=== PATIENT | female | born 1970 | race African-American/Black ===

== ENCOUNTER 2016-06-23 17:47 | Inpatient (IN) | payer OTHER, MEDICAID ==
[~2016-06-23] VITALS: Ht 160 cm; Wt 64.0 kg
[~2016-06-23 17:47] MED LIST: BUSP10TA PO; GABA-585 PO; GABA-586 PO; HYDR-2762 PO; LEVO500T38 PO; OXCA150T PO; OXCA300T PO; PANCRELIPASE; PANT40TA5 PO; SERT100T8 PO; SERT50TA8 PO; TRAM50TA PO
[2016-06-23 18:49] LABS: BASO % 1 % (0-3); EOS % 1 % (0-3); HEMATOCRIT 32.3 % (36.0-47.0); HEMOGLOBIN 10.3 g/dL (12.0-15.5); LYMPH # 1.8 x10^3/uL (1.0-4.8); LYMPH % 39 % (24-48); MEAN CORPUSCULAR HEMOGLOBIN 33 pg (25-35); MEAN CORPUSCULAR HGB CONC 32 g/dL (31-37); MEAN CORPUSCULAR VOLUME 103 fL (79-100); MONO % 8 % (0-9); NEUT % 51 % (31-73); PLATELET COUNT 196 x10^3/uL (140-400); RED BLOOD COUNT 3.14 x10^6/uL (3.50-5.40); RED CELL DISTRIBUTION WIDTH 15.6 % (11.5-14.5); WHITE BLOOD COUNT 4.6 x10^3/uL (4.0-11.0)
[2016-06-23 19:37] LABS: CALCIUM 7.6 mg/dL (8.5-10.1); GFR 72.5
[2016-06-23 19:44] LABS: ALBUMIN 1.3 g/dL (3.4-5.0); DIRECT BILIRUBIN 0.2 mg/dL (0.0-0.2); TOTAL BILIRUBIN 0.7 mg/dL (0.2-1.0); TOTAL PROTEIN 4.8 g/dL (6.4-8.2)
[2016-06-23 19:49] LABS: BILIRUBIN,URINE SMALL (NEG); GLUCOSE,URINE NEGATIVE (NEG); NITRITE,URINE NEGATIVE (NEG); PROTEIN,URINE NEGATIVE (NEG-TRACE)
[2016-06-23 19:58] LABS: BACTERIA,URINE 0 /HPF (0-FEW); RBC,URINE 0 /HPF (0-2); SQUAMOUS EPITHELIAL CELL,UR OCC /LPF; WBC,URINE OCC /HPF (0-4)
[2016-06-23] MEDS ORDERED: ONDA4TAB10 SL (20:33)
--- NOTE | 2016-06-23 20:33 | PHYS DOC ---
Past Medical History Past Medical History: Anxiety, Depression, Other Additional Past Medical Histor: NEUROPATHY, VITAMIN DEFICIENCY Past Surgical History: Gastric Bypass, Tubal ligation Alcohol Use: Occasionally Drug Use: None Adult General Chief Complaint Chief Complaint: FATIGUE HPI HPI 46-year-old female presenting to the emergency department today with generalized weakness nausea vomiting and watery diarrhea. No blood in stool. She has been having weight loss as well which is unintentional. Onset greater than a month. No alleviating factors present. No specific timing. She denies fever or headache. Review of systems is negative for shortness of breath fever or headache. Positive for intermittent sharp chest pain with nausea vomiting watery stools. All other review of systems is negative unless otherwise noted in history of present illness. Review of Systems Review of Systems SEE ABOVE. Allergies Allergies Allergies Coded Allergies Type Severity Reaction Last Updated Verified haloperidol Allergy Intermediate Anxiety 03/25/16 Yes strawberry Allergy Intermediate Rash 03/25/16 Yes Physical Exam Physical Exam Constitutional: Well developed, well nourished, no acute distress, non-toxic appearance. HENT: Normocephalic, atraumatic, bilateral external ears normal, oropharynx moist, no oral exudates, nose normal. [] Eyes: PERRLA, EOMI, conjunctiva normal, no discharge. Neck: Normal range of motion, no tenderness, supple, no stridor. Negative Kernig sign negative Brudzinski sign. Cardiovascular:Heart rate regular rhythm, no murmur [] Lungs & Thorax: Bilateral breath sounds clear to auscultation [] Abdomen: Soft nontender abdomen without rebound tenderness or guarding present. Negative McBurneys point. Negative Bowen sign. No ecchymosis present. Skin: Warm, dry, no erythema, no rash. Back: No tenderness, no CVA tenderness. [] Extremities: No tenderness, no cyanosis, no clubbing, ROM intact, no edema. [] Neurologic: Alert and oriented X 3, normal motor function, normal sensory function, no focal deficits noted. Psychologic: Affect normal, judgement normal, mood normal. [] Current Patient Data Vital Signs Vital Signs Date Time Temp Pulse Resp B/P Pulse Ox O2 Delivery O2 Flow Rate FiO2 06/23/16 18:15 98.0 86 14 110/59 95 Room Air 98.0 Lab Values Laboratory Tests Test 06/23/16 18:30 06/23/16 19:30 White Blood Count 4.6x10^3/uL (4.0-11.0) Red Blood Count 3.14x10^6/uL (3.50-5.40) L Hemoglobin 10.3g/dL (12.0-15.5) L Hematocrit 32.3% (36.0-47.0) L Mean Corpuscular Volume 103fL (79-100) H Mean Corpuscular Hemoglobin 33pg (25-35) Mean Corpuscular Hemoglobin Concent 32g/dL (31-37) Red Cell Distribution Width 15.6% (11.5-14.5) H Platelet Count 196x10^3/uL (140-400) Neutrophils (%) (Auto) 51% (31-73) Lymphocytes (%) (Auto) 39% (24-48) Monocytes (%) (Auto) 8% (0-9) Eosinophils (%) (Auto) 1% (0-3) Basophils (%) (Auto) 1% (0-3) Neutrophils # (Auto) 2.3x10^3uL (1.8-7.7) Lymphocytes # (Auto) 1.8x10^3/uL (1.0-4.8) Monocytes # (Auto) 0.4x10^3/uL (0.0-1.1) Eosinophils # (Auto) 0.0x10^3/uL (0.0-0.7) Basophils # (Auto) 0.0x10^3/uL (0.0-0.2) Sodium Level 148mmol/L (136-145) H Potassium Level 4.0mmol/L (3.5-5.1) Chloride Level 114mmol/L (98-107) H Carbon Dioxide Level 27mmol/L (21-32) Anion Gap 7 (6-14) Blood Urea Nitrogen 12mg/dL (7-20) Creatinine 1.0mg/dL (0.6-1.0) Estimated GFR (Cockcroft-Gault) 72.5 Glucose Level 73mg/dL (70-99) Lactic Acid Level 1.2mmol/L (0.4-2.0) Calcium Level 7.6mg/dL (8.5-10.1) L Total Bilirubin 0.7mg/dL (0.2-1.0) Direct Bilirubin 0.2mg/dL (0.0-0.2) Aspartate Amino Transferase (AST) 65U/L (15-37) H Alanine Aminotransferase (ALT) 55U/L (14-59) Alkaline Phosphatase 148U/L (46-116) H TM-Nse-R-Type Natriuretic Peptide 364pg/mL (0-124) H Total Protein 4.8g/dL (6.4-8.2) L Albumin 1.3g/dL (3.4-5.0) L Lipase 46U/L (73-393) L Urine Color [place] Urine Clarity Clear Urine pH 6.0 Urine Specific [place] 1.025 Urine Protein Negativemg/dL (NEG-TRACE) Urine Glucose (UA) Negativemg/dL (NEG) Urine Ketones (Stick) Tracemg/dL (NEG) Urine Blood Negative (NEG) Urine Nitrite Negative (NEG) Urine Bilirubin Small (NEG) Urine Urobilinogen Dipstick 1.0mg/dL (0.2 mg/dL) Urine Leukocyte Esterase Trace (NEG) Urine RBC 0/HPF (0-2) Urine WBC Occ/HPF (0-4) Urine Squamous Epithelial Cells Occ/LPF Urine Bacteria 0/HPF (0-FEW) Urine Hyaline Casts Occasional/HPF Urine Mucus Mod/LPF Laboratory Tests 06/23/16 18:30 Laboratory Tests 06/23/16 18:30 EKG EKG []EKG shows sinus rhythm with regular rate. Normal intervals. Normal axis. ST segments are congruent. Not suggestive of ACS. Reviewed by myself. Radiology/Procedures Radiology/Procedures [] Chest x-rays shows new pleural effusion on the left. Otherwise no obvious infiltrate or pneumothorax present. Poor lung volumes. Course & Med Decision Making Course & Med Decision Making Pertinent Labs and Imaging studies reviewed. (See chart for details) [] 36-year-old female presenting to the emergency department today with generalized weakness decreased appetite weight loss nausea vomiting. Afebrile with a normal heart rate. Saturating 95% on room air. Breathing comfortably in the exam room. Physical exam showed a nontender abdomen. Otherwise unremarkable. EKG unremarkable. Chest x-ray shows new pleural effusion on the left. Otherwise blood work showed mild anemia. UA not suggestive of infection. Chemistry panel showed malnutrition given the low albumin otherwise grossly unremarkable. On reevaluation the patient was breathing comfortably. The patient was then discharged home to follow up with her primary care physician in 1-2 days for referral for an outpatient workup evaluation and care of the left pleural effusion. Danny Disclaimer Danny Disclaimer This electronic medical record was generated, in whole or in part, using a voice recognition dictation system. Departure Departure Impression: Primary Impression: Unintentional weight loss Additional Impressions: Vomiting Weakness Disposition: 01 HOME, SELF-CARE Condition: STABLE Referrals: SIMBA JACK APRN (PCP) Patient Instructions: Malnutrition, Nausea and Vomiting, Pleural Effusion Additional Instructions: Thank you for allowing us to participate in your care today. Followup with your primary care physician in 3 days if your symptoms do not improve. If you do not have a primary care provider you can ask for a list of our primary care providers. Return to the emergency department you have any new or concerning findings. This should be evaluated by the primary care physician and any necessary consulting services for continued management within a few days after discharge. Return to emergency room if you have any new or concerning symptoms including but not limited to fever, chills, nausea, vomiting, intractable pain, any new rashes, chest pain, shortness of air, uncontrolled bleeding, difficulty breathing, and/or vision loss. Scripts Ondansetron (Zofran Odt)4 Mg Tab.rapdis1 Tab SL PRN Q8HRS PRN NAUSEA #6 TAB Prov:KULWANT CHAND MD 06/23/16 Problem Qualifiers KULWANT CHAND MD Jun 23, 2016 20:33
[2016-06-23] MEDS ORDERED: MORPHINE SULFATE 2 MG/ML DISP.SYRIN. IV PRN (21:00)
[2016-06-23] MEDS ORDERED: ONDANSETRON PF 4 MG/2 ML VIAL. IV PRN (21:00)
[2016-06-23] MEDS ORDERED: ASPIRIN 81 MG TAB.CHEW PO ONE (21:15)
[2016-06-23] MEDS ORDERED: CONTRAST GIVEN MC PRN (21:15)
[2016-06-23] MEDS ORDERED: IOHEXOL 300 MG/ML 75 ML VIAL IV ONE (21:45)
--- NOTE | 2016-06-23 21:53 | RAD ---
CT CHEST PQRS STATEMENT One or more of the following individualized dose reduction techniques were utilized for this study:1.Automated exposure control. 2.Adjustment of the mA and/or kV according to patient size. 3.Use of iterative reconstruction technique Indication: EFFUSION EVAL FOR CARCINOMA, HX GASTRIC BYPASS ,NO PRIORS Reason: effusion eval for carcinoma / Spl. Instructions: / History: Technique: Multiple contiguous axial images were obtained through the chest after administration of iodinated contrast. Coronal and sagittal reformations were created. Findings: There is no thoracic adenopathy. The heart size is normal. No pericardial effusion. The thoracic aorta is normal in caliber. There is a moderate left and small right pleural effusion. No pneumothorax. There is some non consolidating injured Fischel opacities in the left upper lobe peripherally. A calcified granuloma is noted in the right upper lobe peripherally. No destructive osseous lesions are identified. Limited subdiaphragmatic evaluation demonstrates at least moderate amount of ascites. Impression: - Moderate left and small right pleural effusion. - Negative for thoracic adenopathy. - Abdominal ascites. - Non consolidating peripheral left upper lobe interstitial opacities. This could represent atelectasis but follow-up is recommended. Electronically signed by: Randy Caruso (Jun 23, 2016 21:52:06)
[2016-06-23 22:40] VITALS: BP 109/62
[2016-06-23] MEDS ORDERED: TRAZ50TA15 PO (23:17)
[2016-06-23] MEDS ORDERED: GABA-586 PO (23:17)
[2016-06-23] MEDS ORDERED: TRAM50TA PO (23:42)
[2016-06-24] MEDS: IV NORMAL SALINE 1000ML BAG 1,000 ML IV SCH ×2 (00:38→05:00)
[2016-06-24] MEDS: HYDROCODONE/APAP 5/325MG TABLET. PO PRN ×3 (00:39→15:24)
[2016-06-24 01:00] VITALS: BP 107/60
[2016-06-24 03:35] VITALS: BP 107/53
--- NOTE | 2016-06-24 06:34 | EKG ---
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
[2016-06-24 06:59] LABS: BASO % 1 % (0-3); EOS % 1 % (0-3); HEMATOCRIT 31.8 % (36.0-47.0); HEMOGLOBIN 10.2 g/dL (12.0-15.5); LYMPH # 1.6 x10^3/uL (1.0-4.8); LYMPH % 41 % (24-48); MEAN CORPUSCULAR HEMOGLOBIN 33 pg (25-35); MEAN CORPUSCULAR HGB CONC 32 g/dL (31-37); MEAN CORPUSCULAR VOLUME 104 fL (79-100); MONO % 8 % (0-9); NEUT % 50 % (31-73); PLATELET COUNT 168 x10^3/uL (140-400); RED BLOOD COUNT 3.07 x10^6/uL (3.50-5.40); RED CELL DISTRIBUTION WIDTH 15.2 % (11.5-14.5); WHITE BLOOD COUNT 3.9 x10^3/uL (4.0-11.0)
[2016-06-24 07:22] LABS: CALCIUM 7.5 mg/dL (8.5-10.1); CREATININE 0.9 mg/dL (0.6-1.0); GFR 81.9; POTASSIUM 3.5 mmol/L (3.5-5.1)
[2016-06-24 07:49] VITALS: BP 110/62
--- NOTE | 2016-06-24 07:51 | RAD ---
Indication weakness. Fatigue. Shortness of breath. A single view of the chest was obtained and is compared to an exam 01/19/2016. There is a left pleural effusion. There is some volume loss at the left lung base likely reflecting passive atelectasis associated with the pleural fluid. The heart and pulmonary vessels are within normal limits. A focal consolidated pneumonia is not seen. There is no pneumothorax. IMPRESSION: Moderate left pleural effusion
[2016-06-24] MEDS ORDERED: TRAMADOL 50 MG TABLET. PO PRN (09:00)
--- NOTE | 2016-06-24 09:39 | PDOC2 ---
JACEK ROMERO RESIDENT PHYSICIAN 06/24/16 0939: CARDIAC CONSULT DATE OF CONSULT Date of Consult DATE: 06/24/16 TIME: 09:31 REASON FOR CONSULT Reason for Consult: Positive troponin REFERRING PHYSICIAN Referring Physician: Dr. Ball SOURCE Source: Chart review, Patient HISTORY OF PRESENT ILLNESS HISTORY OF PRESENT ILLNESS This is a 46 yo female, with a history of severe mitral regurgitation and obesity s/p remote gastric bypass, who presented with complaints of generalized weakness and dizziness, along with nausea, vomiting, and diarrhea. Patient reports onset of symptoms 2 weeks ago. Have progressively worsened. Associated with decrease intake. Recently had difficulty walking and has been having outpatient PT/OT. Reports daily diarrhea, nausea and vomiting. Seems to be worsened by stress. Additionally reports intermittent chest pain. Located in left chest. Describes as sharp in nature. Non-radiating. Worsened by pressing on left chest and laying on right side. Ongoing SOA since February which has slightly worsened since Katie time. Echocardiogram this past February noted severe mitral regurgitation. Patient subsequently underwent JAYY that revealed moderately severe mitral regurgitation along with moderate tricuspid regurgitation and moderately dilated left atrium. Patient schedule for cardiothoracic evaluation, but failed to make appointment. PAST MEDICAL HISTORY Cardiovascular: Valve insufficiency (severe mitral reg.) Pulmonary: No pertinent hx CENTRAL NERVOUS SYSTEM: Periperal neuropathy GI: Other (esophageal erosions ) Heme/Onc: Anemia NOS Hepatobiliary: No pertinent hx Psych: Anxiety, Depression Infectious disease: No pertinent hx ENT: No pertinent hx Renal/: No pertinent hx Endocrine: Hypothyroidism Dermatology: No pertinent hx PAST SURGICAL HISTORY Past Surgical History: Cholecystectomy, Other (gastric bypass 2011 ) FAMILY HISTORY Family History: Diabetes, Hypertension SOCIAL HISTORY Smoke: <1 pack per day ALCOHOL: occassional Drugs: None Lives: with Family Domestic Violence: Neg CURRENT MEDICATIONS CURRENT MEDICATIONS Current Medications Medications (Trade) Dose Ordered Sig/Grecia Route PRN Reason Start Time Stop Time Status Last Admin Dose Admin Aspirin (Children'S Aspirin) 324 mg 1X ONCE PO 06/23/16 21:15 06/23/16 21:16 DC 06/23/16 21:53 Morphine Sulfate 2 mg 2 mg PRN Q2HR PRN IV SEVERE PAIN 06/23/16 21:00 06/24/16 20:59 06/23/16 21:57 Sodium Chloride (Iv Sodium Chloride 0.9% 1000ml Bag) 1,000 ml @ 125 mls/hr Q8H IV 06/23/16 21:00 06/24/16 20:59 06/24/16 00:38 Iohexol (Omnipaque 300 Mg/ml) 75 ml 1X ONCE IV 06/23/16 21:45 06/23/16 21:46 DC 06/23/16 21:20 Acetaminophen/ Hydrocodone Bitart (Lortab 5/325) 1 tab PRN Q4HRS PRN PO SEVERE PAIN 06/23/16 23:45 06/24/16 06:00 ALLERGIES ALLERGIES: Coded Allergies: haloperidol (Verified Allergy, Intermediate, Anxiety, 03/25/16) strawberry (Verified Allergy, Intermediate, Rash, 03/25/16) ROS Review of System 14 point ROS conducted with pertinent positives noted above in HPI PHYSICAL EXAM General: Alert, Oriented X3, Cooperative, No acute distress HEENT: Atraumatic, Mucous membr. moist/pink Lungs: Clear to auscultation, Other (left chest tender upon palpitaiton) Heart: Regular rate, Normal S1, Normal S2, Other (3/6 systolic murmur ) Abdomen: Soft, No tenderness, Other (ascites) Extremities: Other (trace bilateral LE edema ) Skin: No breakdown, No significant lesion Neuro: Normal speech, Sensation intact Psych/Mental Status: Mental status NL, Mood NL MUSCULOSKELETAL: Full range of motion without pain VITALS VITALS Vital Signs Date Time Temp Pulse Resp B/P Pulse Ox O2 Delivery O2 Flow Rate FiO2 06/24/16 08:00 Room Air 06/24/16 07:49 97.7 83 17 110/62 98 97.7 LABS Lab: Laboratory Tests Test 06/23/16 18:30 06/23/16 19:30 06/24/16 06:26 White Blood Count 4.6x10^3/uL (4.0-11.0) 3.9x10^3/uL (4.0-11.0) Red Blood Count 3.14x10^6/uL (3.50-5.40) 3.07x10^6/uL (3.50-5.40) Hemoglobin 10.3g/dL (12.0-15.5) 10.2g/dL (12.0-15.5) Hematocrit 32.3% (36.0-47.0) 31.8% (36.0-47.0) Mean Corpuscular Volume 103fL (79-100) 104fL (79-100) Mean Corpuscular Hemoglobin 33pg (25-35) 33pg (25-35) Mean Corpuscular Hemoglobin Concent 32g/dL (31-37) 32g/dL (31-37) Red Cell Distribution Width 15.6% (11.5-14.5) 15.2% (11.5-14.5) Platelet Count 196x10^3/uL (140-400) 168x10^3/uL (140-400) Neutrophils (%) (Auto) 51% (31-73) 50% (31-73) Lymphocytes (%) (Auto) 39% (24-48) 41% (24-48) Monocytes (%) (Auto) 8% (0-9) 8% (0-9) Eosinophils (%) (Auto) 1% (0-3) 1% (0-3) Basophils (%) (Auto) 1% (0-3) 1% (0-3) Neutrophils # (Auto) 2.3x10^3uL (1.8-7.7) 1.9x10^3uL (1.8-7.7) Lymphocytes # (Auto) 1.8x10^3/uL (1.0-4.8) 1.6x10^3/uL (1.0-4.8) Monocytes # (Auto) 0.4x10^3/uL (0.0-1.1) 0.3x10^3/uL (0.0-1.1) Eosinophils # (Auto) 0.0x10^3/uL (0.0-0.7) 0.0x10^3/uL (0.0-0.7) Basophils # (Auto) 0.0x10^3/uL (0.0-0.2) 0.0x10^3/uL (0.0-0.2) Sodium Level 148mmol/L (136-145) 144mmol/L (136-145) Potassium Level 4.0mmol/L (3.5-5.1) 3.5mmol/L (3.5-5.1) Chloride Level 114mmol/L (98-107) 113mmol/L (98-107) Carbon Dioxide Level 27mmol/L (21-32) 23mmol/L (21-32) Anion Gap 7 (6-14) 8 (6-14) Blood Urea Nitrogen 12mg/dL (7-20) 13mg/dL (7-20) Creatinine 1.0mg/dL (0.6-1.0) 0.9mg/dL (0.6-1.0) Estimated GFR (Cockcroft-Gault) 72.5 81.9 Glucose Level 73mg/dL (70-99) 69mg/dL (70-99) Lactic Acid Level 1.2mmol/L (0.4-2.0) Calcium Level 7.6mg/dL (8.5-10.1) 7.5mg/dL (8.5-10.1) Total Bilirubin 0.7mg/dL (0.2-1.0) Direct Bilirubin 0.2mg/dL (0.0-0.2) Aspartate Amino Transf (AST/SGOT) 65U/L (15-37) Alanine Aminotransferase (ALT/SGPT) 55U/L (14-59) Alkaline Phosphatase 148U/L (46-116) Troponin I Quantitative 0.088ng/mL (0.000-0.055) 0.111ng/mL (0.000-0.055) KC-Aba-K-Type Natriuretic Peptide 364pg/mL (0-124) Total Protein 4.8g/dL (6.4-8.2) Albumin 1.3g/dL (3.4-5.0) Lipase 46U/L (73-393) Urine Color [place] Urine Clarity Clear Urine pH 6.0 Urine Specific [place] 1.025 Urine Protein Negativemg/dL (NEG-TRACE) Urine Glucose (UA) Negativemg/dL (NEG) Urine Ketones (Stick) Tracemg/dL (NEG) Urine Blood Negative (NEG) Urine Nitrite Negative (NEG) Urine Bilirubin Small (NEG) Urine Urobilinogen Dipstick 1.0mg/dL (0.2 mg/dL) Urine Leukocyte Esterase Trace (NEG) Urine RBC 0/HPF (0-2) Urine WBC Occ/HPF (0-4) Urine Squamous Epithelial Cells Occ/LPF Urine Bacteria 0/HPF (0-FEW) Urine Hyaline Casts Occasional/HPF Urine Mucus Mod/LPF ECHOCARDIOGRAM ECHOCARDIOGRAM DATE: 03/11/161806 Echocardiogram: <Conclusion> The left ventricular systolic function is normal and the ejection fraction is within normal range. The Ejection Fraction is 68% The left atrium is severely dilated. The right atrium size is normal. Doppler and Color Flow revealed trace aortic regurgitation. The mitral valve is normal in structure and function. Thickening of the Anterior leaflet is seen. Doppler and Color Flow revealed severe mitral regurgitation. Doppler and Color Flow revealed mild tricuspid regurgitation. The PA pressure was estimated at 34 mmHg. The pulmonary valve is normal in structure Doppler and Color Flow revealed mild pulmonic valvular regurgitation. There is a trivial pericardial effusion seen. DATE: 04/01/16 121 Transesophageal Echocardiogram : <Conclusion> The left ventricle is normal size. The left ventricular systolic function is normal and the ejection fraction is within normal range. The left atrium is moderately dilated. There is no significant aortic valvular stenosis. Doppler and Color Flow revealed trace aortic regurgitation. The mitral valve leaflets are thickened. Doppler and Color Flow revealed moderately severe mitral regurgitation. Doppler and Color Flow revealed mild to moderate tricuspid regurgitation. ASSESSMENT/PLAN ASSESSMENT/PLAN 1. Mildly elevated troponin 2. Severe mitral regurgitation 3. Dyspnea 4. Weakness/fatigue 5. Nausea/vomiting/diarrhea 6. Moderate left pleural effusion 7. Ascites Recommendations Trop peak 0.111. Slight troponin level elevation probably secondary to subendocardial ischemia from severe mitral regurgitation. Echo with normal LV function. Cardiothoracic surgery evaluation ? need for thoracentesis. per pulmonary Stop IV fluids. Mild diuresis as able. Supportive care Problems: GLEN APPIAH MD 06/24/161814: CARDIAC CONSULT ALLERGIES ALLERGIES: Coded Allergies: haloperidol (Verified Allergy, Intermediate, Anxiety, 03/25/16) strawberry (Verified Allergy, Intermediate, Rash, 03/25/16) ASSESSMENT/PLAN ASSESSMENT/PLAN Patient seen and examined. Agree with above nurse practitioner note. 46-year-old woman known to us presenting with debility, fatigue and malnutrition. From a purely cardio vascular perspective she does not appear to be in acute heart failure related to her mitral regurgitation. She has ascites and pleural effusions bilaterally on examination and by objective testing. Possible that this may be related to malabsorption syndromes or from poor nutrition. At this present time would treat her mitral regurgitation symptomatically. Gentle diuresis as tolerated. Will follow along. Thank you for this consultation. Problems: NICK,JACEK RESIDENT PHYSICIAN Jun 24, 2016 09:39 GLEN APPIAH MD Jun 24, 2016 18:15
--- NOTE | 2016-06-24 10:04 | PDOC1 ---
History and Physical Past Medical History Cardiovascular: Valve insufficiency (severe mitral reg.) CENTRAL NERVOUS SYSTEM: Periperal neuropathy GI: Other (esophageal erosions ) Psych: Depression Endocrine: Hypothyroidism Past Surgical History Past Surgical History: Cholecystectomy, Other (gastric bypass ) Family History Family History: Diabetes, Hypertension Social History ALCOHOL: none Drugs: None Current Problem List Problem List Problems Medical Problems: (1) Elevated troponin Status: Acute (2) Unintentional weight loss Status: Acute (3) Vomiting Status: Acute (4) Weakness Status: Acute Current Medications Current Medications Current Medications Medications (Trade) Dose Ordered Sig/Grecia Start Time Stop Time Status Last Admin Dose Admin Acetaminophen/ Hydrocodone Bitart (Lortab 5/325) 1 tab PRN Q4HRS PRN 06/23/16 23:45 06/24/16 06:00 1 TAB Aspirin (Children'S Aspirin) 324 mg 1X ONCE 06/23/16 21:15 06/23/16 21:16 DC 06/23/16 21:53 324 MG Gabapentin (Neurontin) 300 mg PRN TID PRN 06/23/16 23:45 Info (Do NOT chart on this entry -- for MONITORING) 1 each PRN DAILY PRN 06/23/16 21:15 06/25/16 21:14 Iohexol (Omnipaque 300 Mg/ml) 75 ml 1X ONCE 06/23/16 21:45 06/23/16 21:46 DC 06/23/16 21:20 75 ML Morphine Sulfate 2 mg 2 mg PRN Q2HR PRN 06/23/16 21:00 06/24/16 20:59 06/23/16 21:57 2 MG Ondansetron HCl (Zofran Odt) 4 mg PRN Q8HRS PRN 06/24/16 09:00 Ondansetron HCl (Zofran) 4 mg PRN Q8HRS PRN 06/23/16 21:00 06/24/16 20:59 Oxcarbazepine (Trileptal) 1,200 mg HS 06/24/16 21:00 Pantoprazole Sodium (Protonix) 40 mg DAILYAC 06/24/16 07:30 Sertraline HCl (Zoloft) 100 mg BID 06/24/16 09:00 Sodium Chloride (Iv Sodium Chloride 0.9% 1000ml Bag) 1,000 ml @ 125 mls/hr Q8H 06/23/16 21:00 06/24/16 20:59 06/24/16 00:38 125 MLS/HR Tramadol HCl (Ultram) 50 mg PRN Q6HRS PRN 06/24/16 09:00 Trazodone HCl (Desyrel) 50 mg QHS 06/24/16 21:00 Allergies Allergies Allergies Coded Allergies Type Severity Reaction Last Updated Verified haloperidol Allergy Intermediate Anxiety 03/25/16 Yes strawberry Allergy Intermediate Rash 03/25/16 Yes ROS Review of System CONSTITUTIONAL: No fever or chills, fatigue weakness EYES: No recent changes SKIN: No rash or itching CARDIOVASCULAR: No chest pain, syncope, palpitations, or edema RESPIRATORY: No SOB or cough GASTROINTESTINAL: nausea, diarrhea, NEUROLOGICAL: No headaches or weakness ENDOCRINE: No cold or heat intolerance GENITOURINARY: No urgency or frequency of urination MUSCULOSKELETAL: chronic pain, leg pains LYMPHATICS: No enlarged lymph nodes PSYCHIATRIC: No anxiety or depression Physical Exam Physical Exam GEN.: apparent distress. Alert and oriented. HEENT: Head is normocephalic, atraumatic NECK: Supple. no jvd LUNGS: Clear to auscultation. decreased BS at bases HEART: RRR, S1, S2 present. Peripheral pulses intact ABDOMEN: Soft, nontender. Positive bowel sounds. EXTREMITIES: Without any cyanosis. +1 edema with discoloration NEUROLOGIC: Normal speech, normal tone PSYCHIATRIC: Normal affect, normal mood. SKIN: No visible ulcerations Vitals Vitals Vital Signs Date Time Temp Pulse Resp B/P Pulse Ox O2 Delivery O2 Flow Rate FiO2 06/24/16 08:00 Room Air 06/24/16 07:49 97.7 83 17 110/62 98 97.7 Labs Labs Laboratory Tests Test 06/23/16 18:30 06/23/16 19:30 06/24/16 06:26 White Blood Count 4.6x10^3/uL (4.0-11.0) 3.9x10^3/uL (4.0-11.0) Red Blood Count 3.14x10^6/uL (3.50-5.40) 3.07x10^6/uL (3.50-5.40) Hemoglobin 10.3g/dL (12.0-15.5) 10.2g/dL (12.0-15.5) Hematocrit 32.3% (36.0-47.0) 31.8% (36.0-47.0) Mean Corpuscular Volume 103fL (79-100) 104fL (79-100) Mean Corpuscular Hemoglobin 33pg (25-35) 33pg (25-35) Mean Corpuscular Hemoglobin Concent 32g/dL (31-37) 32g/dL (31-37) Red Cell Distribution Width 15.6% (11.5-14.5) 15.2% (11.5-14.5) Platelet Count 196x10^3/uL (140-400) 168x10^3/uL (140-400) Neutrophils (%) (Auto) 51% (31-73) 50% (31-73) Lymphocytes (%) (Auto) 39% (24-48) 41% (24-48) Monocytes (%) (Auto) 8% (0-9) 8% (0-9) Eosinophils (%) (Auto) 1% (0-3) 1% (0-3) Basophils (%) (Auto) 1% (0-3) 1% (0-3) Neutrophils # (Auto) 2.3x10^3uL (1.8-7.7) 1.9x10^3uL (1.8-7.7) Lymphocytes # (Auto) 1.8x10^3/uL (1.0-4.8) 1.6x10^3/uL (1.0-4.8) Monocytes # (Auto) 0.4x10^3/uL (0.0-1.1) 0.3x10^3/uL (0.0-1.1) Eosinophils # (Auto) 0.0x10^3/uL (0.0-0.7) 0.0x10^3/uL (0.0-0.7) Basophils # (Auto) 0.0x10^3/uL (0.0-0.2) 0.0x10^3/uL (0.0-0.2) Sodium Level 148mmol/L (136-145) 144mmol/L (136-145) Potassium Level 4.0mmol/L (3.5-5.1) 3.5mmol/L (3.5-5.1) Chloride Level 114mmol/L (98-107) 113mmol/L (98-107) Carbon Dioxide Level 27mmol/L (21-32) 23mmol/L (21-32) Anion Gap 7 (6-14) 8 (6-14) Blood Urea Nitrogen 12mg/dL (7-20) 13mg/dL (7-20) Creatinine 1.0mg/dL (0.6-1.0) 0.9mg/dL (0.6-1.0) Estimated GFR (Cockcroft-Gault) 72.5 81.9 Glucose Level 73mg/dL (70-99) 69mg/dL (70-99) Lactic Acid Level 1.2mmol/L (0.4-2.0) Calcium Level 7.6mg/dL (8.5-10.1) 7.5mg/dL (8.5-10.1) Total Bilirubin 0.7mg/dL (0.2-1.0) Direct Bilirubin 0.2mg/dL (0.0-0.2) Aspartate Amino Transf (AST/SGOT) 65U/L (15-37) Alanine Aminotransferase (ALT/SGPT) 55U/L (14-59) Alkaline Phosphatase 148U/L (46-116) Troponin I Quantitative 0.088ng/mL (0.000-0.055) 0.111ng/mL (0.000-0.055) VE-Jqo-O-Type Natriuretic Peptide 364pg/mL (0-124) Total Protein 4.8g/dL (6.4-8.2) Albumin 1.3g/dL (3.4-5.0) Lipase 46U/L (73-393) Urine Color [place] Urine Clarity Clear Urine pH 6.0 Urine Specific [place] 1.025 Urine Protein Negativemg/dL (NEG-TRACE) Urine Glucose (UA) Negativemg/dL (NEG) Urine Ketones (Stick) Tracemg/dL (NEG) Urine Blood Negative (NEG) Urine Nitrite Negative (NEG) Urine Bilirubin Small (NEG) Urine Urobilinogen Dipstick 1.0mg/dL (0.2 mg/dL) Urine Leukocyte Esterase Trace (NEG) Urine RBC 0/HPF (0-2) Urine WBC Occ/HPF (0-4) Urine Squamous Epithelial Cells Occ/LPF Urine Bacteria 0/HPF (0-FEW) Urine Hyaline Casts Occasional/HPF Urine Mucus Mod/LPF Laboratory Tests Test 06/23/16 18:30 06/23/16 19:30 06/24/16 06:26 White Blood Count 4.6x10^3/uL (4.0-11.0) 3.9x10^3/uL (4.0-11.0) Red Blood Count 3.14x10^6/uL (3.50-5.40) 3.07x10^6/uL (3.50-5.40) Hemoglobin 10.3g/dL (12.0-15.5) 10.2g/dL (12.0-15.5) Hematocrit 32.3% (36.0-47.0) 31.8% (36.0-47.0) Mean Corpuscular Volume 103fL (79-100) 104fL (79-100) Mean Corpuscular Hemoglobin 33pg (25-35) 33pg (25-35) Mean Corpuscular Hemoglobin Concent 32g/dL (31-37) 32g/dL (31-37) Red Cell Distribution Width 15.6% (11.5-14.5) 15.2% (11.5-14.5) Platelet Count 196x10^3/uL (140-400) 168x10^3/uL (140-400) Neutrophils (%) (Auto) 51% (31-73) 50% (31-73) Lymphocytes (%) (Auto) 39% (24-48) 41% (24-48) Monocytes (%) (Auto) 8% (0-9) 8% (0-9) Eosinophils (%) (Auto) 1% (0-3) 1% (0-3) Basophils (%) (Auto) 1% (0-3) 1% (0-3) Neutrophils # (Auto) 2.3x10^3uL (1.8-7.7) 1.9x10^3uL (1.8-7.7) Lymphocytes # (Auto) 1.8x10^3/uL (1.0-4.8) 1.6x10^3/uL (1.0-4.8) Monocytes # (Auto) 0.4x10^3/uL (0.0-1.1) 0.3x10^3/uL (0.0-1.1) Eosinophils # (Auto) 0.0x10^3/uL (0.0-0.7) 0.0x10^3/uL (0.0-0.7) Basophils # (Auto) 0.0x10^3/uL (0.0-0.2) 0.0x10^3/uL (0.0-0.2) Sodium Level 148mmol/L (136-145) 144mmol/L (136-145) Potassium Level 4.0mmol/L (3.5-5.1) 3.5mmol/L (3.5-5.1) Chloride Level 114mmol/L (98-107) 113mmol/L (98-107) Carbon Dioxide Level 27mmol/L (21-32) 23mmol/L (21-32) Anion Gap 7 (6-14) 8 (6-14) Blood Urea Nitrogen 12mg/dL (7-20) 13mg/dL (7-20) Creatinine 1.0mg/dL (0.6-1.0) 0.9mg/dL (0.6-1.0) Estimated GFR (Cockcroft-Gault) 72.5 81.9 Glucose Level 73mg/dL (70-99) 69mg/dL (70-99) Lactic Acid Level 1.2mmol/L (0.4-2.0) Calcium Level 7.6mg/dL (8.5-10.1) 7.5mg/dL (8.5-10.1) Total Bilirubin 0.7mg/dL (0.2-1.0) Direct Bilirubin 0.2mg/dL (0.0-0.2) Aspartate Amino Transf (AST/SGOT) 65U/L (15-37) Alanine Aminotransferase (ALT/SGPT) 55U/L (14-59) Alkaline Phosphatase 148U/L (46-116) Troponin I Quantitative 0.088ng/mL (0.000-0.055) 0.111ng/mL (0.000-0.055) DM-Gfx-D-Type Natriuretic Peptide 364pg/mL (0-124) Total Protein 4.8g/dL (6.4-8.2) Albumin 1.3g/dL (3.4-5.0) Lipase 46U/L (73-393) Urine Color [place] Urine Clarity Clear Urine pH 6.0 Urine Specific [place] 1.025 Urine Protein Negativemg/dL (NEG-TRACE) Urine Glucose (UA) Negativemg/dL (NEG) Urine Ketones (Stick) Tracemg/dL (NEG) Urine Blood Negative (NEG) Urine Nitrite Negative (NEG) Urine Bilirubin Small (NEG) Urine Urobilinogen Dipstick 1.0mg/dL (0.2 mg/dL) Urine Leukocyte Esterase Trace (NEG) Urine RBC 0/HPF (0-2) Urine WBC Occ/HPF (0-4) Urine Squamous Epithelial Cells Occ/LPF Urine Bacteria 0/HPF (0-FEW) Urine Hyaline Casts Occasional/HPF Urine Mucus Mod/LPF VTE Prophylaxis Ordered VTE Prophylaxis Devices: Yes VTE Pharmacological Prophylaxi: Yes TRAN THOMPSON MD Jun 24, 2016 10:04
[2016-06-24] MEDS: SERTRALINE 50 MG TABLET. PO SCH ×2 (10:23→21:40)
[2016-06-24] MEDS: PANTOPRAZOLE 40 MG TABLET. PO SCH (10:23)
[2016-06-24] MEDS: GABAPENTIN 300 MG CAPSULE. PO PRN (10:31)
[2016-06-24 11:12] VITALS: BP 111/65
[2016-06-24] MEDS ORDERED: IV NORMAL SALINE 1000ML BAG 1,000 ML IV SCH (11:30)
--- NOTE | 2016-06-24 11:45 | PDOC2 ---
GI CONSULT Reason For Consult: Abdominal pain, diarrhea HPI: HPI: 46 y/o AA female known to GI/Dr. Lemus from previous admission. GI history significant for biliopancreatic diversion, malnutrition, n/v, abdominal pain, and diarrhea. EGD in 01/2016 for same showed 2 mucosal abrasions above GEJ, distal gastrectomy with end-to-side gastroenterostomy, gastric pouch normal but larger than for typical R-en-Y bypass, and normal franca limb to limits of scope. GES was normal at that time. She had a nutritional consult at that time and soft, low-refined carbohydrate, low-fat diet w/ nutritional supplements and vitamins were recommended. On this occasion, she reports she came to the ER for chest pain and heart palpitations. Labs show low Hgb 10.2 (8-9 last admission), low albumin, and some elevation in troponin. Chest CT showed moderate left and small right pleural effusions and abdominal ascites. She has seen cardiology; CTS consult is considered w/ h/o severe mitral regurg. Currently she denies abdominal pain and says her last BM was 2 days ago. She has gained 4 pounds. She is hungry and eating breakfast. She does report some n/v over the past few days (which she feels is worse w/ stress) w/ abdominal bloating (now resolved). At home, she takes PPI, pancreatic enzymes, vitamins, and occasionally requires anti-emetics. PMH: PMH: mitral regurg, anxiety/depression, neuropathy, biliopancreatic diversion, cholecystectomy, tubal ligation Social History: Smoke: <1 pack per day ALCOHOL: occassional Drugs: None ROS: GEN: Denies fevers, chills, sweats HEENT: Denies blurred vision, sore throat CV: +chest pain +palpitations RESP: +SOA GI: Per HPI : Denies hematuria, dysuria ENDO: +gained 4 pounds NEURO: Denies confusion, dizziness MSK: +weakness SKIN: Denies jaundice, pruritus VItals: Vitals: Vital Signs Date Time Temp Pulse Resp B/P Pulse Ox O2 Delivery O2 Flow Rate FiO2 06/24/16 11:12 97.7 82 17 111/65 99 Room Air 97.7 Labs: Labs: Laboratory Tests Test 06/23/16 18:30 06/23/16 19:30 06/24/16 06:26 White Blood Count 4.6x10^3/uL (4.0-11.0) 3.9x10^3/uL (4.0-11.0) Red Blood Count 3.14x10^6/uL (3.50-5.40) 3.07x10^6/uL (3.50-5.40) Hemoglobin 10.3g/dL (12.0-15.5) 10.2g/dL (12.0-15.5) Hematocrit 32.3% (36.0-47.0) 31.8% (36.0-47.0) Mean Corpuscular Volume 103fL (79-100) 104fL (79-100) Mean Corpuscular Hemoglobin 33pg (25-35) 33pg (25-35) Mean Corpuscular Hemoglobin Concent 32g/dL (31-37) 32g/dL (31-37) Red Cell Distribution Width 15.6% (11.5-14.5) 15.2% (11.5-14.5) Platelet Count 196x10^3/uL (140-400) 168x10^3/uL (140-400) Neutrophils (%) (Auto) 51% (31-73) 50% (31-73) Lymphocytes (%) (Auto) 39% (24-48) 41% (24-48) Monocytes (%) (Auto) 8% (0-9) 8% (0-9) Eosinophils (%) (Auto) 1% (0-3) 1% (0-3) Basophils (%) (Auto) 1% (0-3) 1% (0-3) Neutrophils # (Auto) 2.3x10^3uL (1.8-7.7) 1.9x10^3uL (1.8-7.7) Lymphocytes # (Auto) 1.8x10^3/uL (1.0-4.8) 1.6x10^3/uL (1.0-4.8) Monocytes # (Auto) 0.4x10^3/uL (0.0-1.1) 0.3x10^3/uL (0.0-1.1) Eosinophils # (Auto) 0.0x10^3/uL (0.0-0.7) 0.0x10^3/uL (0.0-0.7) Basophils # (Auto) 0.0x10^3/uL (0.0-0.2) 0.0x10^3/uL (0.0-0.2) Sodium Level 148mmol/L (136-145) 144mmol/L (136-145) Potassium Level 4.0mmol/L (3.5-5.1) 3.5mmol/L (3.5-5.1) Chloride Level 114mmol/L (98-107) 113mmol/L (98-107) Carbon Dioxide Level 27mmol/L (21-32) 23mmol/L (21-32) Anion Gap 7 (6-14) 8 (6-14) Blood Urea Nitrogen 12mg/dL (7-20) 13mg/dL (7-20) Creatinine 1.0mg/dL (0.6-1.0) 0.9mg/dL (0.6-1.0) Estimated GFR (Cockcroft-Gault) 72.5 81.9 Glucose Level 73mg/dL (70-99) 69mg/dL (70-99) Lactic Acid Level 1.2mmol/L (0.4-2.0) Calcium Level 7.6mg/dL (8.5-10.1) 7.5mg/dL (8.5-10.1) Total Bilirubin 0.7mg/dL (0.2-1.0) Direct Bilirubin 0.2mg/dL (0.0-0.2) Aspartate Amino Transf (AST/SGOT) 65U/L (15-37) Alanine Aminotransferase (ALT/SGPT) 55U/L (14-59) Alkaline Phosphatase 148U/L (46-116) Troponin I Quantitative 0.088ng/mL (0.000-0.055) 0.111ng/mL (0.000-0.055) BO-Rjp-P-Type Natriuretic Peptide 364pg/mL (0-124) Total Protein 4.8g/dL (6.4-8.2) Albumin 1.3g/dL (3.4-5.0) Lipase 46U/L (73-393) Urine Color [place] Urine Clarity Clear Urine pH 6.0 Urine Specific [place] 1.025 Urine Protein Negativemg/dL (NEG-TRACE) Urine Glucose (UA) Negativemg/dL (NEG) Urine Ketones (Stick) Tracemg/dL (NEG) Urine Blood Negative (NEG) Urine Nitrite Negative (NEG) Urine Bilirubin Small (NEG) Urine Urobilinogen Dipstick 1.0mg/dL (0.2 mg/dL) Urine Leukocyte Esterase Trace (NEG) Urine RBC 0/HPF (0-2) Urine WBC Occ/HPF (0-4) Urine Squamous Epithelial Cells Occ/LPF Urine Bacteria 0/HPF (0-FEW) Urine Hyaline Casts Occasional/HPF Urine Mucus Mod/LPF Allergies: Coded Allergies: haloperidol (Verified Allergy, Intermediate, Anxiety, 03/25/16) strawberry (Verified Allergy, Intermediate, Rash, 03/25/16) Medications: Current Medications Medications (Trade) Dose Ordered Sig/[place] Route PRN Reason Start Time Stop Time Status Last Admin Dose Admin Aspirin (Children'S Aspirin) 324 mg 1X ONCE PO 06/23/16 21:15 06/23/16 21:16 DC 06/23/16 21:53 Morphine Sulfate 2 mg 2 mg PRN Q2HR PRN IV SEVERE PAIN 06/23/16 21:00 06/24/16 20:59 06/23/16 21:57 Sodium Chloride (Iv Sodium Chloride 0.9% 1000ml Bag) 1,000 ml @ 125 mls/hr Q8H IV 06/23/16 21:00 06/24/16 11:15 DC 06/24/16 00:38 Iohexol (Omnipaque 300 Mg/ml) 75 ml 1X ONCE IV 06/23/16 21:45 06/23/16 21:46 DC 06/23/16 21:20 Gabapentin (Neurontin) 300 mg PRN TID PRN PO NEUROPATHIC PAIN 06/23/16 23:45 06/24/16 10:31 Pantoprazole Sodium (Protonix) 40 mg DAILYAC PO 06/24/16 07:30 06/24/16 10:23 Sertraline HCl (Zoloft) 100 mg BID PO 06/24/16 09:00 06/24/16 10:23 Acetaminophen/ Hydrocodone Bitart 1 tab 1 tab PRN Q4HRS PRN PO SEVERE PAIN 06/23/16 23:45 06/24/16 06:00 Sodium Chloride (Iv Sodium Chloride 0.9% 1000ml Bag) 1,000 ml @ 50 mls/hr Q20H IV 06/24/16 11:30 06/24/16 11:31 06/24/16 11:20 Imaging: Imaging: CXR 06/23/16 IMPRESSION: Moderate left pleural effusion. Chest CT 06/23/16 Impression: - Moderate left and small right pleural effusion. - Negative for thoracic adenopathy. - Abdominal ascites. - Non consolidating peripheral left upper lobe interstitial opacities. This could represent atelectasis but follow-up is recommended. PE: GEN: NAD, sitting up in bed w/ breakfast tray HEENT: Atraumatic, PERRL LUNGS: clear anteriorly HEART: RRR +murm, left chest wall tenderness ABD: NABS, S/ND/NT EXTREMITY: trace BLE edema SKIN: No rashes, no jaundice NEURO/PSYCH: A & O 3 A/P: A/P: Ascites -noted on chest CT -low albumin S/p BPD -has n/v, abd pain, diarrhea - these issues are stable/not currently bothersome -on PPI, panc enzymes, PRN anti-emetics, supplements Chest pain, elevated troponin, mitral regurg, pleural effusion -per cardiology, pulm, ?CTS -- With new ascites, will check abd US (confirm ascites), doppler (r/o portal hypertension), and ask for paracentesis. LESLEY GOULD Jun 24, 2016 11:45
--- NOTE | 2016-06-24 12:01 | PDOC ---
Provider Note Provider Note dictated Left effusion/ 30 Lb wt loss need left thoracentesis MARÍA BEASLEY MD Jun 24, 2016 12:01
[2016-06-24 12:46] LABS: INR 1.3 (0.8-1.1); PROTHROMBIN TIME PATIENT 15.8 SEC (11.7-14.0)
--- NOTE | 2016-06-24 13:59 | CONS ---
DATE OF CONSULTATION: ATTENDING PHYSICIAN: Jj Mccoy MD REASON FOR CONSULTATION: Pleural effusion. HISTORY OF PRESENT ILLNESS: The patient is a 46-year-old female who has a history of tobacco use for about 10 years. She has history of severe mitral regurgitation and history of gastric bypass in the past. The patient came into the hospital with generalized weakness, which has been going on for last 3 months and ongoing weight loss, which is unintentional. She has lost about 30 pounds since February. She also developed some nausea, vomiting or diarrhea recently. She said she had an EGD done in the past, which did not show any significant medical problems. She does have some difficulty in swallowing. No cough, no hemoptysis. I have reviewed patient's CT chest. There was a left lower lobe pleural effusion and mild ground glass infiltrates suggesting CHF. Chest x-ray and CT chest findings were new since her previous x-ray from 01/2016. She has been seen by Cardiology as well as GI and I have been asked to see her for further evaluation of pleural effusion. PAST MEDICAL HISTORY: History of severe mitral regurgitation, history of anxiety, depression, neuropathy, biliopancreatic diversion, cholecystectomy, and tubal ligation. History of EGD in 01/2016 showed 2 mucosal abrasions above the GE junction and distal gastrectomy with end-to-end gastroenterostomy, gastric pouch normal. SOCIAL HISTORY: Minimal history of tobacco use. Smoker for 10 years up to 1 pack per day. Occasional use of alcohol. ALLERGIES: HALDOL AND STRAWBERRY. REVIEW OF SYSTEMS: Twelve-point systems obtained. Pertinent positives discussed in history of present illness, otherwise noncontributory. All systems that were negative were reviewed as well. FAMILY HISTORY: Noncontributory to lungs. PHYSICAL EXAMINATION: VITAL SIGNS: Stable. Pulse ox 99% on room air, afebrile. HEENT: Sclerae nonicteric. NECK: Supple. LUNGS: Diminished breath sounds. CARDIOVASCULAR: Regular rate and rhythm. ABDOMEN: Soft and nontender. EXTREMITIES: With 1+ pitting edema. LABORATORY DATA: Reviewed. White cell count 3.9, hemoglobin 10.2, platelets are 168. BUN is 13, creatinine 0.9. Albumin level is 1.3. IMPRESSION: 1. Left lower lobe pleural effusion and the patient was ongoing weight loss of 30 pounds in the last three months. It could be related to gastric bypass surgery; however, the possibility of occult malignancy cannot be ruled out. No obvious mass is seen on the CT chest. We will also do abdomen and pelvis CT. We will also do a tumor marker for breast cancer. She has not had mammogram in a long time period. She would benefit from diagnostic thoracentesis. 2. Minimal history of tobacco use. 3. Severe mitral regurgitation seen on previous echo and transesophageal echo. Recent echo showing moderate mitral regurgitation. Cardiology is following. RECOMMENDATIONS: 1. Diagnostic thoracentesis on the left side. Risk and benefits explained. She agreed to proceed with it. 2. CT abdomen and pelvis. 3. Tumor marker for breast cancer. 4. Follow GI recommendation. 5. Follow Cardiology recommendation. 6. Diuresis if tolerates. 7. Further recommendations to follow. 8. Discussed with RN. MARÍA BEASLEY MD DR: EMILEE/teto JOB#: [id number] / [id number] CORRINE
[2016-06-24] MEDS ORDERED: FUROSEMIDE 40 MG/4 ML VIAL IVP ONE (14:15)
[2016-06-24 14:24] LABS: NEG OBC UR NEG; POS OBC UR POS
--- NOTE | 2016-06-24 14:29 | RAD ---
Indication assess for potential ascites. Grayscale images were obtained. A pocket of ascitic fluid is seen in the right upper quadrant measuring maximally 12 cm in greatest dimension. In the left lower quadrant there is a 7 cm pocket of fluid. Small amount of fluid is seen in the midline. Fluid is additionally noted in the right lower quadrant. IMPRESSION: Moderate amount of abdominal ascites
[2016-06-24 15:18] VITALS: BP 103/65
--- NOTE | 2016-06-24 15:50 | PDOC2 ---
CONSULT Date of Consult Date of Consult DATE: 06/24/16 TIME: 15:37 Reason for Consult Reason for Consult: Mitral regurgitation Referring Physician Referring Physician: Chava Riley MD Identification/Chief Complaint Chief Complaint Weight loss, fatigue, weakness, shortness of breath Source Source: Chart review, Patient History of Present Illness Reason for Visit: The patient is a 46-year-old female who presented to [facility] with a 3 to 4 month history of fatigue, weakness, shortness of breath, anorexia and 30-40 pound weight loss. She has a history of gastric bypass approximately 12 years ago. She has been followed by Dr. Stauffer for mitral regurgitation. She had a JAYY done in March 2016 which showed moderate to severe mitral regurgitation. The mitral valve structurally appeared normal, and the MR was due to leaflet restriction. The leaflets also appeared slightly thickened. The left atrium was slightly dilated and the ejection fraction was normal. During this admission the patient was found to have severe malnutrition with severe hypoalbuminemia. Imaging demonstrated a left-sided pleural effusion and significant amount of ascites. A repeat echo during this admission shows that the MR is moderate. I was consulted for evaluation and further treatment recommendations for her mitral regurgitation. Past Medical History Cardiovascular: Valve insufficiency (severe mitral reg.) Pulmonary: No pertinent hx CENTRAL NERVOUS SYSTEM: Periperal neuropathy GI: Other (esophageal erosions ) Heme/Onc: Anemia NOS Hepatobiliary: No pertinent hx Psych: Anxiety, Depression Infectious disease: No pertinent hx ENT: No pertinent hx Renal/: No pertinent hx Endocrine: Hypothyroidism Dermatology: No pertinent hx Past Surgical History Past Surgical History: Cholecystectomy, Other (gastric bypass 2011 ) Family History Family History: Diabetes, Hypertension Social History <1 pack per day ALCOHOL: occassional Drugs: None Lives: with Family Domestic Violence: Neg Current Problem List Problem List Problems Medical Problems: (1) Elevated troponin Status: Acute (2) Unintentional weight loss Status: Acute (3) Vomiting Status: Acute (4) Weakness Status: Acute Current Medications Current Medications Current Medications Aspirin (Children'S Aspirin) 324 mg 1X ONCE PO Last administered on 06/23/16t 21:53; Start 06/23/16 at 21:15; Stop 06/23/16 at 21:16; Status DC Ondansetron HCl (Zofran) 4 mg PRN Q8HRS PRN IV NAUSEA/VOMITING; Start 06/23/16 at 21:00; Stop 06/24/16 at 20:59 Morphine Sulfate 2 mg 2 mg PRN Q2HR PRN IV SEVERE PAIN Last administered on 06/23 21:57; Start 06/23/16 at 21:00; Stop 06/24/16 at 20:59 Sodium Chloride (Iv Sodium Chloride 0.9% 1000ml Bag) 1,000 ml @ 125 mls/hr Q8H IV Last administered on 06/24/16 00:38; Start 06/23/16 at 21:00; Stop 06/24/16 at 11:15; Status DC Iohexol (Omnipaque 300 Mg/ml) 75 ml 1X ONCE IV Last administered on 06/23/16 21:20; Start 06/23/16 at 21:45; Stop 06/23/16 at 21:46; Status DC Info (Do NOT chart on this entry -- for MONITORING) 1 each PRN DAILY PRN MC SEE COMMENTS; Start 06/23/16 at 21:15; Stop 06/25/16 at 21:14 Gabapentin (Neurontin) 300 mg PRN TID PRN PO NEUROPATHIC PAIN Last administered on 06/24/16 10:31; Start 06/23/16 at 23:45 Ondansetron HCl (Zofran Odt) 4 mg PRN Q8HRS PRN PO NAUSEA; Start 06/24/16 at 09: 00 Oxcarbazepine (Trileptal) 1,200 mg HS PO ; Start 06/24/16 at 21:00 Pantoprazole Sodium (Protonix) 40 mg DAILYAC PO Last administered on 06/24/16 10:23; Start 06/24/16 at 07:30 Tramadol HCl (Ultram) 50 mg PRN Q6HRS PRN PO MODERATE PAIN; Start 06/24/16 at 09 :00 Trazodone HCl (Desyrel) 50 mg QHS PO ; Start 06/24/16 at 21:00 Sertraline HCl (Zoloft) 100 mg BID PO Last administered on 06/24/16 10:23; Start 06/24/16 at 09:00 Acetaminophen/ Hydrocodone Bitart (Lortab 5/325) 1 tab PRN Q4HRS PRN PO SEVERE PAIN Last administered on 06/24/16 15:24; Start 06/23/16 at 23:45 Enoxaparin Sodium 40 mg 40 mg DAILY SQ ; Start 06/25/16 at 09:00 Sodium Chloride (Iv Sodium Chloride 0.9% 1000ml Bag) 1,000 ml @ 50 mls/hr Q20H IV Last administered on 06/24/16 11:20; Start 06/24/16 at 11:30; Stop 06/24/16 at 11:31; Status DC Furosemide (Lasix) 40 mg 1X ONCE IVP Last administered on 06/24/16 15:25; Start 06/24/16 at 14:15; Stop 06/24/16 at 14:27; Status DC Active Scripts Active Zofran Odt (Ondansetron) 4 Mg Tab.rapdis 1 Tab SL PRN Q8HRS PRN Oxcarbazepine 300 Mg Tablet 1,200 Mg PO HS Pantoprazole Sodium 40 Mg Tablet.dr 40 Mg PO DAILYAC Reported Tramadol Hcl 50 Mg Tablet 1 Tab PO PRN Q6HRS PRN Trazodone Hcl 50 Mg Tablet 1 Tab PO QHS Gabapentin 300 Mg Capsule 300 Mg PO TID PRN Sertraline Hcl 100 Mg Tablet 100 Mg PO BID Hydrocodone-Apap 7.5-325 (Hydrocodone Bit/Acetaminophen) 1 Each Tablet Unknown Dose PO PRN Q6HRS PRN [Creon Lipase Tid] Allergies Allergies: Coded Allergies: haloperidol (Verified Allergy, Intermediate, Anxiety, 03/25/16) strawberry (Verified Allergy, Intermediate, Rash, 03/25/16) ROS General: YES: Appetite, Fatigue, Malaise, No: Chills, Night Sweats, Other PSYCHOLOGICAL ROS: No: Anxiety, Behavioral Disorder, Concentration difficultie , Decreased libido, Depression, Disorientation, Hallucinations, Hostility, Irritablity, Memory difficulties, Mood Swings, Obsessive thoughts, Physical abuse, Sexual abuse, Sleep disturbances, Suicidal ideation Eyes: No Blurry vision, No Decreased vision, No Double vision, No Dry eyes, No Excessive tearing, No Eye Pain, No Itchy Eyes, No Loss of vision, No Photophobia , No Scotomata, No Uses contacts, No Uses glasses HEENT: No: Epistaxis, Heacaches, Hearing change, Nasal congestion, Nasal discharge, Oral lesions, Sinus pain, Sneezing, Snoring, Sore Throat, Tinnitus, Vertigo, Visual Changes, Vocal changes ALLERGY AND IMMUNOLOGY: No: Hives, Insect Bite Sensitivity, Itchy/Watery Eyes, Nasal Congestion, Post Nasal Drip, Seasonal Allergies Hematological and Lymphatic: No: Bleeding Problems, Blood Clots, Blood Transfusions, Brusing, Night Sweats, Pallor, Swollen Lymph Nodes ENDOCRINE: YES: Malaise/lethargy, Unexpected Weight Changes, No: Breast Changes, Galactorrhea, Hair Pattern Changes, Hot Flashes, Mood Swings, Palpitations, Polydipsia/polyuria, Skin Changes, Temperature Intolerance Breast: No New/Changing Breast Lumps, No Nipple changes, No Nipple discharge Respiratory: YES: Pleuritic Pain, SOB with excertion, Shortness of breath, No: Cough, Hemoptysis, Orthopnea, Sputum Changes, Stridor, Tachypnea, Wheezing Cardiovascular: yes Chest Pain, yes Edema, No Lt Headedness, No Orthopnea, No Other, No Palpitations, No Paroxysmal Noc. Dyspnea Gastrointestinal: Yes Abdominal Pain, Yes Nausea, No Constipation, No Diarrhea, No Hematochezia, No Melena, No Vomiting Genitourinary: No Discharge, No Dysuria, No Flank Pain, No Frequency, No Hematuria, No Incontinence, No Pain, No Retention, No Urgency Musculoskeletal: No Gait Disturbance, No Joint Pain, No Joint Stiffness, No Joint Swelling, No Muscle Pain, No Muscular Weakness, No Pain In:, No Swelling In: Neurological: No Behavorial Changes, No Bowel/Bladder ControlChng, No Confusion , No Dizziness, No Gait Disturbance, No Headaches, No Impaired Coord/balance, No Memory Loss, No Numbness/Tingling, No Seizures, No Speech Problems, No Tremors, No Visual Changes, No Weakness Skin: No Acne, No Dry Skin, No Eczema, No Hair Changes, No Lumps, No Mole Changes, No Mottling, No Nail Changes, No Pruritus, No Rash, No Skin Lesion Changes Physical Exam General: Alert, Oriented X3, Other (cachexia) HEENT: Atraumatic, PERRLA Lungs: Other (reduced air entry on the left) Heart: Regular rate, Normal S1, Normal S2, Other (3/6 systolic murmur) Abdomen: Soft, No tenderness, Other (ascites) Extremities: No edema Skin: No significant lesion Neuro: Normal gait, Normal speech, Strength at 5/5 X4 ext, Normal tone, Sensation intact, Cranial nerves 3-12 NL Psych/Mental Status: Mental status NL MUSCULOSKELETAL: No deformity Vitals VITALS Vital Signs Date Time Temp Pulse Resp B/P Pulse Ox O2 Delivery O2 Flow Rate FiO2 06/24/16 15:24 18 Room Air 06/24/16 15:18 97.5 81 103/65 100 97.5 Labs Labs Laboratory Tests Test 06/23/16 18:30 06/23/16 19:30 06/24/16 06:26 06/24/16 12:13 White Blood Count 4.6x10^3/uL (4.0-11.0) 3.9x10^3/uL (4.0-11.0) Red Blood Count 3.14x10^6/uL (3.50-5.40) 3.07x10^6/uL (3.50-5.40) Hemoglobin 10.3g/dL (12.0-15.5) 10.2g/dL (12.0-15.5) Hematocrit 32.3% (36.0-47.0) 31.8% (36.0-47.0) Mean Corpuscular Volume 103fL (79-100) 104fL (79-100) Mean Corpuscular Hemoglobin 33pg (25-35) 33pg (25-35) Mean Corpuscular Hemoglobin Concent 32g/dL (31-37) 32g/dL (31-37) Red Cell Distribution Width 15.6% (11.5-14.5) 15.2% (11.5-14.5) Platelet Count 196x10^3/uL (140-400) 168x10^3/uL (140-400) Neutrophils (%) (Auto) 51% (31-73) 50% (31-73) Lymphocytes (%) (Auto) 39% (24-48) 41% (24-48) Monocytes (%) (Auto) 8% (0-9) 8% (0-9) Eosinophils (%) (Auto) 1% (0-3) 1% (0-3) Basophils (%) (Auto) 1% (0-3) 1% (0-3) Neutrophils # (Auto) 2.3x10^3uL (1.8-7.7) 1.9x10^3uL (1.8-7.7) Lymphocytes # (Auto) 1.8x10^3/uL (1.0-4.8) 1.6x10^3/uL (1.0-4.8) Monocytes # (Auto) 0.4x10^3/uL (0.0-1.1) 0.3x10^3/uL (0.0-1.1) Eosinophils # (Auto) 0.0x10^3/uL (0.0-0.7) 0.0x10^3/uL (0.0-0.7) Basophils # (Auto) 0.0x10^3/uL (0.0-0.2) 0.0x10^3/uL (0.0-0.2) Sodium Level 148mmol/L (136-145) 144mmol/L (136-145) Potassium Level 4.0mmol/L (3.5-5.1) 3.5mmol/L (3.5-5.1) Chloride Level 114mmol/L (98-107) 113mmol/L (98-107) Carbon Dioxide Level 27mmol/L (21-32) 23mmol/L (21-32) Anion Gap 7 (6-14) 8 (6-14) Blood Urea Nitrogen 12mg/dL (7-20) 13mg/dL (7-20) Creatinine 1.0mg/dL (0.6-1.0) 0.9mg/dL (0.6-1.0) Estimated GFR (Cockcroft-Gault) 72.5 81.9 Glucose Level 73mg/dL (70-99) 69mg/dL (70-99) Lactic Acid Level 1.2mmol/L (0.4-2.0) Calcium Level 7.6mg/dL (8.5-10.1) 7.5mg/dL (8.5-10.1) Total Bilirubin 0.7mg/dL (0.2-1.0) Direct Bilirubin 0.2mg/dL (0.0-0.2) Aspartate Amino Transf (AST/SGOT) 65U/L (15-37) Alanine Aminotransferase (ALT/SGPT) 55U/L (14-59) Alkaline Phosphatase 148U/L (46-116) Troponin I Quantitative 0.088ng/mL (0.000-0.055) 0.111ng/mL (0.000-0.055) 0.068ng/mL (0.000-0.055) RT-Zzv-P-Type Natriuretic Peptide 364pg/mL (0-124) Total Protein 4.8g/dL (6.4-8.2) Albumin 1.3g/dL (3.4-5.0) Lipase 46U/L (73-393) Urine Color [place] Urine Clarity Clear Urine pH 6.0 Urine Specific [place] 1.025 Urine Protein Negativemg/dL (NEG-TRACE) Urine Glucose (UA) Negativemg/dL (NEG) Urine Ketones (Stick) Tracemg/dL (NEG) Urine Blood Negative (NEG) Urine Nitrite Negative (NEG) Urine Bilirubin Small (NEG) Urine Urobilinogen Dipstick 1.0mg/dL (0.2 mg/dL) Urine Leukocyte Esterase Trace (NEG) Urine RBC 0/HPF (0-2) Urine WBC Occ/HPF (0-4) Urine Squamous Epithelial Cells Occ/LPF Urine Bacteria 0/HPF (0-FEW) Urine Hyaline Casts Occasional/HPF Urine Mucus Mod/LPF Prothrombin Time 15.8SEC (11.7-14.0) Prothromb Time International Ratio 1.3 (0.8-1.1) Test 06/24/16 13:50 Urine Test Negative (NEG) Laboratory Tests Test 06/23/16 18:30 06/23/16 19:30 06/24/16 06:26 06/24/16 12:13 White Blood Count 4.6x10^3/uL (4.0-11.0) 3.9x10^3/uL (4.0-11.0) Red Blood Count 3.14x10^6/uL (3.50-5.40) 3.07x10^6/uL (3.50-5.40) Hemoglobin 10.3g/dL (12.0-15.5) 10.2g/dL (12.0-15.5) Hematocrit 32.3% (36.0-47.0) 31.8% (36.0-47.0) Mean Corpuscular Volume 103fL (79-100) 104fL (79-100) Mean Corpuscular Hemoglobin 33pg (25-35) 33pg (25-35) Mean Corpuscular Hemoglobin Concent 32g/dL (31-37) 32g/dL (31-37) Red Cell Distribution Width 15.6% (11.5-14.5) 15.2% (11.5-14.5) Platelet Count 196x10^3/uL (140-400) 168x10^3/uL (140-400) Neutrophils (%) (Auto) 51% (31-73) 50% (31-73) Lymphocytes (%) (Auto) 39% (24-48) 41% (24-48) Monocytes (%) (Auto) 8% (0-9) 8% (0-9) Eosinophils (%) (Auto) 1% (0-3) 1% (0-3) Basophils (%) (Auto) 1% (0-3) 1% (0-3) Neutrophils # (Auto) 2.3x10^3uL (1.8-7.7) 1.9x10^3uL (1.8-7.7) Lymphocytes # (Auto) 1.8x10^3/uL (1.0-4.8) 1.6x10^3/uL (1.0-4.8) Monocytes # (Auto) 0.4x10^3/uL (0.0-1.1) 0.3x10^3/uL (0.0-1.1) Eosinophils # (Auto) 0.0x10^3/uL (0.0-0.7) 0.0x10^3/uL (0.0-0.7) Basophils # (Auto) 0.0x10^3/uL (0.0-0.2) 0.0x10^3/uL (0.0-0.2) Sodium Level 148mmol/L (136-145) 144mmol/L (136-145) Potassium Level 4.0mmol/L (3.5-5.1) 3.5mmol/L (3.5-5.1) Chloride Level 114mmol/L (98-107) 113mmol/L (98-107) Carbon Dioxide Level 27mmol/L (21-32) 23mmol/L (21-32) Anion Gap 7 (6-14) 8 (6-14) Blood Urea Nitrogen 12mg/dL (7-20) 13mg/dL (7-20) Creatinine 1.0mg/dL (0.6-1.0) 0.9mg/dL (0.6-1.0) Estimated GFR (Cockcroft-Gault) 72.5 81.9 Glucose Level 73mg/dL (70-99) 69mg/dL (70-99) Lactic Acid Level 1.2mmol/L (0.4-2.0) Calcium Level 7.6mg/dL (8.5-10.1) 7.5mg/dL (8.5-10.1) Total Bilirubin 0.7mg/dL (0.2-1.0) Direct Bilirubin 0.2mg/dL (0.0-0.2) Aspartate Amino Transf (AST/SGOT) 65U/L (15-37) Alanine Aminotransferase (ALT/SGPT) 55U/L (14-59) Alkaline Phosphatase 148U/L (46-116) Troponin I Quantitative 0.088ng/mL (0.000-0.055) 0.111ng/mL (0.000-0.055) 0.068ng/mL (0.000-0.055) HD-Huo-I-Type Natriuretic Peptide 364pg/mL (0-124) Total Protein 4.8g/dL (6.4-8.2) Albumin 1.3g/dL (3.4-5.0) Lipase 46U/L (73-393) Urine Color [place] Urine Clarity Clear Urine pH 6.0 Urine Specific [place] 1.025 Urine Protein Negativemg/dL (NEG-TRACE) Urine Glucose (UA) Negativemg/dL (NEG) Urine Ketones (Stick) Tracemg/dL (NEG) Urine Blood Negative (NEG) Urine Nitrite Negative (NEG) Urine Bilirubin Small (NEG) Urine Urobilinogen Dipstick 1.0mg/dL (0.2 mg/dL) Urine Leukocyte Esterase Trace (NEG) Urine RBC 0/HPF (0-2) Urine WBC Occ/HPF (0-4) Urine Squamous Epithelial Cells Occ/LPF Urine Bacteria 0/HPF (0-FEW) Urine Hyaline Casts Occasional/HPF Urine Mucus Mod/LPF Prothrombin Time 15.8SEC (11.7-14.0) Prothromb Time International Ratio 1.3 (0.8-1.1) Test 06/24/16 13:50 Urine Test Negative (NEG) Assessment/Plan Assessment/Plan 46-year-old female with a 3 to 4 month history of fatigue, weakness, anorexia, 30-40 pound weight loss and shortness of breath. She is known to have mitral regurgitation with preserved LV function. The mitral valve is structurally normal apart from some leaflet thickening, and the mitral regurgitation is caused by leaflet restriction. During this admission she was found to have severe hypoalbuminemia, ascites and a left pleural effusion. The current symptoms are not caused by the MR, which on her last echo during this admission is moderate. The patient has some other significant underlying pathology. Malignancy, liver cirrhosis, portal hypertension need to be excluded. I also think that her underlying pathology is worsening her MR which can certainly be managed medically. We'll recommend continued long-term follow-up with cardiology. Certainly no indication for surgical intervention on her mitral valve at this stage. AMADOR POWERS MD Jun 24, 2016 15:50
[2016-06-24] MEDS ORDERED: IOHEXOL 300 MG/ML 75 ML VIAL IV ONE (16:15)
[2016-06-24] MEDS ORDERED: IOHEXOL 240 MG/ML 50ML VIAL. PO ONE (16:15)
[2016-06-24] MEDS ORDERED: CONTRAST GIVEN MC PRN (16:15)
--- NOTE | 2016-06-24 16:51 | RAD ---
CT study of the abdomen and pelvis with contrast Clinical indications: Nausea and vomiting and diarrhea for 2 weeks. Left-sided pleural effusion. Comparison: No previous abdomen or pelvis CT. Technique: After IV infusion of 75 mL of Omnipaque 300, helical CT scanning of the abdomen and pelvis was performed. GI contrast was administered per mouth. PQRS Compliance Statement: One or more of the following individualized dose reduction techniques were utilized for this examination: 1. Automated exposure control 2. Adjustment of the mA and/or kV according to patient size 3. Use of iterative reconstruction technique Findings: The liver is homogeneous. Spleen is not enlarged. There is mild dilatation of the extra hepatic biliary tree which may be secondary to previous cholecystectomy. There is mild dilatation of the main pancreatic duct. This may be due to to mild pancreatic atrophy. No pancreatic mass is seen otherwise. No adrenal mass is evident. No renal mass or hydronephrosis or hydroureter is seen. Urinary bladder wall is smooth. No uterine mass is seen. No dominant ovarian cyst or mass is evident. No focal aneurysmal dilatation of the abdominal aorta is seen. No enlarged abdominal or pelvic lymphadenopathy is evident. Moderate amount of ascites is seen. Gastric bypass is evident. No obstructive bowel pattern is seen. Wall thickening of the small bowel is seen which may be secondary to enteritis. No free air is seen. Bilateral pleural effusions left greater than right with associated compressive atelectasis is seen. See chest CT report from yesterday. Generalized anasarca is seen. IMPRESSION: Moderate amount of ascites. Wall thickening of the small bowel which may be secondary to enteritis. Mild dilatation of the extra hepatic biliary tree most likely related to the previous cholecystectomy. Mild dilatation of the main pancreatic duct most likely due to mild pancreatic atrophy. No pancreatic mass is seen. Correlation with liver function tests is recommended. Bilateral pleural effusions and associated compressive atelectasis left greater than right. Generalized anasarca.
[2016-06-24] MEDS ORDERED: MORPHINE IR 15 MG TABLET PO PRN (17:45)
[2016-06-24] MEDS ORDERED: DIPHENHYDRAMINE HCL 25 MG CAPSULE PO PRN (17:45)
[2016-06-24 19:50] VITALS: BP 109/70
[2016-06-24] MEDS: traZODone 50 MG TABLET. PO SCH (21:39)
[2016-06-24] MEDS: OXCARBAZEPINE 300 MG TABLET. PO SCH (21:40)
[2016-06-24] MEDS: HYDROCODONE/APAP 7.5/325MG TABLET. PO PRN (21:40)
[2016-06-25] VITALS (13 sets, daily range): BP systolic 97–114; BP diastolic 44–80
--- NOTE | 2016-06-25 01:01 | HP ---
ADMIT DATE: 06/24/2016 CHIEF COMPLAINT: Fatigue and diarrhea. HISTORY OF PRESENT ILLNESS: A 46-year-old female patient who presented to the ER with complaints of diarrhea, nausea. Symptoms are there for more than 2 to 3 weeks. She was presented to the hospital in the past here in February. At that time, she presented for weight loss and generalized weakness therapy and she was evaluated at [facility]; however, her symptoms did not get better with any medications except for loperamide. She was also complaining of some uneasiness, fatigue and chest discomfort. She thinks she has low hemoglobin and hemoglobin transfusion will improve her condition. The patient says the diarrhea is watery in nature, more than 3-4 bowel movements per day. Denies any fever, chills, sick contacts or travel history. PAST MEDICAL HISTORY: Please see my electronic H and P. REVIEW OF SYSTEMS: Please see my electronic H and P. LABORATORY FINDINGS: Hemoglobin is 10.3, MCV is 100.3, WBC 4.6, platelets 196. Chemistry: Sodium 148, potassium 4.0, chloride is 114, anion gap is 7, creatinine is 1.0. Lactic acid is not seen. Calcium is 7.6, proBNP at 364. Urine pH is 6, protein negative, ketones trace, nitrites negative, leukocyte esterase trace. test negative. Coagulation: INR is 1.3. IMAGING STUDIES: CT of the chest, moderate left and small right pleural effusion, negative for thoracic adenopathy, abdominal ascites, ____ peripheral left upper lobe interstitial opacities. Chest x-ray, moderate left pleural effusion. ASSESSMENT: 1. Fatigue, weakness, dehydration due to diarrhea. 2. Unintentional weight loss. 3. Pleural effusion, bilateral. 4. Ascites, new. 5. Fibromyalgia. 6. Chronic pain. 7. Malnutrition. 8. History of gastric bypass surgery. 9. Mild elevation of troponins. 9. Hypernatremia. 10. Physical debility. PLAN: 1. She has been admitted to cardiac floor and consult cardiology and monitor troponins. 2. CT of the chest ordered by pulmonology. 3. The patient's symptoms improved this morning, I will let her eat and see how she is going to do. 4. Gastroenterology has been consulted for further recommendations. The patient did have workup such as EGD in the past. I did review her old records. Her echocardiogram showed some MR and also she had workup such as JAYY in the past. 5. Lovenox for DVT prophylaxis. 6. Resume home medications, morphine 2 mg q. 2 hours for pain control. 7. Mild IV hydration. 8. The patient did not have any acute diarrhea symptoms, not suggestive of any infectious process. No further workup needed at this time. I did review her old records from earlier admission, no infectious process seen in the past. 9. Physical therapy and occupational therapy. 10. Overall prognosis is guarded. TRAN THOMPSON MD DR: RICHARD/teto JOB#: [id number] / [id number] CORRINE
[2016-06-25] MEDS: HYDROCODONE/APAP 7.5/325MG TABLET. PO PRN ×2 (06:12→15:45)
[2016-06-25] MEDS: SERTRALINE 50 MG TABLET. PO SCH ×2 (08:43→20:53)
[2016-06-25] MEDS: PANTOPRAZOLE 40 MG TABLET. PO SCH (08:43)
[2016-06-25] MEDS: ONDANSETRON ODT 4 MG TAB.RAPDIS PO PRN ×2 (08:47→19:20)
[2016-06-25] MEDS: ENOXAPARIN 40 MG/0.4 ML DISP.SYRIN. SQ SCH (09:00)
--- NOTE | 2016-06-25 09:04 | CARD ---
APPROVED REPORT EXAM: Two-dimensional and M-mode echocardiogram with Doppler and color Doppler. Other Information Quality : Average Rhythm : NSR INDICATION Congestive Heart Failure 2D DIMENSIONS Left Atrium(2D)3.8 (1.6-4.0cm)IVSd0.8 (0.7-1.1cm) Aortic Root(2D)2.6 (2.0-3.7cm)LVDd4.6 (3.9-5.9cm) LVOT Diameter1.9 (1.8-2.4cm)PWd0.8 (0.7-1.1cm) LVDs3.3 (2.5-4.0cm)FS (%) 28.4 % SV54.1 mlLVEF(%)54.9 (>50%) Aortic Valve AoV Peak Scooter.138.6cm/sAoV VTI27.4cm AO Peak GR.7.7mmHgLVOT Peak Scooter.126.6cm/s AO Mean GR.4mmHgAVA (VMAX)2.54cm2 ROGELIO (VTI)2.13qj9OT P 1/2 [id number] Mitral Valve MV E Glsbnwnx87.5cm/sMV E Peak Gr.5mmHg MV DECEL [id number] A Bhmfzrat19.8cm/s MV E Mean Gr.2mmHgMV [id number] E/A Ratio0.8MV A [id number] MVA (PHT)3.67cm2 Tricuspid Valve TR P. Mmnzkkvk384pp/sRAP KCKFZJGL7skOv TR Peak Gr.25prKhYZQV43myLp Pulmonary Vein S1 Jbjqrydl68.8cm/sD2 Thlnfgoj77.8cm/s PVa ykvmddhe19xipr LEFT VENTRICLE The left ventricle is normal size. There is normal left ventricular wall thickness. Left ventricle sy stolic function is normal. The Ejection Fraction is 50-55%. There is normal LV segmental wall motion. The left ventricular diastolic function and filling is normal for age. RIGHT VENTRICLE The right ventricle is normal size. The right ventricular systolic function is normal. ATRIA The left atrium size is normal. The right atrium size is normal. The interatrial septum is intact wit h no evidence for an atrial septal defect or patent foramen ovale as noted on 2-D or Doppler imaging. AORTIC VALVE The aortic valve is normal in structure and function. The aortic valve is trileaflet. Doppler and Col or Flow revealed mild aortic regurgitation. There is no significant aortic valvular stenosis. MITRAL VALVE The mitral valve leaflets are thickened. There is no mitral valve stenosis. Doppler and Color Flow re vealed moderate to severe mitral regurgitation. TRICUSPID VALVE The tricuspid valve is normal in structure and function. Doppler and Color Flow revealed mild tricusp id regurgitation. The PA pressure was estimated at 29 mmHg. There is no tricuspid valve stenosis. PULMONIC VALVE The pulmonic valve is not well visualized. Doppler and Color Flow revealed trace to mild pulmonic edy vular regurgitation. There is no pulmonic valvular stenosis. GREAT VESSELS The aortic root is normal in size. Normal pulmonary venous flow (Doppler). The IVC is normal in size and collapses >50% with inspiration. PERICARDIAL EFFUSION There is large left pleural effusion. Fibronous strands are noted. There is no evidence of significan t pericardial effusion. Critical Notification Critical Value: No <Conclusion> Left ventricle systolic function is normal. The Ejection Fraction is 50-55%. Doppler and Color Flow revealed moderate to severe mitral regurgitation. There is large left pleural effusion. Fibronous strands are noted.
--- NOTE | 2016-06-25 10:12 | PDOC ---
PROGRESS NOTES Chief Complaint Chief Complaint 1. Fatigue, weakness, dehydration due to diarrhea. 2. Unintentional weight loss. 3. Pleural effusion, bilateral. 4. Ascites, new. 5. Fibromyalgia. 6. Chronic pain. 7. Malnutrition. 8. History of gastric bypass surgery. 9. Mild elevation of troponins. 9. Hypernatremia. 10. Physical debility. Plan multivitamins GI consult monitor tortonis ECHO Paracentesis and thoracentesis iv Lasix monitor electrolyte,s History of Present Illness History of Present Illness no diarrhea no fever no chills. Vitals Vitals Vital Signs Date Time Temp Pulse Resp B/P Pulse Ox O2 Delivery O2 Flow Rate FiO2 06/25/16 08:08 Room Air 06/25/16 07:30 98.5 99 12 106/56 97 98.5 Physical Exam General: Alert, Oriented X3, Other (cachexia) Heart: Regular rate, Normal S1, Normal S2, Other (3/6 systolic murmur) Lungs: Clear, Wheezing Abdomen: Soft, No tenderness, Other (ascites) Extremities: No edema Skin: No significant lesion Labs LABS Laboratory Tests Test 06/24/16 12:13 06/24/16 13:50 Prothrombin Time 15.8SEC (11.7-14.0) Prothromb Time International Ratio 1.3 (0.8-1.1) Troponin I Quantitative 0.068ng/mL (0.000-0.055) CA 27.29 44.9U/mL (0.0-38.6) Urine Test Negative (NEG) Assessment and Plan Assessmemt and Plan Problems Medical Problems: (1) Elevated troponin Status: Acute (2) Unintentional weight loss Status: Acute (3) Vomiting Status: Acute (4) Weakness Status: Acute Problems: Comment Review of Relevant I have reviewed the following items anais (where applicable) has been applied. Labs Laboratory Tests Test 06/23/16 18:30 06/23/16 19:30 06/24/16 06:26 06/24/16 12:13 White Blood Count 4.6x10^3/uL (4.0-11.0) 3.9x10^3/uL (4.0-11.0) Red Blood Count 3.14x10^6/uL (3.50-5.40) 3.07x10^6/uL (3.50-5.40) Hemoglobin 10.3g/dL (12.0-15.5) 10.2g/dL (12.0-15.5) Hematocrit 32.3% (36.0-47.0) 31.8% (36.0-47.0) Mean Corpuscular Volume 103fL (79-100) 104fL (79-100) Mean Corpuscular Hemoglobin 33pg (25-35) 33pg (25-35) Mean Corpuscular Hemoglobin Concent 32g/dL (31-37) 32g/dL (31-37) Red Cell Distribution Width 15.6% (11.5-14.5) 15.2% (11.5-14.5) Platelet Count 196x10^3/uL (140-400) 168x10^3/uL (140-400) Neutrophils (%) (Auto) 51% (31-73) 50% (31-73) Lymphocytes (%) (Auto) 39% (24-48) 41% (24-48) Monocytes (%) (Auto) 8% (0-9) 8% (0-9) Eosinophils (%) (Auto) 1% (0-3) 1% (0-3) Basophils (%) (Auto) 1% (0-3) 1% (0-3) Neutrophils # (Auto) 2.3x10^3uL (1.8-7.7) 1.9x10^3uL (1.8-7.7) Lymphocytes # (Auto) 1.8x10^3/uL (1.0-4.8) 1.6x10^3/uL (1.0-4.8) Monocytes # (Auto) 0.4x10^3/uL (0.0-1.1) 0.3x10^3/uL (0.0-1.1) Eosinophils # (Auto) 0.0x10^3/uL (0.0-0.7) 0.0x10^3/uL (0.0-0.7) Basophils # (Auto) 0.0x10^3/uL (0.0-0.2) 0.0x10^3/uL (0.0-0.2) Sodium Level 148mmol/L (136-145) 144mmol/L (136-145) Potassium Level 4.0mmol/L (3.5-5.1) 3.5mmol/L (3.5-5.1) Chloride Level 114mmol/L (98-107) 113mmol/L (98-107) Carbon Dioxide Level 27mmol/L (21-32) 23mmol/L (21-32) Anion Gap 7 (6-14) 8 (6-14) Blood Urea Nitrogen 12mg/dL (7-20) 13mg/dL (7-20) Creatinine 1.0mg/dL (0.6-1.0) 0.9mg/dL (0.6-1.0) Estimated GFR (Cockcroft-Gault) 72.5 81.9 Glucose Level 73mg/dL (70-99) 69mg/dL (70-99) Lactic Acid Level 1.2mmol/L (0.4-2.0) Calcium Level 7.6mg/dL (8.5-10.1) 7.5mg/dL (8.5-10.1) Total Bilirubin 0.7mg/dL (0.2-1.0) Direct Bilirubin 0.2mg/dL (0.0-0.2) Aspartate Amino Transf (AST/SGOT) 65U/L (15-37) Alanine Aminotransferase (ALT/SGPT) 55U/L (14-59) Alkaline Phosphatase 148U/L (46-116) Troponin I Quantitative 0.088ng/mL (0.000-0.055) 0.111ng/mL (0.000-0.055) 0.068ng/mL (0.000-0.055) PG-Gcv-G-Type Natriuretic Peptide 364pg/mL (0-124) Total Protein 4.8g/dL (6.4-8.2) Albumin 1.3g/dL (3.4-5.0) Lipase 46U/L (73-393) Urine Color [place] Urine Clarity Clear Urine pH 6.0 Urine Specific [place] 1.025 Urine Protein Negativemg/dL (NEG-TRACE) Urine Glucose (UA) Negativemg/dL (NEG) Urine Ketones (Stick) Tracemg/dL (NEG) Urine Blood Negative (NEG) Urine Nitrite Negative (NEG) Urine Bilirubin Small (NEG) Urine Urobilinogen Dipstick 1.0mg/dL (0.2 mg/dL) Urine Leukocyte Esterase Trace (NEG) Urine RBC 0/HPF (0-2) Urine WBC Occ/HPF (0-4) Urine Squamous Epithelial Cells Occ/LPF Urine Bacteria 0/HPF (0-FEW) Urine Hyaline Casts Occasional/HPF Urine Mucus Mod/LPF Prothrombin Time 15.8SEC (11.7-14.0) Prothromb Time International Ratio 1.3 (0.8-1.1) CA 27.29 44.9U/mL (0.0-38.6) Test 06/24/16 13:50 Urine Test Negative (NEG) Laboratory Tests Test 06/24/16 12:13 06/24/16 13:50 Prothrombin Time 15.8SEC (11.7-14.0) Prothromb Time International Ratio 1.3 (0.8-1.1) Troponin I Quantitative 0.068ng/mL (0.000-0.055) CA 27.29 44.9U/mL (0.0-38.6) Urine Test Negative (NEG) Microbiology 06/23/16 Urine Culture - Preliminary, Resulted 06/23/16 Urine Culture Result 1 (JESUSITA) - Preliminary, Resulted Medications Current Medications Aspirin (Children'S Aspirin) 324 mg 1X ONCE PO Last administered on 06/23/16 21:53; Start 06/23/16 at 21:15; Stop 06/23/16 at 21:16; Status DC Ondansetron HCl (Zofran) 4 mg PRN Q8HRS PRN IV NAUSEA/VOMITING Last administered on 06/24/16 20:16; Start 06/23/16 at 21:00; Stop 06/24/16 at 20:59; Status DC Morphine Sulfate 2 mg 2 mg PRN Q2HR PRN IV SEVERE PAIN Last administered on 06/23 21:57; Start 06/23/16 at 21:00; Stop 06/24/16 at 20:59; Status DC Sodium Chloride (Iv Sodium Chloride 0.9% 1000ml Bag) 1,000 ml @ 125 mls/hr Q8H IV Last administered on 06/24/16 00:38; Start 06/23/16 at 21:00; Stop 06/24/16 at 11:15; Status DC Iohexol (Omnipaque 300 Mg/ml) 75 ml 1X ONCE IV Last administered on 06/23/16 21:20; Start 06/23/16 at 21:45; Stop 06/23/16 at 21:46; Status DC Info (Do NOT chart on this entry -- for MONITORING) 1 each PRN DAILY PRN MC SEE COMMENTS; Start 06/23/16 at 21:15; Stop 06/25/16 at 08:54; Status DC Gabapentin (Neurontin) 300 mg PRN TID PRN PO NEUROPATHIC PAIN Last administered on 06/24/16 10:31; Start 06/23/16 at 23:45 Ondansetron HCl (Zofran Odt) 4 mg PRN Q8HRS PRN PO NAUSEA Last administered on 06/25/16 08:47; Start 06/24/16 at 09:00 Oxcarbazepine (Trileptal) 1,200 mg HS PO Last administered on 06/24/16 21:40; Start 06/24/16 at 21:00 Pantoprazole Sodium (Protonix) 40 mg DAILYAC PO Last administered on 06/25/16 08:43; Start 06/24/16 at 07:30 Tramadol HCl (Ultram) 50 mg PRN Q6HRS PRN PO MILD PAIN; Start 06/24/16 at 09:00 Trazodone HCl (Desyrel) 50 mg QHS PO Last administered on 06/24/16 21:39; Start 06/24/16 at 21:00 Sertraline HCl (Zoloft) 100 mg BID PO Last administered on 06/25/16 08:43; Start 06/24/16 at 09:00 Acetaminophen/ Hydrocodone Bitart (Lortab 5/325) 1 tab PRN Q4HRS PRN PO SEVERE PAIN Last administered on 06/24/16 15:24; Start 06/23/16 at 23:45; Stop 06/24/16 at 17:34; Status DC Enoxaparin Sodium 40 mg 40 mg DAILY SQ ; Start 06/25/16 at 09:00 Sodium Chloride (Iv Sodium Chloride 0.9% 1000ml Bag) 1,000 ml @ 50 mls/hr Q20H IV Last administered on 06/24/16 11:20; Start 06/24/16 at 11:30; Stop 06/24/16 at 11:31; Status DC Furosemide (Lasix) 40 mg 1X ONCE IVP Last administered on 06/24/16 15:25; Start 06/24/16 at 14:15; Stop 06/24/16 at 14:27; Status DC Iohexol (Omnipaque 300 Mg/ml) 75 ml 1X ONCE IV Last administered on 06/24/16 16:32; Start 06/24/16 at 16:15; Stop 06/24/16 at 16:16; Status DC Iohexol (Omnipaque 240 Mg/ml) 30 ml 1X ONCE PO Last administered on 06/24/16 16:33; Start 06/24/16 at 16:15; Stop 06/24/16 at 16:16; Status DC Info (Do NOT chart on this entry -- for MONITORING) 1 each PRN DAILY PRN MC SEE COMMENTS; Start 06/24/16 at 16:15; Stop 06/26/16 at 16:14 Acetaminophen/ Hydrocodone Bitart (Lortab 7.5/325) 1 tab PRN Q4HRS PRN PO MODERATE PAIN Last administered on 06/25/16 06:12; Start 06/24/16 at 17:45 Zolpidem Tartrate (Ambien) 5 mg PRN QHS PRN PO INSOMNIA; Start 06/24/16 at 17:45 Diphenhydramine HCl (Benadryl) 25 mg PRN Q6HRS PRN PO ITCHING; Start 06/24/16 at 17:45 Morphine Sulfate (Morphine Ir) 15 mg Q6HRS PRN PO SEVERE PAIN; Start 06/24/16 at 17:45 Active Scripts Active Zofran Odt (Ondansetron) 4 Mg Tab.rapdis 1 Tab SL PRN Q8HRS PRN Oxcarbazepine 300 Mg Tablet 1,200 Mg PO HS Pantoprazole Sodium 40 Mg Tablet.dr 40 Mg PO DAILYAC Reported Tramadol Hcl 50 Mg Tablet 1 Tab PO PRN Q6HRS PRN Trazodone Hcl 50 Mg Tablet 1 Tab PO QHS Gabapentin 300 Mg Capsule 300 Mg PO TID PRN Sertraline Hcl 100 Mg Tablet 100 Mg PO BID Hydrocodone-Apap 7.5-325 (Hydrocodone Bit/Acetaminophen) 1 Each Tablet Unknown Dose PO PRN Q6HRS PRN [Creon Lipase Tid] Vitals/I & O Vital Sign - Last 24 Hours 06/24/16 06/24/16 06/24/16 06/24/16 11:12 15:18 15:24 16:24 Temp 97.7 97.5 97.7 97.5 Pulse 82 81 Resp 16 B/P 111/65 103/65 Pulse Ox 99 100 O2 Delivery Room Air Room Air Room Air Room Air 06/24/16 06/24/16 06/24/16 06/25/16 19:50 21:40 22:40 02:43 Temp 97.7 98.5 97.7 98.5 Pulse 79 88 Resp 18 B/P 109/70 100/61 Pulse Ox 99 97 O2 Delivery Room Air Room Air Room Air Room Air 06/25/16 06/25/16 06/25/16 06:12 07:30 08:08 Temp 98.5 98.5 Pulse 99 Resp 22 12 B/P 106/56 Pulse Ox 97 O2 Delivery Room Air Room Air Room Air Intake and Output 06/24/16 06/24/16 06/25/16 15:00 23:00 07:00 Intake Total 100 ml Output Total 500 ml 1100 ml 600 ml Balance -500 ml -1000 ml -600 ml TRAN THOMPSON MD Jun 25, 2016 10:12
[2016-06-25] MEDS ORDERED: LIDOCAINE 1% / SOD BICARB 8.4% 20 ML VIAL. IJ ONE ×2 (10:45→11:45)
[2016-06-25] MEDS ORDERED: FENTANYL PF 100 MCG/2 ML VIAL. ONE (10:56)
[2016-06-25] MEDS ORDERED: FENTANYL PF 100 MCG/2 ML VIAL. IV ONE ×2 (11:00→11:45)
--- NOTE | 2016-06-25 11:41 | PDOC ---
BRIEF OPERATIVE NOTE Pre-Op Diagnosis Ascites and pleural effusion Post-Op Diagnosis same Procedure Performed paracentesis and left thoracentesis Surgeon Val Anesthesia Type: Local Specimens Obtained 2400 cc thin yellow ascites and 240cc thin yellow pleural fluid Complications no immediate MAGALYS CABA MD Jun 25, 2016 11:41
--- NOTE | 2016-06-25 12:10 | RAD ---
Indication post thoracentesis. Assess for potential complication. A single view of the chest was obtained and is compared to a study 2 days earlier. There is no significant residual left pleural fluid seen. There is a small right pleural effusion. There is no evidence of complication seen associated with the thoracentesis procedure and specifically no pneumothorax is seen. No consolidated pneumonia is seen IMPRESSION: Status post left-sided thoracentesis. No complication seen.
--- NOTE | 2016-06-25 12:14 | PDOC ---
Subjective: Subjective: Vomiting this morning after pain meds (was NPO). Currently feeling weak but hungry. No pain, BM. Objective: Objective: Paracentesis 06/25/16: 2400 cc thin yellow ascites and 240cc thin yellow pleural fluid Vital Signs: Vital Signs Date Time Temp Pulse Resp B/P Pulse Ox O2 Delivery O2 Flow Rate FiO2 06/25/16 11:54 98.7 96 12 108/57 97 Room Air 98.7 Labs: Laboratory Tests Test 06/24/16 12:13 06/24/16 13:50 Prothrombin Time 15.8SEC Prothromb Time International Ratio 1.3 Troponin I Quantitative 0.068ng/mL CA 27.29 44.9U/mL Urine Test Negative Imaging: Abd US 06/24/16 IMPRESSION: Moderate amount of abdominal ascites. CT A/P 06/24/16 IMPRESSION: Moderate amount of ascites. Wall thickening of the small bowel which may be secondary to enteritis. Mild dilatation of the extra hepatic biliary tree most likely related to the previous cholecystectomy. Mild dilatation of the main pancreatic duct most likely due to mild pancreatic atrophy. No pancreatic mass is seen. Correlation with liver function tests is recommended. Bilateral pleural effusions and associated compressive atelectasis left greater than right. Generalized anasarca. PE: GEN: NAD, sitting up in bed ordering lunch LUNGS: CTAB HEART: RRR ABD: S/ND/NT EXTREMITY: No edema NEURO/PSYCH: A & O 3 A/P: Ascites, pleural effusion -s/p paracentesis, thoracentesis 06/25 -liver unremarkable on CT S/p BPD -has n/v, abd pain, diarrhea - stable although vomited this a.m. Elevated CA 27-29 -- Will review w/ Dr. Lemus. LESLEY GOULD Jun 25, 2016 12:14
--- NOTE | 2016-06-25 17:20 | PDOC ---
CARDIO Progress Notes Date and Time Date of Service 06/25/16 Time of Evaluation 1545 Subjective Subjective: No Chest Pain, No shortness of breath, No Palpitations, Other ( feels very weak) Vitals Vitals Vital Signs Date Time Temp Pulse Resp B/P Pulse Ox O2 Delivery O2 Flow Rate FiO2 06/25/16 15:45 12 99 Room Air 06/25/16 15:11 98.1 98 102/59 98.1 Weight Weight [ ] Input and Output Intake and Output Intake and Output 06/25/16 07:00 Intake Total 100 ml Output Total 2200 ml Balance -2100 ml Intake Oral 100 ml Output Urine Total 2200 ml Microbiology Micro Microbiology 06/25/16 Gram Stain - Final, Complete 06/23/16 Urine Culture - Final, Complete 06/23/16 Urine Culture Result 1 (JESUSITA) - Final, Complete Physical Exam HEENT: Neck Supple W Full Motion Chest: Symmetric LUNGS: Clear to Auscultation Heart: S1S2, RRR, other (3/6 systolic murmur ) Abdomen: Soft N/T Extremities: No Calf Tenderness, Other (trace LE edema ) Neurology: alert, oriented, follow commands Assessment Assessment 1. Mildly elevated troponin 2. Severe mitral regurgitation 3. Dyspnea 4. Weakness/fatigue 5. Nausea/vomiting/diarrhea 6. Moderate left pleural effusion s/p thoracentesis 7. Ascites s/p paracentesis Recommendations portal HTN and ? malignancy workup ongoing gentle diuresis as able. Add low-does BB continue supportive care JACEK ROMERO APRN Jun 25, 2016 17:20
[2016-06-25] MEDS: FUROSEMIDE 20 MG TABLET PO SCH (17:37)
[2016-06-25] MEDS ORDERED: FUROSEMIDE 20 MG TABLET PO SCH (18:00)
[2016-06-25] MEDS: traZODone 50 MG TABLET. PO SCH (20:53)
[2016-06-25] MEDS: METOPROLOL TART IMMED RELEASE 25 MG TABLET PO SCH (20:58)
[2016-06-25] MEDS: OXCARBAZEPINE 300 MG TABLET. PO SCH (20:59)
[2016-06-26 03:00] VITALS: BP 96/54
[2016-06-26 07:00] VITALS: BP 111/52
[2016-06-26] MEDS: ONDANSETRON ODT 4 MG TAB.RAPDIS PO PRN (08:44)
[2016-06-26] MEDS: METOPROLOL TART IMMED RELEASE 25 MG TABLET PO SCH (09:00)
--- NOTE | 2016-06-26 09:56 | RAD ---
Limited abdominal Doppler evaluation Clinical indications: Ascites. Findings: Duplex sonography of the hepatic venous vasculature was performed including escobar scale evaluation and color flow and waveform spectral analysis. Liver is homogeneous and measures 14.2 cm in length. Hepatopedal flow is seen within the main portal vein and within the left portal vein and the right portal vein. Hepatofugal flow is seen within the 3 hepatic veins. IMPRESSION: Normal Doppler evaluation of the portal and hepatic veins.
[2016-06-26] MEDS: PANTOPRAZOLE 40 MG TABLET. PO SCH (10:03)
[2016-06-26] MEDS: SERTRALINE 50 MG TABLET. PO SCH ×2 (10:03→21:07)
[2016-06-26] MEDS: ENOXAPARIN 40 MG/0.4 ML DISP.SYRIN. SQ SCH (10:05)
[2016-06-26] MEDS: FUROSEMIDE 20 MG TABLET PO SCH (10:05)
[2016-06-26 11:00] VITALS: BP 95/57
--- NOTE | 2016-06-26 11:00 | RAD ---
Procedure: Ultrasound guided paracentesis and ultrasound-guided left thoracentesis Clinical Indication: 46-year-old male with abdominal ascites and recurrent left pleural effusion Sedation: Local anesthesia only Antibiotics: None Fluoro Time: None Contrast: Not applicable Sterility: The procedure was performed in its entirety using appropriate elements of sterile technique. Consent: The procedure was explained in its entirety to the patient or the patients designated direct customer service representative by a member of the treatment team, including a discussion of the risks, benefits and commonly accepted alternatives to the procedure, as well as the expected consequences of no therapy whatsoever. Discussion of the risks included, but was not limited to, those that are most frequent and those that are rare but possibly severe or life-threatening, as well as the possibility of unforeseen complications. Technique and Findings: Following informed consent, the patient was prepped and draped in the usual sterile fashion. Ultrasound interrogation of the abdomen revealed abdominal ascites. A hard copy ultrasound image was recorded. 1% Lidocaine was used to achieve local anesthesia over the area of interest, and a 6 [place] [id number]-[id number] catheter was advanced into the peritoneal cavity under ultrasound guidance. 2400 cc of thin yellow ascites was then withdrawn. The catheter was removed and hemostasis was achieved with manual compression. The left chest was then prepped and draped in usual sterile fashion. Ultrasound interrogation revealed a moderate left pleural effusion. 1% lidocaine was used to achieve local anesthesia. A Hardcopy ultrasound image was recorded. As a 5 [place] zSoupeh catheter was advanced into the pleural space and used to withdraw 240 cc of thin yellow fluid which was sent for analysis. The catheter was then removed and hemostasis was achieved with manual compression. Complications: No immediate Impression: 1. Ultrasound-guided paracentesis as described 2. Ultrasound guided left thoracentesis as described
--- NOTE | 2016-06-26 12:53 | PDOC ---
Objective: Objective: Per RN - pt reporting confusion. Diarrhea x 1 this morning, not interested in eating. Vital Signs: Vital Signs Date Time Temp Pulse Resp B/P Pulse Ox O2 Delivery O2 Flow Rate FiO2 06/26/16 11:00 98.4 85 16 95/57 99 Room Air 98.4 Imaging: Abd doppler 06/25/16 IMPRESSION: Normal Doppler evaluation of the portal and hepatic veins. PE: GEN: NAD, up to chair LUNGS: CTAB HEART: RRR ABD: soft, non-tender, BS+, increased distention NEURO/PSYCH: A & O x 3, slower to respond A/P: Ascites, pleural effusion -s/p paracentesis, thoracentesis 06/25 - gram stain w/ mod WBCs, RBCs S/p BPD, malabsorption -chronic issues w/ n/v, abd pain, diarrhea ?AMS -- Will review w/ Dr. Lemus. LESLEY GOULD Jun 26, 2016 12:53
--- NOTE | 2016-06-26 14:44 | PATHOLOGY ---
CYTOPATHOLOGY REPORT CLINICAL HISTORY: Left pleural effusion. SPECIMEN(S) RECEIVED: A.Pleural fluid, Left FINAL DIAGNOSIS: Left pleural fluid, ThinPrep and cell block: NO MALIGNANT CELLS IDENTIFIED. Reactive mesothelial cells and inflammatory cells identified. (JPM:csd; d/t: 06/26/2016) PATHOLOGIST: Fernie Gamez M.D. REPORT ELECTRONICALLY SIGNED BY: Fernie Gamez M.D. DATE/TIME: 06/26/2016 14:44 GROSS PATHOLOGY: A. Pleural fluid, Left: The specimen is submitted unfixed, labeled "Jennifer Miller". Received by the Cytology Department is 30 mL of clear yellow fluid. One ThinPrep slide and a cell block were prepared. (clt 06.25.2016) STREET [employer] SERVICER SUPERVISOR(S): AVANI Carlos(ASCP) INITIAL CPT CODE(S): A; 30904, 67061 Professional services performed by [facility] [place] [address] Technical services performed by [facility] at [address] [place] [address], [address] [address]. PATIENT: JENNIFER MILLER /AGE: 9 1970 (Age: 46) SEX: F PATIENT #: [id number] ALT CASE #: SPECIMEN COLLECTION DATE: 06/25/2016 SPECIMEN RECEIVED DATE: 06/25/[address] [facility] [address] [place] [address], [address] [place] [address] PHONE: [phone] DIRECTOR: Mario Swanson M.D. * * * END OF REPORT * * *
[2016-06-26 15:00] VITALS: BP 108/43
--- NOTE | 2016-06-26 15:50 | PDOC ---
PULMONARY PROGRESS NOTES Subjective NO SOA Vitals Vital Signs Date Time Temp Pulse Resp B/P Pulse Ox O2 Delivery O2 Flow Rate FiO2 06/26/16 15:00 98.2 72 18 108/43 100 Room Air 98.2 General: Alert, No acute distress Lungs: Clear Cardiovascular: S1 Abdomen: Soft Neuro Exam: Alert Extremities: No Edema Skin: Warm Labs Laboratory Tests Test 06/25/16 11:30 Body Fluid Total Protein 0.5g/dL (.) Body Fluid Lactate Dehydrogenase 75IU/L (.) Medications Active Scripts Medications Dose Route/Sig Days Date Category Tramadol Hcl 50 Mg Tablet 1 Tab PO PRN Q6HRS PRN 06/23/16 Reported Trazodone Hcl 50 Mg Tablet 1 Tab PO QHS 06/23/16 Reported Gabapentin 300 Mg Capsule 300 Mg PO TID PRN 06/23/16 Reported Zofran Odt (Ondansetron) 4 Mg Tab.rapdis 1 Tab SL PRN Q8HRS PRN 06/23/16 Rx Oxcarbazepine 300 Mg Tablet 1,200 Mg PO HS 01/23/16 Rx Pantoprazole Sodium 40 Mg Tablet.dr 40 Mg PO DAILYAC 01/23/16 Rx Sertraline Hcl 100 Mg Tablet 100 Mg PO BID 01/19/16 Reported Hydrocodone-Apap 7.5-325 (Hydrocodone Bit/Acetaminophen) 1 Each Tablet Unknown Dose PO PRN Q6HRS PRN 01/19/16 Reported [Creon Lipase Tid] 01/19/16 Reported Impression . 1. Left lower lobe pleural effusion in a patient with ongoing weight loss of 30 pounds in the last three months. It could be related to gastric bypass surgery; however, the possibility of occult malignancy cannot be ruled out. No obvious mass is seen on the CT chest/ abdomen / pelvis CT. We will also do a tumor marker for breast cancer. She has not had mammogram in a long time period. s/p diagnostic thoracentesis. 2. Minimal history of tobacco use. 3. Severe mitral regurgitation seen on previous echo and transesophageal echo. Recent echo showing moderate mitral regurgitation. Cardiology is following. Plan . 1. s/p Diagnostic thoracentesis on the left side. follow results 2. s/p paracentesis for ascites, follow GI recommendations 3. Tumor marker for breast cancer. 5. Follow Cardiology recommendation. 6. Diuresis if tolerates. 7. Further recommendations to follow. 8. Discussed with RN. MARÍA BEASLEY MD Jun 26, 2016 15:49
[2016-06-26] MEDS: MULTIVITAMINS,THERAPEUTIC 5 ML ORAL LIQUID. PO SCH (16:39)
[2016-06-26] MEDS: THIAMINE 100 MG in IV NORMAL SALINE 50ML 50 ML IV SCH ×2 (16:40→21:08)
[2016-06-26 19:30] VITALS: BP 96/55
[2016-06-26] MEDS: traZODone 50 MG TABLET. PO SCH (21:07)
[2016-06-26] MEDS: OXCARBAZEPINE 300 MG TABLET. PO SCH (21:08)
[2016-06-26 23:27] VITALS: BP 104/55
[2016-06-27 03:32] VITALS: BP 101/58
[2016-06-27] MEDS: THIAMINE 100 MG in IV NORMAL SALINE 50ML 50 ML IV SCH ×3 (06:25→22:21)
[2016-06-27 07:00] VITALS: BP 98/53
--- NOTE | 2016-06-27 08:03 | PDOC ---
PULMONARY PROGRESS NOTES Subjective NO SOA, has occ cough, no pain, is tired. Vitals Vital Signs Date Time Temp Pulse Resp B/P Pulse Ox O2 Delivery O2 Flow Rate FiO2 06/27/16 07:00 98.6 70 16 98/53 Room Air 98.6 06/27/16 03:32 95 Comments ros as mentioned as above, other sys otherwise neg General: Alert, No acute distress HEENT: Other (nc at perrl.) Lungs: Crackles Cardiovascular: S1, S2 Abdomen: Soft, Non-tender Neuro Exam: Alert Extremities: No Edema Skin: Warm Labs Laboratory Tests Test 06/25/16 11:30 06/26/16 15:00 Body Fluid Total Protein 0.5g/dL (.) Body Fluid Lactate Dehydrogenase 75IU/L (.) Clostridium difficile Toxin (PCR) Negative (Negative) Laboratory Tests Test 06/26/16 15:00 Clostridium difficile Toxin (PCR) Negative (Negative) Medications Active Scripts Medications Dose Route/Sig Days Date Category Tramadol Hcl 50 Mg Tablet 1 Tab PO PRN Q6HRS PRN 06/23/16 Reported Trazodone Hcl 50 Mg Tablet 1 Tab PO QHS 06/23/16 Reported Gabapentin 300 Mg Capsule 300 Mg PO TID PRN 06/23/16 Reported Zofran Odt (Ondansetron) 4 Mg Tab.rapdis 1 Tab SL PRN Q8HRS PRN 06/23/16 Rx Oxcarbazepine 300 Mg Tablet 1,200 Mg PO HS 01/23/16 Rx Pantoprazole Sodium 40 Mg Tablet.dr 40 Mg PO DAILYAC 01/23/16 Rx Sertraline Hcl 100 Mg Tablet 100 Mg PO BID 01/19/16 Reported Hydrocodone-Apap 7.5-325 (Hydrocodone Bit/Acetaminophen) 1 Each Tablet Unknown Dose PO PRN Q6HRS PRN 01/19/16 Reported [Creon Lipase Tid] 01/19/[address] reviewed, Impression: - Moderate left and small right pleural effusion. - Negative for thoracic adenopathy. - Abdominal ascites. - Non consolidating peripheral left upper lobe interstitial opacities. Impression . 1. Left lower lobe pleural effusion in a patient with ongoing weight loss of 30 pounds in the last three months. It could be related to gastric bypass surgery; however, the possibility of occult malignancy cannot be ruled out. No obvious mass is seen on the CT chest/ abdomen / pelvis CT. We will also do a tumor marker for breast cancer. She has not had mammogram in a long time period. s/p diagnostic thoracentesis. 2. Minimal history of tobacco use. 3. Severe mitral regurgitation seen on previous echo and transesophageal echo. Recent echo showing moderate mitral regurgitation. Cardiology is following. Plan . 1. s/p Diagnostic thoracentesis on the left side. follow results 2. s/p paracentesis for ascites, follow GI recommendations 3. Tumor marker for breast cancer. 5. Follow Cardiology recommendation. 6. Diuresis if tolerates. 7. Further recommendations to follow. 8. pt/ot Discussed with RN. ANGEL GÓMEZ MD Jun 27, 2016 08:03
[2016-06-27] MEDS: ONDANSETRON ODT 4 MG TAB.RAPDIS PO PRN (08:43)
[2016-06-27] MEDS: PANTOPRAZOLE 40 MG TABLET. PO SCH (08:43)
[2016-06-27 11:00] VITALS: BP 100/45
[2016-06-27] MEDS: SERTRALINE 50 MG TABLET. PO SCH ×2 (11:33→20:42)
[2016-06-27] MEDS: FUROSEMIDE 20 MG TABLET PO SCH (11:33)
[2016-06-27] MEDS: ENOXAPARIN 40 MG/0.4 ML DISP.SYRIN. SQ SCH (11:34)
--- NOTE | 2016-06-27 11:49 | PDOC ---
PROGRESS NOTES Chief Complaint Chief Complaint A.P 1. Fatigue, weakness, dehydration due to diarrhea. 2. Unintentional weight loss. 3. Pleural effusion, bilateral. 4. Ascites, new. 5. Fibromyalgia. 6. Chronic pain. 7. Malnutrition. 8. History of gastric bypass surgery. 9. Mild elevation of troponins. 9. Hypernatremia. 10. Physical debility. Plan s/p diagnostic thoracentesis and paracentesis , looks like transudate Follow cytology Lasix LDH/Protein body fluids transudate. elevated CA 27 multi vitamins GI following C Diff negative increase oral intake supportive PT/OT prognosis guarded. History of Present Illness History of Present Illness no diarrhea no fever no chills. Vitals Vitals Vital Signs Date Time Temp Pulse Resp B/P Pulse Ox O2 Delivery O2 Flow Rate FiO2 06/27/16 11:00 98.9 64 16 100/45 Room Air 98.9 06/27/16 03:32 95 Physical Exam General: Alert, Oriented X3, Other (cachexia) Heart: Regular rate, Normal S1, Normal S2, Other (3/6 systolic murmur) Lungs: Clear Abdomen: Soft, No tenderness, Other (ascites) Extremities: No edema, Other Skin: No significant lesion, Other (ansasarca) Labs LABS Laboratory Tests Test 06/26/16 15:00 06/27/16 09:35 Clostridium difficile Toxin (PCR) Negative (Negative) Lactate Dehydrogenase 348U/L (81-234) Assessment and Plan Assessmemt and Plan Problems Medical Problems: (1) Elevated troponin Status: Acute (2) Unintentional weight loss Status: Acute (3) Vomiting Status: Acute (4) Weakness Status: Acute Problems: Comment Review of Relevant I have reviewed the following items anais (where applicable) has been applied. Labs Laboratory Tests Test 06/26/16 15:00 06/27/16 09:35 Clostridium difficile Toxin (PCR) Negative (Negative) Lactate Dehydrogenase 348U/L (81-234) Laboratory Tests Test 06/26/16 15:00 06/27/16 09:35 Clostridium difficile Toxin (PCR) Negative (Negative) Lactate Dehydrogenase 348U/L (81-234) Microbiology 06/25/16 Gram Stain - Final, Complete 06/23/16 Urine Culture - Final, Complete 06/23/16 Urine Culture Result 1 (JESUSITA) - Final, Complete Medications Current Medications Aspirin (Children'S Aspirin) 324 mg 1X ONCE PO Last administered on 06/23/16 21:53; Start 06/23/16 at 21:15; Stop 06/23/16 at 21:16; Status DC Ondansetron HCl (Zofran) 4 mg PRN Q8HRS PRN IV NAUSEA/VOMITING Last administered on 06/24/16 20:16; Start 06/23/16 at 21:00; Stop 06/24/16 at 20:59; Status DC Morphine Sulfate 2 mg 2 mg PRN Q2HR PRN IV SEVERE PAIN Last administered on 06/23 21:57; Start 06/23/16 at 21:00; Stop 06/24/16 at 20:59; Status DC Sodium Chloride (Iv Sodium Chloride 0.9% 1000ml Bag) 1,000 ml @ 125 mls/hr Q8H IV Last administered on 06/24/16 00:38; Start 06/23/16 at 21:00; Stop 06/24/16 at 11:15; Status DC Iohexol (Omnipaque 300 Mg/ml) 75 ml 1X ONCE IV Last administered on 06/23/16 21:20; Start 06/23/16 at 21:45; Stop 06/23/16 at 21:46; Status DC Info (Do NOT chart on this entry -- for MONITORING) 1 each PRN DAILY PRN MC SEE COMMENTS; Start 06/23/16 at 21:15; Stop 06/25/16 at 08:54; Status DC Gabapentin (Neurontin) 300 mg PRN TID PRN PO NEUROPATHIC PAIN Last administered on 06/24/16 10:31; Start 06/23/16 at 23:45 Ondansetron HCl (Zofran Odt) 4 mg PRN Q8HRS PRN PO NAUSEA Last administered on 06/27/16 08:43; Start 06/24/16 at 09:00 Oxcarbazepine (Trileptal) 1,200 mg HS PO Last administered on 06/26/16 21:08; Start 06/24/16 at 21:00 Pantoprazole Sodium (Protonix) 40 mg DAILYAC PO Last administered on 06/27/16 08:43; Start 06/24/16 at 07:30 Tramadol HCl (Ultram) 50 mg PRN Q6HRS PRN PO MILD PAIN; Start 06/24/16 at 09:00 Trazodone HCl (Desyrel) 50 mg QHS PO Last administered on 06/26/16 21:07; Start 06/24/16 at 21:00 Sertraline HCl (Zoloft) 100 mg BID PO Last administered on 06/27/16 11:33; Start 06/24/16 at 09:00 Acetaminophen/ Hydrocodone Bitart (Lortab 5/325) 1 tab PRN Q4HRS PRN PO SEVERE PAIN Last administered on 06/24/16 15:24; Start 06/23/16 at 23:45; Stop 06/24/16 at 17:34; Status DC Enoxaparin Sodium 40 mg 40 mg DAILY SQ Last administered on 06/27/16 11:34; Start 06/25/16 at 09:00 Sodium Chloride (Iv Sodium Chloride 0.9% 1000ml Bag) 1,000 ml @ 50 mls/hr Q20H IV Last administered on 06/24/16 11:20; Start 06/24/16 at 11:30; Stop 06/24/16 at 11:31; Status DC Furosemide (Lasix) 40 mg 1X ONCE IVP Last administered on 06/24/16 15:25; Start 06/24/16 at 14:15; Stop 06/24/16 at 14:27; Status DC Iohexol (Omnipaque 300 Mg/ml) 75 ml 1X ONCE IV Last administered on 06/24/16 16:32; Start 06/24/16 at 16:15; Stop 06/24/16 at 16:16; Status DC Iohexol (Omnipaque 240 Mg/ml) 30 ml 1X ONCE PO Last administered on 06/24/16 16:33; Start 06/24/16 at 16:15; Stop 06/24/16 at 16:16; Status DC Info (Do NOT chart on this entry -- for MONITORING) 1 each PRN DAILY PRN MC SEE COMMENTS; Start 06/24/16 at 16:15; Stop 06/26/16 at 16:14; Status DC Acetaminophen/ Hydrocodone Bitart (Lortab 7.5/325) 1 tab PRN Q4HRS PRN PO MODERATE PAIN Last administered on 06/25/16 15:45; Start 06/24/16 at 17:45 Zolpidem Tartrate (Ambien) 5 mg PRN QHS PRN PO INSOMNIA; Start 06/24/16 at 17:45 Diphenhydramine HCl (Benadryl) 25 mg PRN Q6HRS PRN PO ITCHING; Start 06/24/16 at 17:45 Morphine Sulfate (Morphine Ir) 15 mg Q6HRS PRN PO SEVERE PAIN; Start 06/24/16 at 17:45 Lidocaine/Sodium Bicarbonate (Buffered Lidocaine 1%) 12 ml 1X ONCE IJ Last administered on 06/25/16 11:39; Start 06/25/16 at 10:45; Stop 06/25/16 at 10:46; Status DC Fentanyl Citrate (Fentanyl 2ml Vial) 100 mcg STK-MED ONCE .ROUTE ; Start at 10:56; Stop 06/25/16 at 10:57; Status DC Fentanyl Citrate (Fentanyl 2ml Vial) 50 mcg 1X ONCE IV Last administered on 11:39; Start 06/25/16 at 11:00; Stop 06/25/16 at 11:01; Status DC Lidocaine/Sodium Bicarbonate (Buffered Lidocaine 1%) 12 ml 1X ONCE IJ ; Start 06/25/16 at 11:45; Stop 06/25/16 at 11:46; Status DC Fentanyl Citrate (Fentanyl 2ml Vial) 50 mcg 1X ONCE IV ; Start 06/25/16 at 11:45 ; Stop 06/25/16 at 11:46; Status DC Metoprolol Tartrate (Lopressor) 12.5 mg BID PO Last administered on 06/25/16 20 :58; Start 06/25/16 at 21:00; Stop 06/26/16 at 18:31; Status DC Furosemide (Lasix) 20 mg DAILY PO ; Start 06/25/16 at 18:00; Stop 06/25/16 at 18: 00; Status DC Furosemide (Lasix) 20 mg DAILY PO Last administered on 06/27/16 11:33; Start 06/25/16 at 17:30 Multivitamins 5 ml 5 ml DAILY PO Last administered on 06/26/16 16:39; Start at 14:00 Thiamine HCl/ Sodium Chloride (Iv Sodium Chloride 0.9% 50ml) 51 ml @ 102 mls/ hr Q8HRS IV Last administered on 06/27/16t 06:25; Start 06/26/16 at 16:00 Active Scripts Active Zofran Odt (Ondansetron) 4 Mg Tab.rapdis 1 Tab SL PRN Q8HRS PRN Oxcarbazepine 300 Mg Tablet 1,200 Mg PO HS Pantoprazole Sodium 40 Mg Tablet.dr 40 Mg PO DAILYAC Reported Tramadol Hcl 50 Mg Tablet 1 Tab PO PRN Q6HRS PRN Trazodone Hcl 50 Mg Tablet 1 Tab PO QHS Gabapentin 300 Mg Capsule 300 Mg PO TID PRN Sertraline Hcl 100 Mg Tablet 100 Mg PO BID Hydrocodone-Apap 7.5-325 (Hydrocodone Bit/Acetaminophen) 1 Each Tablet Unknown Dose PO PRN Q6HRS PRN [Creon Lipase Tid] Vitals/I & O Vital Sign - Last 24 Hours 06/26/16 06/26/16 06/26/16 06/26/16 15:00 19:30 20:06 23:27 Temp 98.2 98.8 98.8 98.2 98.8 98.8 Pulse 72 94 89 Resp 16 B/P 108/43 96/55 104/55 Pulse Ox 100 95 94 O2 Delivery Room Air Room Air Room Air Room Air 06/27/16 06/27/16 06/27/16 03:32 07:00 11:00 Temp 98.5 98.6 98.9 98.5 98.6 98.9 Pulse 90 70 64 Resp 16 B/P 101/58 98/53 100/45 Pulse Ox 95 O2 Delivery Room Air Room Air Room Air Intake and Output 06/26/16 06/26/16 06/27/16 15:00 23:00 07:00 Intake Total 50 ml Output Total 0 ml Balance 50 ml TRAN THOMPSON MD Jun 27, 2016 11:49
--- NOTE | 2016-06-27 12:43 | PDOC ---
G I PROGRESS NOTE Reason for Follow-up Confusion/diarrhea Subjective Patient without new complaints Physical Exam Lungs clear CV S1 S2 Abd +BS, soft, mild tender Review of Relevant I have reviewed the following items anais (where applicable) has been applied. Labs Laboratory Tests Test 06/26/16 15:00 06/27/16 09:35 Clostridium difficile Toxin (PCR) Negative (Negative) Lactate Dehydrogenase 348U/L (81-234) Laboratory Tests Test 06/26/16 15:00 06/27/16 09:35 Clostridium difficile Toxin (PCR) Negative (Negative) Lactate Dehydrogenase 348U/L (81-234) Microbiology 06/25/16 Gram Stain - Final, Complete 06/23/16 Urine Culture - Final, Complete 06/23/16 Urine Culture Result 1 (JESUSITA) - Final, Complete Medications Current Medications Aspirin (Children'S Aspirin) 324 mg 1X ONCE PO Last administered on 06/23/16 21:53; Start 06/23/16 at 21:15; Stop 06/23/16 at 21:16; Status DC Ondansetron HCl (Zofran) 4 mg PRN Q8HRS PRN IV NAUSEA/VOMITING Last administered on 06/24/16 20:16; Start 06/23/16 at 21:00; Stop 06/24/16 at 20:59; Status DC Morphine Sulfate 2 mg 2 mg PRN Q2HR PRN IV SEVERE PAIN Last administered on 06/23 21:57; Start 06/23/16 at 21:00; Stop 06/24/16 at 20:59; Status DC Sodium Chloride (Iv Sodium Chloride 0.9% 1000ml Bag) 1,000 ml @ 125 mls/hr Q8H IV Last administered on 06/24/16 00:38; Start 06/23/16 at 21:00; Stop 06/24/16 at 11:15; Status DC Iohexol (Omnipaque 300 Mg/ml) 75 ml 1X ONCE IV Last administered on 06/23/16 21:20; Start 06/23/16 at 21:45; Stop 06/23/16 at 21:46; Status DC Info (Do NOT chart on this entry -- for MONITORING) 1 each PRN DAILY PRN MC SEE COMMENTS; Start 06/23/16 at 21:15; Stop 06/25/16 at 08:54; Status DC Gabapentin (Neurontin) 300 mg PRN TID PRN PO NEUROPATHIC PAIN Last administered on 06/24/16 10:31; Start 06/23/16 at 23:45 Ondansetron HCl (Zofran Odt) 4 mg PRN Q8HRS PRN PO NAUSEA Last administered on 06/27/16 08:43; Start 06/24/16 at 09:00 Oxcarbazepine (Trileptal) 1,200 mg HS PO Last administered on 06/26/16 21:08; Start 06/24/16 at 21:00 Pantoprazole Sodium (Protonix) 40 mg DAILYAC PO Last administered on 06/27/16 08:43; Start 06/24/16 at 07:30 Tramadol HCl (Ultram) 50 mg PRN Q6HRS PRN PO MILD PAIN; Start 06/24/16 at 09:00 Trazodone HCl (Desyrel) 50 mg QHS PO Last administered on 06/26/16 21:07; Start 06/24/16 at 21:00 Sertraline HCl (Zoloft) 100 mg BID PO Last administered on 06/27/16 11:33; Start 06/24/16 at 09:00 Acetaminophen/ Hydrocodone Bitart (Lortab 5/325) 1 tab PRN Q4HRS PRN PO SEVERE PAIN Last administered on 06/24/16 15:24; Start 06/23/16 at 23:45; Stop 06/24/16 at 17:34; Status DC Enoxaparin Sodium 40 mg 40 mg DAILY SQ Last administered on 06/27/16 11:34; Start 06/25/16 at 09:00 Sodium Chloride (Iv Sodium Chloride 0.9% 1000ml Bag) 1,000 ml @ 50 mls/hr Q20H IV Last administered on 06/24/16 11:20; Start 06/24/16 at 11:30; Stop 06/24/16 at 11:31; Status DC Furosemide (Lasix) 40 mg 1X ONCE IVP Last administered on 06/24/16 15:25; Start 06/24/16 at 14:15; Stop 06/24/16 at 14:27; Status DC Iohexol (Omnipaque 300 Mg/ml) 75 ml 1X ONCE IV Last administered on 06/24/16 16:32; Start 06/24/16 at 16:15; Stop 06/24/16 at 16:16; Status DC Iohexol (Omnipaque 240 Mg/ml) 30 ml 1X ONCE PO Last administered on 06/24/16 16:33; Start 06/24/16 at 16:15; Stop 06/24/16 at 16:16; Status DC Info (Do NOT chart on this entry -- for MONITORING) 1 each PRN DAILY PRN MC SEE COMMENTS; Start 06/24/16 at 16:15; Stop 06/26/16 at 16:14; Status DC Acetaminophen/ Hydrocodone Bitart (Lortab 7.5/325) 1 tab PRN Q4HRS PRN PO MODERATE PAIN Last administered on 06/25/16 15:45; Start 06/24/16 at 17:45 Zolpidem Tartrate (Ambien) 5 mg PRN QHS PRN PO INSOMNIA; Start 06/24/16 at 17:45 Diphenhydramine HCl (Benadryl) 25 mg PRN Q6HRS PRN PO ITCHING; Start 06/24/16 at 17:45 Morphine Sulfate (Morphine Ir) 15 mg Q6HRS PRN PO SEVERE PAIN; Start 06/24/16 at 17:45 Lidocaine/Sodium Bicarbonate (Buffered Lidocaine 1%) 12 ml 1X ONCE IJ Last administered on 06/25/16 11:39; Start 06/25/16 at 10:45; Stop 06/25/16 at 10:46; Status DC Fentanyl Citrate (Fentanyl 2ml Vial) 100 mcg STK-MED ONCE .ROUTE ; Start at 10:56; Stop 06/25/16 at 10:57; Status DC Fentanyl Citrate (Fentanyl 2ml Vial) 50 mcg 1X ONCE IV Last administered on 11:39; Start 06/25/16 at 11:00; Stop 06/25/16 at 11:01; Status DC Lidocaine/Sodium Bicarbonate (Buffered Lidocaine 1%) 12 ml 1X ONCE IJ ; Start 06/25/16 at 11:45; Stop 06/25/16 at 11:46; Status DC Fentanyl Citrate (Fentanyl 2ml Vial) 50 mcg 1X ONCE IV ; Start 06/25/16 at 11:45 ; Stop 06/25/16 at 11:46; Status DC Metoprolol Tartrate (Lopressor) 12.5 mg BID PO Last administered on 06/25/16 20 :58; Start 06/25/16 at 21:00; Stop 06/26/16 at 18:31; Status DC Furosemide (Lasix) 20 mg DAILY PO ; Start 06/25/16 at 18:00; Stop 06/25/16 at 18: 00; Status DC Furosemide (Lasix) 20 mg DAILY PO Last administered on 06/27/16 11:33; Start 06/25/16 at 17:30 Multivitamins 5 ml 5 ml DAILY PO Last administered on 06/26/16 16:39; Start at 14:00 Thiamine HCl/ Sodium Chloride (Iv Sodium Chloride 0.9% 50ml) 51 ml @ 102 mls/ hr Q8HRS IV Last administered on 06/27/16 06:25; Start 06/26/16 at 16:00 Active Scripts Active Zofran Odt (Ondansetron) 4 Mg Tab.rapdis 1 Tab SL PRN Q8HRS PRN Oxcarbazepine 300 Mg Tablet 1,200 Mg PO HS Pantoprazole Sodium 40 Mg Tablet.dr 40 Mg PO DAILYAC Reported Tramadol Hcl 50 Mg Tablet 1 Tab PO PRN Q6HRS PRN Trazodone Hcl 50 Mg Tablet 1 Tab PO QHS Gabapentin 300 Mg Capsule 300 Mg PO TID PRN Sertraline Hcl 100 Mg Tablet 100 Mg PO BID Hydrocodone-Apap 7.5-325 (Hydrocodone Bit/Acetaminophen) 1 Each Tablet Unknown Dose PO PRN Q6HRS PRN [Creon Lipase Tid] Vitals/I & O Vital Sign - Last 24 Hours 06/26/16 06/26/16 06/26/16 06/26/16 15:00 19:30 20:06 23:27 Temp 98.2 98.8 98.8 98.2 98.8 98.8 Pulse 72 94 89 Resp 16 B/P 108/43 96/55 104/55 Pulse Ox 100 95 94 O2 Delivery Room Air Room Air Room Air Room Air 06/27/16 06/27/16 06/27/16 03:32 07:00 11:00 Temp 98.5 98.6 98.9 98.5 98.6 98.9 Pulse 90 70 64 Resp 18 16 16 B/P 101/58 98/53 100/45 Pulse Ox 95 O2 Delivery Room Air Room Air Room Air Intake and Output 06/26/16 06/26/16 06/27/16 15:00 23:00 07:00 Intake Total 50 ml Output Total 0 ml Balance 50 ml Problem List Problems Medical Problems: (1) Elevated troponin Status: Acute (2) Unintentional weight loss Status: Acute (3) Vomiting Status: Acute (4) Weakness Status: Acute Assessment Diarrhea- S/p gastric bypass, on thiamine , long-term prognosis guarded, cpm LAZARO CORNEJO MD Jun 27, 2016 12:43
[2016-06-27] MEDS: MULTIVITAMINS,THERAPEUTIC 5 ML ORAL LIQUID. PO SCH (14:15)
[2016-06-27 15:55] VITALS: BP 104/48
[2016-06-27 19:00] VITALS: BP 100/61
[2016-06-27] MEDS: HYDROCODONE/APAP 7.5/325MG TABLET. PO PRN (20:42)
[2016-06-27] MEDS: traZODone 50 MG TABLET. PO SCH ×2 (20:42→20:53)
[2016-06-27] MEDS: ZOLPIDEM 5 MG TABLET. PO PRN (20:42)
[2016-06-27] MEDS: OXCARBAZEPINE 300 MG TABLET. PO SCH (20:45)
[2016-06-27 23:00] VITALS: BP 111/56
[2016-06-28 03:00] VITALS: BP 114/58
[2016-06-28] MEDS: THIAMINE 100 MG in IV NORMAL SALINE 50ML 50 ML IV SCH ×3 (05:45→21:55)
[2016-06-28 07:00] VITALS: BP 111/53
--- NOTE | 2016-06-28 08:35 | PDOC ---
PULMONARY PROGRESS NOTES Subjective NO SOA, has occ cough, no pain, is tired. Vitals Vital Signs Date Time Temp Pulse Resp B/P Pulse Ox O2 Delivery O2 Flow Rate FiO2 06/28/16 03:00 97.7 95 18 114/58 99 Room Air 97.7 Comments ros as mentioned as above, other sys otherwise neg ROS: No Nausea General: Alert, No acute distress HEENT: Other (nc at perrl.) Lungs: Crackles Cardiovascular: S1, S2 Abdomen: Soft, Non-tender Neuro Exam: Alert Extremities: No Edema Skin: Warm Labs Laboratory Tests Test 06/26/16 15:00 06/27/16 09:35 Clostridium difficile Toxin (PCR) Negative (Negative) Lactate Dehydrogenase 348U/L (81-234) Laboratory Tests Test 06/27/16 09:35 Lactate Dehydrogenase 348U/L (81-234) Medications Active Scripts Medications Dose Route/Sig Days Date Category Tramadol Hcl 50 Mg Tablet 1 Tab PO PRN Q6HRS PRN 06/23/16 Reported Trazodone Hcl 50 Mg Tablet 1 Tab PO QHS 06/23/16 Reported Gabapentin 300 Mg Capsule 300 Mg PO TID PRN 06/23/16 Reported Zofran Odt (Ondansetron) 4 Mg Tab.rapdis 1 Tab SL PRN Q8HRS PRN 06/23/16 Rx Oxcarbazepine 300 Mg Tablet 1,200 Mg PO HS 01/23/16 Rx Pantoprazole Sodium 40 Mg Tablet.dr 40 Mg PO DAILYAC 01/23/16 Rx Sertraline Hcl 100 Mg Tablet 100 Mg PO BID 01/19/16 Reported Hydrocodone-Apap 7.5-325 (Hydrocodone Bit/Acetaminophen) 1 Each Tablet Unknown Dose PO PRN Q6HRS PRN 01/19/16 Reported [Creon Lipase Tid] 01/19/[address] reviewed, Impression: - Moderate left and small right pleural effusion. - Negative for thoracic adenopathy. - Abdominal ascites. - Non consolidating peripheral left upper lobe interstitial opacities. Impression . 1. Left lower lobe pleural effusion in a patient with ongoing weight loss of 30 pounds in the last three months. It could be related to gastric bypass surgery; however, the possibility of occult malignancy cannot be ruled out. No obvious mass is seen on the CT chest/ abdomen / pelvis CT. We will also do a tumor marker for breast cancer. She has not had mammogram in a long time period. s/p diagnostic thoracentesis. 2. Minimal history of tobacco use. 3. Severe mitral regurgitation seen on previous echo and transesophageal echo. Recent echo showing moderate mitral regurgitation. Cardiology is following. Plan . 1. s/p Diagnostic thoracentesis on the left side. transudate, cx neg, follow cytology 2. s/p paracentesis for ascites, follow GI recommendations 3. Tumor marker for breast cancer. 5. Follow Cardiology recommendation. 6. Diuresis if tolerates. 7. Further recommendations to follow. 8. pt/ot Discussed with ROHINI. ANGEL GÓMEZ MD Jun 28, 2016 08:35
--- NOTE | 2016-06-28 08:38 | PDOC ---
G I PROGRESS NOTE Reason for Follow-up Confusion /hx gastric bypass Subjective Flat affect persists Physical Exam Lungs clear CV S1 S2 ABD +BS, soft, mild diffuse tenderness Review of Relevant I have reviewed the following items anais (where applicable) has been applied. Labs Laboratory Tests Test 06/26/16 15:00 06/27/16 09:35 Clostridium difficile Toxin (PCR) Negative (Negative) Lactate Dehydrogenase 348U/L (81-234) Laboratory Tests Test 06/27/16 09:35 Lactate Dehydrogenase 348U/L (81-234) Microbiology 06/25/16 Gram Stain - Final, Complete 06/23/16 Urine Culture - Final, Complete 06/23/16 Urine Culture Result 1 (JESUSITA) - Final, Complete Medications Current Medications Aspirin (Children'S Aspirin) 324 mg 1X ONCE PO Last administered on 06/23/16 21:53; Start 06/23/16 at 21:15; Stop 06/23/16 at 21:16; Status DC Ondansetron HCl (Zofran) 4 mg PRN Q8HRS PRN IV NAUSEA/VOMITING Last administered on 06/24/16 20:16; Start 06/23/16 at 21:00; Stop 06/24/16 at 20:59; Status DC Morphine Sulfate 2 mg 2 mg PRN Q2HR PRN IV SEVERE PAIN Last administered on 06/23 21:57; Start 06/23/16 at 21:00; Stop 06/24/16 at 20:59; Status DC Sodium Chloride (Iv Sodium Chloride 0.9% 1000ml Bag) 1,000 ml @ 125 mls/hr Q8H IV Last administered on 06/24/16 00:38; Start 06/23/16 at 21:00; Stop 06/24/16 at 11:15; Status DC Iohexol (Omnipaque 300 Mg/ml) 75 ml 1X ONCE IV Last administered on 06/23/16 21:20; Start 06/23/16 at 21:45; Stop 06/23/16 at 21:46; Status DC Info (Do NOT chart on this entry -- for MONITORING) 1 each PRN DAILY PRN MC SEE COMMENTS; Start 06/23/16 at 21:15; Stop 06/25/16 at 08:54; Status DC Gabapentin (Neurontin) 300 mg PRN TID PRN PO NEUROPATHIC PAIN Last administered on 06/24/16 10:31; Start 06/23/16 at 23:45 Ondansetron HCl (Zofran Odt) 4 mg PRN Q8HRS PRN PO NAUSEA Last administered on 06/27/16 08:43; Start 06/24/16 at 09:00 Oxcarbazepine (Trileptal) 1,200 mg HS PO Last administered on 06/27/16 20:45; Start 06/24/16 at 21:00 Pantoprazole Sodium (Protonix) 40 mg DAILYAC PO Last administered on 06/27/16 08:43; Start 06/24/16 at 07:30 Tramadol HCl (Ultram) 50 mg PRN Q6HRS PRN PO MILD PAIN; Start 06/24/16 at 09:00 Trazodone HCl (Desyrel) 50 mg QHS PO Last administered on 06/26/16 21:07; Start 06/24/16 at 21:00 Sertraline HCl (Zoloft) 100 mg BID PO Last administered on 06/27/16 20:42; Start 06/24/16 at 09:00 Acetaminophen/ Hydrocodone Bitart (Lortab 5/325) 1 tab PRN Q4HRS PRN PO SEVERE PAIN Last administered on 06/24/16 15:24; Start 06/23/16 at 23:45; Stop 06/24/16 at 17:34; Status DC Enoxaparin Sodium 40 mg 40 mg DAILY SQ Last administered on 06/27/16 11:34; Start 06/25/16 at 09:00 Sodium Chloride (Iv Sodium Chloride 0.9% 1000ml Bag) 1,000 ml @ 50 mls/hr Q20H IV Last administered on 06/24/16 11:20; Start 06/24/16 at 11:30; Stop 06/24/16 at 11:31; Status DC Furosemide (Lasix) 40 mg 1X ONCE IVP Last administered on 06/24/16 15:25; Start 06/24/16 at 14:15; Stop 06/24/16 at 14:27; Status DC Iohexol (Omnipaque 300 Mg/ml) 75 ml 1X ONCE IV Last administered on 06/24/16 16:32; Start 06/24/16 at 16:15; Stop 06/24/16 at 16:16; Status DC Iohexol (Omnipaque 240 Mg/ml) 30 ml 1X ONCE PO Last administered on 06/24/16 16:33; Start 06/24/16 at 16:15; Stop 06/24/16 at 16:16; Status DC Info (Do NOT chart on this entry -- for MONITORING) 1 each PRN DAILY PRN MC SEE COMMENTS; Start 06/24/16 at 16:15; Stop 06/26/16 at 16:14; Status DC Acetaminophen/ Hydrocodone Bitart (Lortab 7.5/325) 1 tab PRN Q4HRS PRN PO MODERATE PAIN Last administered on 06/27/16 20:42; Start 06/24/16 at 17:45 Zolpidem Tartrate (Ambien) 5 mg PRN QHS PRN PO INSOMNIA Last administered on 20:42; Start 06/24/16 at 17:45 Diphenhydramine HCl (Benadryl) 25 mg PRN Q6HRS PRN PO ITCHING; Start 06/24/16 at 17:45 Morphine Sulfate (Morphine Ir) 15 mg Q6HRS PRN PO SEVERE PAIN; Start 06/24/16 at 17:45 Lidocaine/Sodium Bicarbonate (Buffered Lidocaine 1%) 12 ml 1X ONCE IJ Last administered on 06/25/16 11:39; Start 06/25/16 at 10:45; Stop 06/25/16 at 10:46; Status DC Fentanyl Citrate (Fentanyl 2ml Vial) 100 mcg STK-MED ONCE .ROUTE ; Start at 10:56; Stop 06/25/16 at 10:57; Status DC Fentanyl Citrate (Fentanyl 2ml Vial) 50 mcg 1X ONCE IV Last administered on 11:39; Start 06/25/16 at 11:00; Stop 06/25/16 at 11:01; Status DC Lidocaine/Sodium Bicarbonate (Buffered Lidocaine 1%) 12 ml 1X ONCE IJ ; Start 06/25/16 at 11:45; Stop 06/25/16 at 11:46; Status DC Fentanyl Citrate (Fentanyl 2ml Vial) 50 mcg 1X ONCE IV ; Start 06/25/16 at 11:45 ; Stop 06/25/16 at 11:46; Status DC Metoprolol Tartrate (Lopressor) 12.5 mg BID PO Last administered on 06/25/16 20 :58; Start 06/25/16 at 21:00; Stop 06/26/16 at 18:31; Status DC Furosemide (Lasix) 20 mg DAILY PO ; Start 06/25/16 at 18:00; Stop 06/25/16 at 18: 00; Status DC Furosemide (Lasix) 20 mg DAILY PO Last administered on 06/27/16 11:33; Start 06/25/16 at 17:30 Multivitamins 5 ml 5 ml DAILY PO Last administered on 06/27/16 14:15; Start at 14:00 Thiamine HCl/ Sodium Chloride (Iv Sodium Chloride 0.9% 50ml) 51 ml @ 102 mls/ hr Q8HRS IV Last administered on 06/28/16 05:45; Start 06/26/16 at 16:00 Active Scripts Active Zofran Odt (Ondansetron) 4 Mg Tab.rapdis 1 Tab SL PRN Q8HRS PRN Oxcarbazepine 300 Mg Tablet 1,200 Mg PO HS Pantoprazole Sodium 40 Mg Tablet.dr 40 Mg PO DAILYAC Reported Tramadol Hcl 50 Mg Tablet 1 Tab PO PRN Q6HRS PRN Trazodone Hcl 50 Mg Tablet 1 Tab PO QHS Gabapentin 300 Mg Capsule 300 Mg PO TID PRN Sertraline Hcl 100 Mg Tablet 100 Mg PO BID Hydrocodone-Apap 7.5-325 (Hydrocodone Bit/Acetaminophen) 1 Each Tablet Unknown Dose PO PRN Q6HRS PRN [Creon Lipase Tid] Vitals/I & O Vital Sign - Last 24 Hours 06/27/16 06/27/16 06/27/16 06/27/16 11:00 15:55 19:00 20:00 Temp 98.9 96.7 98.8 98.9 96.7 98.8 Pulse 64 94 96 Resp 16 19 18 B/P 100/45 104/48 100/61 Pulse Ox 98 98 O2 Delivery Room Air Room Air Room Air Room Air 06/27/16 06/27/16 06/27/16 06/28/16 20:42 21:42 23:00 03:00 Temp 100.8 97.7 100.8 97.7 Pulse 95 95 Resp 18 18 B/P 111/56 114/58 Pulse Ox 98 98 97 99 O2 Delivery Room Air Room Air Room Air Room Air Intake and Output 06/27/16 06/27/16 06/28/16 15:00 23:00 07:00 Intake Total 51 ml Balance 51 ml Problem List Problems Medical Problems: (1) Elevated troponin Status: Acute (2) Unintentional weight loss Status: Acute (3) Vomiting Status: Acute (4) Weakness Status: Acute Assessment S/P gastric bypass- with confusion, thiamine started, no additional complaints, CPM LAZARO CORNEJO MD Jun 28, 2016 08:38
[2016-06-28] MEDS: MULTIVITAMINS,THERAPEUTIC 5 ML ORAL LIQUID. PO SCH (09:27)
[2016-06-28] MEDS: FUROSEMIDE 20 MG TABLET PO SCH (09:27)
[2016-06-28] MEDS: PANTOPRAZOLE 40 MG TABLET. PO SCH (09:27)
[2016-06-28] MEDS: SERTRALINE 50 MG TABLET. PO SCH ×2 (09:28→21:55)
[2016-06-28] MEDS: ENOXAPARIN 40 MG/0.4 ML DISP.SYRIN. SQ SCH (09:29)
[2016-06-28 11:00] VITALS: BP 106/49
--- NOTE | 2016-06-28 14:36 | PDOC ---
PROGRESS NOTES Chief Complaint Chief Complaint 1. Fatigue, weakness, dehydration due to diarrhea. 2. Unintentional weight loss. 3. Pleural effusion, bilateral. 4. Ascites, new. 5. Fibromyalgia. 6. Chronic pain. 7. Malnutrition. 8. History of gastric bypass surgery. 9. Mild elevation of troponin. 9. Hypernatremia. 10. Physical debility. History of Present Illness History of Present Illness Patient awake, alert, and oriented when seen this AM. Pt denies any current CP or SOB. Pt denies any diarrhea, fever, or chills. Pt does have complaint of she feels like her right arm is a little swollen. All questions and concerns addressed and answered. Vitals Vitals Vital Signs Date Time Temp Pulse Resp B/P Pulse Ox O2 Delivery O2 Flow Rate FiO2 06/28/16 11:00 98.6 101 18 106/49 Room Air 98.6 06/28/16 03:00 99 Physical Exam General: Alert, Oriented X3, Other (cachexia) Heart: Regular rate, Normal S1, Normal S2, Other (3/6 systolic murmur) Lungs: Crackles Abdomen: Soft, No tenderness, Other (ascites) Extremities: No clubbing, No cyanosis, No edema, Other Skin: No rashes, No breakdown, No significant lesion Review of Systems Review of Systems Patient complaint of fatigue Patient complaint of hunger Assessment and Plan Assessmemt and Plan Problems Medical Problems: (1) Elevated troponin Status: Acute (2) Unintentional weight loss Status: Acute (3) Vomiting Status: Acute (4) Weakness Status: Acute Assessment: 1. Fatigue, weakness, dehydration due to diarrhea. 2. Unintentional weight loss. 3. Pleural effusion, bilateral. 4. Ascites, new. 5. Fibromyalgia. 6. Chronic pain. 7. Malnutrition. 8. History of gastric bypass surgery. 9. Mild elevation of troponins. 9. Hypernatremia. 10. Physical debility. Plan: Continue to monitor the patient per floor protocol Daily labs- CBC, BMP, BUN, Cr Add PPN at 50 cc/hr Elevated CA 27- Consult H/O Dr Maldonado Continue multi vitamins Appreciate GI, Cards, and Pulmonary input and recommendations Continue to increase PO intake Daily PT/OT DW RN Problems: Comment Review of Relevant I have reviewed the following items anais (where applicable) has been applied. Labs Laboratory Tests Test 06/26/16 15:00 06/27/16 09:35 Clostridium difficile Toxin (PCR) Negative (Negative) Lactate Dehydrogenase 348U/L (81-234) Microbiology 06/25/16 Gram Stain - Final, Complete 06/23/16 Urine Culture - Final, Complete 06/23/16 Urine Culture Result 1 (JESUSITA) - Final, Complete Medications Current Medications Aspirin (Children'S Aspirin) 324 mg 1X ONCE PO Last administered on 06/23/16 21:53; Start 06/23/16 at 21:15; Stop 06/23/16 at 21:16; Status DC Ondansetron HCl (Zofran) 4 mg PRN Q8HRS PRN IV NAUSEA/VOMITING Last administered on 06/24/16 20:16; Start 06/23/16 at 21:00; Stop 06/24/16 at 20:59; Status DC Morphine Sulfate 2 mg 2 mg PRN Q2HR PRN IV SEVERE PAIN Last administered on 06/23 21:57; Start 06/23/16 at 21:00; Stop 06/24/16 at 20:59; Status DC Sodium Chloride (Iv Sodium Chloride 0.9% 1000ml Bag) 1,000 ml @ 125 mls/hr Q8H IV Last administered on 06/24/16 00:38; Start 06/23/16 at 21:00; Stop 06/24/16 at 11:15; Status DC Iohexol (Omnipaque 300 Mg/ml) 75 ml 1X ONCE IV Last administered on 06/23/16 21:20; Start 06/23/16 at 21:45; Stop 06/23/16 at 21:46; Status DC Info (Do NOT chart on this entry -- for MONITORING) 1 each PRN DAILY PRN MC SEE COMMENTS; Start 06/23/16 at 21:15; Stop 06/25/16 at 08:54; Status DC Gabapentin (Neurontin) 300 mg PRN TID PRN PO NEUROPATHIC PAIN Last administered on 06/24/16 10:31; Start 06/23/16 at 23:45 Ondansetron HCl (Zofran Odt) 4 mg PRN Q8HRS PRN PO NAUSEA Last administered on 06/27/16 08:43; Start 06/24/16 at 09:00 Oxcarbazepine (Trileptal) 1,200 mg HS PO Last administered on 06/27/16 20:45; Start 06/24/16 at 21:00 Pantoprazole Sodium (Protonix) 40 mg DAILYAC PO Last administered on 06/28/16 09:27; Start 06/24/16 at 07:30 Tramadol HCl (Ultram) 50 mg PRN Q6HRS PRN PO MILD PAIN; Start 06/24/16 at 09:00 Trazodone HCl (Desyrel) 50 mg QHS PO Last administered on 06/26/16 21:07; Start 06/24/16 at 21:00 Sertraline HCl (Zoloft) 100 mg BID PO Last administered on 06/28/16 09:28; Start 06/24/16 at 09:00 Acetaminophen/ Hydrocodone Bitart (Lortab 5/325) 1 tab PRN Q4HRS PRN PO SEVERE PAIN Last administered on 06/24/16 15:24; Start 06/23/16 at 23:45; Stop 06/24/16 at 17:34; Status DC Enoxaparin Sodium 40 mg 40 mg DAILY SQ Last administered on 06/28/16 09:29; Start 06/25/16 at 09:00 Sodium Chloride (Iv Sodium Chloride 0.9% 1000ml Bag) 1,000 ml @ 50 mls/hr Q20H IV Last administered on 06/24/16 11:20; Start 06/24/16 at 11:30; Stop 06/24/16 at 11:31; Status DC Furosemide (Lasix) 40 mg 1X ONCE IVP Last administered on 06/24/16 15:25; Start 06/24/16 at 14:15; Stop 06/24/16 at 14:27; Status DC Iohexol (Omnipaque 300 Mg/ml) 75 ml 1X ONCE IV Last administered on 06/24/16 16:32; Start 06/24/16 at 16:15; Stop 06/24/16 at 16:16; Status DC Iohexol (Omnipaque 240 Mg/ml) 30 ml 1X ONCE PO Last administered on 06/24/16 16:33; Start 06/24/16 at 16:15; Stop 06/24/16 at 16:16; Status DC Info (Do NOT chart on this entry -- for MONITORING) 1 each PRN DAILY PRN MC SEE COMMENTS; Start 06/24/16 at 16:15; Stop 06/26/16 at 16:14; Status DC Acetaminophen/ Hydrocodone Bitart (Lortab 7.5/325) 1 tab PRN Q4HRS PRN PO MODERATE PAIN Last administered on 06/27/16 20:42; Start 06/24/16 at 17:45 Zolpidem Tartrate (Ambien) 5 mg PRN QHS PRN PO INSOMNIA Last administered on 20:42; Start 06/24/16 at 17:45 Diphenhydramine HCl (Benadryl) 25 mg PRN Q6HRS PRN PO ITCHING; Start 06/24/16 at 17:45 Morphine Sulfate (Morphine Ir) 15 mg Q6HRS PRN PO SEVERE PAIN; Start 06/24/16 at 17:45 Lidocaine/Sodium Bicarbonate (Buffered Lidocaine 1%) 12 ml 1X ONCE IJ Last administered on 06/25/16 11:39; Start 06/25/16 at 10:45; Stop 06/25/16 at 10:46; Status DC Fentanyl Citrate (Fentanyl 2ml Vial) 100 mcg STK-MED ONCE .ROUTE ; Start at 10:56; Stop 06/25/16 at 10:57; Status DC Fentanyl Citrate (Fentanyl 2ml Vial) 50 mcg 1X ONCE IV Last administered on 11:39; Start 06/25/16 at 11:00; Stop 06/25/16 at 11:01; Status DC Lidocaine/Sodium Bicarbonate (Buffered Lidocaine 1%) 12 ml 1X ONCE IJ ; Start 06/25/16 at 11:45; Stop 06/25/16 at 11:46; Status DC Fentanyl Citrate (Fentanyl 2ml Vial) 50 mcg 1X ONCE IV ; Start 06/25/16 at 11:45 ; Stop 06/25/16 at 11:46; Status DC Metoprolol Tartrate (Lopressor) 12.5 mg BID PO Last administered on 06/25/16 20 :58; Start 06/25/16 at 21:00; Stop 06/26/16 at 18:31; Status DC Furosemide (Lasix) 20 mg DAILY PO ; Start 06/25/16 at 18:00; Stop 06/25/16 at 18: 00; Status DC Furosemide (Lasix) 20 mg DAILY PO Last administered on 06/28/16 09:27; Start 06/25/16 at 17:30 Multivitamins 5 ml 5 ml DAILY PO Last administered on 06/28/16 09:27; Start at 14:00 Thiamine HCl/ Sodium Chloride (Iv Sodium Chloride 0.9% 50ml) 51 ml @ 102 mls/ hr Q8HRS IV Last administered on 06/28/16 05:45; Start 06/26/16 at 16:00 Active Scripts Active Zofran Odt (Ondansetron) 4 Mg Tab.rapdis 1 Tab SL PRN Q8HRS PRN Oxcarbazepine 300 Mg Tablet 1,200 Mg PO HS Pantoprazole Sodium 40 Mg Tablet.dr 40 Mg PO DAILYAC Reported Tramadol Hcl 50 Mg Tablet 1 Tab PO PRN Q6HRS PRN Trazodone Hcl 50 Mg Tablet 1 Tab PO QHS Gabapentin 300 Mg Capsule 300 Mg PO TID PRN Sertraline Hcl 100 Mg Tablet 100 Mg PO BID Hydrocodone-Apap 7.5-325 (Hydrocodone Bit/Acetaminophen) 1 Each Tablet Unknown Dose PO PRN Q6HRS PRN [Creon Lipase Tid] Vitals/I & O Vital Sign - Last 24 Hours 06/27/16 06/27/16 06/27/16 06/27/16 15:55 19:00 20:00 20:42 Temp 96.7 98.8 96.7 98.8 Pulse 94 96 Resp 19 18 B/P 104/48 100/61 Pulse Ox 98 98 98 O2 Delivery Room Air Room Air Room Air Room Air 06/27/16 06/27/16 06/28/16 06/28/16 21:42 23:00 03:00 07:00 Temp 100.8 97.7 98.1 100.8 97.7 98.1 Pulse 95 95 92 Resp 18 18 18 B/P 111/56 114/58 111/53 Pulse Ox 98 97 99 O2 Delivery Room Air Room Air Room Air Room Air 06/28/16 11:00 Temp 98.6 98.6 Pulse 101 Resp 18 B/P 106/49 O2 Delivery Room Air Intake and Output 06/27/16 06/27/16 06/28/16 15:00 23:00 07:00 Intake Total 51 ml Balance 51 ml LATHA LACY III DO Jun 28, 2016 14:36
[2016-06-28] MEDS: HYDROCODONE/APAP 7.5/325MG TABLET. PO PRN ×2 (14:39→22:13)
--- NOTE | 2016-06-28 14:49 | PDOC ---
Provider Note Provider Note Onc consult [id number]- [id number] Mildly elevated CA 27-29- Likely related to peritoneal inflammation with ascites , no obvious masses on scans. Cytology from pleural effusion neg. S/p gastric bypass with resulting malnutrition, hypoalbuminemia likely leading to systemic swelling, effusions, etc. Needs aggressive nutritional support. B12 , folate, iron labs ordered. NATACHA MCCLOUD DO Jun 28, 2016 14:49
[2016-06-28 15:00] VITALS: BP 100/48
[2016-06-28 15:31] LABS: IRON,SERUM 50 ug/dL (50-170)
[2016-06-28 15:35] LABS: % SAT IRON 135 % (15-34)
[2016-06-28] MEDS: AA 3%/ELECTROLYTE-TPN SOLN/GLY 1,000 ML IV SCH (15:35)
[2016-06-28 19:00] VITALS: BP 109/50
[2016-06-28] MEDS: OXCARBAZEPINE 300 MG TABLET. PO SCH (21:00)
[2016-06-28] MEDS: traZODone 50 MG TABLET. PO SCH (21:56)
[2016-06-28 23:00] VITALS: BP 100/54
[2016-06-29 03:00] VITALS: BP 97/47
[2016-06-29 05:54] LABS: BASO % 1 % (0-3); EOS % 1 % (0-3); HEMATOCRIT 22.4 % (36.0-47.0); HEMOGLOBIN 7.2 g/dL (12.0-15.5); LYMPH # 1.3 x10^3/uL (1.0-4.8); LYMPH % 33 % (24-48); MEAN CORPUSCULAR HEMOGLOBIN 33 pg (25-35); MEAN CORPUSCULAR HGB CONC 32 g/dL (31-37); MEAN CORPUSCULAR VOLUME 103 fL (79-100); MONO % 11 % (0-9); NEUT % 54 % (31-73); PLATELET COUNT 141 x10^3/uL (140-400); RED BLOOD COUNT 2.19 x10^6/uL (3.50-5.40); RED CELL DISTRIBUTION WIDTH 15.5 % (11.5-14.5); WHITE BLOOD COUNT 3.9 x10^3/uL (4.0-11.0)
[2016-06-29 06:18] LABS: CALCIUM 7.3 mg/dL (8.5-10.1); CREATININE 0.9 mg/dL (0.6-1.0); GFR 81.9; POTASSIUM 3.4 mmol/L (3.5-5.1)
[2016-06-29] MEDS: THIAMINE 100 MG in IV NORMAL SALINE 50ML 50 ML IV SCH ×3 (06:46→22:09)
[2016-06-29 07:00] VITALS: BP 111/62
[2016-06-29] MEDS: MULTIVITAMINS,THERAPEUTIC 5 ML ORAL LIQUID. PO SCH (08:18)
[2016-06-29] MEDS: PANTOPRAZOLE 40 MG TABLET. PO SCH (08:19)
[2016-06-29] MEDS: SERTRALINE 50 MG TABLET. PO SCH ×2 (08:19→20:50)
[2016-06-29] MEDS: FUROSEMIDE 20 MG TABLET PO SCH (08:19)
[2016-06-29] MEDS: ENOXAPARIN 40 MG/0.4 ML DISP.SYRIN. SQ SCH (09:00)
--- NOTE | 2016-06-29 09:14 | PDOC ---
Subjective: Subjective: Onc f/u Pt reports chronic SOB unchanged. No new complaints. Fatigued. Objective: Vital Signs: Vital Signs Date Time Temp Pulse Resp B/P Pulse Ox O2 Delivery O2 Flow Rate FiO2 06/29/16 08:19 Room Air 06/29/16 03:00 98.1 77 18 97/47 98 98.1 Physical Exam: Heart: Regular rate Extremities: Other (2+ edema bilateral LE) General: Alert, Oriented X3, Other (fatigued) Lungs: Other (no resp distress) Psych/Mental Status: Mental status NL, Mood NL Labs/Imaging: Iron, ferritin WNL B12, folate pending Assessment/Plan A/P: 1. Mildly elevated CA 27-29- Likely related to peritoneal inflammation with ascites, no obvious masses on scans. Cytology from pleural effusion neg. Malignancy not suspected. 2. S/p gastric bypass with resulting malnutrition, hypoalbuminemia likely leading to systemic swelling, effusions, etc. Needs aggressive nutritional support. Iron labs WNL. B12, folate pending, would replace if return low. Please call with any further questions. NATACHA MCCLOUD DO Jun 29, 2016 09:14
[2016-06-29] MEDS: AA 3%/ELECTROLYTE-TPN SOLN/GLY 1,000 ML IV SCH ×2 (10:03→16:00)
[2016-06-29] MEDS ORDERED: ACETAMINOPHEN 325 MG TABLET. PO PRN (11:15)
[2016-06-29 11:18] VITALS: BP 108/60
[2016-06-29 11:20] LABS: FOLIC ACID 4.2 ng/mL (>3.0)
--- NOTE | 2016-06-29 12:16 | PDOC ---
PROGRESS NOTES Chief Complaint Chief Complaint FTT ASSESSMENT AND PLAN: 1. FTT: severe hypoalbuminemia, inactiviy and gen pain /fibromyalgia. advised to become more proactive herself. needs rehab 2. Dehydration: due to diarrhea, resolved 3. 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 loperamide PRN 4. s/p gastric bypass for wt loss, resulting malabsorption 5. protein malnutrition: severe. on supplements. 6. Pleural effusions, ascites: 2/2 severe protein deficiency, mod-sev MR 7. Troponin leak: related to mod-severe MR, mod TR. 8. Fibromyalgia: cont home meds 9. Hypernatremia: resolved. 10. Dispo: SNF History of Present Illness History of Present Illness Vitals Vitals Vital Signs Date Time Temp Pulse Resp B/P Pulse Ox O2 Delivery O2 Flow Rate FiO2 06/29/16 11:18 101.3 81 18 108/60 100 Room Air 101.3 Physical Exam General: Alert, Oriented X3, Other (fatigued) Heart: Regular rate Lungs: Clear Abdomen: Soft, No tenderness, Other (ascites) Extremities: Other (2+ edema bilateral LE) Skin: No rashes, No breakdown, No significant lesion Labs LABS Laboratory Tests Test 06/28/16 15:05 06/29/16 05:05 Iron Level 50ug/dL (50-170) Total Iron Binding Capacity 37ug/dL (250-450) Iron Saturation 135% (15-34) Ferritin 300ng/mL (8-252) Vitamin B12 Level 1120pg/mL (211-946) Folic Acid (LAB) 4.2ng/mL (>3.0) White Blood Count 3.9x10^3/uL (4.0-11.0) Red Blood Count 2.19x10^6/uL (3.50-5.40) Hemoglobin 7.2g/dL (12.0-15.5) Hematocrit 22.4% (36.0-47.0) Mean Corpuscular Volume 103fL (79-100) Mean Corpuscular Hemoglobin 33pg (25-35) Mean Corpuscular Hemoglobin Concent 32g/dL (31-37) Red Cell Distribution Width 15.5% (11.5-14.5) Platelet Count 141x10^3/uL (140-400) Neutrophils (%) (Auto) 54% (31-73) Lymphocytes (%) (Auto) 33% (24-48) Monocytes (%) (Auto) 11% (0-9) Eosinophils (%) (Auto) 1% (0-3) Basophils (%) (Auto) 1% (0-3) Neutrophils # (Auto) 2.1x10^3uL (1.8-7.7) Lymphocytes # (Auto) 1.3x10^3/uL (1.0-4.8) Monocytes # (Auto) 0.4x10^3/uL (0.0-1.1) Eosinophils # (Auto) 0.0x10^3/uL (0.0-0.7) Basophils # (Auto) 0.0x10^3/uL (0.0-0.2) Sodium Level 144mmol/L (136-145) Potassium Level 3.4mmol/L (3.5-5.1) Chloride Level 110mmol/L (98-107) Carbon Dioxide Level 27mmol/L (21-32) Anion Gap 7 (6-14) Blood Urea Nitrogen 14mg/dL (7-20) Creatinine 0.9mg/dL (0.6-1.0) Estimated GFR (Cockcroft-Gault) 81.9 Glucose Level 86mg/dL (70-99) Calcium Level 7.3mg/dL (8.5-10.1) Review of Systems Review of Systems very weak. not active on her own. c/o back and leg pain AIMEE OMALLEY MD Jun 29, 2016 12:16
--- NOTE | 2016-06-29 12:49 | CONS ---
DATE OF CONSULTATION: 06/28/2016 REFERRING PROVIDER: Dr. Sanz. REASON FOR CONSULTATION: Elevated CA 27-29. HISTORY OF PRESENT ILLNESS: The patient is a 46-year-old female who was admitted with a 2-week history of fatigue, diarrhea and 1-1/2 month history of 30-pound unintentional weight loss. She has been noted to have severe hypoalbuminemia with an albumin level of 1.3. She initially had bilateral pleural effusions, left greater than right, status post 2.4 liters thoracentesis on 06/23/2016. Cytology returned unremarkable. CT of the chest, abdomen and pelvis has revealed the pleural effusions and abdominal ascites, but was otherwise unremarkable. Abdominal ultrasound was also negative. Her hemoglobin was 10.2, WBC and platelets are normal. Liver enzymes with AST 65, ALT 55. CA 27-29 was 44.9. She has had a problem with malnutrition after her gastric bypass surgery 12 years ago. She does not appear to be chronically on vitamin B12, folic acid or iron replacement. PAST MEDICAL HISTORY: Severe mitral regurgitation, neuropathy in her hands and feet, depression, hypothyroidism, malnutrition. PAST SURGICAL HISTORY: Cholecystectomy, gastric bypass surgery around 2004. FAMILY HISTORY: Mom has hypertension, arthritis, dad of the kidney disease and liver disease. SOCIAL HISTORY: She denies any alcohol or drug use. She does smoke a few cigarettes daily. ALLERGIES: HALDOL, STRAWBERRIES. CURRENT MEDICATIONS: Lortab, Benadryl, Lovenox, Lasix, Neurontin, morphine, multivitamin, Zofran, Trileptal, Protonix, thiamine, Ultram, trazodone, Ambien. REVIEW OF SYSTEMS: Ten point review of systems completed and unremarkable with the exception of severe fatigability, shortness of breath, chest pressure. She does not have any abdominal pain or bloating. She also was having some chronic diarrhea. PHYSICAL EXAMINATION: VITAL SIGNS: Temperature 98.6. She did have a T-max of 100.8 overnight, pulse 101, respiratory rate 18, blood pressure 106/49, 99% O2 on room air. GENERAL: She is alert and oriented. She does appear very fatigued with great debility. She is not in any acute distress at this time. HEENT: Extraocular muscle strength is intact. Sclerae are without icterus. Mucous membranes are moist. CARDIOVASCULAR: Heart is tachycardic, but regular in rhythm. LUNGS: Clear to auscultation bilaterally. EXTREMITIES: 2+ edema bilateral lower extremities, chronically. ABDOMEN: Soft with no obvious massive ascites, no organomegaly. NEUROLOGIC: No focal cranial deficits; however, she does seem to have sometimes difficulty with word finding and is a poor historian. IMAGING AND LABS: Pertinent labs and CT findings as above. Pathology also reviewed as above. ASSESSMENT AND PLAN: The patient is a 46-year-old female with the following medical problems: 1. Elevated CA 27-29, mildly elevated. I suspect this is just due to the inflammation and ascites present on her scan. The scans did not reveal any evidence of any underlying [employer] malignancy. Clinically, she does not have significant abdominal ascites which is causing physical discomfort at this time. Therefore, she does not likely need a paracentesis; however, if one is performed at any point, I would send it for cytology; however, it is encouraging that her pleural effusion cytology was negative. 2. Gastric bypass surgery 12 years ago, now likely resulting in malnutrition and leading to significant ascites, pleural effusion. Status post 2.4 liters thoracentesis last week with negative cytology. I am going to check B12, folic acid, iron studies to make sure she does not need replacement of these as well. She will need aggressive nutritional support. Thank you for this consultation. NATACHA MCCLOUD DO DR: ISAIAS/teto JOB#: [id number] / [id number]
--- NOTE | 2016-06-29 13:17 | PDOC ---
Subjective: Subjective: Doing better. Does not feel confused any longer. No n/v, says eating some (actually wants a snack), has been up walking but still feels weak, no abd pain. Objective: Vital Signs: Vital Signs Date Time Temp Pulse Resp B/P Pulse Ox O2 Delivery O2 Flow Rate FiO2 06/29/16 11:18 101.3 81 18 108/60 100 Room Air 101.3 Labs: Laboratory Tests Test 06/28/16 15:05 06/29/16 05:05 Iron Level 50ug/dL Total Iron Binding Capacity 37ug/dL Iron Saturation 135% Ferritin 300ng/mL Vitamin B12 Level 1120pg/mL Folic Acid (LAB) 4.2ng/mL White Blood Count 3.9x10^3/uL Red Blood Count 2.19x10^6/uL Hemoglobin 7.2g/dL Hematocrit 22.4% Mean Corpuscular Volume 103fL Mean Corpuscular Hemoglobin 33pg Mean Corpuscular Hemoglobin Concent 32g/dL Red Cell Distribution Width 15.5% Platelet Count 141x10^3/uL Neutrophils (%) (Auto) 54% Lymphocytes (%) (Auto) 33% Monocytes (%) (Auto) 11% Eosinophils (%) (Auto) 1% Basophils (%) (Auto) 1% Neutrophils # (Auto) 2.1x10^3uL Lymphocytes # (Auto) 1.3x10^3/uL Monocytes # (Auto) 0.4x10^3/uL Eosinophils # (Auto) 0.0x10^3/uL Basophils # (Auto) 0.0x10^3/uL Sodium Level 144mmol/L Potassium Level 3.4mmol/L Chloride Level 110mmol/L Carbon Dioxide Level 27mmol/L Anion Gap 7 Blood Urea Nitrogen 14mg/dL Creatinine 0.9mg/dL Estimated GFR (Cockcroft-Gault) 81.9 Glucose Level 86mg/dL Calcium Level 7.3mg/dL PE: GEN: NAD LUNGS: CTAB HEART: RRR ABD: S/ND/NT NEURO/PSYCH: A & O 3 - improved A/P: S/p BPD, malnutrition -chronic issues w/ n/v, abd pain, diarrhea -on PPN AMS - improved -on IV thiamine Ascites, pleural effusion -s/p paracentesis, thoracentesis 06/25 -- Will review w/ Dr. Lemus. LESLEY GOULD Jun 29, 2016 13:17
[2016-06-29 14:35] VITALS: BP 111/62
[2016-06-29] MEDS: HYDROCODONE/APAP 7.5/325MG TABLET. PO PRN ×2 (14:37→20:49)
[2016-06-29] MEDS ORDERED: LOPERAMIDE 2 MG CAPSULE PO PRN (16:00)
[2016-06-29 19:00] VITALS: BP 113/48
--- NOTE | 2016-06-29 20:23 | PDOC ---
PULMONARY PROGRESS NOTES Subjective NO INCREASE SOA Vitals Vital Signs Date Time Temp Pulse Resp B/P Pulse Ox O2 Delivery O2 Flow Rate FiO2 06/29/16 15:44 Room Air 06/29/16 14:35 98.6 86 18 111/62 100 98.6 Comments ros as mentioned as above, other sys otherwise neg ROS: No Nausea General: Alert, No acute distress HEENT: Other (nc at perrl.) Lungs: Clear Cardiovascular: S1, S2 Abdomen: Soft, Non-tender Neuro Exam: Alert Extremities: No Edema Skin: Warm Labs Laboratory Tests Test 06/28/16 15:05 06/29/16 05:05 Iron Level 50ug/dL (50-170) Total Iron Binding Capacity 37ug/dL (250-450) Iron Saturation 135% (15-34) Ferritin 300ng/mL (8-252) Vitamin B12 Level 1120pg/mL (211-946) Folic Acid (LAB) 4.2ng/mL (>3.0) White Blood Count 3.9x10^3/uL (4.0-11.0) Red Blood Count 2.19x10^6/uL (3.50-5.40) Hemoglobin 7.2g/dL (12.0-15.5) Hematocrit 22.4% (36.0-47.0) Mean Corpuscular Volume 103fL (79-100) Mean Corpuscular Hemoglobin 33pg (25-35) Mean Corpuscular Hemoglobin Concent 32g/dL (31-37) Red Cell Distribution Width 15.5% (11.5-14.5) Platelet Count 141x10^3/uL (140-400) Neutrophils (%) (Auto) 54% (31-73) Lymphocytes (%) (Auto) 33% (24-48) Monocytes (%) (Auto) 11% (0-9) Eosinophils (%) (Auto) 1% (0-3) Basophils (%) (Auto) 1% (0-3) Neutrophils # (Auto) 2.1x10^3uL (1.8-7.7) Lymphocytes # (Auto) 1.3x10^3/uL (1.0-4.8) Monocytes # (Auto) 0.4x10^3/uL (0.0-1.1) Eosinophils # (Auto) 0.0x10^3/uL (0.0-0.7) Basophils # (Auto) 0.0x10^3/uL (0.0-0.2) Sodium Level 144mmol/L (136-145) Potassium Level 3.4mmol/L (3.5-5.1) Chloride Level 110mmol/L (98-107) Carbon Dioxide Level 27mmol/L (21-32) Anion Gap 7 (6-14) Blood Urea Nitrogen 14mg/dL (7-20) Creatinine 0.9mg/dL (0.6-1.0) Estimated GFR (Cockcroft-Gault) 81.9 Glucose Level 86mg/dL (70-99) Calcium Level 7.3mg/dL (8.5-10.1) Laboratory Tests Test 06/29/16 05:05 White Blood Count 3.9x10^3/uL (4.0-11.0) Red Blood Count 2.19x10^6/uL (3.50-5.40) Hemoglobin 7.2g/dL (12.0-15.5) Hematocrit 22.4% (36.0-47.0) Mean Corpuscular Volume 103fL (79-100) Mean Corpuscular Hemoglobin 33pg (25-35) Mean Corpuscular Hemoglobin Concent 32g/dL (31-37) Red Cell Distribution Width 15.5% (11.5-14.5) Platelet Count 141x10^3/uL (140-400) Neutrophils (%) (Auto) 54% (31-73) Lymphocytes (%) (Auto) 33% (24-48) Monocytes (%) (Auto) 11% (0-9) Eosinophils (%) (Auto) 1% (0-3) Basophils (%) (Auto) 1% (0-3) Neutrophils # (Auto) 2.1x10^3uL (1.8-7.7) Lymphocytes # (Auto) 1.3x10^3/uL (1.0-4.8) Monocytes # (Auto) 0.4x10^3/uL (0.0-1.1) Eosinophils # (Auto) 0.0x10^3/uL (0.0-0.7) Basophils # (Auto) 0.0x10^3/uL (0.0-0.2) Sodium Level 144mmol/L (136-145) Potassium Level 3.4mmol/L (3.5-5.1) Chloride Level 110mmol/L (98-107) Carbon Dioxide Level 27mmol/L (21-32) Anion Gap 7 (6-14) Blood Urea Nitrogen 14mg/dL (7-20) Creatinine 0.9mg/dL (0.6-1.0) Estimated GFR (Cockcroft-Gault) 81.9 Glucose Level 86mg/dL (70-99) Calcium Level 7.3mg/dL (8.5-10.1) Medications Active Scripts Medications Dose Route/Sig Days Date Category Tramadol Hcl 50 Mg Tablet 1 Tab PO PRN Q6HRS PRN 06/23/16 Reported Trazodone Hcl 50 Mg Tablet 1 Tab PO QHS 06/23/16 Reported Gabapentin 300 Mg Capsule 300 Mg PO TID PRN 06/23/16 Reported Zofran Odt (Ondansetron) 4 Mg Tab.rapdis 1 Tab SL PRN Q8HRS PRN 06/23/16 Rx Oxcarbazepine 300 Mg Tablet 1,200 Mg PO HS 01/23/16 Rx Pantoprazole Sodium 40 Mg Tablet.dr 40 Mg PO DAILYAC 01/23/16 Rx Sertraline Hcl 100 Mg Tablet 100 Mg PO BID 01/19/16 Reported Hydrocodone-Apap 7.5-325 (Hydrocodone Bit/Acetaminophen) 1 Each Tablet Unknown Dose PO PRN Q6HRS PRN 01/19/16 Reported [Creon Lipase Tid] 01/19/[address] reviewed, Impression: - Moderate left and small right pleural effusion. - Negative for thoracic adenopathy. - Abdominal ascites. - Non consolidating peripheral left upper lobe interstitial opacities. Impression . 1. Left lower lobe pleural effusion CYTOLOGY NEGATIVE 2. Minimal history of tobacco use. 3. Severe mitral regurgitation seen on previous echo and transesophageal echo. Recent echo showing moderate mitral regurgitation. Cardiology is following. Plan . WILL S/O CALL IF NEEDED DR GALVAN CONSULTED 1. s/p Diagnostic thoracentesis on the left side. transudate, cx neg, follow cytology 2. s/p paracentesis for ascites, follow GI recommendations 3. Tumor marker for breast cancer. RAISA MERA MD Jun 29, 2016 20:23
[2016-06-29] MEDS: ZOLPIDEM 5 MG TABLET. PO PRN (20:49)
[2016-06-29] MEDS: traZODone 50 MG TABLET. PO SCH (20:50)
[2016-06-29] MEDS: OXCARBAZEPINE 300 MG TABLET. PO SCH (20:50)
[2016-06-29 23:00] VITALS: BP 100/60
[2016-06-30 03:00] VITALS: BP 98/50
[2016-06-30] MEDS: HYDROCODONE/APAP 7.5/325MG TABLET. PO PRN ×5 (05:15→23:08)
[2016-06-30 05:49] LABS: BASO % 1 % (0-3); EOS % 1 % (0-3); HEMATOCRIT 24.4 % (36.0-47.0); HEMOGLOBIN 7.9 g/dL (12.0-15.5); LYMPH # 1.3 x10^3/uL (1.0-4.8); LYMPH % 46 % (24-48); MEAN CORPUSCULAR HEMOGLOBIN 34 pg (25-35); MEAN CORPUSCULAR HGB CONC 32 g/dL (31-37); MEAN CORPUSCULAR VOLUME 104 fL (79-100); MONO % 11 % (0-9); NEUT % 41 % (31-73); PLATELET COUNT 152 x10^3/uL (140-400); RED BLOOD COUNT 2.34 x10^6/uL (3.50-5.40); RED CELL DISTRIBUTION WIDTH 15.3 % (11.5-14.5); WHITE BLOOD COUNT 2.8 x10^3/uL (4.0-11.0)
[2016-06-30 06:07] LABS: CALCIUM 7.3 mg/dL (8.5-10.1); CREATININE 0.8 mg/dL (0.6-1.0); GFR 93.9; POTASSIUM 3.2 mmol/L (3.5-5.1)
[2016-06-30 07:25] VITALS: BP 106/61
[2016-06-30] MEDS ORDERED: PANTOPRAZOLE 40 MG TABLET. PO SCH (07:30)
[2016-06-30] MEDS: PANTOPRAZOLE 40 MG TABLET. PO SCH (08:22)
[2016-06-30] MEDS: MULTIVITAMINS,THERAPEUTIC 5 ML ORAL LIQUID. PO SCH ×2 (08:22→09:00)
[2016-06-30] MEDS: SERTRALINE 50 MG TABLET. PO SCH ×2 (08:22→21:58)
[2016-06-30] MEDS: FUROSEMIDE 20 MG TABLET PO SCH (08:22)
[2016-06-30] MEDS: ENOXAPARIN 40 MG/0.4 ML DISP.SYRIN. SQ SCH (09:00)
[2016-06-30] MEDS: THIAMINE 100 MG TABLET. PO SCH ×4 (09:00→21:58)
--- NOTE | 2016-06-30 09:28 | PDOC ---
G I PROGRESS NOTE Subjective No specific complaints. Doesn't mind the BOOST. Would like some solid food ( though I'm afraid she will not empty this well). Physical Exam Lungs clear. RRR Abdomen soft, not tender nor distended. Review of Relevant I have reviewed the following items anais (where applicable) has been applied. Labs Laboratory Tests Test 06/28/16 15:05 06/29/16 05:05 06/30/16 04:35 Iron Level 50ug/dL (50-170) Total Iron Binding Capacity 37ug/dL (250-450) Iron Saturation 135% (15-34) Ferritin 300ng/mL (8-252) Vitamin B12 Level 1120pg/mL (211-946) Folic Acid (LAB) 4.2ng/mL (>3.0) White Blood Count 3.9x10^3/uL (4.0-11.0) 2.8x10^3/uL (4.0-11.0) Red Blood Count 2.19x10^6/uL (3.50-5.40) 2.34x10^6/uL (3.50-5.40) Hemoglobin 7.2g/dL (12.0-15.5) 7.9g/dL (12.0-15.5) Hematocrit 22.4% (36.0-47.0) 24.4% (36.0-47.0) Mean Corpuscular Volume 103fL (79-100) 104fL (79-100) Mean Corpuscular Hemoglobin 33pg (25-35) 34pg (25-35) Mean Corpuscular Hemoglobin Concent 32g/dL (31-37) 32g/dL (31-37) Red Cell Distribution Width 15.5% (11.5-14.5) 15.3% (11.5-14.5) Platelet Count 141x10^3/uL (140-400) 152x10^3/uL (140-400) Neutrophils (%) (Auto) 54% (31-73) 41% (31-73) Lymphocytes (%) (Auto) 33% (24-48) 46% (24-48) Monocytes (%) (Auto) 11% (0-9) 11% (0-9) Eosinophils (%) (Auto) 1% (0-3) 1% (0-3) Basophils (%) (Auto) 1% (0-3) 1% (0-3) Neutrophils # (Auto) 2.1x10^3uL (1.8-7.7) 1.2x10^3uL (1.8-7.7) Lymphocytes # (Auto) 1.3x10^3/uL (1.0-4.8) 1.3x10^3/uL (1.0-4.8) Monocytes # (Auto) 0.4x10^3/uL (0.0-1.1) 0.3x10^3/uL (0.0-1.1) Eosinophils # (Auto) 0.0x10^3/uL (0.0-0.7) 0.0x10^3/uL (0.0-0.7) Basophils # (Auto) 0.0x10^3/uL (0.0-0.2) 0.0x10^3/uL (0.0-0.2) Sodium Level 144mmol/L (136-145) 146mmol/L (136-145) Potassium Level 3.4mmol/L (3.5-5.1) 3.2mmol/L (3.5-5.1) Chloride Level 110mmol/L (98-107) 111mmol/L (98-107) Carbon Dioxide Level 27mmol/L (21-32) 28mmol/L (21-32) Anion Gap 7 (6-14) 7 (6-14) Blood Urea Nitrogen 14mg/dL (7-20) 11mg/dL (7-20) Creatinine 0.9mg/dL (0.6-1.0) 0.8mg/dL (0.6-1.0) Estimated GFR (Cockcroft-Gault) 81.9 93.9 Glucose Level 86mg/dL (70-99) 79mg/dL (70-99) Calcium Level 7.3mg/dL (8.5-10.1) 7.3mg/dL (8.5-10.1) Laboratory Tests Test 06/30/16 04:35 White Blood Count 2.8x10^3/uL (4.0-11.0) Red Blood Count 2.34x10^6/uL (3.50-5.40) Hemoglobin 7.9g/dL (12.0-15.5) Hematocrit 24.4% (36.0-47.0) Mean Corpuscular Volume 104fL (79-100) Mean Corpuscular Hemoglobin 34pg (25-35) Mean Corpuscular Hemoglobin Concent 32g/dL (31-37) Red Cell Distribution Width 15.3% (11.5-14.5) Platelet Count 152x10^3/uL (140-400) Neutrophils (%) (Auto) 41% (31-73) Lymphocytes (%) (Auto) 46% (24-48) Monocytes (%) (Auto) 11% (0-9) Eosinophils (%) (Auto) 1% (0-3) Basophils (%) (Auto) 1% (0-3) Neutrophils # (Auto) 1.2x10^3uL (1.8-7.7) Lymphocytes # (Auto) 1.3x10^3/uL (1.0-4.8) Monocytes # (Auto) 0.3x10^3/uL (0.0-1.1) Eosinophils # (Auto) 0.0x10^3/uL (0.0-0.7) Basophils # (Auto) 0.0x10^3/uL (0.0-0.2) Sodium Level 146mmol/L (136-145) Potassium Level 3.2mmol/L (3.5-5.1) Chloride Level 111mmol/L (98-107) Carbon Dioxide Level 28mmol/L (21-32) Anion Gap 7 (6-14) Blood Urea Nitrogen 11mg/dL (7-20) Creatinine 0.8mg/dL (0.6-1.0) Estimated GFR (Cockcroft-Gault) 93.9 Glucose Level 79mg/dL (70-99) Calcium Level 7.3mg/dL (8.5-10.1) Microbiology 06/25/16 Gram Stain - Final, Complete 06/23/16 Urine Culture - Final, Complete 06/23/16 Urine Culture Result 1 (JESUSITA) - Final, Complete Medications Current Medications Aspirin (Children'S Aspirin) 324 mg 1X ONCE PO Last administered on 06/23/16t 21:53; Start 06/23/16 at 21:15; Stop 06/23/16 at 21:16; Status DC Ondansetron HCl (Zofran) 4 mg PRN Q8HRS PRN IV NAUSEA/VOMITING Last administered on 06/24/16 20:16; Start 06/23/16 at 21:00; Stop 06/24/16 at 20:59; Status DC Morphine Sulfate 2 mg 2 mg PRN Q2HR PRN IV SEVERE PAIN Last administered on 06/23 21:57; Start 06/23/16 at 21:00; Stop 06/24/16 at 20:59; Status DC Sodium Chloride (Iv Sodium Chloride 0.9% 1000ml Bag) 1,000 ml @ 125 mls/hr Q8H IV Last administered on 06/24/16 00:38; Start 06/23/16 at 21:00; Stop 06/24/16 at 11:15; Status DC Iohexol (Omnipaque 300 Mg/ml) 75 ml 1X ONCE IV Last administered on 06/23/16 21:20; Start 06/23/16 at 21:45; Stop 06/23/16 at 21:46; Status DC Info (Do NOT chart on this entry -- for MONITORING) 1 each PRN DAILY PRN MC SEE COMMENTS; Start 06/23/16 at 21:15; Stop 06/25/16 at 08:54; Status DC Gabapentin (Neurontin) 300 mg PRN TID PRN PO NEUROPATHIC PAIN Last administered on 06/24/16 10:31; Start 06/23/16 at 23:45 Ondansetron HCl (Zofran Odt) 4 mg PRN Q8HRS PRN PO NAUSEA Last administered on 06/27/16 08:43; Start 06/24/16 at 09:00 Oxcarbazepine (Trileptal) 1,200 mg HS PO Last administered on 06/27/16 20:45; Start 06/24/16 at 21:00 Pantoprazole Sodium (Protonix) 40 mg DAILYAC PO Last administered on 06/30/16 08:22; Start 06/24/16 at 07:30 Tramadol HCl (Ultram) 50 mg PRN Q6HRS PRN PO MILD PAIN Last administered on 08:19; Start 06/24/16 at 09:00 Trazodone HCl (Desyrel) 50 mg QHS PO Last administered on 06/29/16 20:50; Start 06/24/16 at 21:00 Sertraline HCl (Zoloft) 100 mg BID PO Last administered on 06/30/16 08:22; Start 06/24/16 at 09:00 Acetaminophen/ Hydrocodone Bitart (Lortab 5/325) 1 tab PRN Q4HRS PRN PO SEVERE PAIN Last administered on 06/24/16 15:24; Start 06/23/16 at 23:45; Stop 06/24/16 at 17:34; Status DC Enoxaparin Sodium 40 mg 40 mg DAILY SQ Last administered on 06/28/16 09:29; Start 06/25/16 at 09:00 Sodium Chloride (Iv Sodium Chloride 0.9% 1000ml Bag) 1,000 ml @ 50 mls/hr Q20H IV Last administered on 06/24/16 11:20; Start 06/24/16 at 11:30; Stop 06/24/16 at 11:31; Status DC Furosemide (Lasix) 40 mg 1X ONCE IVP Last administered on 06/24/16 15:25; Start 06/24/16 at 14:15; Stop 06/24/16 at 14:27; Status DC Iohexol (Omnipaque 300 Mg/ml) 75 ml 1X ONCE IV Last administered on 06/24/16 16:32; Start 06/24/16 at 16:15; Stop 06/24/16 at 16:16; Status DC Iohexol (Omnipaque 240 Mg/ml) 30 ml 1X ONCE PO Last administered on 06/24/16 16:33; Start 06/24/16 at 16:15; Stop 06/24/16 at 16:16; Status DC Info (Do NOT chart on this entry -- for MONITORING) 1 each PRN DAILY PRN MC SEE COMMENTS; Start 06/24/16 at 16:15; Stop 06/26/16 at 16:14; Status DC Acetaminophen/ Hydrocodone Bitart (Lortab 7.5/325) 1 tab PRN Q4HRS PRN PO MODERATE PAIN Last administered on 06/30/16 05:15; Start 06/24/16 at 17:45 Zolpidem Tartrate (Ambien) 5 mg PRN QHS PRN PO INSOMNIA Last administered on 20:49; Start 06/24/16 at 17:45 Diphenhydramine HCl (Benadryl) 25 mg PRN Q6HRS PRN PO ITCHING; Start 06/24/16 at 17:45 Morphine Sulfate (Morphine Ir) 15 mg Q6HRS PRN PO SEVERE PAIN; Start 06/24/16 at 17:45 Lidocaine/Sodium Bicarbonate (Buffered Lidocaine 1%) 12 ml 1X ONCE IJ Last administered on 06/25/16 11:39; Start 06/25/16 at 10:45; Stop 06/25/16 at 10:46; Status DC Fentanyl Citrate (Fentanyl 2ml Vial) 100 mcg STK-MED ONCE .ROUTE ; Start at 10:56; Stop 06/25/16 at 10:57; Status DC Fentanyl Citrate (Fentanyl 2ml Vial) 50 mcg 1X ONCE IV Last administered on 11:39; Start 06/25/16 at 11:00; Stop 06/25/16 at 11:01; Status DC Lidocaine/Sodium Bicarbonate (Buffered Lidocaine 1%) 12 ml 1X ONCE IJ ; Start 06/25/16 at 11:45; Stop 06/25/16 at 11:46; Status DC Fentanyl Citrate (Fentanyl 2ml Vial) 50 mcg 1X ONCE IV ; Start 06/25/16 at 11:45 ; Stop 06/25/16 at 11:46; Status DC Metoprolol Tartrate (Lopressor) 12.5 mg BID PO Last administered on 06/25/16 20 :58; Start 06/25/16 at 21:00; Stop 06/26/16 at 18:31; Status DC Furosemide (Lasix) 20 mg DAILY PO ; Start 06/25/16 at 18:00; Stop 06/25/16 at 18: 00; Status DC Furosemide (Lasix) 20 mg DAILY PO Last administered on 06/30/16 08:22; Start 06/25/16 at 17:30 Multivitamins 5 ml 5 ml DAILY PO Last administered on 06/30/16 08:22; Start at 14:00 Thiamine HCl 100 mg/Sodium Chloride 51 ml @ 102 mls/hr Q8HRS IV Last administered on 06/29/16 22:09; Start 06/26/16 at 16:00; Stop 06/29/16 at 23:59 ; Status DC Amino Acids/ Glycerin/ Electrolytes (Procalamine) 1,000 ml @ 80 mls/hr [id number] IV Last administered on 06/29/16 10:03; Start 06/28/16 at 15:00; Stop at 16:32; Status DC Acetaminophen (Tylenol) 650 mg PRN Q6HRS PRN PO MILD PAIN / TEMP Last administered on 06/29/16 11:38; Start 06/29/16 at 11:15 Thiamine HCl (Vitamin B-1) 100 mg TID PO ; Start 06/30/16 at 09:00 Pantoprazole Sodium (Protonix) 40 mg DAILYAC PO ; Start 06/30/16 at 07:30; Status UNV Loperamide HCl (Imodium) 2 mg PRN Q15MIN PRN PO DIARRHEA, ; Start 06/29/16 at 16:00 Amylase/Lipase/ Protease (Zenpep 10,000) 2 cap TIDWMEALS PO ; Start 06/30/16 at 08:00 Active Scripts Active Zofran Odt (Ondansetron) 4 Mg Tab.rapdis 1 Tab SL PRN Q8HRS PRN Oxcarbazepine 300 Mg Tablet 1,200 Mg PO HS Pantoprazole Sodium 40 Mg Tablet.dr 40 Mg PO DAILYAC Reported Tramadol Hcl 50 Mg Tablet 1 Tab PO PRN Q6HRS PRN Trazodone Hcl 50 Mg Tablet 1 Tab PO QHS Gabapentin 300 Mg Capsule 300 Mg PO TID PRN Sertraline Hcl 100 Mg Tablet 100 Mg PO BID Hydrocodone-Apap 7.5-325 (Hydrocodone Bit/Acetaminophen) 1 Each Tablet Unknown Dose PO PRN Q6HRS PRN [Creon Lipase Tid] Vitals/I & O Vital Sign - Last 24 Hours 06/29/16 06/29/16 06/29/16 06/29/16 11:18 14:35 19:00 20:00 Temp 101.3 98.6 99.1 101.3 98.6 99.1 Pulse 81 86 85 Resp 18 18 18 B/P 108/60 111/62 113/48 Pulse Ox 100 100 100 O2 Delivery Room Air Room Air Room Air Room Air 06/29/16 06/29/16 06/30/16 06/30/16 20:49 23:00 03:00 05:15 Temp 96.7 98.9 96.7 98.9 Pulse 94 83 Resp 18 18 B/P 100/60 98/50 Pulse Ox 100 98 93 93 O2 Delivery Room Air Room Air Room Air Room Air 06/30/16 06/30/16 06:15 07:25 Temp 99.1 99.1 Pulse 83 Resp 18 B/P 106/61 Pulse Ox 93 95 O2 Delivery Room Air Room Air Intake and Output 06/29/16 06/29/16 06/30/16 15:00 23:00 07:00 Intake Total 300 ml 291 ml 360 ml Balance 300 ml 291 ml 360 ml Problem List Problems Medical Problems: (1) Elevated troponin Status: Acute (2) Unintentional weight loss Status: Acute (3) Vomiting Status: Acute (4) Weakness Status: Acute Assessment Malnutrition, largely due to post-surgical anatomy. Her operation is more drastic than a typical Man-en-Y. No pancreatic enzymes in her alimentary loop , so started some. Plan of Care Note Encouraged po. Observe for any problems with feeding. ROSANNA PIERRE MD Jun 30, 2016 09:28
[2016-06-30] MEDS: LIPASE/PROTEAS/AMYLAS 10/34/55 CAPSULE.DR. PO SCH ×3 (10:09→17:33)
[2016-06-30] MEDS: GABAPENTIN 300 MG CAPSULE. PO PRN (10:11)
[2016-06-30 10:20] VITALS: BP 107/62
--- NOTE | 2016-06-30 13:51 | PDOC ---
PROGRESS NOTES Chief Complaint Chief Complaint FTT ASSESSMENT AND PLAN: 1. FTT: severe hypoalbuminemia, inactivity and gen pain /fibromyalgia. advised to become more proactive herself. needs rehab 2. Dehydration: due to diarrhea, resolved 3. 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 loperamide PRN 4. s/p gastric bypass for wt loss, resulting malabsorption 5. protein malnutrition: severe. on supplements. advance to reg diet 6. Pleural effusions, ascites: 2/2 severe protein deficiency, mod-sev MR 7. Troponin leak: related to mod-severe MR, mod TR. 8. Fibromyalgia: cont home meds 9. Hypernatremia: resolved. 10. Dispo: SNF History of Present Illness History of Present Illness Vitals Vitals Vital Signs Date Time Temp Pulse Resp B/P Pulse Ox O2 Delivery O2 Flow Rate FiO2 06/30/16 10:20 98.8 81 18 107/62 100 Room Air 98.8 Physical Exam General: Alert, Oriented X3 Heart: Regular rate Lungs: Clear Abdomen: Soft, No tenderness, Other (ascites) Extremities: Other (2+ edema bilateral LE) Skin: No rashes, No breakdown, No significant lesion Labs LABS Laboratory Tests Test 06/30/16 04:35 White Blood Count 2.8x10^3/uL (4.0-11.0) Red Blood Count 2.34x10^6/uL (3.50-5.40) Hemoglobin 7.9g/dL (12.0-15.5) Hematocrit 24.4% (36.0-47.0) Mean Corpuscular Volume 104fL (79-100) Mean Corpuscular Hemoglobin 34pg (25-35) Mean Corpuscular Hemoglobin Concent 32g/dL (31-37) Red Cell Distribution Width 15.3% (11.5-14.5) Platelet Count 152x10^3/uL (140-400) Neutrophils (%) (Auto) 41% (31-73) Lymphocytes (%) (Auto) 46% (24-48) Monocytes (%) (Auto) 11% (0-9) Eosinophils (%) (Auto) 1% (0-3) Basophils (%) (Auto) 1% (0-3) Neutrophils # (Auto) 1.2x10^3uL (1.8-7.7) Lymphocytes # (Auto) 1.3x10^3/uL (1.0-4.8) Monocytes # (Auto) 0.3x10^3/uL (0.0-1.1) Eosinophils # (Auto) 0.0x10^3/uL (0.0-0.7) Basophils # (Auto) 0.0x10^3/uL (0.0-0.2) Sodium Level 146mmol/L (136-145) Potassium Level 3.2mmol/L (3.5-5.1) Chloride Level 111mmol/L (98-107) Carbon Dioxide Level 28mmol/L (21-32) Anion Gap 7 (6-14) Blood Urea Nitrogen 11mg/dL (7-20) Creatinine 0.8mg/dL (0.6-1.0) Estimated GFR (Cockcroft-Gault) 93.9 Glucose Level 79mg/dL (70-99) Calcium Level 7.3mg/dL (8.5-10.1) Review of Systems Review of Systems sitting in chair, feeling weak. requesting different food AIMEE OMALLEY MD Jun 30, 2016 13:51
[2016-06-30] MEDS ORDERED: ALPR0.5T PO (14:00)
[2016-06-30] MEDS ORDERED: LOPE2CAP PO (14:00)
[2016-06-30] MEDS ORDERED: LIPA1CAP12 PO (14:00)
[2016-06-30] MEDS ORDERED: HYDR-2762 PO (14:00)
[2016-06-30] MEDS ORDERED: DIPH25CA58 PO (14:00)
[2016-06-30] MEDS ORDERED: FURO20TA3 PO (14:00)
[2016-06-30] MEDS ORDERED: ACET325T16 PO (14:00)
[2016-06-30 15:00] VITALS: BP 100/67
[2016-06-30 19:00] VITALS: BP 109/55
[2016-06-30] MEDS: OXCARBAZEPINE 300 MG TABLET. PO SCH (21:00)
[2016-06-30] MEDS: ZOLPIDEM 5 MG TABLET. PO PRN (21:58)
[2016-06-30] MEDS: traZODone 50 MG TABLET. PO SCH (21:58)
[2016-06-30] MEDS: ALPRAZOLAM 0.5 MG TABLET PO PRN (21:58)
[2016-06-30 23:00] VITALS: BP 110/54
[2016-07-01 03:09] VITALS: BP 100/54
[2016-07-01 05:36] LABS: BASO % 1 % (0-3); EOS % 1 % (0-3); HEMATOCRIT 24.9 % (36.0-47.0); HEMOGLOBIN 8.2 g/dL (12.0-15.5); LYMPH # 1.7 x10^3/uL (1.0-4.8); LYMPH % 49 % (24-48); MEAN CORPUSCULAR HEMOGLOBIN 33 pg (25-35); MEAN CORPUSCULAR HGB CONC 33 g/dL (31-37); MEAN CORPUSCULAR VOLUME 102 fL (79-100); MONO % 10 % (0-9); NEUT % 38 % (31-73); PLATELET COUNT 183 x10^3/uL (140-400); RED BLOOD COUNT 2.45 x10^6/uL (3.50-5.40); RED CELL DISTRIBUTION WIDTH 15.1 % (11.5-14.5); WHITE BLOOD COUNT 3.4 x10^3/uL (4.0-11.0)
[2016-07-01 05:46] LABS: CALCIUM 7.5 mg/dL (8.5-10.1); CREATININE 0.8 mg/dL (0.6-1.0); GFR 93.9
[2016-07-01 05:52] LABS: POTASSIUM 2.9 mmol/L (3.5-5.1)
[2016-07-01] MEDS ORDERED: POTASSIUM CHLORIDE 20 MEQ TABLET.ER. PO ONE (06:15)
[2016-07-01] MEDS: HYDROCODONE/APAP 7.5/325MG TABLET. PO PRN ×2 (06:25→10:56)
[2016-07-01 07:15] VITALS: BP 107/55
[2016-07-01] MEDS: ENOXAPARIN 40 MG/0.4 ML DISP.SYRIN. SQ SCH (09:49)
[2016-07-01] MEDS: MULTIVITAMINS,THERAPEUTIC 5 ML ORAL LIQUID. PO SCH (09:49)
[2016-07-01] MEDS: PANTOPRAZOLE 40 MG TABLET. PO SCH (09:50)
[2016-07-01] MEDS: SERTRALINE 50 MG TABLET. PO SCH (09:50)
[2016-07-01] MEDS: LIPASE/PROTEAS/AMYLAS 10/34/55 CAPSULE.DR. PO SCH (09:50)
[2016-07-01] MEDS: FUROSEMIDE 20 MG TABLET PO SCH (09:50)
[2016-07-01] MEDS: THIAMINE 100 MG TABLET. PO SCH (09:50)
--- NOTE | 2016-07-01 10:09 | PDOC ---
G I PROGRESS NOTE Subjective No specific complaints. Poor understanding of anatomy, problems engendered by same. No diarrhea. Getting some solid food. Physical Exam Lungs clear. RRR Abdomen soft, not tender nor distended. Review of Relevant I have reviewed the following items anais (where applicable) has been applied. Labs Laboratory Tests Test 06/30/16 04:35 07/01/16 04:10 White Blood Count 2.8x10^3/uL (4.0-11.0) 3.4x10^3/uL (4.0-11.0) Red Blood Count 2.34x10^6/uL (3.50-5.40) 2.45x10^6/uL (3.50-5.40) Hemoglobin 7.9g/dL (12.0-15.5) 8.2g/dL (12.0-15.5) Hematocrit 24.4% (36.0-47.0) 24.9% (36.0-47.0) Mean Corpuscular Volume 104fL (79-100) 102fL (79-100) Mean Corpuscular Hemoglobin 34pg (25-35) 33pg (25-35) Mean Corpuscular Hemoglobin Concent 32g/dL (31-37) 33g/dL (31-37) Red Cell Distribution Width 15.3% (11.5-14.5) 15.1% (11.5-14.5) Platelet Count 152x10^3/uL (140-400) 183x10^3/uL (140-400) Neutrophils (%) (Auto) 41% (31-73) 38% (31-73) Lymphocytes (%) (Auto) 46% (24-48) 49% (24-48) Monocytes (%) (Auto) 11% (0-9) 10% (0-9) Eosinophils (%) (Auto) 1% (0-3) 1% (0-3) Basophils (%) (Auto) 1% (0-3) 1% (0-3) Neutrophils # (Auto) 1.2x10^3uL (1.8-7.7) 1.3x10^3uL (1.8-7.7) Lymphocytes # (Auto) 1.3x10^3/uL (1.0-4.8) 1.7x10^3/uL (1.0-4.8) Monocytes # (Auto) 0.3x10^3/uL (0.0-1.1) 0.3x10^3/uL (0.0-1.1) Eosinophils # (Auto) 0.0x10^3/uL (0.0-0.7) 0.0x10^3/uL (0.0-0.7) Basophils # (Auto) 0.0x10^3/uL (0.0-0.2) 0.0x10^3/uL (0.0-0.2) Sodium Level 146mmol/L (136-145) 144mmol/L (136-145) Potassium Level 3.2mmol/L (3.5-5.1) 2.9mmol/L (3.5-5.1) Chloride Level 111mmol/L (98-107) 109mmol/L (98-107) Carbon Dioxide Level 28mmol/L (21-32) 27mmol/L (21-32) Anion Gap 7 (6-14) 8 (6-14) Blood Urea Nitrogen 11mg/dL (7-20) 9mg/dL (7-20) Creatinine 0.8mg/dL (0.6-1.0) 0.8mg/dL (0.6-1.0) Estimated GFR (Cockcroft-Gault) 93.9 93.9 Glucose Level 79mg/dL (70-99) 81mg/dL (70-99) Calcium Level 7.3mg/dL (8.5-10.1) 7.5mg/dL (8.5-10.1) Laboratory Tests Test 07/01/16 04:10 White Blood Count 3.4x10^3/uL (4.0-11.0) Red Blood Count 2.45x10^6/uL (3.50-5.40) Hemoglobin 8.2g/dL (12.0-15.5) Hematocrit 24.9% (36.0-47.0) Mean Corpuscular Volume 102fL (79-100) Mean Corpuscular Hemoglobin 33pg (25-35) Mean Corpuscular Hemoglobin Concent 33g/dL (31-37) Red Cell Distribution Width 15.1% (11.5-14.5) Platelet Count 183x10^3/uL (140-400) Neutrophils (%) (Auto) 38% (31-73) Lymphocytes (%) (Auto) 49% (24-48) Monocytes (%) (Auto) 10% (0-9) Eosinophils (%) (Auto) 1% (0-3) Basophils (%) (Auto) 1% (0-3) Neutrophils # (Auto) 1.3x10^3uL (1.8-7.7) Lymphocytes # (Auto) 1.7x10^3/uL (1.0-4.8) Monocytes # (Auto) 0.3x10^3/uL (0.0-1.1) Eosinophils # (Auto) 0.0x10^3/uL (0.0-0.7) Basophils # (Auto) 0.0x10^3/uL (0.0-0.2) Sodium Level 144mmol/L (136-145) Potassium Level 2.9mmol/L (3.5-5.1) Chloride Level 109mmol/L (98-107) Carbon Dioxide Level 27mmol/L (21-32) Anion Gap 8 (6-14) Blood Urea Nitrogen 9mg/dL (7-20) Creatinine 0.8mg/dL (0.6-1.0) Estimated GFR (Cockcroft-Gault) 93.9 Glucose Level 81mg/dL (70-99) Calcium Level 7.5mg/dL (8.5-10.1) Microbiology 06/29/16 Blood Culture - Preliminary, Resulted NO GROWTH AFTER 1 DAY 06/25/16 Gram Stain - Final, Complete 06/23/16 Urine Culture - Final, Complete 06/23/16 Urine Culture Result 1 (JESUSITA) - Final, Complete Medications Current Medications Aspirin (Children'S Aspirin) 324 mg 1X ONCE PO Last administered on 06/23/16 21:53; Start 06/23/16 at 21:15; Stop 06/23/16 at 21:16; Status DC Ondansetron HCl (Zofran) 4 mg PRN Q8HRS PRN IV NAUSEA/VOMITING Last administered on 06/24/16 20:16; Start 06/23/16 at 21:00; Stop 06/24/16 at 20:59; Status DC Morphine Sulfate 2 mg 2 mg PRN Q2HR PRN IV SEVERE PAIN Last administered on 06/23 21:57; Start 06/23/16 at 21:00; Stop 06/24/16 at 20:59; Status DC Sodium Chloride (Iv Sodium Chloride 0.9% 1000ml Bag) 1,000 ml @ 125 mls/hr Q8H IV Last administered on 06/24/16 00:38; Start 06/23/16 at 21:00; Stop 06/24/16 at 11:15; Status DC Iohexol (Omnipaque 300 Mg/ml) 75 ml 1X ONCE IV Last administered on 06/23/16 21:20; Start 06/23/16 at 21:45; Stop 06/23/16 at 21:46; Status DC Info (Do NOT chart on this entry -- for MONITORING) 1 each PRN DAILY PRN MC SEE COMMENTS; Start 06/23/16 at 21:15; Stop 06/25/16 at 08:54; Status DC Gabapentin (Neurontin) 300 mg PRN TID PRN PO NEUROPATHIC PAIN Last administered on 06/30/16 10:11; Start 06/23/16 at 23:45 Ondansetron HCl (Zofran Odt) 4 mg PRN Q8HRS PRN PO NAUSEA Last administered on 06/27/16 08:43; Start 06/24/16 at 09:00 Oxcarbazepine (Trileptal) 1,200 mg HS PO Last administered on 06/27/16 20:45; Start 06/24/16 at 21:00 Pantoprazole Sodium (Protonix) 40 mg DAILYAC PO Last administered on 07/01/16 09:50; Start 06/24/16 at 07:30 Tramadol HCl (Ultram) 50 mg PRN Q6HRS PRN PO MILD PAIN Last administered on 08:19; Start 06/24/16 at 09:00 Trazodone HCl (Desyrel) 50 mg QHS PO Last administered on 06/30/16 21:58; Start 06/24/16 at 21:00 Sertraline HCl (Zoloft) 100 mg BID PO Last administered on 2/15/17at 09:50; Start 06/24/16 at 09:00 Acetaminophen/ Hydrocodone Bitart (Lortab 5/325) 1 tab PRN Q4HRS PRN PO SEVERE PAIN Last administered on 06/24/16 15:24; Start 06/23/16 at 23:45; Stop 06/24/16 at 17:34; Status DC Enoxaparin Sodium 40 mg 40 mg DAILY SQ Last administered on 07/01/16 09:49; Start 06/25/16 at 09:00 Sodium Chloride (Iv Sodium Chloride 0.9% 1000ml Bag) 1,000 ml @ 50 mls/hr Q20H IV Last administered on 06/24/16 11:20; Start 06/24/16 at 11:30; Stop 06/24/16 at 11:31; Status DC Furosemide (Lasix) 40 mg 1X ONCE IVP Last administered on 06/24/16 15:25; Start 06/24/16 at 14:15; Stop 06/24/16 at 14:27; Status DC Iohexol (Omnipaque 300 Mg/ml) 75 ml 1X ONCE IV Last administered on 06/24/16 16:32; Start 06/24/16 at 16:15; Stop 06/24/16 at 16:16; Status DC Iohexol (Omnipaque 240 Mg/ml) 30 ml 1X ONCE PO Last administered on 06/24/16 16:33; Start 06/24/16 at 16:15; Stop 06/24/16 at 16:16; Status DC Info (Do NOT chart on this entry -- for MONITORING) 1 each PRN DAILY PRN MC SEE COMMENTS; Start 06/24/16 at 16:15; Stop 06/26/16 at 16:14; Status DC Acetaminophen/ Hydrocodone Bitart (Lortab 7.5/325) 1 tab PRN Q4HRS PRN PO MODERATE PAIN Last administered on 07/01/16 06:25; Start 06/24/16 at 17:45 Zolpidem Tartrate (Ambien) 5 mg PRN QHS PRN PO INSOMNIA Last administered on 21:58; Start 06/24/16 at 17:45 Diphenhydramine HCl (Benadryl) 25 mg PRN Q6HRS PRN PO ITCHING; Start 06/24/16 at 17:45 Morphine Sulfate (Morphine Ir) 15 mg Q6HRS PRN PO SEVERE PAIN; Start 06/24/16 at 17:45 Lidocaine/Sodium Bicarbonate (Buffered Lidocaine 1%) 12 ml 1X ONCE IJ Last administered on 06/25/16 11:39; Start 06/25/16 at 10:45; Stop 06/25/16 at 10:46; Status DC Fentanyl Citrate (Fentanyl 2ml Vial) 100 mcg STK-MED ONCE .ROUTE ; Start at 10:56; Stop 06/25/16 at 10:57; Status DC Fentanyl Citrate (Fentanyl 2ml Vial) 50 mcg 1X ONCE IV Last administered on 11:39; Start 06/25/16 at 11:00; Stop 06/25/16 at 11:01; Status DC Lidocaine/Sodium Bicarbonate (Buffered Lidocaine 1%) 12 ml 1X ONCE IJ ; Start 06/25/16 at 11:45; Stop 06/25/16 at 11:46; Status DC Fentanyl Citrate (Fentanyl 2ml Vial) 50 mcg 1X ONCE IV ; Start 06/25/16 at 11:45 ; Stop 06/25/16 at 11:46; Status DC Metoprolol Tartrate (Lopressor) 12.5 mg BID PO Last administered on 06/25/16 20 :58; Start 06/25/16 at 21:00; Stop 06/26/16 at 18:31; Status DC Furosemide (Lasix) 20 mg DAILY PO ; Start 06/25/16 at 18:00; Stop 06/25/16 at 18: 00; Status DC Furosemide (Lasix) 20 mg DAILY PO Last administered on 07/01/16 09:50; Start 06/25/16 at 17:30 Multivitamins 5 ml 5 ml DAILY PO Last administered on 07/01/16 09:49; Start at 14:00 Thiamine HCl 100 mg/Sodium Chloride 51 ml @ 102 mls/hr Q8HRS IV Last administered on 06/29/16 22:09; Start 06/26/16 at 16:00; Stop 06/29/16 at 23:59 ; Status DC Amino Acids/ Glycerin/ Electrolytes (Procalamine) 1,000 ml @ 80 mls/hr [id number] IV Last administered on 06/29/16 10:03; Start 06/28/16 at 15:00; Stop at 16:32; Status DC Acetaminophen (Tylenol) 650 mg PRN Q6HRS PRN PO MILD PAIN / TEMP Last administered on 06/29/16 11:38; Start 06/29/16 at 11:15 Thiamine HCl (Vitamin B-1) 100 mg TID PO Last administered on 07/01/16 09:50; Start 06/30/16 at 09:00 Pantoprazole Sodium (Protonix) 40 mg DAILYAC PO ; Start 06/30/16 at 07:30; Status UNV Loperamide HCl (Imodium) 2 mg PRN Q15MIN PRN PO DIARRHEA, ; Start 06/29/16 at 16:00 Amylase/Lipase/ Protease (Zenpep 10,000) 2 cap TIDWMEALS PO Last administered on 07/01/16 09:50; Start 06/30/16 at 08:00 Alprazolam (Xanax) 0.5 mg PRN BID PRN PO ANXIETY / AGITATION Last administered on 06/30/16 21:58; Start 06/30/16 at 17:15 Potassium Chloride (Klor-Con) 40 meq 1X ONCE PO Last administered on 06:24; Start 07/01/16 at 06:15; Stop 07/01/16 at 06:16; Status DC Active Scripts Active Xanax (Alprazolam) 0.5 Mg Tablet 1 Tab PO BID PRN Hydrocodone-Apap 7.5-325 (Hydrocodone Bit/Acetaminophen) 1 Each Tablet 1 Tab PO PRN Q4HRS PRN Zofran Odt (Ondansetron) 4 Mg Tab.rapdis 1 Tab SL PRN Q8HRS PRN Oxcarbazepine 300 Mg Tablet 1,200 Mg PO HS Pantoprazole Sodium 40 Mg Tablet.dr 40 Mg PO DAILYAC Reported Tramadol Hcl 50 Mg Tablet 1 Tab PO PRN Q6HRS PRN Trazodone Hcl 50 Mg Tablet 1 Tab PO QHS Gabapentin 300 Mg Capsule 300 Mg PO TID PRN Sertraline Hcl 100 Mg Tablet 100 Mg PO BID Hydrocodone-Apap 7.5-325 (Hydrocodone Bit/Acetaminophen) 1 Each Tablet Unknown Dose PO PRN Q6HRS PRN [Creon Lipase Tid] Vitals/I & O Vital Sign - Last 24 Hours 06/30/16 06/30/16 06/30/16 06/30/16 10:20 15:00 19:00 19:25 Temp 98.8 97.7 98.1 98.8 97.7 98.1 Pulse 81 92 80 Resp 18 18 18 B/P 107/62 100/67 109/55 Pulse Ox 100 99 96 O2 Delivery Room Air Room Air Room Air Room Air 06/30/16 06/30/16 06/30/16 07/01/16 19:34 23:00 23:08 03:09 Temp 97.7 97.8 97.7 97.8 Pulse 78 84 Resp 18 18 B/P 110/54 100/54 Pulse Ox 96 98 96 97 O2 Delivery Room Air Room Air Room Air Room Air 07/01/16 07/01/16 06:25 07:15 Temp 98.0 98.0 Pulse 90 Resp 16 B/P 107/55 Pulse Ox 97 97 O2 Delivery Room Air Room Air Intake and Output 06/30/16 06/30/16 07/01/16 15:00 23:00 07:00 Intake Total 660 ml 480 ml Balance 660 ml 480 ml Problem List Problems Medical Problems: (1) Elevated troponin Status: Acute (2) Unintentional weight loss Status: Acute (3) Vomiting Status: Acute (4) Weakness Status: Acute Assessment S/p BPD with secondary malnutrition. Plan of Care: Continue current Tx, Mgmt Plan of Care Note Hopefully given time, available small bowel for absorption will be enough with supplements and enzymes. ROSANNA PIERRE MD Jul 01, 2016 10:09
--- NOTE | 2016-07-01 10:41 | PDOC ---
PROGRESS NOTES Chief Complaint Chief Complaint FTT ASSESSMENT AND PLAN: 1. FTT: severe hypoalbuminemia, inactivity and gen pain /fibromyalgia. advised to become more proactive herself. needs rehab 2. Dehydration: due to diarrhea, resolved 3. 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 loperamide PRN 4. s/p franca-en-Y for wt loss, resulting malabsorption. replete pancreatic enzymes 5. protein malnutrition: severe. on supplements. advance to reg diet 6. Pleural effusions, ascites: 2/2 severe protein deficiency, mod-sev MR 7. Troponin leak: related to mod-severe MR, mod TR. 8. Fibromyalgia: cont home meds 9. Hypernatremia: resolved. 10. Hypomagnesemia: mild. replete orally 11. Dispo: SNF today History of Present Illness History of Present Illness Vitals Vitals Vital Signs Date Time Temp Pulse Resp B/P Pulse Ox O2 Delivery O2 Flow Rate FiO2 07/01/16 07:15 98.0 90 16 107/55 97 Room Air 98.0 Physical Exam General: Alert, Oriented X3 Heart: Regular rate Lungs: Clear Abdomen: Soft, No tenderness, Other (ascites) Extremities: Other (2+ edema bilateral LE) Skin: No rashes, No breakdown, No significant lesion Labs LABS Laboratory Tests Test 07/01/16 04:10 White Blood Count 3.4x10^3/uL (4.0-11.0) Red Blood Count 2.45x10^6/uL (3.50-5.40) Hemoglobin 8.2g/dL (12.0-15.5) Hematocrit 24.9% (36.0-47.0) Mean Corpuscular Volume 102fL (79-100) Mean Corpuscular Hemoglobin 33pg (25-35) Mean Corpuscular Hemoglobin Concent 33g/dL (31-37) Red Cell Distribution Width 15.1% (11.5-14.5) Platelet Count 183x10^3/uL (140-400) Neutrophils (%) (Auto) 38% (31-73) Lymphocytes (%) (Auto) 49% (24-48) Monocytes (%) (Auto) 10% (0-9) Eosinophils (%) (Auto) 1% (0-3) Basophils (%) (Auto) 1% (0-3) Neutrophils # (Auto) 1.3x10^3uL (1.8-7.7) Lymphocytes # (Auto) 1.7x10^3/uL (1.0-4.8) Monocytes # (Auto) 0.3x10^3/uL (0.0-1.1) Eosinophils # (Auto) 0.0x10^3/uL (0.0-0.7) Basophils # (Auto) 0.0x10^3/uL (0.0-0.2) Sodium Level 144mmol/L (136-145) Potassium Level 2.9mmol/L (3.5-5.1) Chloride Level 109mmol/L (98-107) Carbon Dioxide Level 27mmol/L (21-32) Anion Gap 8 (6-14) Blood Urea Nitrogen 9mg/dL (7-20) Creatinine 0.8mg/dL (0.6-1.0) Estimated GFR (Cockcroft-Gault) 93.9 Glucose Level 81mg/dL (70-99) Calcium Level 7.5mg/dL (8.5-10.1) Review of Systems Review of Systems no new issues, ready to attempt rehab Comment Review of Relevant AIMEE OMALLEY MD Jul 01, 2016 10:41
[2016-07-01 11:14] VITALS: BP 93/61
[2016-07-01] MEDS: ALPRAZOLAM 0.5 MG TABLET PO PRN (11:52)
--- NOTE | 2016-07-02 19:19 | DS ---
DATE OF DISCHARGE: 07/01/2016 CHIEF COMPLAINT: Failure to thrive. HOSPITAL COURSE: The patient is a 46-year-old woman who had undergone a Man-en-Y gastric bypass surgery in the distant past for weight loss. She presented to the hospital with severe failure to thrive, weakness, was found with severe hypoalbuminemia, dehydration due to chronic diarrhea. She was admitted and initially seen by Gastroenterology. Her malabsorption was attributed to her type of surgery with lack of pancreatic enzymes. These were therefore repeated orally. Otherwise, she continued to improve, received loperamide p.r.n. for diarrhea as well. She did have bilateral pleural effusions, ascites, and anasarca secondary to protein deficiency as well as moderate to severe MR. She was discharged to SNF on the 01 July. PHYSICAL EXAMINATION: Please refer to note from same day. DISCHARGE DISPOSITION: To SNF. DISCHARGE CONDITION: Improved. DISCHARGE DIAGNOSES: Failure to thrive, malabsorption, and hyperalbuminemia. DISCHARGE MEDICATIONS: Please refer to MAR. DISCHARGE INSTRUCTIONS: The patient will follow up with physical therapy in rehab. She will need a protein rich diet and follow up with her PCP upon return to home. Greater than 30 minutes were spent in arranging discharge. AIMEE OMALLEY MD DR: JANES/nts JOB#: [id number] / [id number] SIMBA Hensley APRN
== END 2016-07-01 14:00 | DRG 391 ==
LOC: ER 17:47 → 2 SOUTH 20:31 → OBSVTOIN 06-24 13:00 → 5 NORTH 06-27 15:45
PROVIDERS: ADMIT Internal Medicine; ATTEND Internal Medicine
PROC: 0W9G30Z Drainage of Peritoneal Cavity with Drainage Device, Percutaneous Approach (ICD-10-PCS; principal; 2016-06-25)
DX: K91.1 Postgastric surgery syndromes (principal); E43 Unspecified severe protein-calorie malnutrition; J90 Pleural effusion, not elsewhere classified; J98.11 Atelectasis; K76.6 Portal hypertension; R18.8 Other ascites; E87.0 Hyperosmolality and hypernatremia; K90.9 Intestinal malabsorption, unspecified; K52.9 Noninfective gastroenteritis and colitis, unspecified; Z68.25 Body mass index [BMI] 25.0-25.9, adult; I34.0 Nonrheumatic mitral (valve) insufficiency; E03.9 Hypothyroidism, unspecified; F17.210 Nicotine dependence, cigarettes, uncomplicated; F32.9 Major depressive disorder, single episode, unspecified; F41.9 Anxiety disorder, unspecified; G62.9 Polyneuropathy, unspecified; G89.29 Other chronic pain; K86.89 Other specified diseases of pancreas; M79.7 Fibromyalgia; R62.7 Adult failure to thrive; Z82.49 Family history of ischemic heart disease and other diseases of the circulatory system; Z83.3 Family history of diabetes mellitus; Z98.84 Bariatric surgery status; Z90.49 Acquired absence of other specified parts of digestive tract; Z91.018 Allergy to other foods
CPT/HCPCS: 32555; 36415; 49083; 71010; 71260; 74177; 76705; 80048; 80076; 81001; 81025; 82607; 82728; 82746; 82945; 83540; 83550; 83605; 83615; 83690; 83880; 84157; 84484; 85027; 85610; 86300; 87040; 87071; 87075; 87086; 87205; 87324; 88112; 88305; 93005; 93306; 93976; 96374; G0378; G0379; J1650; J1940; J2270; J2405; J3010; J7030; Q0162; Q9966; Q9967; 97110; 97116; 97530; 97535; 99285-25

== ENCOUNTER 2016-09-04 14:28 | Emergency (ER) | payer OTHER, MEDICAID ==
[~2016-09-04] VITALS: Ht 160 cm; Wt 64.0 kg
[~2016-09-04 14:28] MED LIST changes: +ACET325T16 PO; +ALPR0.5T PO; +DIPH25CA58 PO; +FURO20TA3 PO; +LIPA1CAP12 PO; +LOPE2CAP PO; +ONDA4TAB10 SL; +TRAZ50TA15 PO
[2016-09-04] MEDS ORDERED: IV NORMAL SALINE 1000ML BAG 1,000 ML IV SCH (14:52)
[2016-09-04 15:02] LABS: BASO % 1 % (0-3); EOS % 1 % (0-3); HEMATOCRIT 23.5 % (36.0-47.0); HEMOGLOBIN 7.8 g/dL (12.0-15.5); LYMPH # 1.9 x10^3/uL (1.0-4.8); LYMPH % 26 % (24-48); MEAN CORPUSCULAR HEMOGLOBIN 33 pg (25-35); MEAN CORPUSCULAR HGB CONC 33 g/dL (31-37); MEAN CORPUSCULAR VOLUME 100 fL (79-100); MONO % 8 % (0-9); NEUT % 65 % (31-73); PLATELET COUNT 255 x10^3/uL (140-400); RED BLOOD COUNT 2.34 x10^6/uL (3.50-5.40); RED CELL DISTRIBUTION WIDTH 16.9 % (11.5-14.5); WHITE BLOOD COUNT 7.3 x10^3/uL (4.0-11.0)
[2016-09-04 15:09] LABS: CALCIUM 7.1 mg/dL (8.5-10.1); CREATININE 0.7 mg/dL (0.6-1.0); GFR 109.5; INR 1.3 (0.8-1.1); POTASSIUM 3.9 mmol/L (3.5-5.1); PROTHROMBIN TIME PATIENT 15.2 SEC (11.7-14.0)
[2016-09-04 15:15] LABS: ALBUMIN 1.1 g/dL (3.4-5.0); ALBUMIN/GLOBULIN RATIO 0.3 (1.0-1.7); TOTAL BILIRUBIN 0.3 mg/dL (0.2-1.0); TOTAL PROTEIN 4.6 g/dL (6.4-8.2)
[2016-09-04] MEDS ORDERED: HYDROCODONE/APAP 7.5/325MG TABLET. PO ONE (15:45)
--- NOTE | 2016-09-04 15:59 | PHYS DOC ---
Past Medical History Past Medical History: Anemia, Anxiety, Depression, Fibromyalgia, Other Additional Past Medical Histor: NEUROPATHY, VITAMIN DEFICIENCY, MALNUTRITION Past Surgical History: Gastric Bypass, Tubal ligation Alcohol Use: Occasionally Drug Use: None Adult General Chief Complaint Chief Complaint: ABNORMAL LABS [facility] HPI Patient is a 46 year old female who presents to the emergency department for evaluation of abnormal lab work. Patient was transferred to the emergency department from her [facility] facility due to lab work that was drawn today showing the patient had an hemoglobin of 6.5. Patient is known to have chronic anemia due to dietary deficiency. The patient is currently in jail care for rehabilitation. The patient denies any acute complaints at this time. Patient states that she has chronic shortness of breath especially with exertion due to her anemia. Patient also has chronic body aches secondary to fibromyalgia. Patient states that she has not had any acute or worsening symptoms over this time. Due to abnormal labs the patient was thus sent here for reevaluation. Review of Systems Review of Systems Constitutional: Fatigue, Denies fever or chills [] Eyes: Denies change in visual acuity, redness, or eye pain [] HENT: Denies nasal congestion or sore throat [] Respiratory: Dyspnea on exertion [] Cardiovascular: No additional information not addressed in HPI [] GI: Denies abdominal pain, nausea, vomiting, bloody stools or diarrhea [] : Denies dysuria or hematuria [] Musculoskeletal: Denies back pain or joint pain [] Integument: Denies rash or skin lesions [] Neurologic: Denies headache, focal weakness or sensory changes [] Current Medications Current Medications Current Medications Medications (Trade) Dose Ordered Sig/Grecia Start Time Stop Time Status Last Admin Dose Admin Acetaminophen/ Hydrocodone Bitart (Lortab 7.5/325) 1 tab 1X ONCE 09/04/16 15:45 09/04/16 15:46 DC 09/04/16 15:50 1 TAB Sodium Chloride (Iv Sodium Chloride 0.9% 1000ml Bag) 1,000 ml @ 100 mls/hr Q10H 09/04/16 14:52 09/05/16 00:51 09/04/16 15:12 100 MLS/HR Allergies Allergies Allergies Coded Allergies Type Severity Reaction Last Updated Verified haloperidol Allergy Intermediate Anxiety 03/25/16 Yes strawberry Allergy Intermediate Rash 03/25/16 Yes ciprofloxacin Allergy Unknown 09/04/16 Yes prednisone Allergy Unknown 09/04/16 Yes Physical Exam Physical Exam Constitutional: Alert, afebrile, no acute distress. [] HENT: Normocephalic, atraumatic, bilateral external ears normal, oropharynx moist, no oral exudates, nose normal. [] Eyes: PERRLA, EOMI, conjunctiva pale, no discharge. [] Neck: Normal range of motion, no tenderness, supple, no stridor. [] Cardiovascular:Heart rate regular rhythm, no murmur [] Lungs & Thorax: Bilateral breath sounds clear to auscultation [] Abdomen: Bowel sounds normal, soft, no tenderness, no masses, no pulsatile masses. [] Skin: Warm, dry, no erythema, no rash. [] Back: No tenderness, no CVA tenderness. [] Extremities: No tenderness, no cyanosis, no clubbing, ROM intact, no edema. [] Neurologic: Alert and oriented X 3, normal motor function, normal sensory function, no focal deficits noted. [] Current Patient Data Vital Signs Vital Signs Date Time Temp Pulse Resp B/P Pulse Ox O2 Delivery O2 Flow Rate FiO2 09/04/16 15:13 90 19 65/56 96 Room Air 09/04/16 14:29 98.9 98.9 Lab Values Laboratory Tests Test 09/04/16 14:35 White Blood Count 7.3x10^3/uL (4.0-11.0) Red Blood Count 2.34x10^6/uL (3.50-5.40) L Hemoglobin 7.8g/dL (12.0-15.5) L Hematocrit 23.5% (36.0-47.0) L Mean Corpuscular Volume 100fL (79-100) Mean Corpuscular Hemoglobin 33pg (25-35) Mean Corpuscular Hemoglobin Concent 33g/dL (31-37) Red Cell Distribution Width 16.9% (11.5-14.5) H Platelet Count 255x10^3/uL (140-400) Neutrophils (%) (Auto) 65% (31-73) Lymphocytes (%) (Auto) 26% (24-48) Monocytes (%) (Auto) 8% (0-9) Eosinophils (%) (Auto) 1% (0-3) Basophils (%) (Auto) 1% (0-3) Neutrophils # (Auto) 4.7x10^3uL (1.8-7.7) Lymphocytes # (Auto) 1.9x10^3/uL (1.0-4.8) Monocytes # (Auto) 0.6x10^3/uL (0.0-1.1) Eosinophils # (Auto) 0.1x10^3/uL (0.0-0.7) Basophils # (Auto) 0.0x10^3/uL (0.0-0.2) Prothrombin Time 15.2SEC (11.7-14.0) H Prothrombin Time INR 1.3 (0.8-1.1) H PTT 41SEC (24-38) H Sodium Level 151mmol/L (136-145) H Potassium Level 3.9mmol/L (3.5-5.1) Chloride Level 118mmol/L (98-107) H Carbon Dioxide Level 26mmol/L (21-32) Anion Gap 7 (6-14) Blood Urea Nitrogen 11mg/dL (7-20) Creatinine 0.7mg/dL (0.6-1.0) Estimated GFR (Cockcroft-Gault) 109.5 BUN/Creatinine Ratio 16 (6-20) Glucose Level 87mg/dL (70-99) Calcium Level 7.1mg/dL (8.5-10.1) L Total Bilirubin 0.3mg/dL (0.2-1.0) Aspartate Amino Transferase (AST) 31U/L (15-37) Alanine Aminotransferase (ALT) 32U/L (14-59) Alkaline Phosphatase 165U/L (46-116) H Total Protein 4.6g/dL (6.4-8.2) L Albumin 1.1g/dL (3.4-5.0) L Albumin/Globulin Ratio 0.3 (1.0-1.7) L Laboratory Tests 09/04/16 14:35 Laboratory Tests 09/04/16 14:35 EKG EKG Not performed [] Radiology/Procedures Radiology/Procedures Not performed [] Course & Med Decision Making Course & Med Decision Making Pertinent Labs and Imaging studies reviewed. (See chart for details) The patient's hemoglobin level was found to be 7.8 which is at the patient's baseline. Patient has no complaints at this time. Patient was given IV fluids as patient does show signs of dehydration. Patient was able to eat without difficulty and patient's blood pressure has stabilized. The patient is stable at this time and appropriate for transfer back to her jail facility for further care. Advised follow-up with the patient's primary doctor tomorrow and return to emergency department for any worsening symptoms. Dragon Disclaimer Dragon Disclaimer This electronic medical record was generated, in whole or in part, using a voice recognition dictation system. Departure Departure Impression: Primary Impression: Chronic anemia Additional Impression: Dehydration Disposition: 05 TRANSFER OTHER Condition: IMPROVED Referrals: UNKNOWN PCP NAME (PCP) Patient Instructions: Anemia, Nonspecific-Brief, Dehydration, Adult Additional Instructions: Follow-up with your primary doctor tomorrow. Return to emergency department for any worsening symptoms. Problem Qualifiers KENNETH FISH MD Sep 04, 2016 15:58
[2016-09-04] MEDS ORDERED: IV NORMAL SALINE 1000ML BAG 1,000 ML IV ONE (16:15)
[2016-09-04 17:00] VITALS: BP 103/58
== END 2016-09-04 17:55 | disposition short-term general hospital (02) ==
LOC: ER 14:28
DX: D53.9 Nutritional anemia, unspecified (principal); E86.0 Dehydration; F41.9 Anxiety disorder, unspecified; F32.9 Major depressive disorder, single episode, unspecified; M79.7 Fibromyalgia; G62.9 Polyneuropathy, unspecified; Z91.018 Allergy to other foods; Z88.8 Allergy status to other drugs, medicaments and biological substances; Z88.1 Allergy status to other antibiotic agents
CPT/HCPCS: 36415; 80053; 85027; 85610; 85730; 86850; 86900; 86901; 96360; 96361; 99285; J7030

== ENCOUNTER → 2017-01-26 | Outpatient (CLI) | payer OTHER, MEDICAID ==
[~2017-01-26] MED LIST changes: -LEVO500T38 PO; +LEVO500T59 PO
--- NOTE | 2017-01-26 16:03 | RAD ---
Chest, 2 views, 01/26/2017: History: Productive cough, cold symptoms Comparison is made to a study from 06/25/2016. The heart size and pulmonary vascularity are normal. There is minimal right parahilar infiltrate. There is a calcified granuloma laterally in the right lung. The left lung is clear. There is persistent blunting of the costophrenic angles on the right suggesting a small amount of residual or recurrent pleural fluid. IMPRESSION: 1. Minimal right parahilar infiltrates suggesting pneumonia. 2. Small right pleural effusion
== END | disposition home or self-care (01) ==
LOC: RAD 14:43
PROVIDERS: ATTEND Internal Medicine
DX: J18.9 Pneumonia, unspecified organism (principal); J40 Bronchitis, not specified as acute or chronic; J84.10 Pulmonary fibrosis, unspecified; J90 Pleural effusion, not elsewhere classified
CPT/HCPCS: 71020

== ENCOUNTER → 2017-03-15 | Outpatient (CLI) | payer OTHER, MEDICAID ==
[2017-03-11 15:05] VITALS: BP 103/62
[~2017-03-15] MED LIST changes: +CEPH-264 PO; +MIRT15TA3 PO; +PROC5TAB14 PO; +TRAZ100T12 PO; +TRIA15CR TP
[2017-03-15 06:19] LABS: BASO # 0.1 x10^3/uL (0.0-0.2); BASO % 1 % (0-3); EOS % 13 % (0-3); HEMATOCRIT 29.1 % (36.0-47.0); HEMOGLOBIN 9.3 g/dL (12.0-15.5); LYMPH # 2.1 x10^3/uL (1.0-4.8); LYMPH % 23 % (24-48); MEAN CORPUSCULAR HEMOGLOBIN 34 pg (25-35); MEAN CORPUSCULAR HGB CONC 32 g/dL (31-37); MEAN CORPUSCULAR VOLUME 108 fL (79-100); MONO % 15 % (0-9); NEUT % 47 % (31-73); PLATELET COUNT 298 x10^3/uL (140-400)
[2017-03-15 06:47] LABS: CALCIUM 8.2 mg/dL (8.5-10.1); CREATININE 0.6 mg/dL (0.6-1.0); GFR 130.2; POTASSIUM 4.9 mmol/L (3.5-5.1)
[2017-03-15 07:38] LABS: % BASOS 2 % (0-3); % EOS 14 % (0-5); ANISOCYTOSIS MOD; PLT ESTIMATE ADEQUATE (ADEQUATE); POIKILOCYTOSIS PRESENT; POLYCHROMASIA MOD
== END | disposition home or self-care (01) ==
LOC: SPEC 06:08
PROVIDERS: ATTEND Internal Medicine
DX: E46 Unspecified protein-calorie malnutrition (principal); R53.1 Weakness
CPT/HCPCS: 36415; 80048; 85007; 85025

== ENCOUNTER 2017-04-17 21:25 | Emergency (ER) | payer OTHER, MEDICAID ==
[~2017-04-17] VITALS: Ht 160 cm; Wt 54.4 kg
[~2017-04-17 21:25] MED LIST changes: -CEPH-264 PO; -TRIA15CR TP
[2017-04-17 21:30] VITALS: BP 101/51
[2017-04-17] MEDS ORDERED: TRIA15CR TP (21:44)
[2017-04-17] MEDS ORDERED: CEPH-264 PO (21:44)
--- NOTE | 2017-04-17 21:44 | PHYS DOC ---
Past Medical History Past Medical History: Anemia, Anxiety, Depression, Fibromyalgia, Other Additional Past Medical Histor: NEUROPATHY, VITAMIN DEFICIENCY, MALNUTRITION Past Surgical History: Gastric Bypass, Tubal ligation Alcohol Use: Occasionally Drug Use: None Adult General Chief Complaint Chief Complaint: LOWER EXT PAIN HPI HPI Patient is a 47 year old E male presents to the emergency department with complaints of a rash to the hands and bilateral feet. She is uncertain how long its been present. She's noted increasing redness in the lower extremity. She states she's been under the care of her primary care physician in the past for same symptoms. She denies chest pain, shortness breath, headache, lightheadedness, nausea, vomiting. Review of Systems Review of Systems Constitutional: Denies fever or chills [] Eyes: Denies change in visual acuity, redness, or eye pain [] HENT: Denies nasal congestion or sore throat [] Respiratory: Denies cough or shortness of breath [] Cardiovascular: No additional information not addressed in HPI [] GI: Denies abdominal pain, nausea, vomiting, bloody stools or diarrhea [] : Denies dysuria or hematuria [] Musculoskeletal: Denies back pain or joint pain [] Integument: Skin rash and redness Neurologic: Denies headache, focal weakness or sensory changes [] Endocrine: Denies polyuria or polydipsia [] All other systems were reviewed and found to be within normal limits, except as documented in this note. Allergies Allergies Allergies Coded Allergies Type Severity Reaction Last Updated Verified ciprofloxacin Allergy Intermediate 02/25/17 Yes haloperidol Allergy Intermediate Anxiety 03/25/16 Yes prednisone Allergy Intermediate 02/25/17 Yes strawberry Allergy Intermediate Rash 03/25/16 Yes Physical Exam Physical Exam Constitutional: Well developed, well nourished, no acute distress, non-toxic appearance. [] HENT: Normocephalic, atraumatic, bilateral external ears normal, oropharynx moist, no oral exudates, nose normal. [] Eyes: PERRLA, EOMI, conjunctiva normal, no discharge. [] Neck: Normal range of motion, no tenderness, supple, no stridor. [] Cardiovascular:Heart rate regular rhythm, no murmur [] Lungs & Thorax: Bilateral breath sounds clear to auscultation [] Abdomen: Bowel sounds normal, soft, no tenderness, no masses, no pulsatile masses. [] Skin: Oral hands and feet with a dry scaling rash. The dorsal aspect and the anterior tibia of the right lower extremity have mild erythema and warmth, minimal swelling.. Bilateral calves are supple and nontender. Negative Homans sign. Neurovascular intact distal. Back: No tenderness, no CVA tenderness. [] Extremities: No tenderness, no cyanosis, no clubbing, ROM intact, no edema. [] Neurologic: Alert and oriented X 3, normal motor function, normal sensory function, no focal deficits noted. [] Psychologic: Affect normal, judgement normal, mood normal. [] Current Patient Data Vital Signs Vital Signs Date Time Temp Pulse Resp B/P (MAP) Pulse Ox O2 Delivery O2 Flow Rate FiO2 04/17/17 21:30 98.0 108 16 98 Room Air 98.0 EKG EKG [] Radiology/Procedures Radiology/Procedures [] Course & Med Decision Making Course & Med Decision Making Pertinent Labs and Imaging studies reviewed. (See chart for details) [] Dragon Disclaimer Dragon Disclaimer This electronic medical record was generated, in whole or in part, using a voice recognition dictation system. Departure Departure Impression: Primary Impression: Cellulitis Additional Impression: Dermatitis Disposition: HOME, SELF-CARE Condition: STABLE Referrals: ROMAN GIRON MD (PCP) Patient Instructions: Cellulitis, Hand Dermatitis Scripts Triamcinolone Acetonide (TRIAMCINOLONE ACETONIDE 0.5% CREAM) 15 Gm Cream..g. 1 ALAN TP BID, #30 GM Prov: BRENNEN CHRISTIANSON APRN 04/17/17 Cephalexin (KEFLEX) 500 Mg Capsule 1 CAP PO TID, #30 CAP Prov: BRENNEN CHRISTIANSON APRN 04/17/17 Problem Qualifiers Primary Impression: Cellulitis Site of cellulitis: extremity Site of cellulitis of extremity: lower extremity Laterality: right Qualified Codes: L03.115 - Cellulitis of right lower limb BRENNEN CHRISTIANSON APRN Apr 17, 2017 21:44
== END 2017-04-17 21:50 | disposition home or self-care (01) ==
LOC: ER 21:25
DX: L03.115 Cellulitis of right lower limb (principal); L30.9 Dermatitis, unspecified; F41.9 Anxiety disorder, unspecified; F32.9 Major depressive disorder, single episode, unspecified; M79.7 Fibromyalgia; G62.9 Polyneuropathy, unspecified; Z88.1 Allergy status to other antibiotic agents; Z88.8 Allergy status to other drugs, medicaments and biological substances; Z91.018 Allergy to other foods
CPT/HCPCS: 99283

== ENCOUNTER 2017-04-18 15:50 | Inpatient (IN) | payer OTHER, MEDICAID ==
[~2017-04-18] VITALS: Ht 160 cm; Wt 65.8 kg
[~2017-04-18 15:50] MED LIST changes: +CEPH-264 PO; +TRIA15CR TP
[2017-04-18] MEDS ORDERED: IV NORMAL SALINE 1000ML BAG 1,000 ML IV SCH (16:20)
[2017-04-18] MEDS ORDERED: DOXYCYCLINE HYCLATE 100 MG in IV DEXTROSE 5% 100 ML IV ONE (16:30)
--- NOTE | 2017-04-18 16:54 | PHYS DOC ---
Past Medical History Past Medical History: Anemia, Anxiety, Depression, Fibromyalgia, Other Additional Past Medical Histor: NEUROPATHY, VITAMIN DEFICIENCY, MALNUTRITION Past Surgical History: Gastric Bypass, Tubal ligation Alcohol Use: Occasionally Drug Use: None Adult General Chief Complaint Chief Complaint: LOWER EXTREMITY PAIN AND INFECTION HPI HPI Patient is a 47 year old female who presents to the ED being dropped off by her mother. Patient is complaining of both hands and both feet red, swollen, painful. She was seen here yesterday for the same and she was started on triamcinolone cream and by mouth Keflex. She has been using both but she states that her pain is worse, the swelling is worse, and her feet feel more hot to the touch. She is concerned that her symptoms are worsening. Patient denies fever or chills. She is not diabetic. She does have a history of neuropathy and fibromyalgia. Patient takes daily gabapentin 600 mg 3 times a day and hydrocodone 7.5 mg 3 times a day. The next dose of both is due at 7:[address] Giron Review of Systems Review of Systems Constitutional: Denies fever or chills [] HENT: Denies nasal congestion or sore throat [] Respiratory: Denies cough or shortness of breath [] Cardiovascular: Denies chest pain GI: Denies nausea or vomiting : Denies dysuria or hematuria [] Musculoskeletal: She has chronic pain but nothing acute Integument: As in history of present illness Neurologic: Denies headache, focal weakness or sensory changes [] Current Medications Current Medications Current Medications Medications (Trade) Dose Ordered Sig/Grecia Start Time Stop Time Status Last Admin Dose Admin Doxycycline Hyclate 100 mg/ Dextrose 100 ml @ 50 mls/hr 1X ONCE 04/18/17 16:30 04/18/17 18:29 UNV Sodium Chloride 1,000 ml @ 1,000 mls/hr Q1H 04/18/17 16:20 04/18/17 17:19 DC 04/18/17 16:41 1,000 MLS/HR Vancomycin HCl (Vanco Per Pharmacy) 1 each PRN DAILY PRN 04/18/17 17:00 04/18/17 19:00 1 EACH Vancomycin HCl 1.25 gm/Dextrose 250 ml @ 166.667 mls/hr 1X ONCE 04/18/17 17:15 04/18/17 17:15 DC Vancomycin HCl 1.25 gm/Sodium Chloride 250 ml @ 166.667 mls/hr 1X ONCE 04/18/17 17:15 04/18/17 18:44 DC 04/18/17 17:04 166.667 MLS/HR Allergies Allergies Allergies Coded Allergies Type Severity Reaction Last Updated Verified ciprofloxacin Allergy Intermediate 02/25/17 Yes haloperidol Allergy Intermediate Anxiety 03/25/16 Yes prednisone Allergy Intermediate 02/25/17 Yes strawberry Allergy Intermediate Rash 03/25/16 Yes Physical Exam Physical Exam Constitutional: Well developed, well nourished, no acute distress, non-toxic appearance. Heart rate 100. Alert, warm and dry. HENT: Normocephalic, atraumatic, bilateral external ears normal, nose normal. [ ] Eyes: conjunctiva normal, no discharge. [] Neck: Normal range of motion, no stridor. [] Cardiovascular:Heart rate regular rhythm, positive systolic murmur that the patient states is old Lungs & Thorax: Bilateral breath sounds clear to auscultation [] Abdomen: Bowel sounds normal, soft, no tenderness, no masses, no pulsatile masses. [] Skin: Warm, dry Extremities: Bilateral hands and bilateral feet have chronic-appearing rash that appears consistent with atopic dermatitis. There is redness, swelling, and warmth, especially of the left hand and both feet. Both feet are significantly swollen including the ankles. Both lower legs are warm and red, appears consistent with cellulitis. Nrologic: Alert and oriented X 3, normal motor function, no focal deficits noted. [] Current Patient Data Vital Signs Vital Signs Date Time Temp Pulse Resp B/P (MAP) Pulse Ox O2 Delivery O2 Flow Rate FiO2 04/18/17 17:42 86/50 (62) 04/18/17 16:15 98.0 99 18 99 Room Air 98.0 Lab Values Laboratory Tests Test 04/18/17 16:17 04/18/17 16:43 POC Urine HCG, Qualitative Hcg negative (Negative) White Blood Count 6.7 x10^3/uL (4.0-11.0) Red Blood Count 2.78 x10^6/uL (3.50-5.40) L Hemoglobin 8.8 g/dL (12.0-15.5) L Hematocrit 28.0 % (36.0-47.0) L Mean Corpuscular Volume 101 fL (79-100) H Mean Corpuscular Hemoglobin 32 pg (25-35) Mean Corpuscular Hemoglobin Concent 32 g/dL (31-37) Red Cell Distribution Width 17.1 % (11.5-14.5) H Platelet Count 199 x10^3/uL (140-400) Neutrophils (%) (Auto) 53 % (31-73) Lymphocytes (%) (Auto) 33 % (24-48) Monocytes (%) (Auto) 11 % (0-9) H Eosinophils (%) (Auto) 2 % (0-3) Basophils (%) (Auto) 1 % (0-3) Neutrophils # (Auto) 3.6 x10^3uL (1.8-7.7) Lymphocytes # (Auto) 2.2 x10^3/uL (1.0-4.8) Monocytes # (Auto) 0.7 x10^3/uL (0.0-1.1) Eosinophils # (Auto) 0.1 x10^3/uL (0.0-0.7) Basophils # (Auto) 0.1 x10^3/uL (0.0-0.2) Sodium Level 139 mmol/L (136-145) Potassium Level 4.2 mmol/L (3.5-5.1) Chloride Level 109 mmol/L (98-107) H Carbon Dioxide Level 22 mmol/L (21-32) Anion Gap 8 (6-14) Blood Urea Nitrogen 9 mg/dL (7-20) Creatinine 0.9 mg/dL (0.6-1.0) Estimated GFR (Cockcroft-Gault) 81.6 BUN/Creatinine Ratio 10 (6-20) Glucose Level 84 mg/dL (70-99) Lactic Acid Level 2.6 mmol/L (0.4-2.0) H Calcium Level 7.5 mg/dL (8.5-10.1) L Total Bilirubin 0.8 mg/dL (0.2-1.0) Aspartate Amino Transferase (AST) 28 U/L (15-37) Alanine Aminotransferase (ALT) 27 U/L (14-59) Alkaline Phosphatase 190 U/L (46-116) H Total Protein 5.0 g/dL (6.4-8.2) L Albumin 1.8 g/dL (3.4-5.0) L Albumin/Globulin Ratio 0.6 (1.0-1.7) L Laboratory Tests 04/18/17 16:43 Laboratory Tests 04/18/17 16:43 EKG EKG [] Radiology/Procedures Radiology/Procedures [] Course & Med Decision Making Course & Med Decision Making Pertinent Labs and Imaging studies reviewed. (See chart for details) 47-year-old female presents with redness, swelling, warmth, pain, of both hands and both feet. On exam, it appears that this started as atopic dermatitis and now has a secondary cellulitis. She was started yesterday on outpatient treatment including triamcinolone topically and Keflex by mouth. She states she is getting worse. This patient has failed outpatient treatment of cellulitis. I believe she will need to be admitted to the hospital for elevation of both feet as well as IV antibiotics. I discussed with the patient we will start with some blood work and anticipate admission, she is agreeable to this plan. I discussed the case with Dr. Daisy Candelaria, taking calls for Dr Giron. He will admit the patient. I wrote bridge orders. The patient was started on IV fluids and IV antibiotics in the ED. [] Dragon Disclaimer Dragon Disclaimer This electronic medical record was generated, in whole or in part, using a voice recognition dictation system. Departure Departure Impression: Primary Impression: Cellulitis of hand, left Additional Impressions: Cellulitis of hand, right Cellulitis of foot, left Cellulitis of foot, right Disposition: 09 ADMITTED INPATIENT Admitting Physician: Meir Giron Condition: STABLE Referrals: MEIR GIRON MD (PCP) Problem Qualifiers DESIREE SANTOS MD Apr 18, 2017 16:54
[2017-04-18 16:56] LABS: BASO # 0.1 x10^3/uL (0.0-0.2); BASO % 1 % (0-3); EOS % 2 % (0-3); HEMOGLOBIN 8.8 g/dL (12.0-15.5); LYMPH # 2.2 x10^3/uL (1.0-4.8); LYMPH % 33 % (24-48); MEAN CORPUSCULAR HEMOGLOBIN 32 pg (25-35); MEAN CORPUSCULAR HGB CONC 32 g/dL (31-37); MEAN CORPUSCULAR VOLUME 101 fL (79-100); MONO % 11 % (0-9); NEUT % 53 % (31-73); PLATELET COUNT 199 x10^3/uL (140-400); RED BLOOD COUNT 2.78 x10^6/uL (3.50-5.40); RED CELL DISTRIBUTION WIDTH 17.1 % (11.5-14.5); WHITE BLOOD COUNT 6.7 x10^3/uL (4.0-11.0)
[2017-04-18 17:07] LABS: CALCIUM 7.5 mg/dL (8.5-10.1); CREATININE 0.9 mg/dL (0.6-1.0); GFR 81.6; POTASSIUM 4.2 mmol/L (3.5-5.1)
[2017-04-18 17:13] LABS: ALBUMIN 1.8 g/dL (3.4-5.0); ALBUMIN/GLOBULIN RATIO 0.6 (1.0-1.7); TOTAL BILIRUBIN 0.8 mg/dL (0.2-1.0)
[2017-04-18] MEDS ORDERED: VANCOMYCIN 1.25 GM in IV NORMAL SALINE 250ML 250 ML IV ONE (17:15)
[2017-04-18] MEDS ORDERED: VANCOMYCIN 1.25 GM in IV DEXTROSE 5% 250 ML IV ONE (17:15)
[2017-04-18] MEDS ORDERED: VANCOMYCIN PER PHARMACY MC PRN (18:15)
[2017-04-18] MEDS ORDERED: HYDROcodone/APAP 7.5/325MG 1 TAB TABLET PO ONE (18:15)
[2017-04-18 19:00] VITALS: BP 79/50
[2017-04-18] MEDS: VANCOMYCIN PER PHARMACY MC PRN (19:00)
[2017-04-18] MEDS: IV NORMAL SALINE 1000ML BAG 1,000 ML IV SCH ×2 (19:55→23:16)
[2017-04-18] MEDS: ACETAMINOPHEN 325 MG TABLET. PO PRN (20:57)
[2017-04-18] MEDS ORDERED: HYDROcodone/APAP 7.5/325MG 1 TAB TABLET PO PRN (21:15)
[2017-04-18] MEDS ORDERED: LOPERAMIDE 2 MG CAPSULE PO PRN (21:15)
[2017-04-18] MEDS ORDERED: OXcarbazepine 300 MG TABLET PO SCH (21:30)
[2017-04-18 23:00] VITALS: BP 80/49
[2017-04-18] MEDS: PROCHLORPERAZINE 5 MG TABLET. PO SCH (23:16)
[2017-04-18] MEDS: GABAPENTIN 300 MG CAPSULE. PO PRN (23:16)
[2017-04-18] MEDS: MIRTAZAPINE 15 MG TABLET PO SCH (23:16)
[2017-04-18] MEDS: traZODone 100 MG TABLET. PO SCH (23:17)
[2017-04-18] MEDS: SERTRALINE 50 MG TABLET. PO SCH (23:17)
[2017-04-19 03:00] VITALS: BP 90/54
[2017-04-19 04:13] LABS: BASO % 1 % (0-3); EOS % 3 % (0-3); HEMATOCRIT 24.8 % (36.0-47.0); HEMOGLOBIN 7.9 g/dL (12.0-15.5); LYMPH # 1.9 x10^3/uL (1.0-4.8); LYMPH % 41 % (24-48); MEAN CORPUSCULAR HEMOGLOBIN 32 pg (25-35); MEAN CORPUSCULAR HGB CONC 32 g/dL (31-37); MEAN CORPUSCULAR VOLUME 101 fL (79-100); MONO % 12 % (0-9); NEUT % 44 % (31-73); PLATELET COUNT 128 x10^3/uL (140-400); RED BLOOD COUNT 2.46 x10^6/uL (3.50-5.40); WHITE BLOOD COUNT 4.5 x10^3/uL (4.0-11.0)
[2017-04-19 04:38] LABS: CREATININE 0.8 mg/dL (0.6-1.0); GFR 93.4; POTASSIUM 3.9 mmol/L (3.5-5.1)
[2017-04-19] MEDS: VANCOMYCIN 750 MG in IV DEXTROSE 5% 250 ML IV SCH ×2 (05:23→16:59)
[2017-04-19] MEDS: IV NORMAL SALINE 1000ML BAG 1,000 ML IV SCH ×2 (05:24→09:02)
[2017-04-19] MEDS: PROCHLORPERAZINE 5 MG TABLET. PO SCH ×3 (05:26→22:27)
[2017-04-19 07:05] LABS: BILIRUBIN,URINE NEGATIVE (NEG); GLUCOSE,URINE NEGATIVE (NEG); NITRITE,URINE NEGATIVE (NEG); PROTEIN,URINE NEGATIVE (NEG-TRACE)
[2017-04-19 07:27] LABS: BACTERIA,URINE FEW /HPF (0-FEW); RBC,URINE 0 /HPF (0-2); SQUAMOUS EPITHELIAL CELL,UR MOD /LPF
[2017-04-19 08:43] VITALS: BP 87/49
[2017-04-19] MEDS: FUROSEMIDE 20 MG TABLET PO SCH (08:47)
[2017-04-19] MEDS: ACETAMINOPHEN 325 MG TABLET. PO PRN ×3 (08:52→21:01)
[2017-04-19] MEDS: SERTRALINE 50 MG TABLET. PO SCH ×2 (08:53→21:00)
[2017-04-19] MEDS: PANTOPRAZOLE 40 MG TABLET.DR. PO SCH (08:53)
[2017-04-19] MEDS: GABAPENTIN 300 MG CAPSULE. PO PRN ×2 (08:53→13:59)
[2017-04-19] MEDS: LIPASE/PROTEAS/AMYLAS 10/34/55 CAPSULE.DR. PO SCH ×3 (08:56→16:58)
--- NOTE | 2017-04-19 09:15 | PDOC ---
Provider Note Provider Note Pt seen.H&P dictated. #[id number] ROMAN GIRON MD Apr 19, 2017 09:15
--- NOTE | 2017-04-19 09:54 | HP ---
ADMIT DATE: 04/18/2017 REASON FOR ADMISSION TO THE HOSPITAL: Swelling lower extremities, redness and rash. HISTORY OF PRESENT ILLNESS: The patient is a 47-year-old female, patient complains of swelling both feet; swelling, redness as well as left arm and she was seen in the Emergency Room 1 day prior to that, was given triamcinolone cream and Keflex and she said she has been getting worse and was brought in to the hospital and the patient was admitted to the hospital because of worsening swelling as well as rash in both lower extremities. PAST MEDICAL HISTORY: History of anemia, anxiety, depression, fibromyalgia, neuropathy, vitamin deficiency, malnutrition. PAST SURGICAL HISTORY: Gastric bypass surgery for weight loss, tubal ligation. PERSONAL HISTORY: Denies smoking; drinking in the past, but not recently. ALLERGIES: CIPRO, HALOPERIDOL, PREDNISONE, AND STRAWBERRIES. MEDICATIONS AT HOME: Lasix 20 mg daily, gabapentin 300 mg 3 times daily, hydrocodone p.r.n. for pain, Zenpep for pancreatitis, mirtazapine 15 mg daily, Protonix 40 mg daily, Zoloft 100 mg twice a day, tramadol 50 mg q.6 for pain, trazodone 100 mg at bedtime. FAMILY HISTORY: Positive for diabetes, hypertension, heart disease. REVIEW OF SYMPTOMS: Cardiac bright, no chest pain, has some swelling of lower extremities as well as upper extremity, left; and had some rash, some warm and redness in the feet. PHYSICAL EXAMINATION: GENERAL: The patient looks chronically sick. In fact, she was discharged from the hospital more than a month ago, went to her usp at [facility] and discharged from there 2 weeks ago. She looked pretty good in the office 1 week ago. VITAL SIGNS: Temperature 98, pulse 99, respirations 18, blood pressure 100/50, 99% on room air. HEENT: Head is atraumatic. Pupils equal. Oral cavity, few teeth absent in the front. NECK: Supple. Thyroid not enlarged. CHEST: Symmetrical. UPPER EXTREMITY: Left upper arm extremity swelling. CARDIOVASCULAR: S1, S2. LUNGS: Diminished breath sounds at the bases. ABDOMEN: Soft. Scar of gastric bypass surgery. EXTERNAL GENITALIA: No Barrios. RECTAL: Deferred. EXTREMITIES: The patient has swelling bilateral feet, all the way to the knee and some dry scaly skin as well as bluish pigmentation in the back of the legs, as well as in the left upper arm, swollen from the shoulder all the way down with dry scaly skin and some bluish discoloration of the back of the elbow. LABORATORY DATA: White count 6, hemoglobin 9, platelets 199. Electrolytes show sodium 139, potassium 4.2, chloride 109, bicarbonate 22, BUN 9, creatinine 0.9, glucose 84. Lactic acid 2.6. LFTs were normal. Albumin 1.8. Urine was negative. FINAL IMPRESSION: 1. Possible cellulitis of lower extremities, bilateral. 2. Edema of lower extremities. 3. Dermatitis. 4. Chronic protein-calorie malnutrition. 5. Left arm swelling. 6. History of gastric bypass surgery and late complication from that. 7. Anxiety, depression. PLAN: At this time, admit to hospital. Get a Doppler upper extremity, left as well as lower extremities; will have a Vascular consult, Dermatology consult; IV vancomycin for the time being and see how the patient's condition improves. She has anemia of chronic disease, had extensive workup in the past. ROMAN GIRON MD DR: EDITH/teto JOB#: [id number] / [id number]
[2017-04-19] MEDS: VANCOMYCIN PER PHARMACY MC PRN (11:12)
[2017-04-19 12:18] VITALS: BP 93/48
--- NOTE | 2017-04-19 13:55 | RAD ---
EXAM: CHEST 1 VIEW History: Shortness of breath, weakness, hypertension COMPARISON: 03/22/2017 TECHNIQUE: Single portable radiograph of the chest FINDINGS: The cardiac silhouette is unremarkable. The lungs are clear bilaterally. The costophrenic sulci are clear and well demarcated. Mild atelectasis or scarring along the right fissure. IMPRESSION: No radiographic evidence of an acute cardiopulmonary process.
[2017-04-19] MEDS ORDERED: IV NORMAL SALINE 1000ML BAG 1,000 ML IV SCH (14:30)
[2017-04-19 14:40] VITALS: BP 88/45
--- NOTE | 2017-04-19 15:50 | RAD ---
Bilateral lower extremity venous ultrasound, 04/19/2017: History: Bilateral leg swelling Duplex evaluation of the deep veins in the lower extremities was performed including grayscale, color-flow and spectral Doppler analysis. The femoral and popliteal veins demonstrate normal compressibility and normal responses to distal augmentation maneuvers. Color imaging of those vessels shows no evidence of intraluminal clot. The visualized deep veins in both calves are patent. IMPRESSION: There is no sonographic evidence of deep vein thrombosis in either lower extremity.
--- NOTE | 2017-04-19 16:00 | RAD ---
Left upper extremity deep venous ultrasound 04/19/2017 Indication: Left upper extremity edema. Comparison study: None Discussion: Ultrasound evaluation of the deep veins of left upper extremity was performed. Static images are submitted to PACS. Partially occlusive echogenic thrombus is seen within the left internal jugular vein, near the junction with the left subclavian vein. More superiorly in the left neck jugular vein is patent. Similarly partially occlusive echogenic clot is present within the left subclavian and axillary veins. Left brachial veins appear to be patent. The radial and ulnar veins are somewhat poorly visualized with some flow appears to be present. The left basilic vein appears to be thrombosed. Left cephalic vein is poorly visualized but appears to demonstrate partial proximal thrombosis. impression: 1. Partially occlusive deep venous thrombosis involving the left internal jugular vein, subclavian vein, axillary vein. 2. Superficial thrombosis involving the left basilic vein, and to lesser degree cephalic vein
[2017-04-19] MEDS: traMADol 50 MG TABLET PO PRN (17:05)
--- NOTE | 2017-04-19 17:09 | PDOC ---
SUBJECTIVE Subjective patient has multiple skin issues. Her newest is edema, pain and hyperpigmentation of dorsal feet ascending up leg. she notes having had this for 4 days. she is 12 years post bariatric surgery for weight loss. although it is known that she has malnutrition she does not tell me that she takes supplemental vitamins/minerals. OBJECTIVE Vital Signs Vital Signs Date Time Temp Pulse Resp B/P (MAP) Pulse Ox O2 Delivery O2 Flow Rate FiO2 04/19/17 14:40 100.4 92 19 88/45 (59) 96 Room Air 100.4 04/19/17 12:18 100.6 94 20 93/48 (63) 99 Room Air 100.6 04/19/17 10:11 Room Air 04/19/17 08:43 99.3 87 17 87/49 (62) 94 Room Air 99.3 04/19/17 07:25 Room Air 04/19/17 03:00 97.7 91 18 90/54 (66) 95 Room Air 97.7 04/18/17 23:00 98.0 91 18 80/49 (59) 98 Room Air 98.0 04/18/17 21:24 Room Air 04/18/17 20:00 Room Air 04/18/17 19:00 98.3 93 18 79/50 (60) 100 Room Air 98.3 04/18/17 17:42 86/50 (62) I & O Intake and Output 04/19/17 07:00 Intake Total 1900 ml Output Total 1000 ml Balance 900 ml Intake Oral 100 ml IV Total 1800 ml Output Urine Total 1000 ml PHYSICAL EXAM Physical Exam smooth tongue. angular cheilitis bilaterally, hyperpigmentation and flakiness of extensor forearms bilaterally,. Hyperpigmentation and scaliness and edema of dorsal hands bilaterally. hyperpigmentation and scaliness and edema of dorsal feet bilaterally ASSESSMENT/PLAN Assessment/Plan Some of her clinical findings may be associated with certain nutrient deficiencies. A smooth tongue may be seen in iron deficiency or niacin deficiency (pellagra) or Vit B12 deficiency (literature on chart) Thiamine deficiency may be associated with peripheral neuropathy. Zinc deficiency may be associated with necrolytic acral erythema. (literature on chart) I can come and do a skin biopsy of the leg. Testing zinc (and other nutrient levels) can be done (may need assistance of distribution field technician) Protein malnutrition can cause edema and skin changes. Add supplemental vitamins/minerals to her regimen. Problems: COMMENT Lab Laboratory Tests Test 04/19/17 03:55 04/19/17 05:35 White Blood Count 4.5 x10^3/uL (4.0-11.0) Red Blood Count 2.46 x10^6/uL (3.50-5.40) Hemoglobin 7.9 g/dL (12.0-15.5) Hematocrit 24.8 % (36.0-47.0) Mean Corpuscular Volume 101 fL (79-100) Mean Corpuscular Hemoglobin 32 pg (25-35) Mean Corpuscular Hemoglobin Concent 32 g/dL (31-37) Red Cell Distribution Width 17.0 % (11.5-14.5) Platelet Count 128 x10^3/uL (140-400) Neutrophils (%) (Auto) 44 % (31-73) Lymphocytes (%) (Auto) 41 % (24-48) Monocytes (%) (Auto) 12 % (0-9) Eosinophils (%) (Auto) 3 % (0-3) Basophils (%) (Auto) 1 % (0-3) Neutrophils # (Auto) 2.0 x10^3uL (1.8-7.7) Lymphocytes # (Auto) 1.9 x10^3/uL (1.0-4.8) Monocytes # (Auto) 0.5 x10^3/uL (0.0-1.1) Eosinophils # (Auto) 0.1 x10^3/uL (0.0-0.7) Basophils # (Auto) 0.0 x10^3/uL (0.0-0.2) Sodium Level 143 mmol/L (136-145) Potassium Level 3.9 mmol/L (3.5-5.1) Chloride Level 114 mmol/L (98-107) Carbon Dioxide Level 22 mmol/L (21-32) Anion Gap 7 (6-14) Blood Urea Nitrogen 9 mg/dL (7-20) Creatinine 0.8 mg/dL (0.6-1.0) Estimated GFR (Cockcroft-Gault) 93.4 Glucose Level 79 mg/dL (70-99) Lactic Acid Level 2.1 mmol/L (0.4-2.0) Calcium Level 7.0 mg/dL (8.5-10.1) Urine Collection Type Unknown Urine Color Marija Urine Clarity Clear Urine pH 6.0 Urine Specific [place] 1.020 Urine Protein Negative mg/dL (NEG-TRACE) Urine Glucose (UA) Negative mg/dL (NEG) Urine Ketones (Stick) Negative mg/dL (NEG) Urine Blood Negative (NEG) Urine Nitrite Negative (NEG) Urine Bilirubin Negative (NEG) Urine Urobilinogen Dipstick 1.0 mg/dL (0.2 mg/dL) Urine Leukocyte Esterase Small (NEG) Urine RBC 0 /HPF (0-2) Urine WBC 1-4 /HPF (0-4) Urine Squamous Epithelial Cells Mod /LPF Urine Bacteria Few /HPF (0-FEW) JUAN MANUEL ISAACS MD Apr 19, 2017 17:09
[2017-04-19] MEDS ORDERED: HEPARIN 25,000UTS/500ML PREMIX 500 ML IV PRN ×2 (17:45→18:00)
[2017-04-19] MEDS ORDERED: ANTI-COAG MONITOR BY PHARMACY. MC PRN (18:00)
[2017-04-19] MEDS ORDERED: HEPARIN for IV BOLUS 10,000 UNIT/10 ML VIAL. IV ONE (18:00)
[2017-04-19] MEDS ORDERED: HEPARIN for IV BOLUS 10,000 UNIT/10 ML VIAL. IV PRN ×2 (18:00)
[2017-04-19 19:00] VITALS: BP 87/42
[2017-04-19] MEDS: MIRTAZAPINE 15 MG TABLET PO SCH (21:00)
[2017-04-19] MEDS: traZODone 100 MG TABLET. PO SCH (21:00)
--- NOTE | 2017-04-19 21:55 | PDOC ---
Provider Note Provider Note Vascular Consult dictated Imp: Lt arm swelling due to partially occlusive clot in lt jugular, lt. subclavian , and ltaxillary veins Uriel leg swelling ? due to inactivity/dependency Plan: medium stength tubigips and elevation to lt arm and legs ROSANNA PURCELL MD Apr 19, 2017 21:55
[2017-04-19 23:21] VITALS: BP 85/40
--- NOTE | 2017-04-20 00:56 | CONS ---
DATE OF CONSULTATION: 04/19/2017 REQUESTING PHYSICIAN: Dr. Armenta. HISTORY OF PRESENT ILLNESS: This is a 47-year-old female who was discharged from a [facility]dc facility several weeks ago in a fairly good condition, but then deteriorated in the last few days and has developed recurrent swelling in her legs and left arm. An ultrasound was done that shows nonocclusive clot in the left jugular, left subclavian and left axillary veins. No evidence of clot in her legs. She does not give a prior history of DVT in her legs. She is a known smoker. She does not have diabetes. She did have some gastric bypass surgery for weight loss remotely and has had some complications from that. Multiple allergies. No history of any vascular or arterial interventions. PHYSICAL EXAMINATION: GENERAL: Pleasant female, in no severe distress. EXTREMITIES: She has got some discoloration of both arms and dry, scaly skin; 2+ edema on the left arm and 1+ on the right. Palpable radial pulses bilaterally. She has got a little bit of swelling in both lower extremities. I think this is probably less than when she was admitted. She has got palpable popliteal and dorsalis pedis pulses. No open wounds on her legs or her arm, but a little bit of swelling and skin discoloration and dry, scaly skin. CARDIAC: Regular heart rate, nonlabored respirations. IMPRESSION: 1. Left arm edema due to nonocclusive clot in the left subclavian and axillary veins. 2. Swelling in her lower extremities, most likely due to inactivity and dependency, with no evidence of clot on an ultrasound. PLAN: Recommend knee-high Tubigrips on her legs and a Tubigrip from the hand up to the shoulder on the left arm, elevation of the left arm and both legs, keep her heels off the bed at all times and recommend that she get up and ambulate as able and when not ambulating, she should not be sitting with her legs dependent, only if she has the Tubigrips on. Thanks for allowing us to see her. ROSANNA PURCELL MD DR: BLANK/teto JOB#: [id number] / [id number]
[2017-04-20 02:56] VITALS: BP 80/39
[2017-04-20] MEDS: PROCHLORPERAZINE 5 MG TABLET. PO SCH ×3 (05:38→21:58)
[2017-04-20] MEDS: traMADol 50 MG TABLET PO PRN (05:38)
[2017-04-20] MEDS: VANCOMYCIN 750 MG in IV DEXTROSE 5% 250 ML IV SCH (06:04)
[2017-04-20] MEDS: VANCOMYCIN PER PHARMACY MC PRN (06:07)
[2017-04-20 06:31] LABS: MAGNESIUM 1.6 mg/dL (1.8-2.4); PHOSPHORUS 3.3 mg/dL (2.6-4.7)
[2017-04-20] MEDS: PANTOPRAZOLE 40 MG TABLET.DR. PO SCH (06:45)
[2017-04-20 07:00] VITALS: BP 90/51
[2017-04-20 08:53] LABS: IRON,SERUM 41 ug/dL (50-170)
[2017-04-20 08:57] LABS: % SAT IRON 100 % (15-34)
[2017-04-20] MEDS: FUROSEMIDE 20 MG TABLET PO SCH (09:27)
[2017-04-20] MEDS: LIPASE/PROTEAS/AMYLAS 10/34/55 CAPSULE.DR. PO SCH ×3 (09:27→17:09)
[2017-04-20] MEDS: SERTRALINE 50 MG TABLET. PO SCH ×2 (09:27→21:28)
--- NOTE | 2017-04-20 09:33 | PDOC ---
PROGRESS NOTES Subjective Subjective rash on arms Objective Objective Vital Signs Date Time Temp Pulse Resp B/P (MAP) Pulse Ox O2 Delivery O2 Flow Rate FiO2 04/20/17 07:00 98.8 96 18 90/51 (64) 96 Room Air 98.8 Intake and Output 04/20/17 07:00 Intake Total 1863.46 ml Output Total 300 ml Balance 1563.46 ml Intake Oral 530 ml IV Total 1333.46 ml Output Urine Total 300 ml # Voids 1 # Bowel Movements 2 Physical Exam Abdomen: Normal bowel sounds, Soft Heart: Regular rate, Normal S1 Extremities: No clubbing General: Alert HEENT: Atraumatic Lungs: Clear to auscultation MUSCULOSKELETAL: Other Neck: Supple Neuro: Normal speech Psych/Mental Status: Mood NL Skin: Other (rash and pimentation arms and feet) Diagnosis Problem List Problems Medical Problems: (1) Cellulitis of foot, left Status: Acute (2) Cellulitis of foot, right Status: Acute (3) Cellulitis of hand, left Status: Acute (4) Cellulitis of hand, right Status: Acute Assessment Assessment Problems Medical Problems: (1) Cellulitis of foot, left Status: Acute (2) Cellulitis of foot, right Status: Acute (3) Cellulitis of hand, left Status: Acute (4) Cellulitis of hand, right Status: Acute FINAL IMPRESSION: 1. Possible cellulitis of lower extremities, bilateral. 2. Edema of lower extremities. 3. Dermatitis. 4. Chronic protein-calorie malnutrition. 5. Left arm swelling.DVT left arm 6. History of gastric bypass surgery and late complication from that. 7. Anxiety, depression. PLAN: sono legs neg for dvt left arm +ve for DVT. pt had picc line left arm last admission 1 month ago, precipitating start on elliqis for dvt ,spoke with hematology. po keflex for leg cellulitis. derm and vas consult appreciated . At this time, admit to hospital. Get a Doppler upper extremity, left as well as lower extremities; will have a Vascular consult, Dermatology consult; IV vancomycin for the time being and see how the patient's condition improves. She has anemia of chronic disease, had extensive workup in the past. Problems: Plan Plan of Care Problems Medical Problems: (1) Cellulitis of foot, left Status: Acute (2) Cellulitis of foot, right Status: Acute (3) Cellulitis of hand, left Status: Acute (4) Cellulitis of hand, right Status: Acute Comment Review of Relevant I have reviewed the following items anais (where applicable) has been applied. Labs Laboratory Tests Test 04/20/17 00:34 04/20/17 05:00 04/20/17 07:20 Heparin Anti-Xa Act, Unfractionated 0.47 IU/mL (0.30-0.70) 0.20 IU/mL (0.30-0.70) Reticulocyte Count (auto) 0.9 % (0.5-2.5) Phosphorus Level 3.3 mg/dL (2.6-4.7) Magnesium Level 1.6 mg/dL (1.8-2.4) Iron Level 41 ug/dL (50-170) Total Iron Binding Capacity < 36 ug/dL (250-450) Iron Saturation 100 % (15-34) Ferritin 229 ng/mL (8-252) Vancomycin Level Trough 15.4 mcg/mL (10.0-20.0) Vancomycin Last Dose Date 04/19/17 Vancomycin Last Dose Time 1700 Microbiology 04/18/17 Blood Culture - Preliminary, Resulted NO GROWTH AFTER 1 DAY Medications Current Medications Heparin Sodium (Porcine) (Heparin Sodium) 1,000 unit PRN Q6HRS PRN IV FOR UFH LEVEL 0.2 - 0.29; Start 04/19/17 at 18:00 Heparin Sodium (Porcine) (Heparin Sodium) 2,000 unit PRN Q6HRS PRN IV FOR UFH LEVEL LESS THAN 0.2; Start 04/19/17 at 18:00 Heparin Sodium (Porcine) (Heparin Sodium) 5,200 unit 1X ONCE IV Last administered on 04/19/17 18:12; Start 04/19/17 at 18:00; Stop 04/19/17 at 18:01 ; Status DC Heparin Sodium/ Dextrose 500 ml @ 0 mls/hr CONT PRN IV SEE I/O RECORD; Start 04/19/17 at 17:45; Status UNV Heparin Sodium/ Dextrose 500 ml @ 0 mls/hr CONT PRN IV SEE I/O RECORD Last administered on 04/19/17 18:16; Start 04/19/17 at 18:00 Info (Anti-Coagulation Monitoring By Pharmacy) 1 each PRN DAILY PRN MC SEE COMMENTS; Start 04/19/17 at 18:00 Sodium Chloride 1,000 ml @ 40 mls/hr Q24H IV Last administered on 04/19/17 14 :06; Start 04/19/17 at 14:30 Vancomycin HCl 1 each 1X ONCE MC Last administered on 04/20/17 04:30; Start 04/20/17 at 04:30; Stop 04/20/17 at 04:31; Status DC Vitals/I & O Vital Sign - Last 24 Hours 04/19/17 04/19/17 04/19/17 04/19/17 10:11 12:18 14:40 17:05 Temp 100.6 100.4 100.6 100.4 Pulse 94 92 Resp 20 19 B/P (MAP) 93/48 (63) 88/45 (59) Pulse Ox 99 96 O2 Delivery Room Air Room Air Room Air Room Air 04/19/17 04/19/17 04/19/17 04/20/17 19:00 19:40 23:21 02:56 Temp 100.0 99.9 99.1 100.0 99.9 99.1 Pulse 93 92 90 Resp 16 18 16 B/P (MAP) 87/42 (57) 85/40 (55) 80/39 (53) Pulse Ox 96 96 95 O2 Delivery Room Air Room Air Room Air Room Air 04/20/17 04/20/17 04/20/17 05:38 06:40 07:00 Temp 98.8 98.8 Pulse 96 Resp 18 18 18 B/P (MAP) 90/51 (64) Pulse Ox 96 O2 Delivery Room Air Room Air Room Air Intake and Output 04/19/17 04/19/17 04/20/17 15:00 23:00 07:00 Intake Total 240 ml 815 ml 808.46 ml Output Total 200 ml 0 ml 100 ml Balance 40 ml 815 ml 708.46 ml ROMAN GIRON MD Apr 20, 2017 09:33
[2017-04-20 10:04] LABS: FOLATE 4.77 ng/ml (3.2-20.0)
[2017-04-20] MEDS: HYDROcodone/APAP 7.5/325MG 1 TAB TABLET PO PRN ×3 (10:39→21:59)
[2017-04-20] MEDS: TRIAMCINOLONE ACETONIDE 0.1% TOPICAL CREAM 15GM TUBE. TP SCH ×2 (10:40→21:33)
[2017-04-20] MEDS: APIXABAN 5 MG TABLET. PO SCH ×2 (10:40→21:28)
[2017-04-20] MEDS: CEPHALEXIN 250 MG CAPSULE. PO SCH ×3 (10:40→21:27)
[2017-04-20 11:00] VITALS: BP 129/51
[2017-04-20] MEDS: GABAPENTIN 300 MG CAPSULE. PO PRN (12:02)
[2017-04-20 15:00] VITALS: BP 93/54
--- NOTE | 2017-04-20 16:33 | PDOC ---
OBJECTIVE Vital Signs Vital Signs Date Time Temp Pulse Resp B/P (MAP) Pulse Ox O2 Delivery O2 Flow Rate FiO2 04/20/17 15:00 98.4 90 18 93/54 (67) 96 Room Air 98.4 04/20/17 11:39 12 93 Room Air 04/20/17 11:00 97.9 94 18 129/51 (77) 96 Room Air 97.9 04/20/17 10:39 12 93 Room Air 04/20/17 08:15 Room Air 04/20/17 07:00 98.8 96 18 90/51 (64) 96 Room Air 98.8 04/20/17 06:40 18 Room Air 04/20/17 05:38 18 Room Air 04/20/17 02:56 99.1 90 16 80/39 (53) 95 Room Air 99.1 04/19/17 23:21 99.9 92 18 85/40 (55) 96 Room Air 99.9 04/19/17 19:40 Room Air 04/19/17 19:00 100.0 93 16 87/42 (57) 96 Room Air 100.0 04/19/17 17:05 Room Air I & O Intake and Output 04/20/17 07:00 Intake Total 1863.46 ml Output Total 300 ml Balance 1563.46 ml Intake Oral 530 ml IV Total 1333.46 ml Output Urine Total 300 ml # Voids 1 # Bowel Movements 2 ASSESSMENT/PLAN Assessment/Plan skin biopsy left lower leg done post consent. orders written. will keep you posted Problems: COMMENT Lab Laboratory Tests Test 04/20/17 00:34 04/20/17 05:00 04/20/17 07:20 Heparin Anti-Xa Act, Unfractionated 0.47 IU/mL (0.30-0.70) 0.20 IU/mL (0.30-0.70) Reticulocyte Count (auto) 0.9 % (0.5-2.5) Phosphorus Level 3.3 mg/dL (2.6-4.7) Magnesium Level 1.6 mg/dL (1.8-2.4) Iron Level 41 ug/dL (50-170) Total Iron Binding Capacity < 36 ug/dL (250-450) Iron Saturation 100 % (15-34) Ferritin 229 ng/mL (8-252) Vitamin B12 Level 1077 pg/mL (247-911) Serum Folate 4.77 ng/ml (3.2-20.0) Vancomycin Level Trough 15.4 mcg/mL (10.0-20.0) Vancomycin Last Dose Date 04/19/17 Vancomycin Last Dose Time 1700 JUAN MANUEL ISAACS MD Apr 20, 2017 16:33
--- NOTE | 2017-04-20 17:36 | OP ---
DATE OF SURGERY: DESCRIPTION OF PROCEDURE: After informed signed consent, prepped with Betadine, alcohol, local 1% lidocaine with epinephrine. Shave biopsy, left lower leg, sent to pathology. Drysol hemostasis. Antibiotic ointment, Band-Aid. Orders written. JUAN MANUEL ISAACS MD DR: SOCRATES/teto JOB#: [id number] / [id number]
[2017-04-20 19:30] VITALS: BP 96/58
[2017-04-20] MEDS: MIRTAZAPINE 15 MG TABLET PO SCH (21:27)
[2017-04-20] MEDS: traZODone 100 MG TABLET. PO SCH (21:27)
--- NOTE | 2017-04-20 21:35 | CONS ---
DATE OF CONSULTATION: 04/20/2017 REQUESTING PHYSICIAN: Meir Armenta M.D. REASON FOR CONSULTATION: DVT of the left upper extremity. HISTORY OF PRESENT ILLNESS: The patient is a 47-year-old -[place] female who presented to the Emergency Room on 04/18/2017 with complaints of swelling in the left upper extremity of 1 day duration. She was seen in the Emergency Room and given Keflex and discharged. However, she had persistent symptoms and hence she was admitted to [facility] on 04/18/2017. She underwent venous Doppler of the upper extremity on 04/19/2017 which revealed partially occlusive deep vein thrombosis involving the left internal jugular vein, subclavian vein and axillary veins. Superficial thrombosis involving the left basilic vein and to a lesser degree cephalic vein was also noted. Venous Doppler of the lower extremities on 04/19/2017 was negative for DVT. I was asked to see the patient regarding recommendations for anticoagulation. The patient has had a recent prolonged hospital stay in 02/2017. She has history of gastric bypass surgery in 2004 and she has had significant hypoalbuminemia and poor nutrition. PAST MEDICAL HISTORY: Gastric bypass surgery around 2004, mitral regurgitation, neuropathy, depression, hypothyroidism and malnutrition. FAMILY HISTORY: Positive for hypertension, arthritis and kidney disease and liver disease. SOCIAL HISTORY: No alcohol abuse or drug abuse. She has history of cigarette smoking. REVIEW OF SYSTEMS: A 14-point review of system was performed. Pertinent positives are mentioned in the history of present illness. Rest of the system review is negative. PHYSICAL EXAMINATION: GENERAL APPEARANCE: The patient is a 47-year-old -[place] female who is in no acute cardiorespiratory distress. VITAL SIGNS: Blood pressure 129/51, temperature 97.9. HEENT: Head is atraumatic, normocephalic. Eyes: No icterus. NECK: Supple. CHEST: Bilaterally symmetrical. HEART: S1, S2 normal. ABDOMEN: Soft. She has a scar from gastric bypass surgery. CENTRAL NERVOUS SYSTEM: No focal deficits. LYMPHATICS: No lymphadenopathy. SKIN: No rashes. PSYCHOLOGIC: She has a flat affect. MUSCULOSKELETAL: She has edema in the left upper extremity and bilateral lower extremity. LABORATORY DATA: WBC 4.5, hemoglobin 7.9, platelet count 128, platelets were normal at 199 on 04/18/2017. Iron is 41, TIBC less than 36, iron saturation 100, ferritin 229, B12 1077, folic acid 4.77. IMPRESSION AND PLAN: 1. Deep venous thrombosis of the left upper extremity. She has had a prolonged hospitalization in February 2017 with needing multiple IV line placement. She has evidence of both superficial and deep vein thrombosis on the left upper extremity noted 04/19/2017 which I suspect is due to IV needle sticks and poor functional status. She is being treated with heparin. I would recommend transitioning to oral anticoagulation with Eliquis for about 3 months. I discussed with Dr. Armenat. 2. Anemia. She has received iron infusions in 02/2017. Follow up iron studies on 04/20/2017 does not reveal any evidence of deficiency. Continue to monitor B12 and folic acid is also normal. 3. Thrombocytopenia, mild, monitor. This is a reactive process. 4. History of gastric bypass surgery and malnutrition. I discussed with Dr. Armenta. RENZO GALVAN MD DR: EDINSON/nts JOB#: [id number] / [id number] Meir Vaca MD [facility]
[2017-04-20 23:19] VITALS: BP 99/60
[2017-04-21 03:07] VITALS: BP 99/62
[2017-04-21] MEDS: PROCHLORPERAZINE 5 MG TABLET. PO SCH ×2 (06:13→14:23)
[2017-04-21] MEDS: HYDROcodone/APAP 7.5/325MG 1 TAB TABLET PO PRN ×2 (06:15→14:23)
[2017-04-21 07:00] VITALS: BP 104/67
[2017-04-21] MEDS: PANTOPRAZOLE 40 MG TABLET.DR. PO SCH (08:22)
[2017-04-21] MEDS: LIPASE/PROTEAS/AMYLAS 10/34/55 CAPSULE.DR. PO SCH ×2 (08:22→12:43)
[2017-04-21] MEDS: FUROSEMIDE 20 MG TABLET PO SCH (08:23)
[2017-04-21] MEDS: SERTRALINE 50 MG TABLET. PO SCH (08:23)
[2017-04-21] MEDS: CEPHALEXIN 250 MG CAPSULE. PO SCH ×2 (08:23→14:23)
[2017-04-21] MEDS: APIXABAN 5 MG TABLET. PO SCH (08:24)
--- NOTE | 2017-04-21 08:39 | PDOC ---
PROGRESS NOTES Subjective Subjective HPI - f/u of DVT ROS - LUE swelling better Objective Objective Vital Signs Date Time Temp Pulse Resp B/P (MAP) Pulse Ox O2 Delivery O2 Flow Rate FiO2 04/21/17 07:30 94 Room Air 04/21/17 06:15 16 04/21/17 03:07 98.4 82 99/62 (74) 98.4 Intake and Output 04/21/17 07:00 Intake Total 680 ml Balance 680 ml Intake Oral 680 ml # Voids 3 Physical Exam Heart: Normal S1, Normal S2 General: Alert, Oriented X3, No acute distress Lungs: Clear to auscultation Neuro: Normal speech Psych/Mental Status: Mental status NL Assessment Assessment Problems Medical Problems: (1) Cellulitis of foot, left Status: Acute (2) Cellulitis of foot, right Status: Acute (3) Cellulitis of hand, left Status: Acute (4) Cellulitis of hand, right Status: Acute IMPRESSION AND PLAN: 1. Deep venous thrombosis of the left upper extremity. She has had a prolonged hospitalization in February 2017 with needing multiple IV line placement. She has evidence of both superficial and deep vein thrombosis on the left upper extremity noted 04/19/2017 which I suspect is due to IV needle sticks and poor functional status. She is being treated with heparin. I would recommend transitioning to oral anticoagulation with Eliquis for about 3 months. I discussed with Dr. Armenta. Swelling improving. I d/w RN 2. Anemia. She has received iron infusions in 02/2017. Follow up iron studies on 04/20/2017 does not reveal any evidence of deficiency. Continue to monitor B12 and folic acid is also normal. 3. Thrombocytopenia, mild, monitor. This is a reactive process. 4. History of gastric bypass surgery and malnutrition. Comment Review of Relevant I have reviewed the following items anais (where applicable) has been applied. Labs Laboratory Tests Test 04/20/17 00:34 04/20/17 05:00 04/20/17 07:20 Heparin Anti-Xa Act, Unfractionated 0.47 IU/mL (0.30-0.70) 0.20 IU/mL (0.30-0.70) Reticulocyte Count (auto) 0.9 % (0.5-2.5) Phosphorus Level 3.3 mg/dL (2.6-4.7) Magnesium Level 1.6 mg/dL (1.8-2.4) Iron Level 41 ug/dL (50-170) Total Iron Binding Capacity < 36 ug/dL (250-450) Iron Saturation 100 % (15-34) Ferritin 229 ng/mL (8-252) Vitamin B12 Level 1077 pg/mL (247-911) Serum Folate 4.77 ng/ml (3.2-20.0) Vancomycin Level Trough 15.4 mcg/mL (10.0-20.0) Vancomycin Last Dose Date 04/19/17 Vancomycin Last Dose Time 1700 Microbiology 04/18/17 Blood Culture - Preliminary, Resulted NO GROWTH AFTER 2 DAYS 04/19/17 Urine Culture - Preliminary, Resulted 04/19/17 Urine Culture Result 1 (JESUSITA) - Preliminary, Resulted Medications Current Medications Sodium Chloride 1,000 ml @ 1,000 mls/hr Q1H IV Last administered on 04/18/17 16:41; Start 04/18/17 at 16:20; Stop 04/18/17 at 17:19; Status DC Doxycycline Hyclate 100 mg/ Dextrose 100 ml @ 50 mls/hr 1X ONCE IV ; Start at 16:30; Stop 04/18/17 at 18:29; Status UNV Vancomycin HCl (Vanco Per Pharmacy) 1 each PRN DAILY PRN MC SEE COMMENTS Last administered on 04/20/17 06:07; Start 04/18/17 at 17:00; Stop 04/20/17 at 09:29 ; Status DC Vancomycin HCl 1.25 gm/Dextrose 250 ml @ 166.667 mls/hr 1X ONCE IV ; Start at 17:15; Stop 04/18/17 at 17:15; Status DC Vancomycin HCl 1.25 gm/Sodium Chloride 250 ml @ 166.667 mls/hr 1X ONCE IV Last administered on 04/18/17 17:04; Start 04/18/17 at 17:15; Stop 04/18/17 at 18:44; Status DC Acetaminophen/ Hydrocodone Bitart (Lortab 7.5/325) 1 tab 1X ONCE PO Last administered on 04/18/17 17:55; Start 04/18/17 at 18:15; Stop 04/18/17 at 18:16 ; Status DC Sodium Chloride 1,000 ml @ 75 mls/hr [id number] IV Last administered on 05:24; Start 04/18/17 at 18:02; Stop 04/19/17 at 14:04; Status DC Vancomycin HCl (Vanco Per Pharmacy) 1 each PRN DAILY PRN MC SEE COMMENTS; Start 04/18/17 at 18:15; Stop 04/18/17 at 18:15; Status DC Vancomycin HCl 1 each 1X ONCE MC Last administered on 04/20/17 04:30; Start 04/20/17 at 04:30; Stop 04/20/17 at 04:31; Status DC Vancomycin HCl 750 mg/Dextrose 250 ml @ 250 mls/hr Q12H IV Last administered on 04/20/17 06:04; Start 04/19/17 at 05:00; Stop 04/20/17 at 09:29; Status DC Acetaminophen (Tylenol) 650 mg PRN Q6HRS PRN PO MILD PAIN / TEMP Last administered on 04/19/17 08:52; Start 04/18/17 at 20:30; Stop 04/19/17 at 11:06 ; Status DC Acetaminophen (Tylenol) 650 mg PRN Q6HRS PRN PO MILD PAIN / TEMP Last administered on 04/19/17 21:01; Start 04/18/17 at 21:15 Furosemide (Lasix) 20 mg DAILY PO Last administered on 04/21/17 08:23; Start 04/19/17 at 09:00 Acetaminophen/ Hydrocodone Bitart (Lortab 7.5/325) 1 tab PRN Q4HRS PRN PO MODERATE PAIN Last administered on 04/21/17 06:15; Start 04/18/17 at 21:15 Acetaminophen/ Hydrocodone Bitart (Lortab 7.5/325) 1 tab PRN Q6HRS PRN PO PAIN ; Start 04/18/17 at 21:15; Stop 04/19/17 at 11:06; Status DC Amylase/Lipase/ Protease (Zenpep 10,000) 2 cap TIDWMEALS PO Last administered on 04/21/17 08:22; Start 04/19/17 at 08:00 Loperamide HCl (Imodium) 2 mg PRN Q15MIN PRN PO DIARRHEA, ; Start 04/18/17 at 21:15 Mirtazapine (Remeron) 15 mg QHS PO Last administered on 04/20/17 21:27; Start 04/18/17 at 21:30 Oxcarbazepine (Trileptal) 1,200 mg HS PO Last administered on 04/18/17 23:17; Start 04/18/17 at 21:30; Stop 04/19/17 at 09:09; Status DC Pantoprazole Sodium (Protonix) 40 mg DAILYAC PO Last administered on 04/21/17 08:22; Start 04/19/17 at 07:30 Prochlorperazine Maleate (Compazine) 5 mg Q8HRS PO Last administered on 06:13; Start 04/18/17 at 22:00 Tramadol HCl (Ultram) 50 mg PRN Q6HRS PRN PO MILD PAIN Last administered on 05:38; Start 04/18/17 at 21:15 Trazodone HCl (Desyrel) 100 mg HS PO Last administered on 04/20/17 21:27; Start 04/18/17 at 21:30 Gabapentin (Neurontin) 300 mg PRN TID PRN PO PAIN Last administered on 12:02; Start 04/18/17 at 21:15 Sertraline HCl (Zoloft) 100 mg BID PO Last administered on 04/21/17 08:23; Start 04/18/17 at 21:30 Sodium Chloride 1,000 ml @ 40 mls/hr Q24H IV Last administered on 04/19/17 14 :06; Start 04/19/17 at 14:30; Stop 04/20/17 at 09:29; Status DC Heparin Sodium/ Dextrose 500 ml @ 0 mls/hr CONT PRN IV SEE I/O RECORD; Start 04/19/17 at 17:45; Status UNV Heparin Sodium (Porcine) (Heparin Sodium) 5,200 unit 1X ONCE IV Last administered on 04/19/17 18:12; Start 04/19/17 at 18:00; Stop 04/19/17 at 18:01 ; Status DC Heparin Sodium/ Dextrose 500 ml @ 0 mls/hr CONT PRN IV SEE I/O RECORD Last administered on 04/19/17 18:16; Start 04/19/17 at 18:00; Stop 04/20/17 at 09:29 ; Status DC Heparin Sodium (Porcine) (Heparin Sodium) 2,000 unit PRN Q6HRS PRN IV FOR UFH LEVEL LESS THAN 0.2; Start 04/19/17 at 18:00; Stop 04/20/17 at 09:29; Status DC Heparin Sodium (Porcine) (Heparin Sodium) 1,000 unit PRN Q6HRS PRN IV FOR UFH LEVEL 0.2 - 0.29; Start 04/19/17 at 18:00; Stop 04/20/17 at 10:16; Status DC Info (Anti-Coagulation Monitoring By Pharmacy) 1 each PRN DAILY PRN MC SEE COMMENTS Last administered on 04/20/17 13:55; Start 04/19/17 at 18:00 Apixaban (Eliquis) 10 mg BID PO Last administered on 04/21/17 08:24; Start at 09:30; Stop 04/26/17 at 21:01 Cephalexin HCl (Keflex) 500 mg TID PO Last administered on 04/21/17 08:23; Start 04/20/17 at 09:30 Apixaban (Eliquis) 5 mg BID PO ; Start 04/27/17 at 09:00 Triamcinolone Acetonide (Kenalog) 1 matias BID TP Last administered on 04/20/17 21:33; Start 04/20/17 at 10:15 Active Scripts Active Triamcinolone Acetonide 0.5% Cream (Triamcinolone Acetonide) 15 Gm Cream..g. 1 Matias TP BID Keflex (Cephalexin) 500 Mg Capsule 1 Cap PO TID Xanax (Alprazolam) 0.5 Mg Tablet 1 Tab PO BID PRN Loperamide (Loperamide Hcl) 2 Mg Capsule 2 Mg PO PRN Q15MIN PRN Hydrocodone-Apap 7.5-325 (Hydrocodone Bit/Acetaminophen) 1 Each Tablet 1 Tab PO PRN Q4HRS PRN Zenpep Dr 10,000 Units Capsule (Lipase/Protease/Amylase) 1 Each Capsule.dr 2 Cap PO TIDWMEALS Furosemide 20 Mg Tablet 20 Mg PO DAILY Benadryl (Diphenhydramine Hcl) 25 Mg Capsule 25 Mg PO PRN Q6HRS PRN Mapap (Acetaminophen) 325 Mg Tablet 650 Mg PO PRN Q6HRS PRN Oxcarbazepine 300 Mg Tablet 1,200 Mg PO HS Pantoprazole Sodium 40 Mg Tablet.dr 40 Mg PO DAILYAC Reported Mirtazapine 15 Mg Tablet 1 Tab PO QHS Prochlorperazine Maleate 10 Mg Tablet 5 Mg PO Q8HRS Tramadol Hcl 50 Mg Tablet 1 Tab PO PRN Q6HRS PRN Gabapentin 300 Mg Capsule 300 Mg PO TID PRN Sertraline Hcl 100 Mg Tablet 100 Mg PO BID Hydrocodone-Apap 7.5-325 (Hydrocodone Bit/Acetaminophen) 1 Each Tablet Unknown Dose PO PRN Q6HRS PRN [Creon Lipase Tid] Vitals/I & O Vital Sign - Last 24 Hours 04/20/17 04/20/17 04/20/17 04/20/17 10:39 11:00 15:00 17:09 Temp 97.9 98.4 97.9 98.4 Pulse 94 90 Resp 05 03 18 12 B/P (MAP) 129/51 (77) 93/54 (67) Pulse Ox 93 96 96 94 O2 Delivery Room Air Room Air Room Air Room Air 04/20/17 04/20/17 04/20/17 04/20/17 19:30 19:40 21:59 22:59 Temp 98.5 98.5 Pulse 84 Resp 18 18 B/P (MAP) 96/58 (71) Pulse Ox 95 O2 Delivery Room Air Room Air Room Air 04/20/17 04/21/17 04/21/17 04/21/17 23:19 03:07 06:15 07:30 Temp 98.3 98.4 98.3 98.4 Pulse 80 82 Resp 18 16 B/P (MAP) 99/60 (73) 99/62 (74) Pulse Ox 95 94 94 O2 Delivery Room Air Room Air Room Air Room Air Intake and Output 04/20/17 04/20/17 04/21/17 15:00 23:00 07:00 Intake Total 60 ml 620 ml Balance 60 ml 620 ml RENZO GALVAN MD Apr 21, 2017 08:39
[2017-04-21] MEDS: TRIAMCINOLONE ACETONIDE 0.1% TOPICAL CREAM 15GM TUBE. TP SCH (08:46)
--- NOTE | 2017-04-21 10:04 | PDOC ---
PROGRESS NOTES Subjective Subjective swelling down left arm Objective Objective Vital Signs Date Time Temp Pulse Resp B/P (MAP) Pulse Ox O2 Delivery O2 Flow Rate FiO2 04/21/17 07:30 94 Room Air 04/21/17 07:00 98.8 91 18 104/67 (79) 98.8 Intake and Output 04/21/17 07:00 Intake Total 680 ml Balance 680 ml Intake Oral 680 ml # Voids 3 Physical Exam Abdomen: Normal bowel sounds, Soft Heart: Normal S1, Normal S2 Extremities: No clubbing General: Alert, Oriented X3, No acute distress HEENT: Atraumatic Lungs: Clear to auscultation MUSCULOSKELETAL: Other Neck: Supple Neuro: Normal speech Psych/Mental Status: Mental status NL Skin: Other (rash and pimentation arms and feet) Diagnosis Problem List Problems Medical Problems: (1) Cellulitis of foot, left Status: Acute (2) Cellulitis of foot, right Status: Acute (3) Cellulitis of hand, left Status: Acute (4) Cellulitis of hand, right Status: Acute Assessment Assessment Problems Medical Problems: (1) Cellulitis of foot, left Status: Acute (2) Cellulitis of foot, right Status: Acute (3) Cellulitis of hand, left Status: Acute (4) Cellulitis of hand, right Status: Acute FINAL IMPRESSION: 1. DVT left upper arm 2. Edema of lower extremities. 3. Dermatitis. 4. Chronic protein-calorie malnutrition. 5. Left arm swelling due to DVT left arm 6. History of gastric bypass surgery and late complication from that. 7. Anxiety, depression. PLAN:d/c home on Elliqis 10 mg po bid x 7 days then dec to 5 mg po bid x3 months had skin biopsy yesterday sono legs neg for dvt left arm +ve for DVT. pt had picc line left arm last admission 1 month ago, precipitating start on elliqis for dvt ,spoke with hematology. po keflex for leg cellulitis. derm and vas consult appreciated . At this time, admit to hospital. Get a Doppler upper extremity, left as well as lower extremities; will have a Vascular consult, Dermatology consult; IV vancomycin for the time being and see how the patient's condition improves. She has anemia of chronic disease, had extensive workup in the past. Problems: Plan Plan of Care Problems Medical Problems: (1) Cellulitis of foot, left Status: Acute (2) Cellulitis of foot, right Status: Acute (3) Cellulitis of hand, left Status: Acute (4) Cellulitis of hand, right Status: Acute Comment Review of Relevant I have reviewed the following items anais (where applicable) has been applied. Labs Microbiology 04/18/17 Blood Culture - Preliminary, Resulted NO GROWTH AFTER 2 DAYS 04/19/17 Urine Culture - Preliminary, Resulted 04/19/17 Urine Culture Result 1 (JESUSITA) - Preliminary, Resulted Medications Current Medications Apixaban (Eliquis) 5 mg BID PO ; Start 04/27/17 at 09:00 Triamcinolone Acetonide (Kenalog) 1 yesy BID TP Last administered on 04/21/17t 08:46; Start 04/20/17 at 10:15 Vitals/I & O Vital Sign - Last 24 Hours 04/20/17 04/20/17 04/20/17 04/20/17 10:39 11:00 15:00 17:09 Temp 97.9 98.4 97.9 98.4 Pulse 94 90 Resp 05 03 18 12 B/P (MAP) 129/51 (77) 93/54 (67) Pulse Ox 93 96 96 94 O2 Delivery Room Air Room Air Room Air Room Air 04/20/17 04/20/17 04/20/17 04/20/17 19:30 19:40 21:59 22:59 Temp 98.5 98.5 Pulse 84 Resp 18 18 18 B/P (MAP) 96/58 (71) Pulse Ox 95 O2 Delivery Room Air Room Air Room Air 04/20/17 04/21/17 04/21/17 04/21/17 23:19 03:07 06:15 07:00 Temp 98.3 98.4 98.8 98.3 98.4 98.8 Pulse 80 82 91 Resp 18 18 16 18 B/P (MAP) 99/60 (73) 99/62 (74) 104/67 (79) Pulse Ox 95 94 95 O2 Delivery Room Air Room Air Room Air Room Air 04/21/17 07:30 Pulse Ox 94 O2 Delivery Room Air Intake and Output 04/20/17 04/20/17 04/21/17 15:00 23:00 07:00 Intake Total 60 ml 620 ml Balance 60 ml 620 ml ROMAN GIRON MD Apr 21, 2017 10:04
[2017-04-21 11:00] VITALS: BP 94/53
[2017-04-21] MEDS ORDERED: LACTOBACILLUS RHAMNOSUS GG 1 CAPSULE. PO SCH (11:30)
[2017-04-21 15:00] VITALS: BP 96/53
--- NOTE | 2017-04-23 16:06 | PDOC ---
Provider Note Provider Note Discharge summary dictated. #[id number] ROMAN GIRON MD Apr 23, 2017 16:06
--- NOTE | 2017-04-23 17:42 | DS ---
DATE OF DISCHARGE: 04/21/2017 REASON FOR ADMISSION TO THE HOSPITAL: Swelling upper extremity, lower extremities. CONSULTATIONS: 1. Dr. Maldonado. 2. Dr. Castellano. PROCEDURES DONE: Doppler upper extremity, venous Doppler lower extremities and also a skin biopsy by Dermatology, Dr. Mckeon. HOSPITAL COURSE: The patient is a 47-year-old female with history of gastric bypass 10 years ago, has late side effects and she was discharged a month ago from the hospital. At that time, the patient was sick with pneumonia and she came with swelling of lower extremities; DVT negative, lower extremities. The patient had a DVT, left upper extremity. Apparently, the patient had a PICC line a month ago when she was in the hospital. The patient was given heparin, later on changed to Eliquis. Seen by Hematology, Dr. Maldonado; recommended anticoagulation for 3 months. The patient was having swelling in lower extremities, Doppler was negative, was seen by Dr. Castellano and recommended anticoagulation. The patient had developed a rash in the back of the legs and arms, was seen by Dermatology. It was thought to be secondary to nutritional deficiency and a skin biopsy was done. On the whole, the patient's condition improving and she was discharged on Eliquis for DVT, left upper extremity, for 3 months. FINAL DIAGNOSES: 1. Deep venous thrombosis, upper extremity. 2. Rash, lower extremities, nonspecific. 3. Edema, improved, lower extremities. 4. Anemia of chronic disease, felt late side effects from gastric bypass done 10 years ago and hemoglobin was 8. Creatinine was normal. Albumin was 1.8. Zinc was low at 28. B12, folic acid was normal. ROMAN GIRON MD DR: EDITH/teto JOB#: [id number] / [id number]
[2017-04-27] MEDS ORDERED: APIXABAN 5 MG TABLET. PO SCH (09:00)
== END 2017-04-21 16:00 | disposition home or self-care (01) | DRG 602 ==
LOC: ER 15:50 → 4 NORTH 18:00
PROVIDERS: ADMIT Internal Medicine; ATTEND Internal Medicine
PROC: 0HBLXZX Excision of Left Lower Leg Skin, External Approach, Diagnostic (ICD-10-PCS; principal; 2017-04-20)
DX: L03.115 Cellulitis of right lower limb (principal); E43 Unspecified severe protein-calorie malnutrition; R65.11 Systemic inflammatory response syndrome (SIRS) of non-infectious origin with acute organ dysfunction; I82.B12 Acute embolism and thrombosis of left subclavian vein; E46 Unspecified protein-calorie malnutrition; L03.113 Cellulitis of right upper limb; L03.114 Cellulitis of left upper limb; I82.622 Acute embolism and thrombosis of deep veins of left upper extremity; I82.C19 Acute embolism and thrombosis of unspecified internal jugular vein; D69.6 Thrombocytopenia, unspecified; L03.116 Cellulitis of left lower limb; M79.7 Fibromyalgia; D64.9 Anemia, unspecified; E03.9 Hypothyroidism, unspecified; E60 Dietary zinc deficiency; F17.200 Nicotine dependence, unspecified, uncomplicated; F32.9 Major depressive disorder, single episode, unspecified; F41.9 Anxiety disorder, unspecified; I34.0 Nonrheumatic mitral (valve) insufficiency; L30.9 Dermatitis, unspecified; Z79.899 Other long term (current) drug therapy; Z82.49 Family history of ischemic heart disease and other diseases of the circulatory system; Z98.84 Bariatric surgery status; Z83.3 Family history of diabetes mellitus; Z98.51 Tubal ligation status; Z88.1 Allergy status to other antibiotic agents; Z88.8 Allergy status to other drugs, medicaments and biological substances; Z91.018 Allergy to other foods; Z68.25 Body mass index [BMI] 25.0-25.9, adult
CPT/HCPCS: 36415; 71010; 80048; 80053; 80202; 81001; 81025; 82607; 82728; 82746; 83540; 83550; 83605; 83735; 84100; 84630; 85025; 85045; 85520; 87040; 87086; 93970; 93971; 96365; J1644; J3370; J7030; J7050; Q0164; 97110; 97116; 97530; 97535; 99285-25

== ENCOUNTER 2017-06-30 10:10 | Inpatient (IN) | payer OTHER, MEDICAID ==
[2017-06-30] MEDS ORDERED: 0.9 % SODIUM CHLORIDE 10 ML DISP.SYRIN. IV (10:45)
[2017-06-30 10:58] LABS: ADD MAN DIFF? NO
[2017-06-30 11:02] LABS: BASO % 0 % (0-3); EOS # 0.1 x10^3/uL (0.0-0.7); EOS % 1 % (0-3); HEMATOCRIT 29.3 % (36.0-47.0); HEMOGLOBIN 9.3 g/dL (12.0-15.5); LYMPH # 1.6 x10^3/uL (1.0-4.8); LYMPH % 31 % (24-48); MEAN CORPUSCULAR HEMOGLOBIN 32 pg (25-35); MEAN CORPUSCULAR HGB CONC 32 g/dL (31-37); MEAN CORPUSCULAR VOLUME 102 fL (79-100); MONO # 0.4 x10^3/uL (0.0-1.1); MONO % 7 % (0-9); NEUT # 3.1 x10^3uL (1.8-7.7); NEUT % 60 % (31-73); PLATELET COUNT 196 x10^3/uL (140-400); RED BLOOD COUNT 2.88 x10^6/uL (3.50-5.40); RED CELL DISTRIBUTION WIDTH 15.3 % (11.5-14.5); WHITE BLOOD COUNT 5.1 x10^3/uL (4.0-11.0)
[2017-06-30] MEDS: IV NORMAL SALINE 1000ML BAG 1,000 ML IV ×4 (11:03→20:05)
[2017-06-30 11:23] LABS: ANION GAP 7 (6-14); BLOOD UREA NITROGEN 12 mg/dL (7-20); CALCIUM 7.4 mg/dL (8.5-10.1); CARBON DIOXIDE 28 mmol/L (21-32); CHLORIDE 110 mmol/L (98-107); CREATININE 0.8 mg/dL (0.6-1.0); GFR 93.4; GLUCOSE 86 mg/dL (70-99); SODIUM 145 mmol/L (136-145)
[2017-06-30 11:30] LABS: ALBUMIN 1.3 g/dL (3.4-5.0); ALK PHOS 185 U/L (46-116); ALT (SGPT) 32 U/L (14-59); AST (SGOT) 32 U/L (15-37); DIRECT BILIRUBIN 0.3 mg/dL (0.0-0.2); LIPASE 20 U/L (73-393); MAGNESIUM 1.7 mg/dL (1.8-2.4); TOTAL BILIRUBIN 0.6 mg/dL (0.2-1.0); TOTAL PROTEIN 4.5 g/dL (6.4-8.2)
[2017-06-30 11:32] LABS: TROPONINI < 0.017 ng/mL (0.000-0.055)
[2017-06-30 11:36] LABS: CREATINE KINASE 28 U/L (26-192)
[2017-06-30 11:36] LABS: NT-PRO BNP 414 pg/mL (0-124); THYROID STIM HORMONE (TSH) 1.427 uIU/mL (0.358-3.74)
[2017-06-30] MEDS: ACETAMINOPHEN 325 MG TABLET. PO ×2 (11:41→20:04)
[2017-06-30 12:52] LABS: BILIRUBIN,URINE NEGATIVE (NEG); CLARITY,URINE CLEAR; COLOR,URINE AMBER; GLUCOSE,URINE NEGATIVE (NEG); NITRITE,URINE NEGATIVE (NEG); PH,URINE 6.5; PROTEIN,URINE NEGATIVE (NEG-TRACE)
[2017-06-30 12:58] LABS: BARBITURATES NEG (NEG); BENZODIAZEPINES POS (NEG); CANNABINOIDS NEG (NEG); COCAINE NEG (NEG); METHADONE NEG (NEG); OPIATES NEG (NEG); PHENCYCLIDINE NEG (NEG)
[2017-06-30 13:05] LABS: AMPHETAMINE/METHAMPHETAMINE NEG (NEG); ETHANOL, URINE NEG (NEG)
[2017-06-30 13:07] LABS: BACTERIA,URINE FEW /HPF (0-FEW); RBC,URINE RARE /HPF (0-2); SQUAMOUS EPITHELIAL CELL,UR OCC /LPF; WBC,URINE RARE /HPF (0-4)
[2017-06-30] MEDS: MAGNESIUM SULFATE 2GM 50 ML IV (14:44)
[2017-06-30 17:58] LABS: TROPONINI < 0.017 ng/mL (0.000-0.055)
[2017-06-30] MEDS: ONDANSETRON PF 4 MG/2 ML VIAL. IV (20:04)
[2017-06-30] MEDS ORDERED: LOPERAMIDE 2 MG CAPSULE PO (20:30)
[2017-06-30 21:13] LABS: TROPONINI < 0.017 ng/mL (0.000-0.055)
[2017-07-01 07:38] LABS: ADD MAN DIFF? NO
[2017-07-01 07:53] LABS: BASO % 0 % (0-3); EOS % 1 % (0-3); HEMATOCRIT 26.9 % (36.0-47.0); HEMOGLOBIN 8.7 g/dL (12.0-15.5); LYMPH # 1.5 x10^3/uL (1.0-4.8); LYMPH % 26 % (24-48); MEAN CORPUSCULAR HEMOGLOBIN 33 pg (25-35); MEAN CORPUSCULAR HGB CONC 32 g/dL (31-37); MEAN CORPUSCULAR VOLUME 103 fL (79-100); MONO # 0.4 x10^3/uL (0.0-1.1); MONO % 7 % (0-9); NEUT # 3.9 x10^3uL (1.8-7.7); NEUT % 67 % (31-73); PLATELET COUNT 211 x10^3/uL (140-400); RED BLOOD COUNT 2.62 x10^6/uL (3.50-5.40); RED CELL DISTRIBUTION WIDTH 15.3 % (11.5-14.5); WHITE BLOOD COUNT 5.8 x10^3/uL (4.0-11.0)
[2017-07-01 08:01] LABS: ALBUMIN 1.1 g/dL (3.4-5.0); ALBUMIN/GLOBULIN RATIO 0.4 (1.0-1.7); ALK PHOS 150 U/L (46-116); ALT (SGPT) 23 U/L (14-59); ANION GAP 8 (6-14); AST (SGOT) 25 U/L (15-37); BLOOD UREA NITROGEN 12 mg/dL (7-20); BUN/CREATININE RATIO 24 (6-20); CARBON DIOXIDE 22 mmol/L (21-32); CHLORIDE 115 mmol/L (98-107); CREATININE 0.5 mg/dL (0.6-1.0); GFR 160.7; GLUCOSE 70 mg/dL (70-99); POTASSIUM 3.7 mmol/L (3.5-5.1); SODIUM 145 mmol/L (136-145); TOTAL BILIRUBIN 0.6 mg/dL (0.2-1.0); TOTAL PROTEIN 4.2 g/dL (6.4-8.2)
[2017-07-01 08:16] LABS: LACTIC ACID 0.8 mmol/L (0.4-2.0)
[2017-07-01] MEDS: IV NORMAL SALINE 1000ML BAG 1,000 ML IV (10:14)
[2017-07-01] MEDS ORDERED: HYDROcodone/APAP 7.5/325MG 1 TAB TABLET PO (10:30)
[2017-07-01] MEDS: PANTOPRAZOLE 40 MG TABLET.DR. PO (11:36)
[2017-07-01] MEDS: LIPASE/PROTEAS/AMYLAS 10/34/55 CAPSULE.DR. PO ×2 (11:36→17:40)
[2017-07-01] MEDS: SERTRALINE 50 MG TABLET. PO ×2 (11:36→20:14)
[2017-07-01] MEDS: ONDANSETRON PF 4 MG/2 ML VIAL. IV (11:41)
[2017-07-01 17:17] LABS: C DIFF BY PCR Negative (Negative)
[2017-07-01] MEDS: GABAPENTIN 300 MG CAPSULE. PO ×2 (17:40→20:14)
[2017-07-01] MEDS: ACETAMINOPHEN 325 MG TABLET. PO (18:26)
[2017-07-01] MEDS: LOPERAMIDE 2 MG CAPSULE PO (20:14)
[2017-07-01] MEDS: MIRTAZAPINE 15 MG TABLET PO (20:14)
[2017-07-02 04:52] LABS: ADD MAN DIFF? NO
[2017-07-02 05:10] LABS: BASO % 0 % (0-3); EOS # 0.1 x10^3/uL (0.0-0.7); EOS % 2 % (0-3); HEMOGLOBIN 8.4 g/dL (12.0-15.5); LYMPH # 1.9 x10^3/uL (1.0-4.8); LYMPH % 43 % (24-48); MEAN CORPUSCULAR HEMOGLOBIN 33 pg (25-35); MEAN CORPUSCULAR HGB CONC 32 g/dL (31-37); MEAN CORPUSCULAR VOLUME 101 fL (79-100); MONO # 0.5 x10^3/uL (0.0-1.1); MONO % 11 % (0-9); NEUT % 44 % (31-73); PLATELET COUNT 190 x10^3/uL (140-400); RED BLOOD COUNT 2.57 x10^6/uL (3.50-5.40); RED CELL DISTRIBUTION WIDTH 15.2 % (11.5-14.5); WHITE BLOOD COUNT 4.5 x10^3/uL (4.0-11.0)
[2017-07-02 05:34] LABS: ANION GAP 7 (6-14); BLOOD UREA NITROGEN 8 mg/dL (7-20); CALCIUM 7.5 mg/dL (8.5-10.1); CARBON DIOXIDE 24 mmol/L (21-32); CHLORIDE 117 mmol/L (98-107); CREATININE 0.7 mg/dL (0.6-1.0); GLUCOSE 70 mg/dL (70-99); POTASSIUM 3.2 mmol/L (3.5-5.1); SODIUM 148 mmol/L (136-145)
[2017-07-02] MEDS: LIPASE/PROTEAS/AMYLAS 10/34/55 CAPSULE.DR. PO ×3 (07:37→17:08)
[2017-07-02] MEDS: ACETAMINOPHEN 325 MG TABLET. PO (07:37)
[2017-07-02] MEDS: GABAPENTIN 300 MG CAPSULE. PO ×2 (07:37→17:08)
[2017-07-02] MEDS: PANTOPRAZOLE 40 MG TABLET.DR. PO (07:38)
[2017-07-02] MEDS: SERTRALINE 50 MG TABLET. PO ×2 (07:38→20:36)
[2017-07-02] MEDS: POTASSIUM CHLORIDE 20 MEQ TABLET.ER. PO ×2 (10:52→11:35)
[2017-07-02] MEDS: ALPRAZolam 0.5 MG TABLET PO ×2 (11:36→20:39)
[2017-07-02] MEDS: HYDROcodone/APAP 7.5/325MG 1 TAB TABLET PO ×2 (11:36→17:09)
[2017-07-02 12:25] LABS: % SAT IRON 38 % (15-34); IRON,SERUM 23 ug/dL (50-170)
[2017-07-02 12:33] LABS: RETIC COUNT 1.3 % (0.5-2.5)
[2017-07-02 12:38] LABS: FOLATE 9.51 ng/ml (3.2-20.0)
[2017-07-02 12:38] LABS: VITAMIN-B12 632 pg/mL (247-911)
[2017-07-02 12:41] LABS: FERRITIN 339 ng/mL (8-252)
[2017-07-02] MEDS: MIRTAZAPINE 15 MG TABLET PO (20:36)
[2017-07-03 05:33] LABS: ANION GAP 5 (6-14); BLOOD UREA NITROGEN 9 mg/dL (7-20); CALCIUM 7.1 mg/dL (8.5-10.1); CARBON DIOXIDE 25 mmol/L (21-32); CHLORIDE 117 mmol/L (98-107); CREATININE 0.6 mg/dL (0.6-1.0); GFR 130.2; GLUCOSE 84 mg/dL (70-99); POTASSIUM 3.6 mmol/L (3.5-5.1); SODIUM 147 mmol/L (136-145)
[2017-07-03] MEDS: HYDROcodone/APAP 7.5/325MG 1 TAB TABLET PO ×2 (05:39→17:37)
[2017-07-03] MEDS: LIPASE/PROTEAS/AMYLAS 10/34/55 CAPSULE.DR. PO ×3 (07:59→17:39)
[2017-07-03] MEDS: ALPRAZolam 0.5 MG TABLET PO (07:59)
[2017-07-03] MEDS: SERTRALINE 50 MG TABLET. PO ×2 (07:59→21:18)
[2017-07-03] MEDS: PANTOPRAZOLE 40 MG TABLET.DR. PO (07:59)
[2017-07-03] MEDS: MIRTAZAPINE 15 MG TABLET PO (21:18)
[2017-07-03] MEDS: MAG HYDROX/ALUMINUM HYD/SIMETH 30 ML ORAL.SUSP PO (21:21)
[2017-07-04] MEDS: ALPRAZolam 0.5 MG TABLET PO ×2 (01:55→13:18)
[2017-07-04] MEDS: ONDANSETRON PF 4 MG/2 ML VIAL. IV (02:54)
[2017-07-04] MEDS: HYDROcodone/APAP 7.5/325MG 1 TAB TABLET PO ×4 (03:00→20:04)
[2017-07-04 05:24] LABS: ALBUMIN 1.1 g/dL (3.4-5.0); ALBUMIN/GLOBULIN RATIO 0.3 (1.0-1.7); ALK PHOS 161 U/L (46-116); ALT (SGPT) 21 U/L (14-59); ANION GAP 7 (6-14); AST (SGOT) 17 U/L (15-37); BLOOD UREA NITROGEN 10 mg/dL (7-20); BUN/CREATININE RATIO 17 (6-20); CALCIUM 7.5 mg/dL (8.5-10.1); CARBON DIOXIDE 23 mmol/L (21-32); CHLORIDE 116 mmol/L (98-107); CREATININE 0.6 mg/dL (0.6-1.0); GFR 130.2; GLUCOSE 80 mg/dL (70-99); MAGNESIUM 1.6 mg/dL (1.8-2.4); POTASSIUM 3.4 mmol/L (3.5-5.1); SODIUM 146 mmol/L (136-145); TOTAL BILIRUBIN 0.3 mg/dL (0.2-1.0); TOTAL PROTEIN 4.3 g/dL (6.4-8.2)
[2017-07-04] MEDS: PANTOPRAZOLE 40 MG TABLET.DR. PO (07:40)
[2017-07-04] MEDS: LIPASE/PROTEAS/AMYLAS 10/34/55 CAPSULE.DR. PO ×3 (07:40→17:30)
[2017-07-04] MEDS: SERTRALINE 50 MG TABLET. PO ×2 (07:40→20:04)
[2017-07-04] MEDS: POTASSIUM CHLORIDE 20 MEQ TABLET.ER. PO (11:30)
[2017-07-04] MEDS: APIXABAN 5 MG TABLET. PO ×2 (11:30→20:04)
[2017-07-04] MEDS: MAGNESIUM SULFATE 2GM 50 ML IV (11:35)
[2017-07-04] MEDS: MAG HYDROX/ALUMINUM HYD/SIMETH 30 ML ORAL.SUSP PO (18:55)
[2017-07-04] MEDS: MIRTAZAPINE 15 MG TABLET PO (20:03)
[2017-07-05 05:35] LABS: ADD MAN DIFF? NO
[2017-07-05 05:56] LABS: BASO % 0 % (0-3); EOS # 0.1 x10^3/uL (0.0-0.7); EOS % 1 % (0-3); HEMATOCRIT 24.7 % (36.0-47.0); HEMOGLOBIN 8.1 g/dL (12.0-15.5); LYMPH % 39 % (24-48); MEAN CORPUSCULAR HEMOGLOBIN 33 pg (25-35); MEAN CORPUSCULAR HGB CONC 33 g/dL (31-37); MEAN CORPUSCULAR VOLUME 101 fL (79-100); MONO # 0.5 x10^3/uL (0.0-1.1); MONO % 9 % (0-9); NEUT # 2.6 x10^3uL (1.8-7.7); NEUT % 51 % (31-73); PLATELET COUNT 201 x10^3/uL (140-400); RED BLOOD COUNT 2.45 x10^6/uL (3.50-5.40); RED CELL DISTRIBUTION WIDTH 15.2 % (11.5-14.5); WHITE BLOOD COUNT 5.2 x10^3/uL (4.0-11.0)
[2017-07-05 06:03] LABS: ALBUMIN 1.2 g/dL (3.4-5.0); ALBUMIN/GLOBULIN RATIO 0.4 (1.0-1.7); ALK PHOS 142 U/L (46-116); ALT (SGPT) 20 U/L (14-59); ANION GAP 3 (6-14); AST (SGOT) 15 U/L (15-37); BLOOD UREA NITROGEN 10 mg/dL (7-20); BUN/CREATININE RATIO 17 (6-20); CALCIUM 7.3 mg/dL (8.5-10.1); CARBON DIOXIDE 27 mmol/L (21-32); CHLORIDE 117 mmol/L (98-107); CREATININE 0.6 mg/dL (0.6-1.0); GFR 130.2; GLUCOSE 74 mg/dL (70-99); POTASSIUM 3.8 mmol/L (3.5-5.1); SODIUM 147 mmol/L (136-145); TOTAL BILIRUBIN 0.3 mg/dL (0.2-1.0); TOTAL PROTEIN 4.3 g/dL (6.4-8.2)
[2017-07-05] MEDS: HYDROcodone/APAP 7.5/325MG 1 TAB TABLET PO ×3 (06:14→23:54)
[2017-07-05] MEDS: LIPASE/PROTEAS/AMYLAS 10/34/55 CAPSULE.DR. PO ×3 (08:09→17:00)
[2017-07-05] MEDS: SERTRALINE 50 MG TABLET. PO ×2 (08:10→21:58)
[2017-07-05] MEDS: APIXABAN 5 MG TABLET. PO ×2 (08:10→21:58)
[2017-07-05] MEDS: PANTOPRAZOLE 40 MG TABLET.DR. PO (08:10)
[2017-07-05] MEDS: ALPRAZolam 0.5 MG TABLET PO (13:45)
[2017-07-05] MEDS: ANTI-COAG MONITOR BY PHARMACY. MC (17:16)
[2017-07-05] MEDS: MAG HYDROX/ALUMINUM HYD/SIMETH 30 ML ORAL.SUSP PO (17:50)
[2017-07-05] MEDS: GABAPENTIN 300 MG CAPSULE. PO (21:58)
[2017-07-05] MEDS: MIRTAZAPINE 15 MG TABLET PO (21:58)
[2017-07-05] MEDS: LOPERAMIDE 2 MG CAPSULE PO (23:08)
[2017-07-06] MEDS: LOPERAMIDE 2 MG CAPSULE PO ×2 (00:21→08:52)
[2017-07-06 04:55] LABS: INR 1.6 (0.8-1.1)
[2017-07-06 05:32] LABS: ALBUMIN 1.2 g/dL (3.4-5.0); ALBUMIN/GLOBULIN RATIO 0.4 (1.0-1.7); ALK PHOS 132 U/L (46-116); ALT (SGPT) 19 U/L (14-59); ANION GAP 3 (6-14); AST (SGOT) 17 U/L (15-37); BLOOD UREA NITROGEN 8 mg/dL (7-20); BUN/CREATININE RATIO 13 (6-20); CALCIUM 7.3 mg/dL (8.5-10.1); CARBON DIOXIDE 27 mmol/L (21-32); CHLORIDE 117 mmol/L (98-107); CREATININE 0.6 mg/dL (0.6-1.0); GFR 130.2; GLUCOSE 72 mg/dL (70-99); MAGNESIUM 1.8 mg/dL (1.8-2.4); POTASSIUM 4.3 mmol/L (3.5-5.1); SODIUM 147 mmol/L (136-145); TOTAL BILIRUBIN 0.2 mg/dL (0.2-1.0)
[2017-07-06] MEDS: APIXABAN 5 MG TABLET. PO ×2 (07:36→08:51)
[2017-07-06] MEDS: SERTRALINE 50 MG TABLET. PO (08:51)
[2017-07-06] MEDS: PANTOPRAZOLE 40 MG TABLET.DR. PO (08:51)
[2017-07-06] MEDS: LIPASE/PROTEAS/AMYLAS 10/34/55 CAPSULE.DR. PO ×2 (08:51→12:00)
[2017-07-06] MEDS: HYDROcodone/APAP 7.5/325MG 1 TAB TABLET PO (08:52)
[2017-07-06] MEDS: GABAPENTIN 300 MG CAPSULE. PO (08:52)
[2017-07-06] MEDS: ANTI-COAG MONITOR BY PHARMACY. MC (15:06)
== END 2017-07-06 15:11 | disposition home health service (06) | DRG 314 ==
LOC: ER 10:10 → 5 NORTH 14:17 → 2 NORTH 16:30
DX: I95.9 Hypotension, unspecified (principal); E43 Unspecified severe protein-calorie malnutrition; E87.0 Hyperosmolality and hypernatremia; D69.6 Thrombocytopenia, unspecified; G62.9 Polyneuropathy, unspecified; E83.42 Hypomagnesemia; I27.21 Secondary pulmonary arterial hypertension; I50.9 Heart failure, unspecified; I11.0 Hypertensive heart disease with heart failure; R55 Syncope and collapse; D50.9 Iron deficiency anemia, unspecified; D53.9 Nutritional anemia, unspecified; D63.8 Anemia in other chronic diseases classified elsewhere; E03.9 Hypothyroidism, unspecified; E86.0 Dehydration; F32.9 Major depressive disorder, single episode, unspecified; F41.9 Anxiety disorder, unspecified; G40.909 Epilepsy, unspecified, not intractable, without status epilepticus; G89.29 Other chronic pain; I34.0 Nonrheumatic mitral (valve) insufficiency; K21.9 Gastro-esophageal reflux disease without esophagitis; Z82.49 Family history of ischemic heart disease and other diseases of the circulatory system; Z86.718 Personal history of other venous thrombosis and embolism; Z87.891 Personal history of nicotine dependence; Z98.84 Bariatric surgery status; M79.7 Fibromyalgia; Z98.51 Tubal ligation status; Z88.1 Allergy status to other antibiotic agents; Z88.8 Allergy status to other drugs, medicaments and biological substances; Z90.49 Acquired absence of other specified parts of digestive tract; E87.6 Hypokalemia; R19.7 Diarrhea, unspecified; J05.0 Acute obstructive laryngitis [croup]
CPT/HCPCS: 36415; 70450; 71045; 80048; 80053; 80076; 80307; 81001; 82553; 82607; 82728; 82746; 83540; 83550; 83605; 83690; 83735; 83880; 84443; 84484; 85025; 85045; 85610; 87040; 87324; 93005; 93971; 96360; 97110-GP; 97116-GP; 97162-GP; 97165-GO; 97530-GP; 99285; 99285-25; J2405; J3475; J7030

== ENCOUNTER 2017-12-01 06:52 | Emergency (ER) | payer OTHER, MEDICAID ==
[2017-12-01 07:31] LABS: BASO # 0.1 x10^3/uL (0.0-0.2); BASO % 1 % (0-3); EOS # 0.1 x10^3/uL (0.0-0.7); EOS % 3 % (0-3); HEMATOCRIT 28.6 % (36.0-47.0); HEMOGLOBIN 9.2 g/dL (12.0-15.5); LYMPH # 2.1 x10^3/uL (1.0-4.8); LYMPH % 44 % (24-48); MEAN CORPUSCULAR HEMOGLOBIN 33 pg (25-35); MEAN CORPUSCULAR HGB CONC 32 g/dL (31-37); MEAN CORPUSCULAR VOLUME 102 fL (79-100); MONO # 0.4 x10^3/uL (0.0-1.1); MONO % 8 % (0-9); NEUT # 2.1 x10^3uL (1.8-7.7); NEUT % 44 % (31-73); PLATELET COUNT 312 x10^3/uL (140-400); RED CELL DISTRIBUTION WIDTH 15.3 % (11.5-14.5); WHITE BLOOD COUNT 4.8 x10^3/uL (4.0-11.0)
[2017-12-01 07:32] LABS: ADD MAN DIFF? NO
[2017-12-01 07:42] LABS: ANION GAP 6 (6-14); BLOOD UREA NITROGEN 14 mg/dL (7-20); BUN/CREATININE RATIO 18 (6-20); CALCIUM 7.5 mg/dL (8.5-10.1); CARBON DIOXIDE 25 mmol/L (21-32); CHLORIDE 116 mmol/L (98-107); CREATININE 0.8 mg/dL (0.6-1.0); GFR 93.4; GLUCOSE 82 mg/dL (70-99); POTASSIUM 3.8 mmol/L (3.5-5.1); SODIUM 147 mmol/L (136-145)
[2017-12-01 07:46] LABS: ALBUMIN 1.6 g/dL (3.4-5.0); ALBUMIN/GLOBULIN RATIO 0.6 (1.0-1.7); ALK PHOS 188 U/L (46-116); ALT (SGPT) 42 U/L (14-59); AST (SGOT) 28 U/L (15-37); LIPASE 40 U/L (73-393); MAGNESIUM 1.4 mg/dL (1.8-2.4); PHOSPHORUS 3.2 mg/dL (2.6-4.7); TOTAL BILIRUBIN 0.4 mg/dL (0.2-1.0); TOTAL PROTEIN 4.5 g/dL (6.4-8.2)
[2017-12-01 07:48] LABS: INR 1.4 (0.8-1.1); PROTHROMBIN TIME PATIENT 16.1 SEC (11.7-14.0)
[2017-12-01 07:49] LABS: TROPONINI < 0.017 ng/mL (0.000-0.055)
[2017-12-01 07:53] LABS: NT-PRO BNP 564 pg/mL (0-124)
[2017-12-01 07:53] LABS: CKMB MASS 0.6 ng/mL (0.0-3.6); CREATINE KINASE 70 U/L (26-192)
[2017-12-01 07:54] LABS: FREE T4 0.69 ng/dL (0.76-1.46)
[2017-12-01 07:54] LABS: THYROID STIM HORMONE (TSH) 2.078 uIU/mL (0.358-3.74)
[2017-12-01 08:07] LABS: LACTIC ACID 1.8 mmol/L (0.4-2.0)
[2017-12-01 08:11] LABS: BILIRUBIN,URINE NEGATIVE (NEG); CLARITY,URINE CLEAR; COLOR,URINE YELLOW; GLUCOSE,URINE NEGATIVE (NEG); NITRITE,URINE NEGATIVE (NEG); PROTEIN,URINE NEGATIVE (NEG-TRACE)
[2017-12-01 08:12] LABS: BACTERIA,URINE MODERATE /HPF (0-FEW); RBC,URINE OCC /HPF (0-2); SQUAMOUS EPITHELIAL CELL,UR MANY /LPF
[2017-12-01] MEDS: IV NORMAL SALINE 1000ML BAG 1,000 ML IV (08:33)
[2017-12-01] MEDS: MAGNESIUM SULFATE 1GM 100 ML IV (08:34)
== END 2017-12-01 09:39 | disposition home or self-care (01) ==
LOC: ER 06:52
DX: R53.1 Weakness (principal); E83.42 Hypomagnesemia; E46 Unspecified protein-calorie malnutrition; F41.9 Anxiety disorder, unspecified; F31.9 Bipolar disorder, unspecified; M79.7 Fibromyalgia; Z68.22 Body mass index [BMI] 22.0-22.9, adult; Z86.2 Personal history of diseases of the blood and blood-forming organs and certain disorders involving the immune mechanism; Z88.1 Allergy status to other antibiotic agents; Z88.8 Allergy status to other drugs, medicaments and biological substances; Z91.018 Allergy to other foods
CPT/HCPCS: 36415; 71045; 80053; 81001; 82553; 83605; 83690; 83735; 83880; 84100; 84439; 84443; 84484; 84702; 85025; 85610; 86850; 86900; 86901; 87086; 93005; 96365; 99285-25; J3475; J7030

== ENCOUNTER 2017-12-04 20:40 | Inpatient (IN) | payer OTHER, MEDICAID ==
[2017-12-04 21:17] LABS: ADD MAN DIFF? NO
[2017-12-04 21:22] LABS: BASO % 1 % (0-3); EOS % 1 % (0-3); HEMATOCRIT 26.4 % (36.0-47.0); HEMOGLOBIN 8.5 g/dL (12.0-15.5); LYMPH # 1.6 x10^3/uL (1.0-4.8); LYMPH % 28 % (24-48); MEAN CORPUSCULAR HEMOGLOBIN 32 pg (25-35); MEAN CORPUSCULAR HGB CONC 32 g/dL (31-37); MEAN CORPUSCULAR VOLUME 100 fL (79-100); MONO # 0.4 x10^3/uL (0.0-1.1); MONO % 8 % (0-9); NEUT # 3.5 x10^3uL (1.8-7.7); NEUT % 63 % (31-73); PLATELET COUNT 257 x10^3/uL (140-400); RED BLOOD COUNT 2.64 x10^6/uL (3.50-5.40); RED CELL DISTRIBUTION WIDTH 14.4 % (11.5-14.5); WHITE BLOOD COUNT 5.6 x10^3/uL (4.0-11.0)
[2017-12-04 21:28] LABS: BILIRUBIN,URINE SMALL (NEG); CLARITY,URINE CLEAR; COLOR,URINE AMBER; GLUCOSE,URINE NEGATIVE (NEG); NITRITE,URINE NEGATIVE (NEG); PROTEIN,URINE NEGATIVE (NEG-TRACE)
[2017-12-04 21:29] LABS: INR 1.5 (0.8-1.1); PROTHROMBIN TIME PATIENT 17.8 SEC (11.7-14.0)
[2017-12-04 21:30] LABS: PARTIAL THROMBOPLASTIN TIME 48 SEC (24-38)
[2017-12-04] MEDS: fentaNYL PF VIAL 100 MCG/2 ML VIAL IV (21:30)
[2017-12-04 21:31] LABS: ANION GAP 11 (6-14); BLOOD UREA NITROGEN 17 mg/dL (7-20); BUN/CREATININE RATIO 19 (6-20); CALCIUM 7.2 mg/dL (8.5-10.1); CARBON DIOXIDE 23 mmol/L (21-32); CHLORIDE 112 mmol/L (98-107); CREATININE 0.9 mg/dL (0.6-1.0); GFR 81.6; GLUCOSE 70 mg/dL (70-99); SODIUM 146 mmol/L (136-145)
[2017-12-04 21:35] LABS: BACTERIA,URINE FEW /HPF (0-FEW); RBC,URINE 0 /HPF (0-2); SQUAMOUS EPITHELIAL CELL,UR MANY /LPF
[2017-12-04 21:36] LABS: HYALINE CASTS, URINE MANY /HPF
[2017-12-04 21:37] LABS: ALBUMIN 1.6 g/dL (3.4-5.0); ALBUMIN/GLOBULIN RATIO 0.5 (1.0-1.7); ALK PHOS 182 U/L (46-116); ALT (SGPT) 37 U/L (14-59); AST (SGOT) 23 U/L (15-37); MAGNESIUM 1.5 mg/dL (1.8-2.4); TOTAL BILIRUBIN 0.5 mg/dL (0.2-1.0); TOTAL PROTEIN 4.7 g/dL (6.4-8.2)
[2017-12-04 21:39] LABS: LACTIC ACID 2.2 mmol/L (0.4-2.0)
[2017-12-04 21:43] LABS: NT-PRO BNP 166 pg/mL (0-124)
[2017-12-04] MEDS: POTASSIUM CHLORIDE 20 MEQ TABLET.ER. PO (23:07)
[2017-12-05] MEDS: fentaNYL PF VIAL 100 MCG/2 ML VIAL IV (00:19)
[2017-12-05] MEDS: ONDANSETRON PF 4 MG/2 ML VIAL. IV (00:19)
[2017-12-05] MEDS: diphenhydrAMINE 50 MG/ML VIAL IVP ×2 (02:27→08:22)
[2017-12-05] MEDS: traMADol 50 MG TABLET PO ×5 (02:27→20:45)
[2017-12-05] MEDS: ALPRAZolam 0.25 MG TABLET PO ×2 (04:07→14:40)
[2017-12-05] MEDS: GABAPENTIN 300 MG CAPSULE. PO ×3 (04:07→20:45)
[2017-12-05 10:27] LABS: LACTIC ACID 2.3 mmol/L (0.4-2.0)
[2017-12-05] MEDS: METOPROLOL TART IMMED RELEASE 25 MG TABLET. PO ×2 (12:00→20:45)
[2017-12-05] MEDS: LOSARTAN POTASSIUM 25 MG TABLET. PO (12:00)
[2017-12-05] MEDS: MAGNESIUM SULFATE 1GM 100 ML IV (13:38)
[2017-12-05] MEDS: FUROSEMIDE 40 MG TABLET. PO (13:39)
[2017-12-05] MEDS: CITALOPRAM 20 MG TABLET. PO (13:39)
[2017-12-05] MEDS: POTASSIUM CHLORIDE 20 MEQ TABLET.ER. PO (13:41)
[2017-12-05] MEDS: ENOXAPARIN 40 MG/0.4 ML SYRINGE. SQ (13:41)
[2017-12-05] MEDS: diphenhydrAMINE HCL 25 MG CAPSULE PO ×2 (14:40→20:45)
[2017-12-05] MEDS: CLINDAMYCIN 600MG PREMIX 50 ML IV ×2 (14:41→20:49)
[2017-12-05] MEDS: ACYCLOVIR 5% TOPICAL OINT 5GM TUBE. TP ×3 (14:42→20:49)
[2017-12-05] MEDS: traZODone 50 MG TABLET. PO (20:45)
[2017-12-05] MEDS: cefTRIAXone IV Push 1 GM VIAL. IVP (23:43)
[2017-12-06] MEDS: ALPRAZolam 0.25 MG TABLET PO ×3 (00:07→17:06)
[2017-12-06] MEDS: traMADol 50 MG TABLET PO ×5 (02:34→21:21)
[2017-12-06] MEDS: ACYCLOVIR 5% TOPICAL OINT 5GM TUBE. TP ×5 (06:09→21:22)
[2017-12-06] MEDS: CLINDAMYCIN 600MG PREMIX 50 ML IV ×4 (06:09→21:20)
[2017-12-06 06:42] LABS: ADD MAN DIFF? NO
[2017-12-06 06:46] LABS: BASO % 1 % (0-3); EOS # 0.1 x10^3/uL (0.0-0.7); EOS % 3 % (0-3); HEMATOCRIT 29.2 % (36.0-47.0); HEMOGLOBIN 9.5 g/dL (12.0-15.5); LYMPH # 2.1 x10^3/uL (1.0-4.8); LYMPH % 60 % (24-48); MEAN CORPUSCULAR HEMOGLOBIN 33 pg (25-35); MEAN CORPUSCULAR HGB CONC 33 g/dL (31-37); MEAN CORPUSCULAR VOLUME 100 fL (79-100); MONO # 0.3 x10^3/uL (0.0-1.1); MONO % 10 % (0-9); NEUT % 27 % (31-73); PLATELET COUNT 218 x10^3/uL (140-400); RED BLOOD COUNT 2.93 x10^6/uL (3.50-5.40); RED CELL DISTRIBUTION WIDTH 14.4 % (11.5-14.5); WHITE BLOOD COUNT 3.5 x10^3/uL (4.0-11.0)
[2017-12-06 07:10] LABS: ANION GAP 7 (6-14); BLOOD UREA NITROGEN 11 mg/dL (7-20); CALCIUM 7.8 mg/dL (8.5-10.1); CARBON DIOXIDE 25 mmol/L (21-32); CHLORIDE 111 mmol/L (98-107); CREATININE 0.8 mg/dL (0.6-1.0); GFR 93.4; GLUCOSE 73 mg/dL (70-99); MAGNESIUM 1.5 mg/dL (1.8-2.4); POTASSIUM 3.9 mmol/L (3.5-5.1); SODIUM 143 mmol/L (136-145)
[2017-12-06 07:19] LABS: LACTIC ACID 1.8 mmol/L (0.4-2.0)
[2017-12-06] MEDS: POTASSIUM CHLORIDE 20 MEQ TABLET.ER. PO (08:50)
[2017-12-06] MEDS: diphenhydrAMINE HCL 25 MG CAPSULE PO (08:52)
[2017-12-06] MEDS: GABAPENTIN 300 MG CAPSULE. PO ×3 (08:52→21:21)
[2017-12-06] MEDS: FUROSEMIDE 40 MG TABLET. PO (08:52)
[2017-12-06] MEDS: CITALOPRAM 20 MG TABLET. PO (08:52)
[2017-12-06] MEDS: LOSARTAN POTASSIUM 25 MG TABLET. PO (09:00)
[2017-12-06] MEDS: METOPROLOL TART IMMED RELEASE 25 MG TABLET. PO ×2 (09:00→21:00)
[2017-12-06] MEDS: NYSTATIN 100,000 UNITS/ML 5 ML ORAL.SUSP. SWSW ×4 (11:38→21:20)
[2017-12-06] MEDS: ENOXAPARIN 40 MG/0.4 ML SYRINGE. SQ (11:39)
[2017-12-06] MEDS: cefTRIAXone IV Push 1 GM VIAL. IVP (21:21)
[2017-12-06] MEDS: LACTOBACILLUS RHAMNOSUS GG 1 CAPSULE. PO (21:21)
[2017-12-06] MEDS: traZODone 50 MG TABLET. PO (21:21)
[2017-12-07] MEDS: ALPRAZolam 0.25 MG TABLET PO ×3 (02:22→23:57)
[2017-12-07] MEDS: CLINDAMYCIN 600MG PREMIX 50 ML IV ×2 (05:18→14:12)
[2017-12-07] MEDS: ACYCLOVIR 5% TOPICAL OINT 5GM TUBE. TP ×5 (05:18→22:00)
[2017-12-07 05:33] LABS: MAGNESIUM 1.3 mg/dL (1.8-2.4)
[2017-12-07] MEDS: METOPROLOL TART IMMED RELEASE 25 MG TABLET. PO ×2 (09:00→21:00)
[2017-12-07] MEDS: GABAPENTIN 300 MG CAPSULE. PO ×4 (09:28→23:50)
[2017-12-07] MEDS: LOSARTAN POTASSIUM 25 MG TABLET. PO (09:28)
[2017-12-07] MEDS: POTASSIUM CHLORIDE 20 MEQ TABLET.ER. PO (09:28)
[2017-12-07] MEDS: FUROSEMIDE 40 MG TABLET. PO (09:28)
[2017-12-07] MEDS: LACTOBACILLUS RHAMNOSUS GG 1 CAPSULE. PO ×3 (09:29→23:50)
[2017-12-07] MEDS: traMADol 50 MG TABLET PO ×5 (09:29→23:50)
[2017-12-07] MEDS: CITALOPRAM 20 MG TABLET. PO (09:29)
[2017-12-07] MEDS: NYSTATIN 100,000 UNITS/ML 5 ML ORAL.SUSP. SWSW ×5 (09:29→23:48)
[2017-12-07] MEDS: MAGNESIUM SULFATE 4GM 100 ML IV (12:16)
[2017-12-07] MEDS: diphenhydrAMINE HCL 25 MG CAPSULE PO (12:18)
[2017-12-07] MEDS: ENOXAPARIN 40 MG/0.4 ML SYRINGE. SQ (12:20)
[2017-12-07] MEDS: HYDROcodone/APAP 5/325MG 1 TAB TABLET PO (14:11)
[2017-12-07] MEDS: traZODone 50 MG TABLET. PO ×2 (23:19→23:50)
[2017-12-07] MEDS: CLINDAMYCIN HCL 150 MG CAPSULE. PO ×2 (23:19→23:50)
[2017-12-08] MEDS: ACYCLOVIR 5% TOPICAL OINT 5GM TUBE. TP ×3 (06:09→14:20)
[2017-12-08] MEDS: HYDROcodone/APAP 5/325MG 1 TAB TABLET PO ×2 (06:24→16:50)
[2017-12-08] MEDS: LOSARTAN POTASSIUM 25 MG TABLET. PO (08:34)
[2017-12-08] MEDS: FUROSEMIDE 40 MG TABLET. PO (08:35)
[2017-12-08] MEDS: METOPROLOL TART IMMED RELEASE 25 MG TABLET. PO (08:35)
[2017-12-08] MEDS: traMADol 50 MG TABLET PO ×3 (08:42→16:51)
[2017-12-08] MEDS: NYSTATIN 100,000 UNITS/ML 5 ML ORAL.SUSP. SWSW ×3 (08:42→16:48)
[2017-12-08] MEDS: CLINDAMYCIN HCL 150 MG CAPSULE. PO ×2 (08:42→14:19)
[2017-12-08] MEDS: LACTOBACILLUS RHAMNOSUS GG 1 CAPSULE. PO (08:43)
[2017-12-08] MEDS: GABAPENTIN 300 MG CAPSULE. PO ×2 (08:43→14:19)
[2017-12-08] MEDS: POTASSIUM CHLORIDE 20 MEQ TABLET.ER. PO (08:43)
[2017-12-08] MEDS: CITALOPRAM 20 MG TABLET. PO (08:43)
[2017-12-08] MEDS: ALPRAZolam 0.25 MG TABLET PO (08:47)
[2017-12-08] MEDS: ENOXAPARIN 40 MG/0.4 ML SYRINGE. SQ (12:46)
[2017-12-08 13:31] LABS: MAGNESIUM 1.7 mg/dL (1.8-2.4)
[2017-12-08] MEDS: diphenhydrAMINE HCL 25 MG CAPSULE PO (14:19)
== END 2017-12-08 18:08 | disposition home health service (06) | DRG 602 ==
LOC: 4 NORTH 12-05 00:14 → ER 20:40
DX: L03.115 Cellulitis of right lower limb (principal); E43 Unspecified severe protein-calorie malnutrition; K95.89 Other complications of other bariatric procedure; N39.0 Urinary tract infection, site not specified; E87.2 Acidosis; L03.116 Cellulitis of left lower limb; D63.8 Anemia in other chronic diseases classified elsewhere; E87.6 Hypokalemia; S90.522A Blister (nonthermal), left ankle, initial encounter; S90.521A Blister (nonthermal), right ankle, initial encounter; F17.200 Nicotine dependence, unspecified, uncomplicated; F32.9 Major depressive disorder, single episode, unspecified; F41.9 Anxiety disorder, unspecified; M79.7 Fibromyalgia; G62.9 Polyneuropathy, unspecified; G89.29 Other chronic pain; I89.0 Lymphedema, not elsewhere classified; X58.XXXA Exposure to other specified factors, initial encounter; Y83.8 Other surgical procedures as the cause of abnormal reaction of the patient, or of later complication, without mention of misadventure at the time of the procedure; Y93.89 Activity, other specified; Y92.89 Other specified places as the place of occurrence of the external cause; Y99.8 Other external cause status; Z98.84 Bariatric surgery status; Z98.51 Tubal ligation status; Z88.1 Allergy status to other antibiotic agents; Z88.8 Allergy status to other drugs, medicaments and biological substances; Z79.899 Other long term (current) drug therapy; Z68.23 Body mass index [BMI] 23.0-23.9, adult
CPT/HCPCS: 36415; 71045; 80048; 80053; 81001; 83605; 83735; 83880; 85025; 85610; 85730; 87040; 87071; 87075; 87086; 93970; 96365; 96375; 97116-GP; 97140-GO; 97161-GP; 97166-GO; 97168-GO; 97530-GP; 99285; 99285-25; J0690; J0696; J1200; J1650; J2405; J3010; J3475; J3490; Q0163

== ENCOUNTER 2018-03-25 22:26 | Inpatient (IN) | payer OTHER, MEDICAID ==
[~2018-03-25] VITALS: Ht 162.6 cm; Wt 59.0 kg
[~2018-03-25 22:26] MED LIST changes: +ALPR0.5T6 PO; +APIX5TAB PO; +CITA40TA5 PO; +CLIN300C8 PO; +FURO-68 PO; +FURO-69 PO; +IPRA0.2S5 NEB; +LOSA25TA5 PO; +METO25TA4 PO; -OXCA150T PO; +OXCA150T19 PO; -OXCA300T PO; +OXCA300T19 PO; +POTA20TA82 PO; +TRAZ-85 PO; +TRAZ-86 PO; -TRAZ100T12 PO; -TRAZ50TA15 PO; +ZOLP5TAB5 PO
[2018-03-25] MEDS ORDERED: ACETAMINOPHEN 500 MG TABLET PO ONE (23:00)
[2018-03-25] MEDS ORDERED: IV NORMAL SALINE 1000ML BAG 1,000 ML IV SCH (23:00)
[2018-03-25] MEDS ORDERED: ONDANSETRON PF 4 MG/2 ML VIAL. IV ONE (23:00)
[2018-03-25 23:24] LABS: BASO % 0 % (0-3); EOS % 0 % (0-3); HEMATOCRIT 28.6 % (36.0-47.0); HEMOGLOBIN 9.5 g/dL (12.0-15.5); LYMPH # 1.6 x10^3/uL (1.0-4.8); LYMPH % 34 % (24-48); MEAN CORPUSCULAR HEMOGLOBIN 32 pg (25-35); MEAN CORPUSCULAR HGB CONC 33 g/dL (31-37); MEAN CORPUSCULAR VOLUME 96 fL (79-100); MONO # 0.1 x10^3/uL (0.0-1.1); MONO % 2 % (0-9); NEUT # 3.1 x10^3uL (1.8-7.7); NEUT % 64 % (31-73); PLATELET COUNT 138 x10^3/uL (140-400); RED BLOOD COUNT 2.97 x10^6/uL (3.50-5.40); RED CELL DISTRIBUTION WIDTH 16.2 % (11.5-14.5); WHITE BLOOD COUNT 4.8 x10^3/uL (4.0-11.0)
[2018-03-25 23:40] LABS: ALBUMIN 1.2 g/dL (3.4-5.0); ALBUMIN/GLOBULIN RATIO 0.4 (1.0-1.7); CALCIUM 7.1 mg/dL (8.5-10.1); CREATININE 1.5 mg/dL (0.6-1.0); TOTAL PROTEIN 4.3 g/dL (6.4-8.2)
[2018-03-25 23:41] LABS: POTASSIUM 2.7 mmol/L (3.5-5.1)
[2018-03-25 23:42] LABS: PROTHROMBIN TIME PATIENT 20.9 SEC (11.7-14.0)
--- NOTE | 2018-03-26 00:48 | RAD ---
PQRS Compliance Statement: One or more of the following individualized dose reduction techniques were utilized for this examination: 1. Automated exposure control 2. Adjustment of the mA and/or kV according to patient size 3. Use of iterative reconstruction technique CT ABDOMEN PELVIS WO CONTRAST Clinical Indication: ABDOMEN PAIN X 3 DAYS WITH VOMITING Comparison: CT abdomen and pelvis without contrast, January 20, 2018. Technique: Helical CT imaging of the abdomen and pelvis is performed without IV or oral contrast. Findings: Moderate left and trace right pleural effusions. Consolidations in the bilateral lower lobes. Cardiac size normal. There is distal esophageal wall thickening. Postsurgical change of gastric bypass. Cholecystectomy. Fatty infiltration of the liver. Calcified granulomas in the spleen. Limited evaluation of the pancreas. Adrenal glands and abdominal aorta are normal. No hydronephrosis is seen. There is diffuse abdominal and pelvic ascites, increased from prior study. There is induration throughout the mesentery. There is anasarca, worse than on prior study. No small bowel obstruction is identified. Rectosigmoid colon is mildly distended with stool. Borderline wall thickening of the rectosigmoid colon. There is wall thickening of the colon at the splenic flexure. Appendix is not identified, no secondary signs of appendicitis. Uterus unremarkable. Urinary bladder is normal. No acute bone abnormality. IMPRESSION: 1. Interval worsening of diffuse abdominal and pelvic ascites, mesenteric induration, and anasarca. 2. Mild colon wall thickening suggestive of nonspecific colitis. 3. Moderate left and trace right pleural effusions. 4. Consolidations in the bilateral lower lobes may be compressive atelectasis versus pneumonia versus aspiration. 5. Wall thickening of the distal esophagus may be due to nonspecific esophagitis. 6. Fatty infiltration of the liver, worse than on prior study. Electronically signed by: Nolberto Persaud MD (03/26/2018 12:45 AM) [facility]
[2018-03-26] MEDS ORDERED: IV 1/2 NORMAL SALINE 1,000 ML IV ONE (01:30)
[2018-03-26] MEDS ORDERED: ACETAMINOPHEN 325 MG TABLET. PO PRN (01:30)
[2018-03-26] MEDS ORDERED: ONDANSETRON PF 4 MG/2 ML VIAL. IV PRN (01:30)
--- NOTE | 2018-03-26 01:36 | PHYS DOC ---
Past Medical History Past Medical History: Anemia, Anxiety, Depression, Fibromyalgia, Heart Disease , Other Additional Past Medical Histor: NEUROPATHY, VITAMIN DEFICIENCY, MALNUTRITION Past Surgical History: Gastric Bypass, Tubal ligation Alcohol Use: Occasionally Drug Use: None Adult General Chief Complaint Chief Complaint: ABDOMINAL PAIN HPI HPI Patient is a 48-year-old female who arrives via EMS from home with report that she thinks she may have taken an extra dose of her medication tonight. Patient indicates that she just feels drowsy. Patient also complains of abdominal pain with nausea and vomiting. She states that the abdominal pain is been present for the last couple of days. She states that during that time she is not had a bowel movement and states that she has not been passing gas today. She rates her pain to be a 7 out of 10. She denies any chest pain or shortness of breath. She does indicate that her abdomen has been more distended than usual. Review of Systems Review of Systems Constitutional: Positive fever[] Respiratory: Denies cough or shortness of breath [] Cardiovascular: No additional information not addressed in HPI [] GI: Complains of abdominal pain with nausea and vomiting.[] : Reports dysuria[] Musculoskeletal: Complains of mid and lower back pain[] All other systems were reviewed and found to be within normal limits, except as documented in this note. Current Medications Current Medications Current Medications Medications (Trade) Dose Ordered Sig/[facility] Start Time Stop Time Status Last Admin Dose Admin Acetaminophen (Tylenol) 1,000 mg 1X ONCE 03/25/18 23:00 03/25/18 23:01 DC 03/25/18 23:00 1,000 MG Ondansetron HCl (Zofran) 4 mg 1X ONCE 03/25/18 23:00 03/25/18 23:01 DC 03/25/18 23:00 4 MG Sodium Chloride 1,000 ml @ 1,000 mls/hr Q1H 03/25/18 23:00 03/25/18 23:59 DC 03/25/18 23:00 1,000 MLS/HR Allergies Allergies Allergies Coded Allergies Type Severity Reaction Last Updated Verified ciprofloxacin Allergy Intermediate 12/01/17 Yes haloperidol Allergy Intermediate Anxiety 12/01/17 Yes prednisone Allergy Intermediate 12/01/17 Yes strawberry Allergy Intermediate Rash 12/01/17 Yes Physical Exam Physical Exam Constitutional: Awake and alert, no acute distress, non-toxic appearance. [] HENT: Normocephalic, atraumatic, bilateral external ears normal, oropharynx dry , no oral exudates, nose normal. [] Eyes: PERRLA, EOMI, conjunctiva normal, no discharge. [] Neck: Normal range of motion, no tenderness, supple, no stridor. [] Cardiovascular:Heart rate regular rhythm [] Lungs & Thorax: Bilateral breath sounds clear to auscultation [] Abdomen: Bowel sounds diminished, abdomen is distended with generalized tenderness. [] Skin: Warm, dry, no erythema, no rash. [] Extremities: No tenderness, no cyanosis, no clubbing, ROM intact, there is lower extremity edema noted bilaterally. [] Neurologic: Alert and oriented, normal motor function, normal sensory function, no focal deficits noted. [] Current Patient Data Vital Signs Vital Signs Date Time Temp Pulse Resp B/P (MAP) Pulse Ox O2 Delivery O2 Flow Rate FiO2 03/25/18 22:45 100.7 83 16 84/50 (61) 99 Room Air 100.7 Lab Values Laboratory Tests Test 03/25/18 23:10 White Blood Count 4.8 x10^3/uL (4.0-11.0) Red Blood Count 2.97 x10^6/uL (3.50-5.40) L Hemoglobin 9.5 g/dL (12.0-15.5) L Hematocrit 28.6 % (36.0-47.0) L Mean Corpuscular Volume 96 fL (79-100) Mean Corpuscular Hemoglobin 32 pg (25-35) Mean Corpuscular Hemoglobin Concent 33 g/dL (31-37) Red Cell Distribution Width 16.2 % (11.5-14.5) H Platelet Count 138 x10^3/uL (140-400) L Neutrophils (%) (Auto) 64 % (31-73) Lymphocytes (%) (Auto) 34 % (24-48) Monocytes (%) (Auto) 2 % (0-9) Eosinophils (%) (Auto) 0 % (0-3) Basophils (%) (Auto) 0 % (0-3) Neutrophils # (Auto) 3.1 x10^3uL (1.8-7.7) Lymphocytes # (Auto) 1.6 x10^3/uL (1.0-4.8) Monocytes # (Auto) 0.1 x10^3/uL (0.0-1.1) Eosinophils # (Auto) 0.0 x10^3/uL (0.0-0.7) Basophils # (Auto) 0.0 x10^3/uL (0.0-0.2) Prothrombin Time 20.9 SEC (11.7-14.0) H Prothrombin Time INR 1.9 (0.8-1.1) H Sodium Level 148 mmol/L (136-145) H Potassium Level 2.7 mmol/L (3.5-5.1) *L Chloride Level 110 mmol/L (98-107) H Carbon Dioxide Level 23 mmol/L (21-32) Anion Gap 15 (6-14) H Blood Urea Nitrogen 11 mg/dL (7-20) Creatinine 1.5 mg/dL (0.6-1.0) H Estimated GFR (Cockcroft-Gault) 45.0 BUN/Creatinine Ratio 7 (6-20) Glucose Level 74 mg/dL (70-99) Calcium Level 7.1 mg/dL (8.5-10.1) L Total Bilirubin 1.0 mg/dL (0.2-1.0) Aspartate Amino Transferase (AST) 40 U/L (15-37) H Alanine Aminotransferase (ALT) 42 U/L (14-59) Alkaline Phosphatase 141 U/L (46-116) H Total Protein 4.3 g/dL (6.4-8.2) L Albumin 1.2 g/dL (3.4-5.0) L Albumin/Globulin Ratio 0.4 (1.0-1.7) L Lipase 29 U/L (73-393) L Laboratory Tests 03/25/18 23:10 Laboratory Tests 03/25/18 23:10 EKG EKG [] Interpretation Time: EKG demonstrates normal sinus rhythm with rate of 94. Radiology/Procedures Radiology/Procedures [] Impressions: PROCEDURE: CT ABDOMEN PELVIS WO CONTRAST PQRS Compliance Statement: One or more of the following individualized dose reduction techniques were utilized for this examination: 1. Automated exposure control 2. Adjustment of the mA and/or kV according to patient size 3. Use of iterative reconstruction technique CT ABDOMEN PELVIS WO CONTRAST Clinical Indication: ABDOMEN PAIN X 3 DAYS WITH VOMITING Comparison: CT abdomen and pelvis without contrast, January 20, 2018. Technique: Helical CT imaging of the abdomen and pelvis is performed without IV or oral contrast. Findings: Moderate left and trace right pleural effusions. Consolidations in the bilateral lower lobes. Cardiac size normal. There is distal esophageal wall thickening. Postsurgical change of gastric bypass. Cholecystectomy. Fatty infiltration of the liver. Calcified granulomas in the spleen. Limited evaluation of the pancreas. Adrenal glands and abdominal aorta are normal. No hydronephrosis is seen. There is diffuse abdominal and pelvic ascites, increased from prior study. There is induration throughout the mesentery. There is anasarca, worse than on prior study. No small bowel obstruction is identified. Rectosigmoid colon is mildly distended with stool. Borderline wall thickening of the rectosigmoid colon. There is wall thickening of the colon at the splenic flexure. Appendix is not identified, no secondary signs of appendicitis. Uterus unremarkable. Urinary bladder is normal. No acute bone abnormality. IMPRESSION: 1. Interval worsening of diffuse abdominal and pelvic ascites, mesenteric induration, and anasarca. 2. Mild colon wall thickening suggestive of nonspecific colitis. 3. Moderate left and trace right pleural effusions. 4. Consolidations in the bilateral lower lobes may be compressive atelectasis versus pneumonia versus aspiration. 5. Wall thickening of the distal esophagus may be due to nonspecific esophagitis. 6. Fatty infiltration of the liver, worse than on prior study. Electronically signed by: Nolberto Persaud MD (03/26/2018 12:45 AM) [facility] DICTATED and SIGNED BY: NOLBERTO PERSAUD MD Course & Med Decision Making Course & Med Decision Making Pertinent Labs and Imaging studies reviewed. (See chart for details) [] Dragon Disclaimer Dragon Disclaimer This electronic medical record was generated, in whole or in part, using a voice recognition dictation system. Departure Departure Impression: Primary Impression: Generalized abdominal pain Additional Impressions: Ascites Hypernatremia Acute kidney failure Disposition: ADMITTED INPATIENT Admitting Physician: Meir Giron Condition: IMPROVED Referrals: MEIR GIRON MD (PCP) Problem Qualifiers Additional Impressions: Ascites Ascites type: other type Qualified Codes: R18.8 - Other ascites Acute kidney failure Acute renal failure type: unspecified Qualified Codes: N17.9 - Acute kidney failure, unspecified IVETH CORDON Jr. DO Mar 26, 2018 01:36
[2018-03-26 01:45] LABS: BILIRUBIN,URINE NEGATIVE (NEG); CLARITY,URINE CLEAR; COLOR,URINE YELLOW; NITRITE,URINE NEGATIVE (NEG); PROTEIN,URINE NEGATIVE (NEG-TRACE); UROBILINOGEN,URINE 0.2 mg/dL (0.2 mg/dL)
[2018-03-26 01:56] LABS: BACTERIA,URINE 0 /HPF (0-FEW); RBC,URINE 0 /HPF (0-2); SQUAMOUS EPITHELIAL CELL,UR OCC /LPF; WBC,URINE OCC /HPF (0-4)
[2018-03-26] MEDS ORDERED: LORA1TAB PO (03:44)
[2018-03-26] MEDS ORDERED: TRAZ-86 PO (03:44)
[2018-03-26] MEDS ORDERED: HYDR-2758 PO (03:44)
[2018-03-26] MEDS ORDERED: FURO40TA4 PO (03:44)
[2018-03-26] MEDS ORDERED: OXYB5TAB7 PO (03:44)
[2018-03-26] MEDS ORDERED: ALPR0.5T6 PO (03:44)
[2018-03-26] MEDS ORDERED: GABA600T2 PO (03:44)
[2018-03-26 03:46] VITALS: BP 86/45
[2018-03-26] MEDS: MORPHINE SULFATE 2 MG/ML VIAL. IV PRN ×2 (06:26→08:56)
[2018-03-26 07:15] VITALS: BP 76/35
--- NOTE | 2018-03-26 07:49 | EKG ---
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
[2018-03-26] MEDS: METOPROLOL TART IMMED RELEASE 25 MG TABLET. PO SCH ×2 (11:00→21:05)
[2018-03-26 11:26] VITALS: BP 70/33
[2018-03-26] MEDS ORDERED: POTASSIUM CHLORIDE 20 MEQ TABLET.ER. PO ONE (11:30)
[2018-03-26] MEDS: LOSARTAN POTASSIUM 25 MG TABLET. PO SCH (12:00)
[2018-03-26] MEDS: CITALOPRAM 20 MG TABLET. PO SCH (12:35)
--- NOTE | 2018-03-26 12:51 | PDOC ---
Provider Note Provider Note Pt seen.H&P dictated. #[id number]. ROMAN GIRON MD Mar 26, 2018 12:51
[2018-03-26] MEDS ORDERED: PHYTONADIONE 10 MG/ML ORAL SOLUTION. PO ONE ×2 (13:00→13:30)
--- NOTE | 2018-03-26 13:34 | RAD ---
Single view chest 03/26/2018 CLINICAL INDICATION: CHF. COMPARISON: Chest 01/20/2018 FINDINGS: Cardiac and mediastinal silhouette stable. Hypoinflation of both lungs. Small layering left pleural effusion. Patchy left basilar opacities. No pneumothorax. IMPRESSION: 1. Small layering left pleural effusion. 2. Patchy left basilar opacities, may represent atelectasis, pneumonitis/infection. Electronically signed by: Maximiliano Hardwick MD (03/26/2018 1:31 PM) [facility] [place]
[2018-03-26] MEDS ORDERED: GABAPENTIN 300 MG CAPSULE. PO SCH (14:00)
--- NOTE | 2018-03-26 14:20 | HP ---
ADMIT DATE: 03/26/2018 LOCATION: [facility]. REASON FOR ADMISSION TO THE HOSPITAL: Ascites, feeling weak, hypokalemia. HISTORY OF PRESENT ILLNESS: The patient is a 48-year-old female. The patient has a history of gastric bypass surgery, and she had 10 years ago late complication including malnutrition, nausea, vomiting and vitamin E deficiencies. She also has history of anxiety, depression. She also has been drinking, and she has noticed short of breath, abdominal distention and not feeling well, was brought to the hospital. The patient was found to have ascites, had a CT scan of the abdomen and pelvis and was admitted to the hospital. PAST MEDICAL HISTORY: Complicated from gastric bypass surgery more than 10 years ago, anemia, malnutrition, anxiety, depression, fibromyalgia, vitamin deficiencies. PAST SURGICAL HISTORY: Gastric bypass surgery 10 years ago and tubal ligation. ALLERGIES: CIPRO, HALOPERIDOL, PREDNISONE AND STRAWBERRIES. SOCIAL HISTORY: Smoked for 20 years, still smokes half a pack. She says she has been drinking lately Vodka, at least 200 mL on a daily basis. Denies any street drugs. The patient is on Xanax and Lortab, which has been trying to be weaned off on her. She is on tramadol for pain. MEDICATIONS: She is on Lasix, citalopram, gabapentin, losartan, metoprolol, Xanax and tramadol. She was weaned off hydrocodone. REVIEW OF SYSTEMS: Abdominal pain, has problems with memory and also complains of generalized weakness. PHYSICAL EXAMINATION: GENERAL: Looks chronically sick. VITAL SIGNS: At the time of admission show a temperature of 100.7, pulse 83, respirations 16, blood pressure 84/50, 99 on room air. HEENT: Head is atraumatic. Pupils equal. Oral cavity: She just had all her teeth taken out recently, she had been fitted with dentures. NECK: Supple. Thyroid not enlarged. JVD not elevated. CHEST: Symmetric.. CARDIOVASCULAR: S1, S2. No murmurs. LUNGS: Clear to auscultation. No wheezing. ABDOMEN: Distended. Scar of gastric bypass surgery. EXTERNAL GENITALIA: No Barrios. RECTAL: Deferred. EXTREMITIES: Trace edema at the ankles. The patient has skin desquamation at the elbows, at the ankles from nutritional deficiencies. NEUROLOGIC: Moving upper and lower extremities. LABORATORY DATA: Shows a white count of 5, hemoglobin 9.5, platelets 138. INR 1.9. Electrolytes show sodium 148, potassium 2.7, chloride 110, bicarbonate 23, anion gap 15, BUN 11, creatinine 1.5, glucose 74. LFTs were normal. Albumin 1.2, lipase 29. Urine negative for leukocytes esterase. She had a CT scan of the abdomen and pelvis which shows worsening ascites, mild colon wall thickening, some pleural effusion, thickening of the distal esophagus, fatty infiltration of the liver, getting worse. FINAL IMPRESSION: 1. Ascites, progressively worse. 2. Fatty liver. 3. The patient has been drinking lately. 4. Late complication from gastric bypass surgery. 5. Fibromyalgia. 6. Anxiety. 7. Depression. 8. Vitamin deficiency. 9. Recent dental extraction and putting with dentures, not able to eat much. 10. General debility and anasarca. PLAN: At this time, the patient was admitted to the hospital, IV fluids, replace potassium. We will have GI consultation. Probably needs a paracentesis and also will have surgical consult from late complications from gastric bypass, anything could be done at this point and also probably the patient's condition has been declining and probably will make a referral to [facility] for further treatment. ROMAN GIRON MD DR: EDITH/teto JOB#: [id number] / [id number]
[2018-03-26] MEDS: traMADol 50 MG TABLET PO PRN ×2 (14:36→21:08)
[2018-03-26 15:38] VITALS: BP 72/33
[2018-03-26 19:30] VITALS: BP 69/36
[2018-03-26] MEDS: GABAPENTIN 300 MG CAPSULE. PO SCH (21:07)
[2018-03-26 23:21] VITALS: BP 74/39
[2018-03-27] VITALS (19 sets, daily range): BP systolic 54–98; BP diastolic 27–75
[2018-03-27 06:14] LABS: BILIRUBIN,URINE LARGE (NEG); CLARITY,URINE TURBID; NITRITE,URINE POSITIVE (NEG); PROTEIN,URINE 30 mg/dL (NEG-TRACE)
[2018-03-27 06:27] LABS: COLOR,URINE AMBER; SQUAMOUS EPITHELIAL CELL,UR OCC /LPF
[2018-03-27 06:28] LABS: BACTERIA,URINE MANY /HPF (0-FEW); HYALINE CASTS, URINE OCCASIONAL /HPF
[2018-03-27 06:29] LABS: AMORPHOUS SEDIMENT,UR PRESENT /HPF
[2018-03-27] MEDS: METOPROLOL TART IMMED RELEASE 25 MG TABLET. PO SCH (09:00)
[2018-03-27] MEDS: LOSARTAN POTASSIUM 25 MG TABLET. PO SCH (09:00)
[2018-03-27] MEDS: CITALOPRAM 20 MG TABLET. PO SCH (09:16)
[2018-03-27] MEDS: POTASSIUM CHLORIDE 20 MEQ TABLET.ER. PO SCH (09:17)
[2018-03-27] MEDS: GABAPENTIN 300 MG CAPSULE. PO SCH ×3 (09:17→21:00)
[2018-03-27] MEDS: traMADol 50 MG TABLET PO PRN ×2 (09:17→19:39)
[2018-03-27] MEDS ORDERED: POTASSIUM CHLORIDE 20 MEQ TABLET.ER. PO ONE ×2 (11:00→11:30)
--- NOTE | 2018-03-27 11:28 | PDOC2 ---
CONSULT Date of Consult Date of Consult DATE: 03/27/18 TIME: 11:17 History of Present Illness Reason for Visit: The patient is a 48 year old female who had a prior biliopancreatic diversion by Dr Beltrán many years ago at [facility]. She has had multiple prior admissions here with numerous problems likely related to severe malnutrition, ascites, pleural effusion etc. She was admitted due to fatigue and lethargy. She states she is able to eat and has bowel function. Past Medical History Cardiovascular: Mitral valve stenosis, Pulmonary hypertension Pulmonary: Other CENTRAL NERVOUS SYSTEM: Periperal neuropathy GI: GERD, Other Heme/Onc: Anemia NOS, Other Psych: Anxiety, Depression Musculoskeletal: low back pain, Other Rheumatologic: Fibromyalgia, Other Infectious disease: Other Endocrine: Other Past Surgical History Past Surgical History: Cholecystectomy, Colon Resection, Other ( biliopancreatic diversion) Family History Family History: Heart Disease Social History ALCOHOL: occassional Drugs: None Lives: with Family Domestic Violence: Neg Current Problem List Problem List Problems Medical Problems: (1) Acute kidney failure Status: Acute (2) Ascites Status: Acute (3) Generalized abdominal pain Status: Acute (4) Hypernatremia Status: Acute Current Medications Current Medications Current Medications Sodium Chloride 1,000 ml @ 1,000 mls/hr Q1H IV Last administered on 03/25/18at 23:00; Start 03/25/18 at 23:00; Stop 03/25/18 at 23:59; Status DC Ondansetron HCl (Zofran) 4 mg 1X ONCE IV Last administered on 03/25/18at 23:00 ; Start 03/25/18 at 23:00; Stop 03/25/18 at 23:01; Status DC Acetaminophen (Tylenol) 1,000 mg 1X ONCE PO Last administered on 03/25/18at 23: 00; Start 03/25/18 at 23:00; Stop 03/25/18 at 23:01; Status DC Ondansetron HCl (Zofran) 4 mg PRN Q8HRS PRN IV NAUSEA/VOMITING 1ST CHOICE Last administered on 03/26/18at 08:55; Start 03/26/18 at 01:30; Stop 03/27/18 at 01 :29; Status DC Morphine Sulfate (Morphine Sulfate) 2 mg PRN Q2HR PRN IV SEVERE PAIN Last administered on 03/26/18at 08:56; Start 03/26/18 at 01:30; Stop 03/26/18 at 14 :05; Status DC Acetaminophen (Tylenol) 650 mg PRN Q4HRS PRN PO FEVER; Start 03/26/18 at 01:30 ; Stop 03/27/18 at 01:29; Status DC Sodium Chloride 1,000 ml @ 100 mls/hr 1X ONCE IV Last administered on at 12:35; Start 03/26/18 at 01:30; Stop 03/26/18 at 11:29; Status DC Potassium Chloride/Sodium Chloride 1,000 ml @ 50 mls/hr Q20H IV Last administered on 03/26/18at 03:21; Start 03/26/18 at 03:30; Stop 03/27/18 at 03 :29; Status DC Influenza Virus Vaccine (Afluria Trivalent [id number] Syringe) 0.5 ml ONCE ONCE VAX IM ; Start 03/26/18 at 09:00; Stop 03/26/18 at 09:01; Status DC Losartan Potassium (Cozaar) 25 mg DAILY PO ; Start 03/26/18 at 12:00 Metoprolol Tartrate (Lopressor) 25 mg BID PO ; Start 03/26/18 at 11:00 Citalopram Hydrobromide (CeleXA) 40 mg DAILY PO Last administered on at 09:16; Start 03/26/18 at 12:00 Gabapentin (Neurontin) 600 mg TID PO ; Start 03/26/18 at 14:00; Stop 03/26/18 at 14:00; Status DC Potassium Chloride (Klor-Con) 20 meq DAILYWBKFT PO Last administered on at 09:17; Start 03/27/18 at 08:00 Potassium Chloride (Klor-Con) 40 meq 1X ONCE PO Last administered on at 12:36; Start 03/26/18 at 11:30; Stop 03/26/18 at 11:31; Status DC Gabapentin (Neurontin) 300 mg TID PO Last administered on 03/27/18at 09:17; Start 03/26/18 at 21:00 Phytonadione (Mephyton Oral Soln) 5 mg 1X ONCE PO ; Start 03/26/18 at 13:00; Stop 03/26/18 at 13:01; Status UNV Phytonadione (Mephyton Oral Soln) 2.5 mg 1X ONCE PO ; Start 03/27/18 at 13:00 ; Stop 03/27/18 at 13:01 Phytonadione (Mephyton Oral Soln) 5 mg 1X ONCE PO Last administered on at 14:36; Start 03/26/18 at 13:30; Stop 03/26/18 at 13:31; Status DC Tramadol HCl (Ultram) 50 mg PRN Q6HRS PRN PO PAIN Last administered on at 09:17; Start 03/26/18 at 14:00 Potassium Chloride (Klor-Con) 40 meq 1X ONCE PO ; Start 03/27/18 at 11:00; Stop 03/27/18 at 11:01; Status UNV Potassium Chloride (Klor-Con) 20 meq DAILYWBKFT PO ; Start 03/28/18 at 08:00; Status UNV Potassium Chloride (Klor-Con) 40 meq 1X ONCE PO ; Start 03/27/18 at 11:30; Stop 03/27/18 at 11:31 Ceftriaxone Sodium 1 gm/ Dextrose 50 ml @ 100 mls/hr Q24H IV ; Start 03/27/18 at 11:00; Status UNV Ceftriaxone Sodium (Rocephin) 1 gm Q24H IVP ; Start 03/27/18 at 12:00 Lactobacillus Rhamnosus (Culturelle) 1 cap BID PO ; Start 03/27/18 at 12:00 Active Scripts Active Reported Hydrocodone-Apap 5-325 (Hydrocodone Bit/Acetaminophen) 1 Each Tablet 5-325 Mg PO PRN Q12HRS PRN Trazodone Hcl 100 Mg Tablet 100 Mg PO BID Alprazolam 0.5 Mg Tablet 0.5 Mg PO BID PRN Oxybutynin Chloride 5 Mg Tablet 5 Mg PO TID Lorazepam 1 Mg Tablet 1 Mg PO BID PRN Gabapentin 600 Mg Tablet 600 Mg PO TID Furosemide 40 Mg Tablet 40 Mg PO DAILY Tramadol Hcl 50 Mg Tablet 50 Mg PO Q6HRS PRN Ipratropium [place] 0.2 Mg/1 Ml Solution 1 Vial NEB QID Potassium Chloride 20 Meq Tablet.er 20 Meq PO DAILY Citalopram Hbr (Citalopram Hydrobromide) 40 Mg Tablet 40 Mg PO DAILY Metoprolol Tartrate 25 Mg Tablet 25 Mg PO BID Losartan Potassium 25 Mg Tablet 25 Mg PO DAILY Allergies Allergies: Coded Allergies: ciprofloxacin (Verified Allergy, Intermediate, 12/01/17) haloperidol (Verified Allergy, Intermediate, Anxiety, 12/01/17) prednisone (Verified Allergy, Intermediate, 12/01/17) strawberry (Verified Allergy, Intermediate, Rash, 12/01/17) ROS General: YES: Fatigue PSYCHOLOGICAL ROS: No: Anxiety, Behavioral Disorder, Concentration difficultie , Decreased libido, Depression, Disorientation, Hallucinations, Hostility, Irritablity, Memory difficulties, Mood Swings, Obsessive thoughts, Physical abuse, Sexual abuse, Sleep disturbances, Suicidal ideation, Other Eyes: No Blurry vision, No Decreased vision, No Double vision, No Dry eyes, No Excessive tearing, No Eye Pain, No Itchy Eyes, No Loss of vision, No Photophobia , No Scotomata, No Uses contacts, No Uses glasses, No Other HEENT: No: Heacaches, Visual Changes, Hearing change, Nasal congestion, Nasal discharge, Oral lesions, Sinus pain, Sore Throat, Epistaxis, Sneezing, Snoring, Tinnitus, Vertigo, Vocal changes, Other ALLERGY AND IMMUNOLOGY: No: Hives, Insect Bite Sensitivity, Itchy/Watery Eyes, Nasal Congestion, Post Nasal Drip, Seasonal Allergies, Other Hematological and Lymphatic: No: Bleeding Problems, Blood Clots, Blood Transfusions, Brusing, Night Sweats, Pallor, Swollen Lymph Nodes, Other ENDOCRINE: No: Breast Changes, Galactorrhea, Hair Pattern Changes, Hot Flashes , Malaise/lethargy, Mood Swings, Palpitations, Polydipsia/polyuria, Skin Changes , Temperature Intolerance, Unexpected Weight Changes, Other Cardiovascular: No Chest Pain, No Palpitations, No Orthopnea, No Paroxysmal Noc. Dyspnea, No Edema, No Lt Headedness, No Other Gastrointestinal: Yes Abdominal Pain, Yes Other (distension) Genitourinary: No Dysuria, No Frequency, No Incontinence, No Hematuria, No Retention, No Discharge, No Urgency, No Pain, No Flank Pain, No Other, No , No , No , No , No , No , No Musculoskeletal: No Gait Disturbance, No Joint Pain, No Joint Stiffness, No Joint Swelling, No Muscle Pain, No Muscular Weakness, No Pain In:, No Swelling In:, No Other Neurological: No Behavorial Changes, No Bowel/Bladder ControlChng, No Confusion , No Dizziness, No Gait Disturbance, No Headaches, No Impaired Coord/balance, No Memory Loss, No Numbness/Tingling, No Seizures, No Speech Problems, No Tremors, No Visual Changes, No Weakness, No Other Skin: No Dry Skin, No Eczema, No Hair Changes, No Lumps, No Mole Changes, No Mottling, No Nail Changes, No Pruritus, No Rash, No Skin Lesion Changes, No Other, No Acne Physical Exam General: Alert, Cooperative HEENT: Atraumatic Lungs: Clear to auscultation Heart: Regular rate Abdomen: Soft (mildly distended) Extremities: Other (edema present peripherally) Neuro: Normal speech Psych/Mental Status: Mental status NL Vitals VITALS Vital Signs Date Time Temp Pulse Resp B/P (MAP) Pulse Ox O2 Delivery O2 Flow Rate FiO2 03/27/18 09:17 94 Room Air 2.0 03/27/18 07:20 99.5 92 18 71/34 (46) 99.5 Labs Labs Laboratory Tests Test 03/25/18 23:10 03/26/18 01:36 03/26/18 15:10 03/27/18 06:00 White Blood Count 4.8 x10^3/uL (4.0-11.0) Red Blood Count 2.97 x10^6/uL (3.50-5.40) Hemoglobin 9.5 g/dL (12.0-15.5) Hematocrit 28.6 % (36.0-47.0) Mean Corpuscular Volume 96 fL (79-100) Mean Corpuscular Hemoglobin 32 pg (25-35) Mean Corpuscular Hemoglobin Concent 33 g/dL (31-37) Red Cell Distribution Width 16.2 % (11.5-14.5) Platelet Count 138 x10^3/uL (140-400) Neutrophils (%) (Auto) 64 % (31-73) Lymphocytes (%) (Auto) 34 % (24-48) Monocytes (%) (Auto) 2 % (0-9) Eosinophils (%) (Auto) 0 % (0-3) Basophils (%) (Auto) 0 % (0-3) Neutrophils # (Auto) 3.1 x10^3uL (1.8-7.7) Lymphocytes # (Auto) 1.6 x10^3/uL (1.0-4.8) Monocytes # (Auto) 0.1 x10^3/uL (0.0-1.1) Eosinophils # (Auto) 0.0 x10^3/uL (0.0-0.7) Basophils # (Auto) 0.0 x10^3/uL (0.0-0.2) Prothrombin Time 20.9 SEC (11.7-14.0) Prothromb Time International Ratio 1.9 (0.8-1.1) Sodium Level 148 mmol/L (136-145) Potassium Level 2.7 mmol/L (3.5-5.1) 3.2 mmol/L (3.5-5.1) Chloride Level 110 mmol/L (98-107) Carbon Dioxide Level 23 mmol/L (21-32) Anion Gap 15 (6-14) Blood Urea Nitrogen 11 mg/dL (7-20) Creatinine 1.5 mg/dL (0.6-1.0) Estimated GFR (Cockcroft-Gault) 45.0 BUN/Creatinine Ratio 7 (6-20) Glucose Level 74 mg/dL (70-99) Calcium Level 7.1 mg/dL (8.5-10.1) Total Bilirubin 1.0 mg/dL (0.2-1.0) Aspartate Amino Transf (AST/SGOT) 40 U/L (15-37) Alanine Aminotransferase (ALT/SGPT) 42 U/L (14-59) Alkaline Phosphatase 141 U/L (46-116) Total Protein 4.3 g/dL (6.4-8.2) Albumin 1.2 g/dL (3.4-5.0) Albumin/Globulin Ratio 0.4 (1.0-1.7) Lipase 29 U/L (73-393) Urine Collection Type Unknown Unknown Urine Color Yellow Marija Urine Clarity Clear Turbid Urine pH 5.0 5.0 Urine Specific [place] 1.010 1.025 Urine Protein Negative mg/dL (NEG-TRACE) 30 mg/dL (NEG-TRACE) Urine Glucose (UA) Negative mg/dL (NEG) Negative mg/dL (NEG) Urine Ketones (Stick) Negative mg/dL (NEG) Trace mg/dL (NEG) Urine Blood Negative (NEG) Moderate (NEG) Urine Nitrite Negative (NEG) Positive (NEG) Urine Bilirubin Negative (NEG) Large (NEG) Urine Urobilinogen Dipstick 0.2 mg/dL (0.2 mg/dL) 1.0 mg/dL (0.2 mg/dL) Urine Leukocyte Esterase Negative (NEG) Large (NEG) Urine RBC 0 /HPF (0-2) 3-5 /HPF (0-2) Urine WBC Occ /HPF (0-4) 5-10 /HPF (0-4) Urine Squamous Epithelial Cells Occ /LPF Occ /LPF Urine Bacteria 0 /HPF (0-FEW) Many /HPF (0-FEW) Urine Mucus Slight /LPF Ammonia 107 mcmol/L (11-34) Urine Amorphous Sediment Present /HPF Urine Hyaline Casts Occasional /HPF Laboratory Tests Test 03/26/18 15:10 03/27/18 06:00 Potassium Level 3.2 mmol/L (3.5-5.1) Ammonia 107 mcmol/L (11-34) Urine Collection Type Unknown Urine Color Marija Urine Clarity Turbid Urine pH 5.0 Urine Specific [place] 1.025 Urine Protein 30 mg/dL (NEG-TRACE) Urine Glucose (UA) Negative mg/dL (NEG) Urine Ketones (Stick) Trace mg/dL (NEG) Urine Blood Moderate (NEG) Urine Nitrite Positive (NEG) Urine Bilirubin Large (NEG) Urine Urobilinogen Dipstick 1.0 mg/dL (0.2 mg/dL) Urine Leukocyte Esterase Large (NEG) Urine RBC 3-5 /HPF (0-2) Urine WBC 5-10 /HPF (0-4) Urine Squamous Epithelial Cells Occ /LPF Urine Amorphous Sediment Present /HPF Urine Bacteria Many /HPF (0-FEW) Urine Hyaline Casts Occasional /HPF Images Images CT abdomen/pelvis IMPRESSION: 1. Interval worsening of diffuse abdominal and pelvic ascites, mesenteric induration, and anasarca. 2. Mild colon wall thickening suggestive of nonspecific colitis. 3. Moderate left and trace right pleural effusions. 4. Consolidations in the bilateral lower lobes may be compressive atelectasis versus pneumonia versus aspiration. 5. Wall thickening of the distal esophagus may be due to nonspecific esophagitis. 6. Fatty infiltration of the liver, worse than on prior study. Assessment/Plan Assessment/Plan 48 year old female S/P biliary pancreatic diversion for weight loss; she has severe malnutrition with ongoing anasarca, ascites, pleural effusion, hypoalbuminemia, etc. In addition she admits to somewhat frequent alcohol use. This is an unfortunate situation which is difficult to treat. 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 Would likely need prolonged TPN prior to any potential major surgical intervention. LAZARO RAINES MD Mar 27, 2018 11:28
--- NOTE | 2018-03-27 12:12 | PDOC ---
PROGRESS NOTES Subjective Subjective not feeling well Objective Objective Vital Signs Date Time Temp Pulse Resp B/P (MAP) Pulse Ox O2 Delivery O2 Flow Rate FiO2 03/27/18 11:00 97.9 108 18 69/28 (42) 95 Room Air 97.9 03/27/18 09:17 2.0 Intake and Output 03/27/18 07:00 Intake Total 850 ml Output Total 405 ml Balance 445 ml Intake Oral 850 ml Output Urine Total 405 ml Physical Exam Abdomen: Soft (mildly distended) Heart: Regular rate Extremities: Other (edema present peripherally) General: Alert, Cooperative HEENT: Atraumatic Lungs: Clear to auscultation MUSCULOSKELETAL: No deformity Neuro: Normal speech Psych/Mental Status: Mental status NL Diagnosis Problem List Problems Medical Problems: (1) Acute kidney failure Status: Acute (2) Ascites Status: Acute (3) Generalized abdominal pain Status: Acute (4) Hypernatremia Status: Acute Assessment Assessment Problems Medical Problems: (1) Acute kidney failure Status: Acute (2) Ascites Status: Acute (3) Generalized abdominal pain Status: Acute (4) Hypernatremia Status: Acute FINAL IMPRESSION: Anasarca 1. Ascites, progressively worse. 2. Fatty liver. 3. The patient has been drinking alcohol lately. 4. Late complication from abd surgery ,biliary pancreatic bypass surgery for weight loss. 5. Fibromyalgia. 6. Anxiety. 7. Depression. 8. Vitamin deficiency. 9. Recent dental extraction and putting with dentures, not able to eat much. 10. General debility and anasarca. 11. Hypokalemia 12. UTI. 13.Bladder retention PLAN: spoke with Dr Maciel surgeon. await GI consult. ammonia 100,inr 1.9 ,low alb 1.0 all indicative of chronic liver disease. replace pot 2.7 at admission, 3.2 today bladder retentionx2 ,mccoy placed Rocephin for uti. poor prognosis. At this time, the patient was admitted to the hospital, IV fluids, replace potassium. We will have GI consultation. Probably needs a paracentesis and also will have surgical consult from late complications from gastric bypass, anything could be done at this point and also probably the patient's condition has been declining and probably will make a referral to [facility] for further treatment. Plan Plan of Care Problems Medical Problems: (1) Acute kidney failure Status: Acute (2) Ascites Status: Acute (3) Generalized abdominal pain Status: Acute (4) Hypernatremia Status: Acute Comment Review of Relevant I have reviewed the following items anais (where applicable) has been applied. Labs Laboratory Tests Test 03/26/18 15:10 03/27/18 06:00 Potassium Level 3.2 mmol/L (3.5-5.1) Ammonia 107 mcmol/L (11-34) Urine Collection Type Unknown Urine Color Marija Urine Clarity Turbid Urine pH 5.0 Urine Specific [place] 1.025 Urine Protein 30 mg/dL (NEG-TRACE) Urine Glucose (UA) Negative mg/dL (NEG) Urine Ketones (Stick) Trace mg/dL (NEG) Urine Blood Moderate (NEG) Urine Nitrite Positive (NEG) Urine Bilirubin Large (NEG) Urine Urobilinogen Dipstick 1.0 mg/dL (0.2 mg/dL) Urine Leukocyte Esterase Large (NEG) Urine RBC 3-5 /HPF (0-2) Urine WBC 5-10 /HPF (0-4) Urine Squamous Epithelial Cells Occ /LPF Urine Amorphous Sediment Present /HPF Urine Bacteria Many /HPF (0-FEW) Urine Hyaline Casts Occasional /HPF Medications Current Medications Ceftriaxone Sodium 1 gm/ Dextrose 50 ml @ 100 mls/hr Q24H IV ; Start 03/27/18 at 11:00; Status UNV Ceftriaxone Sodium (Rocephin) 1 gm Q24H IVP ; Start 03/27/18 at 12:00 Gabapentin (Neurontin) 300 mg TID PO Last administered on 03/27/18at 09:17; Start 03/26/18 at 21:00 Gabapentin (Neurontin) 600 mg TID PO ; Start 03/26/18 at 14:00; Stop 03/26/18 at 14:00; Status DC Lactobacillus Rhamnosus (Culturelle) 1 cap BID PO ; Start 03/27/18 at 12:00 Phytonadione (Mephyton Oral Soln) 2.5 mg 1X ONCE PO ; Start 03/27/18 at 13:00 ; Stop 03/27/18 at 13:01 Phytonadione (Mephyton Oral Soln) 5 mg 1X ONCE PO ; Start 03/26/18 at 13:00; Stop 03/26/18 at 13:01; Status UNV Phytonadione (Mephyton Oral Soln) 5 mg 1X ONCE PO Last administered on at 14:36; Start 03/26/18 at 13:30; Stop 03/26/18 at 13:31; Status DC Potassium Chloride (Klor-Con) 20 meq DAILYWBKFT PO Last administered on at 09:17; Start 03/27/18 at 08:00 Potassium Chloride (Klor-Con) 20 meq DAILYWBKFT PO ; Start 03/28/18 at 08:00; Status UNV Potassium Chloride (Klor-Con) 40 meq 1X ONCE PO ; Start 03/27/18 at 11:00; Stop 03/27/18 at 11:01; Status UNV Potassium Chloride (Klor-Con) 40 meq 1X ONCE PO ; Start 03/27/18 at 11:30; Stop 03/27/18 at 11:31; Status DC Tramadol HCl (Ultram) 50 mg PRN Q6HRS PRN PO PAIN Last administered on at 09:17; Start 03/26/18 at 14:00 Vitals/I & O Vital Sign - Last 24 Hours 03/26/18 03/26/18 03/26/18 03/26/18 14:36 15:38 19:30 20:00 Temp 97.7 98.4 97.7 98.4 Pulse 87 89 Resp 16 18 18 B/P (MAP) 72/33 (46) 69/36 (47) Pulse Ox 98 94 O2 Delivery Room Air Room Air Room Air 03/26/18 03/26/18 03/26/18 03/26/18 21:05 21:08 23:08 23:21 Temp 98.2 98.2 Pulse 89 90 Resp 18 B/P (MAP) 69/36 74/39 (51) Pulse Ox 95 O2 Delivery Room Air Room Air Room Air 03/27/18 03/27/18 03/27/18 03/27/18 03:30 07:20 08:00 09:17 Temp 98.4 99.5 98.4 99.5 Pulse 101 92 Resp 18 18 B/P (MAP) 70/36 (47) 71/34 (46) Pulse Ox 97 94 94 O2 Delivery Room Air Room Air Room Air Room Air O2 Flow Rate 2.0 2.0 03/27/18 11:00 Temp 97.9 97.9 Pulse 108 Resp 18 B/P (MAP) 69/28 (42) Pulse Ox 95 O2 Delivery Room Air Intake and Output 03/26/18 03/26/18 03/27/18 15:00 23:00 07:00 Intake Total 150 ml 550 ml 150 ml Output Total 230 ml 175 ml Balance 150 ml 320 ml -25 ml ROMAN GIRON MD Mar 27, 2018 12:12
[2018-03-27 12:23] LABS: BASO % 0 % (0-3); EOS % 0 % (0-3); HEMATOCRIT 33.4 % (36.0-47.0); LYMPH % 11 % (24-48); MEAN CORPUSCULAR HEMOGLOBIN 33 pg (25-35); MEAN CORPUSCULAR HGB CONC 33 g/dL (31-37); MEAN CORPUSCULAR VOLUME 99 fL (79-100); MONO # 0.4 x10^3/uL (0.0-1.1); MONO % 5 % (0-9); NEUT # 7.6 x10^3uL (1.8-7.7); NEUT % 84 % (31-73); PLATELET COUNT 92 x10^3/uL (140-400); RED BLOOD COUNT 3.38 x10^6/uL (3.50-5.40); WHITE BLOOD COUNT 9.1 x10^3/uL (4.0-11.0)
[2018-03-27 12:43] LABS: ALBUMIN 0.7 g/dL (3.4-5.0); ALBUMIN/GLOBULIN RATIO 0.2 (1.0-1.7); CALCIUM 7.4 mg/dL (8.5-10.1); CREATININE 2.5 mg/dL (0.6-1.0); TOTAL BILIRUBIN 1.7 mg/dL (0.2-1.0); TOTAL PROTEIN 4.4 g/dL (6.4-8.2)
[2018-03-27] MEDS ORDERED: PHYTONADIONE 10 MG/ML ORAL SOLUTION. PO ONE (13:00)
[2018-03-27] MEDS: LACTOBACILLUS RHAMNOSUS GG 1 CAPSULE. PO SCH ×2 (13:19→21:00)
[2018-03-27] MEDS: AMINO AC 3%/ELECTROLYTE/GLYCER 1,000 ML IV SCH (13:22)
[2018-03-27] MEDS: cefTRIAXone IV Push 1 GM VIAL. IVP SCH (13:24)
--- NOTE | 2018-03-27 14:42 | PDOC2 ---
GI CONSULT HPI: HPI: 48-year-old female. The patient has a history of biliopancreatic diversion and malnutrition, ascites and pleural effusions (w/ paracentesis and thoracentesis) , n/v, diarrhea, and coagulopathy (likely from malabsorption). She also has history of anxiety, depression. She also has been drinking, and she has noticed short of breath, abdominal distention and not feeling well, was brought to the hospital. The patient was found to have worsening ascites, had a CT scan of the abdomen and pelvis and was admitted to the hospital. She admits to N/V but denies hematemesis. She has to small BMs daily ad denies fevers. She reports that she has been seen at [facility] in the past but is nt currently seeing GI PMH: PMH: PMH: PMH: MR (moderately severe), pneumonia, peripheral neuropathy, LUE DVT, fibromyalgia , anxiety, depression, fatty liver, biliopancreatic diversion, cholecystectomy, tubal ligation, paracentesis, thoracentesis, skin biopsy PAST SURGICAL HISTORY: Gastric bypass surgery 10 years ago and tubal ligation. Past workup: EGD 01/2016: s/p BPD w/ esophageal abrasions. GES 01/2016: moderately delayed emptying (T1/2 157 min). Abd Doppler 06/2016: normal. S/p cholecystectomy. Unclear date of last colonoscopy. Labs in 06/2017: iron profile c/w ACD; normal B12, folate, and retic count. She reports h/o C Diff - always negative here (x 6). Has taken PPI and pancreatic enzymes in the past. FH: Family History: Other ALLERGIES: CIPRO, HALOPERIDOL, PREDNISONE AND STRAWBERRIES. SOCIAL HISTORY: Smoked for 20 years, still smokes half a pack. She says she has been drinking lately Vodka, at least 200 mL on a daily basis. Denies any street drugs. The patient is on Xanax and Lortab, which has been trying to be weaned off on her. She is on tramadol for pain. MEDICATIONS: She is on Lasix, citalopram, gabapentin, losartan, metoprolol, Xanax and tramadol. She was weaned off hydrocodone FH: Family History: Other Social History: Smoke: 1 pack per day ALCOHOL: heavy Drugs: None ROS: ROS: GEN: Denies fevers, chills, sweats HEENT: Denies blurred vision, sore throat CV: Denies chest pain RESP: Denies shortness of air, cough GI: Per HPI : +dysuria ENDO: Denies weight changes NEURO: Denies confusion, dizziness MSK: +swelling SKIN: Denies jaundice, pruritus VItals: Vitals: Vital Signs Date Time Temp Pulse Resp B/P (MAP) Pulse Ox O2 Delivery O2 Flow Rate FiO2 03/27/18 11:00 97.9 108 18 69/28 (42) 95 Room Air 97.9 03/27/18 10:17 2.0 Labs: Labs: Laboratory Tests Test 03/26/18 15:10 03/27/18 06:00 03/27/18 12:00 Potassium Level 3.2 mmol/L (3.5-5.1) 4.0 mmol/L (3.5-5.1) Ammonia 107 mcmol/L (11-34) Urine Collection Type Unknown Urine Color Marija Urine Clarity Turbid Urine pH 5.0 Urine Specific [employer] 1.025 Urine Protein 30 mg/dL (NEG-TRACE) Urine Glucose (UA) Negative mg/dL (NEG) Urine Ketones (Stick) Trace mg/dL (NEG) Urine Blood Moderate (NEG) Urine Nitrite Positive (NEG) Urine Bilirubin Large (NEG) Urine Urobilinogen Dipstick 1.0 mg/dL (0.2 mg/dL) Urine Leukocyte Esterase Large (NEG) Urine RBC 3-5 /HPF (0-2) Urine WBC 5-10 /HPF (0-4) Urine Squamous Epithelial Cells Occ /LPF Urine Amorphous Sediment Present /HPF Urine Bacteria Many /HPF (0-FEW) Urine Hyaline Casts Occasional /HPF White Blood Count 9.1 x10^3/uL (4.0-11.0) Red Blood Count 3.38 x10^6/uL (3.50-5.40) Hemoglobin 11.0 g/dL (12.0-15.5) Hematocrit 33.4 % (36.0-47.0) Mean Corpuscular Volume 99 fL (79-100) Mean Corpuscular Hemoglobin 33 pg (25-35) Mean Corpuscular Hemoglobin Concent 33 g/dL (31-37) Red Cell Distribution Width 17.0 % (11.5-14.5) Platelet Count 92 x10^3/uL (140-400) Neutrophils (%) (Auto) 84 % (31-73) Lymphocytes (%) (Auto) 11 % (24-48) Monocytes (%) (Auto) 5 % (0-9) Eosinophils (%) (Auto) 0 % (0-3) Basophils (%) (Auto) 0 % (0-3) Neutrophils # (Auto) 7.6 x10^3uL (1.8-7.7) Lymphocytes # (Auto) 1.0 x10^3/uL (1.0-4.8) Monocytes # (Auto) 0.4 x10^3/uL (0.0-1.1) Eosinophils # (Auto) 0.0 x10^3/uL (0.0-0.7) Basophils # (Auto) 0.0 x10^3/uL (0.0-0.2) Sodium Level 137 mmol/L (136-145) Chloride Level 109 mmol/L (98-107) Carbon Dioxide Level 18 mmol/L (21-32) Anion Gap 10 (6-14) Blood Urea Nitrogen 16 mg/dL (7-20) Creatinine 2.5 mg/dL (0.6-1.0) Estimated GFR (Cockcroft-Gault) 25.0 BUN/Creatinine Ratio 6 (6-20) Glucose Level 54 mg/dL (70-99) Calcium Level 7.4 mg/dL (8.5-10.1) Total Bilirubin 1.7 mg/dL (0.2-1.0) Aspartate Amino Transf (AST/SGOT) 47 U/L (15-37) Alanine Aminotransferase (ALT/SGPT) 45 U/L (14-59) Alkaline Phosphatase 122 U/L (46-116) Total Protein 4.4 g/dL (6.4-8.2) Albumin 0.7 g/dL (3.4-5.0) Albumin/Globulin Ratio 0.2 (1.0-1.7) Imaging: Imaging: CT ABDOMEN PELVIS WO CONTRAST Clinical Indication: ABDOMEN PAIN X 3 DAYS WITH VOMITING Comparison: CT abdomen and pelvis without contrast, January 20, 2018. Technique: Helical CT imaging of the abdomen and pelvis is performed without IV or oral contrast. Findings: Moderate left and trace right pleural effusions. Consolidations in the bilateral lower lobes. Cardiac size normal. There is distal esophageal wall thickening. Postsurgical change of gastric bypass. Cholecystectomy. Fatty infiltration of the liver. Calcified granulomas in the spleen. Limited evaluation of the pancreas. Adrenal glands and abdominal aorta are normal. No hydronephrosis is seen. There is diffuse abdominal and pelvic ascites, increased from prior study. There is induration throughout the mesentery. There is anasarca, worse than on prior study. No small bowel obstruction is identified. Rectosigmoid colon is mildly distended with stool. Borderline wall thickening of the rectosigmoid colon. There is wall thickening of the colon at the splenic flexure. Appendix is not identified, no secondary signs of appendicitis. Uterus unremarkable. Urinary bladder is normal. No acute bone abnormality. IMPRESSION: 1. Interval worsening of diffuse abdominal and pelvic ascites, mesenteric induration, and anasarca. 2. Mild colon wall thickening suggestive of nonspecific colitis. 3. Moderate left and trace right pleural effusions. 4. Consolidations in the bilateral lower lobes may be compressive atelectasis versus pneumonia versus aspiration. 5. Wall thickening of the distal esophagus may be due to nonspecific esophagitis. 6. Fatty infiltration of the liver, worse than on prior study. Electronically signed by: Nolberto Persaud MD (03/26/2018 12:45 AM) [facility] PE: PHYSICAL EXAMINATION: GENERAL: Looks chronically sick. VITAL SIGNS: At the time of admission show a temperature of 100.7, pulse 83, respirations 16, blood pressure 84/50, 99 on room air. HEENT: Head is atraumatic. Pupils equal. Oral cavity: She just had all her teeth taken out recently, she had been fitted with dentures. NECK: Supple. Thyroid not enlarged. JVD not elevated. CHEST: Symmetric.. CARDIOVASCULAR: S1, S2. No murmurs. LUNGS: Clear to auscultation. No wheezing. ABDOMEN: Distended. Scar of gastric bypass surgery. EXTERNAL GENITALIA: No Barrios. RECTAL: Deferred. EXTREMITIES: Trace edema at the ankles. The patient has skin desquamation at the elbows, at the ankles from nutritional deficiencies. NEUROLOGIC: Moving upper and lower extremities. A/P: A/P: A 1) Ascites 2) ?Colitis on CT 3) Elevated LFTs P 1) favor paracentesis for comfort 2) Needs rereferral to liver clinic 3) No colitis sx. Has not had endoscopy SANJUANITA PETERS MD Mar 27, 2018 14:42
[2018-03-27] MEDS: ALBUMIN HUMAN 25% 50 ML IV SCH ×2 (16:56→21:38)
[2018-03-27] MEDS: NOREPINEPHRIN 8MG/250ML PREMIX 250 ML IV PRN ×2 (17:02→22:00)
[2018-03-27] MEDS ORDERED: DEXTROSE 50% 25 GM / 50ML DISP.SYRIN. IV ONE ×2 (20:34→21:00)
--- NOTE | 2018-03-27 21:08 | RAD ---
Single AP view chest 03/27/2018 CLINICAL INDICATION: Line placement. Evaluate for pneumothorax. COMPARISON: Chest 03/26/2018 FINDINGS: Placement of right central venous catheter with distal tip overlying the inferior caval atrial junction. Hypoinflation of both lungs. Small layering left pleural effusion. Bibasilar atelectasis. IMPRESSION: 1. No pneumothorax. 2. Right IJ central venous catheter with distal tip at the inferior cavoatrial junction. 3. Small layering left pleural effusion. 4. Bibasilar atelectasis. Electronically signed by: Maximiliano Hardwick MD (03/27/2018 9:05 PM) [facility]
[2018-03-27] MEDS: ALBUMIN HUMAN 5% 500 ML IV SCH (21:47)
[2018-03-28] VITALS (14 sets, daily range): BP systolic 90–106; BP diastolic 39–48
[2018-03-28] MEDS: ALBUMIN HUMAN 5% 500 ML IV SCH (01:34)
[2018-03-28] MEDS: AMINO AC 3%/ELECTROLYTE/GLYCER 1,000 ML IV SCH ×2 (01:34→08:02)
[2018-03-28 06:21] LABS: CALCIUM 7.8 mg/dL (8.5-10.1); GFR 20.2; POTASSIUM 3.7 mmol/L (3.5-5.1)
[2018-03-28 07:03] LABS: PROTHROMBIN TIME PATIENT 49.7 SEC (11.7-14.0)
[2018-03-28] MEDS: NOREPINEPHRIN 8MG/250ML PREMIX 250 ML IV PRN ×2 (07:34→13:41)
[2018-03-28] MEDS ORDERED: POTASSIUM CHLORIDE 20 MEQ TABLET.ER. PO SCH (08:00)
[2018-03-28] MEDS: POTASSIUM CHLORIDE 20 MEQ TABLET.ER. PO SCH (08:00)
[2018-03-28 08:51] LABS: PROTHROMBIN TIME PATIENT 46.5 SEC (11.7-14.0)
[2018-03-28] MEDS: GABAPENTIN 300 MG CAPSULE. PO SCH ×2 (09:00→14:00)
[2018-03-28] MEDS ORDERED: CITALOPRAM 20 MG TABLET. PO SCH (09:00)
[2018-03-28] MEDS: LACTOBACILLUS RHAMNOSUS GG 1 CAPSULE. PO SCH (09:00)
[2018-03-28 09:20] LABS: D-DIMER 1.37 ug/mlFEU (0.00-0.50)
--- NOTE | 2018-03-28 09:44 | PDOC ---
Subjective: Subjective: Can tell me she's at [place]. Objective: Objective: RN asking about elevated INR. Vital Signs: Vital Signs Date Time Temp Pulse Resp B/P (MAP) Pulse Ox O2 Delivery O2 Flow Rate FiO2 03/28/18 06:00 120 15 104/45 (64) 100 Nasal Cannula 2.0 03/28/18 04:00 98.0 98.0 Labs: Laboratory Tests Test 03/27/18 12:00 03/27/18 20:33 03/27/18 20:49 03/28/18 06:00 White Blood Count 9.1 x10^3/uL Red Blood Count 3.38 x10^6/uL Hemoglobin 11.0 g/dL Hematocrit 33.4 % Mean Corpuscular Volume 99 fL Mean Corpuscular Hemoglobin 33 pg Mean Corpuscular Hemoglobin Concent 33 g/dL Red Cell Distribution Width 17.0 % Platelet Count 92 x10^3/uL Neutrophils (%) (Auto) 84 % Lymphocytes (%) (Auto) 11 % Monocytes (%) (Auto) 5 % Eosinophils (%) (Auto) 0 % Basophils (%) (Auto) 0 % Neutrophils # (Auto) 7.6 x10^3uL Lymphocytes # (Auto) 1.0 x10^3/uL Monocytes # (Auto) 0.4 x10^3/uL Eosinophils # (Auto) 0.0 x10^3/uL Basophils # (Auto) 0.0 x10^3/uL Sodium Level 137 mmol/L 139 mmol/L Potassium Level 4.0 mmol/L 3.7 mmol/L Chloride Level 109 mmol/L 106 mmol/L Carbon Dioxide Level 18 mmol/L 16 mmol/L Anion Gap 10 17 Blood Urea Nitrogen 16 mg/dL 18 mg/dL Creatinine 2.5 mg/dL 3.0 mg/dL Estimated GFR (Cockcroft-Gault) 25.0 20.2 BUN/Creatinine Ratio 6 Glucose Level 54 mg/dL 52 mg/dL Calcium Level 7.4 mg/dL 7.8 mg/dL Total Bilirubin 1.7 mg/dL Aspartate Amino Transf (AST/SGOT) 47 U/L Alanine Aminotransferase (ALT/SGPT) 45 U/L Alkaline Phosphatase 122 U/L Total Protein 4.4 g/dL Albumin 0.7 g/dL Albumin/Globulin Ratio 0.2 Glucose (Fingerstick) 32 mg/dL 98 mg/dL Prothrombin Time 49.7 SEC Prothromb Time International Ratio 5.6 Ammonia 90 mcmol/L Test 03/28/18 08:25 Prothrombin Time 46.5 SEC Prothromb Time International Ratio 5.1 Fibrinogen 187 mg/dL D-Dimer (Malini) 1.37 ug/mlFEU PE: GEN: NAD LUNGS: NC HEART: tachycardic ABD: distended, uncomfortable NEURO/PSYCH: drowsy, ?confused A/P: Ascites, coagulopathy, hyperammonemia, hypoalbuminemia, hypotension -h/o same, also pleural effusions - has required para/thoracentesis -h/o BPD, malnutrition, and non-compliance -abd doppler normal in 06/2016, fatty liver and worsening ascites on CT, also again noted "colitis" (thought in the past probably related to edema from hypoalbuminemia) -this admission apparently admitted to drinking alcohol (not a concern in the past) -- Obviously can't do paracentesis w/ elevated INR. Reviewed w/ Dr. Lemus - try SQ vit K. ?low grade DIC ?lactulose LESLEY GOULD Mar 28, 2018 09:44
[2018-03-28] MEDS ORDERED: PHYTONADIONE 10 MG/ML AMPUL. SQ ONE (09:45)
--- NOTE | 2018-03-28 10:17 | PDOC ---
PROGRESS NOTES Subjective Subjective transferred to ICU for hypotension, was given fluids ,albumin and on Levophed drip Objective Objective Vital Signs Date Time Temp Pulse Resp B/P (MAP) Pulse Ox O2 Delivery O2 Flow Rate FiO2 03/28/18 09:00 116 18 100/44 (62) 100 Nasal Cannula 2.0 03/28/18 07:00 97.8 97.8 Intake and Output 03/28/18 07:00 Intake Total 2533.7 ml Output Total 334 ml Balance 2199.7 ml Intake Oral 200 ml IV Total 2333.7 ml Output Urine Total 334 ml Physical Exam Abdomen: Soft (mildly distended) Heart: Regular rate Extremities: Other (edema present peripherally) General: Cooperative, mild distress HEENT: Atraumatic Lungs: Clear to auscultation MUSCULOSKELETAL: No deformity Psych/Mental Status: Other (sluggish today) Diagnosis Problem List Problems Medical Problems: (1) Acute kidney failure Status: Acute (2) Ascites Status: Acute (3) Generalized abdominal pain Status: Acute (4) Hypernatremia Status: Acute Assessment Assessment Problems Medical Problems: (1) Acute kidney failure Status: Acute (2) Ascites Status: Acute (3) Generalized abdominal pain Status: Acute (4) Hypernatremia Status: Acute FINAL IMPRESSION: hypotension worsening liver failure coagulopathy acte renal failure Anasarca 1. Ascites, progressively worse. 2. Fatty liver. 3. The patient has been drinking alcohol lately. 4. Late complication from abd surgery ,biliary pancreatic bypass surgery for weight loss. 5. Fibromyalgia. 6. Anxiety. 7. Depression. 8. Vitamin deficiency. 9. Recent dental extraction and putting with dentures, not able to eat much. 10. General debility and anasarca. 11. Hypokalemia 12. UTI. 13.Bladder retention PLAN:pt moved to ICU yesterday given fluids and albumin, no improvement started on Levophed 24 mcg . spoke with renal. spoke with pts mother will attempt to transfer to icu due to liver failure spoke with Dr Maciel surgeon yesterday. await GI consult. ammonia 100,inr 1.9 ,low alb 1.0 all indicative of chronic liver disease. replace pot 2.7 at admission, 3.2 today bladder retentionx2 ,mccoy placed Rocephin for uti. poor prognosis. At this time, the patient was admitted to the hospital, IV fluids, replace potassium. We will have GI consultation. Probably needs a paracentesis and also will have surgical consult from late complications from gastric bypass, anything could be done at this point and also probably the patient's condition has been declining and probably will make a referral to Liver Clinic for further treatment. Plan Plan of Care Problems Medical Problems: (1) Acute kidney failure Status: Acute (2) Ascites Status: Acute (3) Generalized abdominal pain Status: Acute (4) Hypernatremia Status: Acute Comment Review of Relevant I have reviewed the following items anais (where applicable) has been applied. Labs Laboratory Tests Test 03/27/18 12:00 03/27/18 20:33 03/27/18 20:49 03/28/18 06:00 White Blood Count 9.1 x10^3/uL (4.0-11.0) Red Blood Count 3.38 x10^6/uL (3.50-5.40) Hemoglobin 11.0 g/dL (12.0-15.5) Hematocrit 33.4 % (36.0-47.0) Mean Corpuscular Volume 99 fL (79-100) Mean Corpuscular Hemoglobin 33 pg (25-35) Mean Corpuscular Hemoglobin Concent 33 g/dL (31-37) Red Cell Distribution Width 17.0 % (11.5-14.5) Platelet Count 92 x10^3/uL (140-400) Neutrophils (%) (Auto) 84 % (31-73) Lymphocytes (%) (Auto) 11 % (24-48) Monocytes (%) (Auto) 5 % (0-9) Eosinophils (%) (Auto) 0 % (0-3) Basophils (%) (Auto) 0 % (0-3) Neutrophils # (Auto) 7.6 x10^3uL (1.8-7.7) Lymphocytes # (Auto) 1.0 x10^3/uL (1.0-4.8) Monocytes # (Auto) 0.4 x10^3/uL (0.0-1.1) Eosinophils # (Auto) 0.0 x10^3/uL (0.0-0.7) Basophils # (Auto) 0.0 x10^3/uL (0.0-0.2) Sodium Level 137 mmol/L (136-145) 139 mmol/L (136-145) Potassium Level 4.0 mmol/L (3.5-5.1) 3.7 mmol/L (3.5-5.1) Chloride Level 109 mmol/L (98-107) 106 mmol/L (98-107) Carbon Dioxide Level 18 mmol/L (21-32) 16 mmol/L (21-32) Anion Gap 10 (6-14) 17 (6-14) Blood Urea Nitrogen 16 mg/dL (7-20) 18 mg/dL (7-20) Creatinine 2.5 mg/dL (0.6-1.0) 3.0 mg/dL (0.6-1.0) Estimated GFR (Cockcroft-Gault) 25.0 20.2 BUN/Creatinine Ratio 6 (6-20) Glucose Level 54 mg/dL (70-99) 52 mg/dL (70-99) Calcium Level 7.4 mg/dL (8.5-10.1) 7.8 mg/dL (8.5-10.1) Total Bilirubin 1.7 mg/dL (0.2-1.0) Aspartate Amino Transf (AST/SGOT) 47 U/L (15-37) Alanine Aminotransferase (ALT/SGPT) 45 U/L (14-59) Alkaline Phosphatase 122 U/L (46-116) Total Protein 4.4 g/dL (6.4-8.2) Albumin 0.7 g/dL (3.4-5.0) Albumin/Globulin Ratio 0.2 (1.0-1.7) Glucose (Fingerstick) 32 mg/dL (70-99) 98 mg/dL (70-99) Prothrombin Time 49.7 SEC (11.7-14.0) Prothromb Time International Ratio 5.6 (0.8-1.1) Ammonia 90 mcmol/L (11-34) Test 03/28/18 08:25 Prothrombin Time 46.5 SEC (11.7-14.0) Prothromb Time International Ratio 5.1 (0.8-1.1) Fibrinogen 187 mg/dL (200-440) D-Dimer (Malini) 1.37 ug/mlFEU (0.00-0.50) Medications Current Medications Albumin Human 50 ml @ 50 mls/hr Q1H IV Last administered on 03/27/18at 21:38; Start 03/27/18 at 16:30; Stop 03/27/18 at 18:29; Status DC Albumin Human 500 ml @ 125 mls/hr Q4H IV Last administered on 03/28/18at 01:34 ; Start 03/27/18 at 18:30; Stop 03/28/18 at 02:29; Status DC Amino Acids/ Glycerin/ Electrolytes 1,000 ml @ 80 mls/hr [id number] IV Last administered on 03/28/18at 08:02; Start 03/27/18 at 13:00 Ceftriaxone Sodium 1 gm/ Dextrose 50 ml @ 100 mls/hr Q24H IV ; Start 03/27/18 at 11:00; Status UNV Ceftriaxone Sodium (Rocephin) 1 gm Q24H IVP Last administered on 03/27/18at 13: 24; Start 03/27/18 at 12:00 Citalopram Hydrobromide (CeleXA) 20 mg DAILY PO ; Start 03/28/18 at 09:00 Dextrose (Dextrose 50%-Water Syringe) 25 gm STK-MED ONCE IV ; Start 03/27/18 at 20:34; Stop 03/27/18 at 20:35; Status DC Dextrose (Dextrose 50%-Water Syringe) 25 gm STK-MED ONCE IV ; Start 03/27/18 at 21:00; Stop 03/28/18 at 07:54; Status DC Dopamine HCl/ Dextrose 250 ml @ 4.535 mls/ hr CONT PRN IV SEE I/O RECORD Last administered on 03/27/18at 21:39; Start 03/27/18 at 21:30 Dopamine HCl/ Dextrose 250 ml @ As Directed STK-MED ONCE IV ; Start 03/27/18 at 21:17; Stop 03/27/18 at 21:18; Status DC Lactobacillus Rhamnosus (Culturelle) 1 cap BID PO Last administered on at 13:19; Start 03/27/18 at 12:00 Lactulose (Lactulose) 20 gm 1X ONCE PO ; Start 03/28/18 at 12:00; Stop at 12:01 Norepinephrine Bitartrate 250 ml @ 1.875 mls/ hr CONT PRN IV SEE I/O RECORD Last administered on 03/28/18at 07:34; Start 03/27/18 at 17:00 Phytonadione (Mephyton Oral Soln) 2.5 mg 1X ONCE PO Last administered on 03/27at 13:19; Start 03/27/18 at 13:00; Stop 03/27/18 at 13:01; Status DC Phytonadione (Vitamin K Ampule) 10 mg 1X ONCE SQ Last administered on at 10:05; Start 03/28/18 at 09:45; Stop 03/28/18 at 09:46; Status DC Potassium Chloride (Klor-Con) 20 meq [id number] PO ; Start 03/28/18 at 08:00; Status UNV Potassium Chloride (Klor-Con) 40 meq 1X ONCE PO ; Start 03/27/18 at 11:00; Stop 03/27/18 at 11:01; Status UNV Potassium Chloride (Klor-Con) 40 meq 1X ONCE PO Last administered on at 13:18; Start 03/27/18 at 11:30; Stop 03/27/18 at 11:31; Status DC Vitals/I & O Vital Sign - Last 24 Hours 03/27/18 03/27/18 03/27/18 03/27/18 11:00 15:11 16:00 16:30 Temp 97.9 98.1 97.9 98.1 Pulse 108 99 Resp 18 18 B/P (MAP) 69/28 (42) 65/27 (40) 54/37 (43) Pulse Ox 95 98 O2 Delivery Room Air Room Air Room Air O2 Flow Rate 2.0 03/27/18 03/27/18 03/27/18 03/27/18 17:00 17:15 18:00 19:00 Pulse 96 94 90 98 Resp 18 20 18 18 B/P (MAP) 67/34 (45) 59/38 (45) 86/51 (63) Pulse Ox 100 90 91 97 O2 Delivery Room Air Room Air Nasal Cannula Nasal Cannula O2 Flow Rate 2.0 2.0 03/27/18 03/27/18 03/27/18 03/27/18 19:30 19:39 20:00 20:00 Temp 98.4 98.4 Pulse 98 98 Resp 18 18 B/P (MAP) 83/37 (52) Pulse Ox 97 91 97 O2 Delivery Nasal Cannula Room Air Nasal Cannula Room Air O2 Flow Rate 2.0 2.0 2.0 03/27/18 03/27/18 03/27/18 03/27/18 20:39 20:45 21:00 21:15 Pulse 106 100 114 Resp 16 18 18 B/P (MAP) 82/44 (57) 73/40 (51) 62/37 (45) Pulse Ox 91 99 97 97 O2 Delivery Room Air Nasal Cannula Nasal Cannula Nasal Cannula O2 Flow Rate 2.0 2.0 2.0 2.0 03/27/18 03/27/18 03/27/18 03/27/18 21:30 21:45 22:00 22:15 Pulse 120 135 108 106 Resp 14 20 20 14 B/P (MAP) 85/75 (78) 92/46 (61) 83/41 (55) 89/44 (59) Pulse Ox 100 100 100 100 O2 Delivery Nasal Cannula Nasal Cannula Nasal Cannula Nasal Cannula O2 Flow Rate 2.0 2.0 2.0 2.0 03/27/18 03/27/18 03/27/18 03/28/18 22:30 22:45 23:00 00:00 Pulse 102 102 96 Resp 15 15 15 B/P (MAP) 91/45 (60) 97/36 (56) 98/62 (74) Pulse Ox 100 100 100 O2 Delivery Nasal Cannula Nasal Cannula Nasal Cannula Room Air O2 Flow Rate 2.0 2.0 2.0 03/28/18 03/28/18 03/28/18 03/28/18 00:01 02:00 03:00 04:00 Temp 98.1 98.0 98.1 98.0 Pulse 102 110 118 111 Resp 16 15 16 16 B/P (MAP) 90/39 (56) 102/40 (60) 94/45 (61) 96/44 (61) Pulse Ox 100 100 100 100 O2 Delivery Nasal Cannula Nasal Cannula Nasal Cannula Nasal Cannula O2 Flow Rate 2.0 2.0 2.0 2.0 03/28/18 03/28/18 03/28/18 03/28/18 04:00 05:00 06:00 07:00 Temp 97.8 97.8 Pulse 110 120 118 Resp 15 15 18 B/P (MAP) 102/40 (60) 104/45 (64) 103/44 (63) Pulse Ox 100 100 100 O2 Delivery Nasal Cannula Nasal Cannula Nasal Cannula Nasal Cannula O2 Flow Rate 2.0 2.0 2.0 2.0 03/28/18 03/28/18 03/28/18 08:00 08:00 09:00 Pulse 118 116 Resp 18 18 B/P (MAP) 96/44 (61) 100/44 (62) Pulse Ox 100 100 O2 Delivery Nasal Cannula Nasal Cannula Nasal Cannula O2 Flow Rate 2.0 2.0 2.0 Intake and Output 03/27/18 03/27/18 03/28/18 15:00 23:00 07:00 Intake Total 150 ml 150 ml 2233.7 ml Output Total 12 ml 322 ml Balance 150 ml 138 ml 1911.7 ml ROMAN GIRON MD Mar 28, 2018 10:17
[2018-03-28] MEDS ORDERED: SODIUM BICARBONATE VIAL 150 MEQ in IV DEXTROSE 5% 1,000 ML IV SCH (11:00)
--- NOTE | 2018-03-28 11:04 | PDOC2 ---
CONSULT Date of Consult Date of Consult DATE: 03/28/18 TIME: 10:56 Reason for Consult Reason for Consult: MAVERICK Referring Physician Referring Physician: MACK Identification/Chief Complaint Chief Complaint ABD PAIN WITH N/V/DIARRHEA Source Source: Chart review History of Present Illness Reason for Visit: THIS IS A 48 YR OLD WITH C/O ABD PAIN, N/V/D AND HX OF ASCITES. NOTED TO HAVE INCREASED LFTS AND AMMONIA LEVEL. CR OF 1.5 THEN 3.0 NOW. NOTED TO HAVE SOME HYPOTENSION WELL. SHE HAS MET ACIDOSIS ON LABS. ALSO HAS AN UTI. CURRENTLY ON PPN AND REMAINS ENCEPHALOPATHIC WITH HIGH AMMONIA LEVELS. HYPOKALEMIA WAS NOTED AND TREATED. NO KNOWN CKD Past Medical History Cardiovascular: Mitral valve stenosis, Pulmonary hypertension Pulmonary: Other CENTRAL NERVOUS SYSTEM: Periperal neuropathy GI: GERD, Other Heme/Onc: Anemia NOS, Other Psych: Anxiety, Depression Musculoskeletal: low back pain, Other Rheumatologic: Fibromyalgia, Other Infectious disease: Other ENT: No pertinent hx Renal/: No pertinent hx Endocrine: Other Past Surgical History Past Surgical History: Cholecystectomy, Colon Resection, Other ( biliopancreatic diversion) Family History Family History: Heart Disease Social History 1 pack per day ALCOHOL: heavy Drugs: None Lives: with Family Domestic Violence: Neg Current Problem List Problem List Problems Medical Problems: (1) Acute kidney failure Status: Acute (2) Ascites Status: Acute (3) Generalized abdominal pain Status: Acute (4) Hypernatremia Status: Acute Current Medications Current Medications Current Medications Sodium Chloride 1,000 ml @ 1,000 mls/hr Q1H IV Last administered on 03/25/18at 23:00; Start 03/25/18 at 23:00; Stop 03/25/18 at 23:59; Status DC Ondansetron HCl (Zofran) 4 mg 1X ONCE IV Last administered on 03/25/18at 23:00 ; Start 03/25/18 at 23:00; Stop 03/25/18 at 23:01; Status DC Acetaminophen (Tylenol) 1,000 mg 1X ONCE PO Last administered on 03/25/18at 23: 00; Start 03/25/18 at 23:00; Stop 03/25/18 at 23:01; Status DC Ondansetron HCl (Zofran) 4 mg PRN Q8HRS PRN IV NAUSEA/VOMITING 1ST CHOICE Last administered on 03/26/18at 08:55; Start 03/26/18 at 01:30; Stop 03/27/18 at 01 :29; Status DC Morphine Sulfate (Morphine Sulfate) 2 mg PRN Q2HR PRN IV SEVERE PAIN Last administered on 03/26/18at 08:56; Start 03/26/18 at 01:30; Stop 03/26/18 at 14 :05; Status DC Acetaminophen (Tylenol) 650 mg PRN Q4HRS PRN PO FEVER; Start 03/26/18 at 01:30 ; Stop 03/27/18 at 01:29; Status DC Sodium Chloride 1,000 ml @ 100 mls/hr 1X ONCE IV Last administered on at 12:35; Start 03/26/18 at 01:30; Stop 03/26/18 at 11:29; Status DC Potassium Chloride/Sodium Chloride 1,000 ml @ 50 mls/hr Q20H IV Last administered on 03/26/18at 03:21; Start 03/26/18 at 03:30; Stop 03/27/18 at 03 :29; Status DC Influenza Virus Vaccine (Afluria Trivalent [id number] Syringe) 0.5 ml ONCE ONCE VAX IM ; Start 03/26/18 at 09:00; Stop 03/26/18 at 09:01; Status DC Losartan Potassium (Cozaar) 25 mg DAILY PO ; Start 03/26/18 at 12:00; Stop 04/03 at 12:20; Status DC Metoprolol Tartrate (Lopressor) 25 mg BID PO ; Start 03/26/18 at 11:00; Stop 03/27/18 at 12:20; Status DC Citalopram Hydrobromide (CeleXA) 40 mg DAILY PO Last administered on at 09:16; Start 03/26/18 at 12:00; Stop 03/27/18 at 12:20; Status DC Gabapentin (Neurontin) 600 mg TID PO ; Start 03/26/18 at 14:00; Stop 03/26/18 at 14:00; Status DC Potassium Chloride (Klor-Con) 20 meq DAILYWBKFT PO Last administered on at 09:17; Start 03/27/18 at 08:00 Potassium Chloride (Klor-Con) 40 meq 1X ONCE PO Last administered on at 12:36; Start 03/26/18 at 11:30; Stop 03/26/18 at 11:31; Status DC Gabapentin (Neurontin) 300 mg TID PO Last administered on 03/27/18at 13:19; Start 03/26/18 at 21:00 Phytonadione (Mephyton Oral Soln) 5 mg 1X ONCE PO ; Start 03/26/18 at 13:00; Stop 03/26/18 at 13:01; Status UNV Phytonadione (Mephyton Oral Soln) 2.5 mg 1X ONCE PO Last administered on 03/27at 13:19; Start 03/27/18 at 13:00; Stop 03/27/18 at 13:01; Status DC Phytonadione (Mephyton Oral Soln) 5 mg 1X ONCE PO Last administered on at 14:36; Start 03/26/18 at 13:30; Stop 03/26/18 at 13:31; Status DC Tramadol HCl (Ultram) 50 mg PRN Q6HRS PRN PO PAIN Last administered on at 19:39; Start 03/26/18 at 14:00 Potassium Chloride (Klor-Con) 40 meq 1X ONCE PO ; Start 03/27/18 at 11:00; Stop 03/27/18 at 11:01; Status UNV Potassium Chloride (Klor-Con) 20 meq DAILYWBKFT PO ; Start 03/28/18 at 08:00; Status UNV Potassium Chloride (Klor-Con) 40 meq 1X ONCE PO Last administered on at 13:18; Start 03/27/18 at 11:30; Stop 03/27/18 at 11:31; Status DC Ceftriaxone Sodium 1 gm/ Dextrose 50 ml @ 100 mls/hr Q24H IV ; Start 03/27/18 at 11:00; Status UNV Ceftriaxone Sodium (Rocephin) 1 gm Q24H IVP Last administered on 03/27/18at 13: 24; Start 03/27/18 at 12:00 Lactobacillus Rhamnosus (Culturelle) 1 cap BID PO Last administered on at 13:19; Start 03/27/18 at 12:00 Citalopram Hydrobromide (CeleXA) 20 mg DAILY PO ; Start 03/28/18 at 09:00 Amino Acids/ Glycerin/ Electrolytes 1,000 ml @ 80 mls/hr [id number] IV Last administered on 03/28/18at 08:02; Start 03/27/18 at 13:00 Albumin Human 50 ml @ 50 mls/hr Q1H IV Last administered on 03/27/18at 21:38; Start 03/27/18 at 16:30; Stop 03/27/18 at 18:29; Status DC Albumin Human 500 ml @ 125 mls/hr Q4H IV Last administered on 03/28/18at 01:34 ; Start 03/27/18 at 18:30; Stop 03/28/18 at 02:29; Status DC Norepinephrine Bitartrate 250 ml @ 1.875 mls/ hr CONT PRN IV SEE I/O RECORD Last administered on 03/28/18at 07:34; Start 03/27/18 at 17:00 Dextrose (Dextrose 50%-Water Syringe) 25 gm STK-MED ONCE IV ; Start 03/27/18 at 20:34; Stop 03/27/18 at 20:35; Status DC Dopamine HCl/ Dextrose 250 ml @ As Directed STK-MED ONCE IV ; Start 03/27/18 at 21:17; Stop 03/27/18 at 21:18; Status DC Dopamine HCl/ Dextrose 250 ml @ 4.535 mls/ hr CONT PRN IV SEE I/O RECORD Last administered on 03/27/18at 21:39; Start 03/27/18 at 21:30 Dextrose (Dextrose 50%-Water Syringe) 25 gm STK-MED ONCE IV ; Start 03/27/18 at 21:00; Stop 03/28/18 at 07:54; Status DC Phytonadione (Vitamin K Ampule) 10 mg 1X ONCE SQ Last administered on at 10:05; Start 03/28/18 at 09:45; Stop 03/28/18 at 09:46; Status DC Lactulose (Lactulose) 20 gm 1X ONCE PO ; Start 03/28/18 at 12:00; Stop at 12:01 Sodium Bicarbonate 150 meq/Dextrose 1,150 ml @ 75 mls/hr [id number] IV ; Start 11 /12/18 at 11:00 Active Scripts Active Reported Hydrocodone-Apap 5-325 (Hydrocodone Bit/Acetaminophen) 1 Each Tablet 5-325 Mg PO PRN Q12HRS PRN Trazodone Hcl 100 Mg Tablet 100 Mg PO BID Alprazolam 0.5 Mg Tablet 0.5 Mg PO BID PRN Oxybutynin Chloride 5 Mg Tablet 5 Mg PO TID Lorazepam 1 Mg Tablet 1 Mg PO BID PRN Gabapentin 600 Mg Tablet 600 Mg PO TID Furosemide 40 Mg Tablet 40 Mg PO DAILY Tramadol Hcl 50 Mg Tablet 50 Mg PO Q6HRS PRN Ipratropium Randolph 0.2 Mg/1 Ml Solution 1 Vial NEB QID Potassium Chloride 20 Meq Tablet.er 20 Meq PO DAILY Citalopram Hbr (Citalopram Hydrobromide) 40 Mg Tablet 40 Mg PO DAILY Metoprolol Tartrate 25 Mg Tablet 25 Mg PO BID Losartan Potassium 25 Mg Tablet 25 Mg PO DAILY Allergies Allergies: Coded Allergies: ciprofloxacin (Verified Allergy, Intermediate, 12/01/17) haloperidol (Verified Allergy, Intermediate, Anxiety, 12/01/17) prednisone (Verified Allergy, Intermediate, 12/01/17) strawberry (Verified Allergy, Intermediate, Rash, 12/01/17) ROS Review of System CONFUSED Physical Exam General: Cooperative, No acute distress HEENT: Atraumatic, PERRLA, EOMI Lungs: Other (DECREASED AT BASES) Heart: Regular rate, No murmurs Abdomen: Normal bowel sounds, Soft, No tenderness, Other (POS ASCITES) Extremities: No clubbing, No cyanosis, No edema Skin: No breakdown Neuro: Reflexes 2+ (CONFUSED) Psych/Mental Status: Other (CONFUSED) MUSCULOSKELETAL: No deformity, No swelling Vitals VITALS Vital Signs Date Time Temp Pulse Resp B/P (MAP) Pulse Ox O2 Delivery O2 Flow Rate FiO2 03/28/18 09:00 116 18 100/44 (62) 100 Nasal Cannula 2.0 03/28/18 07:00 97.8 97.8 Labs Labs Laboratory Tests Test 03/26/18 15:10 03/27/18 06:00 03/27/18 12:00 03/27/18 20:33 Potassium Level 3.2 mmol/L (3.5-5.1) 4.0 mmol/L (3.5-5.1) Ammonia 107 mcmol/L (11-34) Urine Collection Type Unknown Urine Color Marija Urine Clarity Turbid Urine pH 5.0 Urine Specific [place] 1.025 Urine Protein 30 mg/dL (NEG-TRACE) Urine Glucose (UA) Negative mg/dL (NEG) Urine Ketones (Stick) Trace mg/dL (NEG) Urine Blood Moderate (NEG) Urine Nitrite Positive (NEG) Urine Bilirubin Large (NEG) Urine Urobilinogen Dipstick 1.0 mg/dL (0.2 mg/dL) Urine Leukocyte Esterase Large (NEG) Urine RBC 3-5 /HPF (0-2) Urine WBC 5-10 /HPF (0-4) Urine Squamous Epithelial Cells Occ /LPF Urine Amorphous Sediment Present /HPF Urine Bacteria Many /HPF (0-FEW) Urine Hyaline Casts Occasional /HPF White Blood Count 9.1 x10^3/uL (4.0-11.0) Red Blood Count 3.38 x10^6/uL (3.50-5.40) Hemoglobin 11.0 g/dL (12.0-15.5) Hematocrit 33.4 % (36.0-47.0) Mean Corpuscular Volume 99 fL (79-100) Mean Corpuscular Hemoglobin 33 pg (25-35) Mean Corpuscular Hemoglobin Concent 33 g/dL (31-37) Red Cell Distribution Width 17.0 % (11.5-14.5) Platelet Count 92 x10^3/uL (140-400) Neutrophils (%) (Auto) 84 % (31-73) Lymphocytes (%) (Auto) 11 % (24-48) Monocytes (%) (Auto) 5 % (0-9) Eosinophils (%) (Auto) 0 % (0-3) Basophils (%) (Auto) 0 % (0-3) Neutrophils # (Auto) 7.6 x10^3uL (1.8-7.7) Lymphocytes # (Auto) 1.0 x10^3/uL (1.0-4.8) Monocytes # (Auto) 0.4 x10^3/uL (0.0-1.1) Eosinophils # (Auto) 0.0 x10^3/uL (0.0-0.7) Basophils # (Auto) 0.0 x10^3/uL (0.0-0.2) Sodium Level 137 mmol/L (136-145) Chloride Level 109 mmol/L (98-107) Carbon Dioxide Level 18 mmol/L (21-32) Anion Gap 10 (6-14) Blood Urea Nitrogen 16 mg/dL (7-20) Creatinine 2.5 mg/dL (0.6-1.0) Estimated GFR (Cockcroft-Gault) 25.0 BUN/Creatinine Ratio 6 (6-20) Glucose Level 54 mg/dL (70-99) Calcium Level 7.4 mg/dL (8.5-10.1) Total Bilirubin 1.7 mg/dL (0.2-1.0) Aspartate Amino Transf (AST/SGOT) 47 U/L (15-37) Alanine Aminotransferase (ALT/SGPT) 45 U/L (14-59) Alkaline Phosphatase 122 U/L (46-116) Total Protein 4.4 g/dL (6.4-8.2) Albumin 0.7 g/dL (3.4-5.0) Albumin/Globulin Ratio 0.2 (1.0-1.7) Glucose (Fingerstick) 32 mg/dL (70-99) Test 03/27/18 20:49 03/28/18 06:00 03/28/18 08:25 03/28/18 10:17 Glucose (Fingerstick) 98 mg/dL (70-99) 67 mg/dL (70-99) Prothrombin Time 49.7 SEC (11.7-14.0) 46.5 SEC (11.7-14.0) Prothromb Time International Ratio 5.6 (0.8-1.1) 5.1 (0.8-1.1) Sodium Level 139 mmol/L (136-145) Potassium Level 3.7 mmol/L (3.5-5.1) Chloride Level 106 mmol/L (98-107) Carbon Dioxide Level 16 mmol/L (21-32) Anion Gap 17 (6-14) Blood Urea Nitrogen 18 mg/dL (7-20) Creatinine 3.0 mg/dL (0.6-1.0) Estimated GFR (Cockcroft-Gault) 20.2 Glucose Level 52 mg/dL (70-99) Calcium Level 7.8 mg/dL (8.5-10.1) Ammonia 90 mcmol/L (11-34) Fibrinogen 187 mg/dL (200-440) D-Dimer (Malini) 1.37 ug/mlFEU (0.00-0.50) Laboratory Tests Test 03/27/18 12:00 03/27/18 20:33 03/27/18 20:49 03/28/18 06:00 White Blood Count 9.1 x10^3/uL (4.0-11.0) Red Blood Count 3.38 x10^6/uL (3.50-5.40) Hemoglobin 11.0 g/dL (12.0-15.5) Hematocrit 33.4 % (36.0-47.0) Mean Corpuscular Volume 99 fL (79-100) Mean Corpuscular Hemoglobin 33 pg (25-35) Mean Corpuscular Hemoglobin Concent 33 g/dL (31-37) Red Cell Distribution Width 17.0 % (11.5-14.5) Platelet Count 92 x10^3/uL (140-400) Neutrophils (%) (Auto) 84 % (31-73) Lymphocytes (%) (Auto) 11 % (24-48) Monocytes (%) (Auto) 5 % (0-9) Eosinophils (%) (Auto) 0 % (0-3) Basophils (%) (Auto) 0 % (0-3) Neutrophils # (Auto) 7.6 x10^3uL (1.8-7.7) Lymphocytes # (Auto) 1.0 x10^3/uL (1.0-4.8) Monocytes # (Auto) 0.4 x10^3/uL (0.0-1.1) Eosinophils # (Auto) 0.0 x10^3/uL (0.0-0.7) Basophils # (Auto) 0.0 x10^3/uL (0.0-0.2) Sodium Level 137 mmol/L (136-145) 139 mmol/L (136-145) Potassium Level 4.0 mmol/L (3.5-5.1) 3.7 mmol/L (3.5-5.1) Chloride Level 109 mmol/L (98-107) 106 mmol/L (98-107) Carbon Dioxide Level 18 mmol/L (21-32) 16 mmol/L (21-32) Anion Gap 10 (6-14) 17 (6-14) Blood Urea Nitrogen 16 mg/dL (7-20) 18 mg/dL (7-20) Creatinine 2.5 mg/dL (0.6-1.0) 3.0 mg/dL (0.6-1.0) Estimated GFR (Cockcroft-Gault) 25.0 20.2 BUN/Creatinine Ratio 6 (6-20) Glucose Level 54 mg/dL (70-99) 52 mg/dL (70-99) Calcium Level 7.4 mg/dL (8.5-10.1) 7.8 mg/dL (8.5-10.1) Total Bilirubin 1.7 mg/dL (0.2-1.0) Aspartate Amino Transf (AST/SGOT) 47 U/L (15-37) Alanine Aminotransferase (ALT/SGPT) 45 U/L (14-59) Alkaline Phosphatase 122 U/L (46-116) Total Protein 4.4 g/dL (6.4-8.2) Albumin 0.7 g/dL (3.4-5.0) Albumin/Globulin Ratio 0.2 (1.0-1.7) Glucose (Fingerstick) 32 mg/dL (70-99) 98 mg/dL (70-99) Prothrombin Time 49.7 SEC (11.7-14.0) Prothromb Time International Ratio 5.6 (0.8-1.1) Ammonia 90 mcmol/L (11-34) Test 03/28/18 08:25 03/28/18 10:17 Prothrombin Time 46.5 SEC (11.7-14.0) Prothromb Time International Ratio 5.1 (0.8-1.1) Fibrinogen 187 mg/dL (200-440) D-Dimer (Malini) 1.37 ug/mlFEU (0.00-0.50) Glucose (Fingerstick) 67 mg/dL (70-99) Assessment/Plan Assessment/Plan IMP [id number] 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
[2018-03-28] MEDS ORDERED: LACTULOSE 20 GM/30 ML SOLUTION. PO ONE (12:00)
[2018-03-28] MEDS: cefTRIAXone IV Push 1 GM VIAL. IVP SCH (13:42)
== END 2018-03-28 15:10 | disposition short-term general hospital (02) | DRG 682 ==
LOC: ER 22:26 → 6 SOUTH 03-26 01:10 → 1 WEST ICU 03-27 16:52
PROVIDERS: ADMIT Internal Medicine; ATTEND Internal Medicine
DX: N17.0 Acute kidney failure with tubular necrosis (principal); E43 Unspecified severe protein-calorie malnutrition; E87.0 Hyperosmolality and hypernatremia; R18.8 Other ascites; N39.0 Urinary tract infection, site not specified; J90 Pleural effusion, not elsewhere classified; E72.20 Disorder of urea cycle metabolism, unspecified; D68.9 Coagulation defect, unspecified; E87.2 Acidosis; K72.90 Hepatic failure, unspecified without coma; M79.7 Fibromyalgia; F41.9 Anxiety disorder, unspecified; F32.9 Major depressive disorder, single episode, unspecified; D64.9 Anemia, unspecified; G62.9 Polyneuropathy, unspecified; K76.0 Fatty (change of) liver, not elsewhere classified; E56.9 Vitamin deficiency, unspecified; K21.9 Gastro-esophageal reflux disease without esophagitis; E87.8 Other disorders of electrolyte and fluid balance, not elsewhere classified; E86.9 Volume depletion, unspecified; E87.6 Hypokalemia; I95.9 Hypotension, unspecified; I27.20 Pulmonary hypertension, unspecified; I05.0 Rheumatic mitral stenosis; F17.210 Nicotine dependence, cigarettes, uncomplicated; Z88.1 Allergy status to other antibiotic agents; Z88.8 Allergy status to other drugs, medicaments and biological substances; Z91.018 Allergy to other foods; Z98.84 Bariatric surgery status; Z90.49 Acquired absence of other specified parts of digestive tract; Z82.49 Family history of ischemic heart disease and other diseases of the circulatory system; Z91.19 Patient's noncompliance with other medical treatment and regimen; Z68.22 Body mass index [BMI] 22.0-22.9, adult
CPT/HCPCS: 36415; 71045; 74176; 80048; 80053; 81001; 82140; 82962; 83690; 84132; 85025; 85379; 85384; 85610; 86705; 86709; 86803; 87086; 87340; 93005; 96361; 96374; J0696; J1265; J2270; J2405; J3430; J7030; J7042; P9045; P9046; 99285-25